=== PATIENT | female | born 1960 | race Caucasian/White ===

== ENCOUNTER 2019-01-28 15:33 | Emergency (ER) | payer OTHER ==
[~2019-01-28] VITALS: Ht 160 cm; Wt 72.6 kg
[~2019-01-28 15:33] MED LIST: AMITRIPTYLINE H25 MG PO; CELEXA40 MG PO; CLINDAMYCIN HC300 MG PO; COPAXONE40 MG/1 ML SUB-Q; FLOMAX0.4 MG PO; MYRBETRIQ25 MG PO; NORCO 5-325 TA1 EACH PO; PENICILLIN V P500 MG PO; PERCOCET 5-3251 EACH PO; PROAIR HFA8.5 GM INH; VOLTAREN-XR100 MG PO; VOLTAREN100 GM TOP; ZYRTEC10 M3 PO
--- OUTSIDE RECORDS SUMMARY | 2019-01-28 15:36 | XMS ---
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 Maximo has no Care Guidelines for this patient. Hilda VISIT COUNT (12 MO.) 1 KIM Garcia TOTAL 1 NOTE: Visits indicate total known visits. ED/UCC VISIT TRACKING (12 MO.) 01/28/2019 15:33 KIM Contreras OR TYPE: Emergency COMPLAINT: - RIGHT RIB PAIN, INJURY INPATIENT VISIT TRACKING (12 MO.) No inpatient visits to display in this time frame [email or web address]
[2019-01-28] MEDS ORDERED: AUBAGIO14 MG PO (15:45)
[2019-01-28] MEDS ORDERED: NORCO 5-325 TA1 EACH PO (16:52)
--- NOTE | 2019-01-29 12:01 | EKG ---
[facility] [address] [facility] [place] [address] Signed Normal sinus rhythm Nonspecific T wave abnormality Abnormal ECG No previous ECGs available Confirmed by BHARATH MANZO MD ([id number]) on 01/29/2019 12:01:16 PM Electronically Signed By: BHARATH MANZO MD 01/29/19 1201 PATIENT NAME: ALEXA BARRETT Electrocardiogram DATE OF : 58 PHYSICIAN: BHARATH MANZO MD REPORT #: [id number] REPORT IS CONFIDENTIAL AND NOT TO BE RELEASED WITHOUT AUTHORIZATION
== END 2019-01-28 17:39 | disposition home or self-care (01) ==
LOC: ED 15:33
DX: S22.39XA Fracture of one rib, unspecified side, initial encounter for closed fracture (principal); F17.200 Nicotine dependence, unspecified, uncomplicated; Z88.5 Allergy status to narcotic agent; Z88.6 Allergy status to analgesic agent; Z79.899 Other long term (current) drug therapy; X58.XXXA Exposure to other specified factors, initial encounter
CPT/HCPCS: 71045; 80053; 83735; 84484; 85025; 93005; 93010; 94640; 99285-25; 99406

== ENCOUNTER 2019-02-10 11:00 | Day surgery (SDC) | payer OTHER ==
[~2019-02-10] VITALS: Ht 160 cm; Wt 76.2 kg
[~2019-02-10 11:00] MED LIST changes: +AUBAGIO14 MG PO; +BUPROPION HCL150 M2 PO; +CHILDREN'S ASPI81 M1 PO; +METHOCARBAMOL750 MG PO; +ONDANSETRON ODT8 MG PO; +RIZATRIPTAN10 M1 PO; +SUDOGEST30 MG PO; +TOLTERODINE TART2 M1 PO; +TURMERIC500 M2 PO
--- NOTE | 2019-02-10 12:25 | NUR ---
02/10/19 [address] [facility],[place] [address]-PT ARRIVES TO PACU FROM ENDO ROOM AFTER MODSED BONE MARROW BX. PT LAYING ON STOMACH BUT TURNS TO BACK EASILY. VSS. SATS 100% ON 3 L VIA O2. BANDAID IN PLACE ON LOWER BACK C/D/I. PT DENIES NAUSEA AND REPORTS PAIN RELATED TO BROKEN RIBS PRIOR TO HOSPITAL ADMISSION
--- NOTE | 2019-02-12 17:25 | PATH ---
[facility] [address] [facility] [place], [place] [address] Signed SPECIMEN(S): C COMPREHENSIVE FLOW CYTOMETRY, BM EDTA SPECIMEN(S): A BONE MARROW - CORE SPECIMEN(S): B BONE MARROW - ASPIRATION CLINICAL HISTORY: 58-year-old woman with multiple rib fractures. Normal SPEP, CBC, ser. calcium. Evaluate for light chain only plasma cell dyscrasia. DIAGNOSIS SUMMARY: A. Peripheral blood - No significant abnormalities identified. B. Bone marrow, left, aspiration and core biopsy: - Normocellular bone marrow with mild relative granulocytic hyperplasia. - No morphologic or immunophenotypic evidence of a plasma cell neoplasm. - Mildly increased storage iron. - See Diagnostic Comment. DIAGNOSTIC COMMENT: Evaluation of this bone marrow specimen reveals a normocellular bone marrow with an estimated overall cellularity of 50%. An immunohistochemical stain highlights approximately 5% plasma cells that demonstrate polytypic light chain expression by in situ hybridization for kappa and lambda light chains. Concurrent flow cytometry also detected a small population of polytypic plasma cells. There is no evidence of a plasma cell neoplasm or lymphoma. and blasts are not increased. Cytogenetic analysis is pending, and the results will be issued by addendum. AIC:smn:C2NR PERIPHERAL BLOOD: HEMOGRAM ([facility]; 02/10/2019): WBC 4.9 K/uL, RBC 4.12 M/uL, HGB 12.0 g/dL, HCT 36.4%, MCV 88.5 fL, MCH 29 pg, MCHC 33 g/dL, RDW 13.9%, PLT 251 K/uL. MANUAL DIFFERENTIAL COUNT: Segmented neutrophils 56%, lymphocytes 34%, monocytes 6%, eosinophils 2%, basophils 2%. The red blood cells are present in normal number and are normochromic and normocytic with mild anisocytosis. There is no significant poikilocytosis, and red cell rouleaux formation is noted. The white blood cells are present in low normal number and are morphologically unremarkable. Circulating blasts are not identified. Platelets are present in normal number and morphology. PATIENT NAME: ALEXA BARRETT PATHOLOGY DATE OF : 58 REPORT #: [id number] PHYSICIAN: JENNIFFER CARVALHO PCP: JANIA HANKS MD REPORT IS CONFIDENTIAL AND NOT TO BE RELEASED WITHOUT AUTHORIZATION [facility] [address] [place], [place] [address] Signed BONE MARROW: BONE MARROW ASPIRATE SMEARS: The aspirate smears contain adequate cellularity for evaluation. There is a relative granulocytic hyperplasia, with a myeloid:erythroid ratio of 6.8:1. The erythroid precursors show normoblastic maturation, and the granulocytic precursors mature to segmented forms without dyspoiesis. Blasts are not increased. 3% plasma cells with predominantly mature morphology are identified. The megakaryocytes demonstrate variable morphology and are unremarkable. BONE MARROW DIFFERENTIAL COUNT: Blasts 1%, promyelocytes 2%, myelocytes 17%, metamyelocytes 19%, band neutrophils 14%, segmented neutrophils 19%, monocytes 4%, eosinophils 5%, lymphocytes 4%, plasma cells 3%, erythroid precursors 12%. Myeloid:erythroid ratio: 6.8:1. BONE MARROW CORE BIOPSY/ASPIRATE CELL BLOCK: The core biopsy reveals a normocellular bone marrow with an estimated overall cellularity of 50%. Prominent plasma cell aggregates are not identified. There is a focal lymphoid aggregate consisting predominantly of small mature lymphocytes. The megakaryocytes are present in normal number and are morphologically unremarkable. The clot section contains multiple particles with similar findings. SPECIAL STAINS: - Iron (aspirate smear): Increased storage iron, grade 3 of 4; negative for ring sideroblasts. - Iron (block B1): Scattered positivity. - Reticulin (block A1): Patchy mild reticulin fibrosis. The special stain controls react appropriately. IMMUNOHISTOCHEMICAL STAINS (blocks A1 and B1): - CD138: Highlights scattered plasma cells, estimated 5%. - CD20: Highlights several small B-cell aggregates and a few scattered interstitial B-cells. - PAX5: Highlights a fewer B-cells within lymphoid aggregates than T-cells. - CD3: Highlights several T-cell aggregates and scattered interstitial T-cells. - CD71: Highlight erythroid precursors with preserved colony architecture. IN SITU HYBRIDIZATION (blocks A1 and B1): - Olmito [place] Olmito: Highlights subset of plasma cells in a polytypic pattern. - Lambda: Highlights subset of plasma cells in a polytypic pattern. AIC:smn PATIENT NAME: ALEXA BARRETT PATHOLOGY DATE OF : 58 REPORT #: [id number] PHYSICIAN: JENNIFFER PATHOLOGY PCP: JANIA HANKS MD REPORT IS CONFIDENTIAL AND NOT TO BE RELEASED WITHOUT AUTHORIZATION [facility] [address] [place], [place] [address] Signed FLOW CYTOMETRY: Bone marrow, flow cytometry: - No monoclonal plasma cell population identified. - No increase in IC81-liicpfia blasts. - No monoclonal B-cell or aberrant T-cell population identified. - See Comment. COMMENT: Flow cytometry of this bone marrow specimen reveals no monoclonal plasma cell population, no increase in UB90-dyuolrjo blasts, or immunophenotypic evidence of a non-Hodgkin lymphoid neoplasm. Please note that the plasma cell population is typically underrepresented in flow cytometry. Final interpretation of these results requires correlation with morphologic and clinical findings. AIC:smn FLOW CYTOMETRY ANALYSIS: FLOW DIFFERENTIAL (% Total CD45 vs. SSC gating): Myeloid 80%; Lymphoid 11%; Monocyte 3%; Dim CD45/Blast 1.0%; Plasma Cells 0.4%. Cell Count: 9.9 x 10*3/uL. POPULATION ANALYSIS: BLASTS: Analysis of the dim CD45 gate demonstrates 1.0% myeloblasts by CD34/CD117. LYMPHOID CELLS: The lymphocyte gate comprises 11% of total events and includes 75% T-cells with a CD4:CD8 ratio of 1.6:1 and normal castrejon T-cell antigen expression. 11% of lymphocytes are B-cells with a kappa:lambda ratio of 1.5:1. The remainders in the lymphoid gate are NK cells. MYELOID CELLS: The myeloid population comprises 80% of the total events. No aberrant immunophenotypic expression is detected. MONOCYTES: The monocyte population comprises 3% of the total events. Monocytes are not increased. No aberrant immunophenotypic expression is detected. PLASMA CELLS: There is a noted clinical concern for plasma cell dyscrasia. For this reason, select additional antibodies are run to further characterize the plasma cells. 0.4% polytypic plasma cells are detected (n=208) expressing CD45 DIM-NEG, CD19 DIM (partial), CD38 BR, CD138 MOD and CD56 (minor subset) while negative for CD20. ANTIBODIES USED: KAPPA, LAMBDA, CD20, CD10, CD19, CD23, CD38, FMC7, CD16, CD56, CD8, CD5, CD2, CD4, CD7, CD3,CD14, CD33, CD13, HLADR, CD34, CD117, CD15, cKAPPA, cLAMBDA, CD138, CD45: TOTAL ANTIBODIES USED: 27. DKW FINAL DIAGNOSIS PERFORMED BY: Jessie White MD, Pathologist Feb 11 2019 2:28PM PATIENT NAME: ALEXA BARRETT PATHOLOGY DATE OF : 58 REPORT #: [id number] PHYSICIAN: JENNIFFER PATHOLOGY PCP: JANIA HANKS MD REPORT IS CONFIDENTIAL AND NOT TO BE RELEASED WITHOUT AUTHORIZATION [facility] [address] [place], [place] [address] Signed CYTOGENETICS: Pending, to be reported by addendum. GROSS DESCRIPTION: A. The specimen, received in formalin, labeled "Ion, bone core," consists of a 1.6 x 0.2 cm, moran bone core. Submitted in (A1) following decalcification in Immunocal for 1.5 hours. B. The specimen, received in formalin, labeled "Ion, clot," consists of a 1.5 x 1.4 x 0.2 cm aggregate of blood clot. Entirely submitted in (B1). tn:BMH:mrf ADDITIONAL NOTES: This test was developed and its performance characteristics determined by [facility]. It has not been cleared or approved by the US Food and Drug Administration. The FDA does not require this test to go through premarket FDA review. This test is used for clinical purposes. It should not be regarded as investigational or for research. This laboratory is certified under the Clinical Laboratory Improvement Amendments (CLIA) as qualified to perform high complexity clinical laboratory testing. Immunohistochemical and/or in situ hybridization studies were performed on this case with the appropriate positive controls that react as expected. This test was developed and its performance characteristics determined by [facility]. It has not been cleared or approved by the U.S. Food and Drug Administration. The FDA has determined that such clearance or approval is not necessary. This test is used for clinical purposes. It should not be regarded as investigational or for research. [facility] is certified under the Clinical Laboratory Improvement Amendments of 1988 (CLIA) as qualified to perform high complexity clinical laboratory testing. In this case, certain antibodies were performed by both immunohistochemistry and flow cytometry analysis because flow cytometry analysis did not fully explain all the light microscopic findings. Immunohistochemistry aided in the analysis. Both methods are deemed medically necessary in this case. PERFORMING LABORATORY: Professional interpretation was performed by [facility], [facility], [address] [place] [address] (Medical PATIENT NAME: ALEXA BARRETT PATHOLOGY DATE OF : 58 REPORT #: [id number] PHYSICIAN: JENNIFFER CARVALHO PCP: JANIA HANKS MD REPORT IS CONFIDENTIAL AND NOT TO BE RELEASED WITHOUT AUTHORIZATION [facility] [address] [place] [id number] Signed Director: Jv Parker M.D.; CLIA#: [id number]). Professional interpretation was performed by [facility], [facility], [address] [place] [address] ([employer]: Jv Parker M.D.; [facility]#: [id number]). IMAGES: [id number]: [id number]: [id number] Diagnostician: Jessie White MD Pathologist Electronically Signed 02/12/2019 Copies: ~ PATIENT NAME: ALEXA BARRETT PATHOLOGY DATE OF : 58 REPORT #: [id number] PHYSICIAN: JENNIFFER PATHOLOGY PCP: JANIA HANKS MD REPORT IS CONFIDENTIAL AND NOT TO BE RELEASED WITHOUT AUTHORIZATION
== END 2019-02-10 12:55 | disposition home or self-care (01) ==
LOC: OPS 11:00 → DS 11:02 → OPS 12:00 → DS 12:00 → OPS 12:55
PROVIDERS: Specialist
PROC: 079T3ZX Drainage of Bone Marrow, Percutaneous Approach, Diagnostic (ICD-10-PCS; 2019-02-10)
PROC: 07DR3ZX Extraction of Iliac Bone Marrow, Percutaneous Approach, Diagnostic (ICD-10-PCS; principal; 2019-02-10 12:00)
DX: C90.00 Multiple myeloma not having achieved remission (principal); D75.89 Other specified diseases of blood and blood-forming organs; M84.68XA Pathological fracture in other disease, other site, initial encounter for fracture; J45.909 Unspecified asthma, uncomplicated; G35 Multiple sclerosis; M19.90 Unspecified osteoarthritis, unspecified site; F17.210 Nicotine dependence, cigarettes, uncomplicated; Z88.5 Allergy status to narcotic agent
CPT/HCPCS: 80500; 82232; 83883; 85025; 85379; 85384; 85610; 85730; 99152; J2250; J3010

== ENCOUNTER 2019-03-05 15:29 | Emergency (ER) | payer OTHER ==
[~2019-03-05] VITALS: Ht 160 cm; Wt 75.8 kg
--- OUTSIDE RECORDS SUMMARY | ~2019-03-05 | XMS | Encounter Summary ---
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 [facility] | | | PROTEIN, | | | LABORATORY | | | PLASMA | | | SERVICES, | | | (LAB) | | | CORE | | + +---------+ + + + | ALBUMIN, | 3.8 | 3.5 - 4.7 g/dL | [facility] | | | PLASMA | | | LABORATORY | | | (LAB) | | | SERVICES, | | | | | | CORE | | + +---------+ + + + | ALK PHOS | 92 | 42 - 98 U/L | [facility] | | | | | | LABORATORY | | | | | | SERVICES, | | | | | | CORE | | + +---------+ + + + | AST(SGOT) | 10 | <=41 U/L | [facility] | | | | | | LABORATORY | | | | | | SERVICES, | | | | | | CORE | | + +---------+ + + + | ALT (SGPT) | 15 | <=60 U/L | [facility] | | | | | | LABORATORY | | | | | | SERVICES, | | | | | | CORE | | + +---------+ + + + | ANION GAP | 4 | 4 - 11 mmol/L | [facility] | | | | | | LABORATORY | | | | | | SERVICES, | | | | | | CORE | | + +---------+ + + + | ANION | 4 | 4 - 11 mmol/L | [facility] | | | GAP(ALB | | | LABORATORY | | | CORRECTED) | | | SERVICES, | | | | | | CORE | | + +---------+ + + + | POTASSIUM | No Hemo | | [facility] | | | CMNT | | | LABORATORY | | | | | | SERVICES, | | | | | | CORE | | + +---------+ + + + | BILI T CMNT | No Hemo | | [facility] | | | | | | LABORATORY | | | | | | SERVICES, | | | | | | CORE | | + +---------+ + + + | AST CMNT | No Hemo | | [facility] | | | | | | LABORATORY | | | | | | SERVICES, | | | | | | CORE | | + +---------+ + + + + + | Specimen | + + | Blood - Blood | | (substance) | + + + + + | Narrative | Performed At | + + + | GFR is estimated using the MDRD equation recommended by the | [facility] | | National Kidney Disease Education Program. Estimated GFR | LABORATORY | | Interpretive Information: <60 mL/min/1.73 sq m | SERVICES, CORE | | Chronic Kidney Disease <15 mL/min/1.73 sq m | | | Kidney Failure Estimated GFR greater than 60 mL/min/1.73 sq m is of | | | limited clinical value. The MDRD equation is not valid in the | | | following situations: - Patients under 18 years of age - Severe | | | malnutrition or obesity - Vegetarian diet - Rapidly changing kidney | | | function - Amputees, paraplegics, or other muscle-wasting diseses | | + + + + + + + + | Performing | Address | City/State/Zipcode | Phone Number | | Organization | | | | + + + + + | [facility] | [address] | [place] [address] | | | SERVICES, CORE | [address] | | | + + + + + documented in this encounter Visit Diagnoses + + | Diagnosis | + + | Multiple sclerosis (HCC) - Primary Multiple sclerosis | + + documented in this encounter"
--- OUTSIDE RECORDS SUMMARY | ~2019-03-05 | XMS | Encounter Summary ---
Demographics + + + | Address | [address] | | | [place] [address] | + + + | Home Phone | | + + + | Preferred Language | Unknown | + + + | Marital Status | | + + + | Taoist Affiliation | Unknown | + + + | Race | White | + + + | Ethnic Group | Not or | + + + Author + + + | Author | [facility] | + + + | Organization | [facility] | + + + | Address | Unknown | + + + | Phone | Unavailable | + + + Support + + +---------+ + | Name | Relationship | Address | Phone | + + +---------+ + | Klever Hsu | ECON | Unknown | | + + +---------+ + Care Team Providers + +------+ + | Care Hazmat Technician Name | Role | Phone | + +------+ + | Jose Alberto Jones MD | PCP | | + +------+ + Reason for Visit + + + | Reason | Comments | + + + | Refill Request | | + + + Encounter Details +--------+--------+ + + + | Date | Type | Department | Care Team | Description | +--------+--------+ + + + | 02/19/ | Refill | Neurology at | Kaitlynn Leyva, | Refill Request | | 2019 | | [facility] & | MD [address] | | | | | [address] | [place], [place] | | | | | [address] Wallace Mailcode: | [address] | | | | | [facility] | [phone] | | | | | Health and Healing, | | | | | | [facility] | | | | | | [place], [place] | | | | | | [address] | | | | | | [phone] | | | +--------+--------+ + + + Social History + +-------+ +--------+------+ | Tobacco Use | Types | Packs/Day | Years | Date | | | | | Used | | + +-------+ +--------+------+ | Current Some Day | | 1 | | | [...] + + documented as of this encounter Plan of Treatment +--------+---------+ + + + | Date | Type | Specialty | Care Team | Description | +--------+---------+ + + + | 04/05/ | Office | Thoracic Surgery | Antonio Kaur MD | | | 2018 | Visit | | [address] | | | | | | [address] | | | | | | [place], [place] | | | | | | [address] | | | | | | [phone] | | | | | | | | +--------+---------+ + + + | 04/26/ | Office | Neurology | Kaitlynn Leyva, | | | 2018 | Visit | | [address] | | | | | | [place], [place] | | | | | | [address] | | | | | | [phone] | | | | | | | | +--------+---------+ + + + documented as of this encounter Visit Diagnoses Not on filedocumented in this encounter"
--- OUTSIDE RECORDS SUMMARY | ~2019-03-05 | XMS | Encounter Summary ---
Demographics + + + | Address | [address] | | | [place] [address] | + + + | Home Phone | | + + + | Preferred Language | Unknown | + + + | Marital Status | | + + + | Jain Affiliation | Unknown | + + + | Race | White | + + + | Ethnic Group | Not or | + + + Author + + + | Author | [facility] | + + + | Organization | [facility] | + + + | Address | Unknown | + + + | Phone | Unavailable | + + + Support + + +---------+ + | Name | Relationship | Address | Phone | + + +---------+ + | Klevre Hsu | ECON | Unknown | | + + +---------+ + Care Team Providers + +------+ + | Care Applications Support Engineer Name | Role | Phone | + +------+ + | Jose Alberto Jones MD | PCP | | + +------+ + Encounter Details +--------+------+ + + + | Date | Type | Department | Care Team | Description | +--------+------+ + + + | 08/29/ | Lab | Laboratory at [facility] | | Multiple sclerosis | | 2016 | | [address] | | ([facility]); Restless legs | | | | [place], [place] | | | | | | [address] | | | | | | [phone] | | | +--------+------+ + + + Social History + +-------+ [...] | | 2018 | Visit | | [address] | | | | | | [address] | | | | | | [place], [place] | | | | | | [address] | | | | | | [phone] | | | | | | | | +--------+---------+ + + + | 04/26/ | Office | Neurology | Kaitlynn Leyva, | | | 2018 | Visit | | [address] | | | | | | [place], [place] | | | | | | [address] | | | | | | [phone] | | | | | | | | +--------+---------+ + + + documented as of this encounter Procedures + +--------+ + + + | Procedure Name | Priori | Date/Time | Associated Diagnosis | Comments | | | ty | | | | + +--------+ + + + | TSH W/REFLEX TO FREE | Routin | 08/30/2015 | Multiple sclerosis | Results for this | | T4(IF ABNORMAL) | e | 10:33 AM | (HCC) Restless | procedure are in the | | | | PDT | legs | results section. | + +--------+ + + + | VITAMIN D, | Routin | 08/30/2015 | Multiple sclerosis | Results for this | | 25-HYDROXY, SERUM | e | 10:33 AM | (HCC) Restless | procedure are in the | | | | PDT | legs | results section. | + +--------+ + + + | TRANSFERRIN | Routin | 08/30/2015 | Multiple sclerosis | Results for this | | | e | 10:33 AM | (HCC) Restless | procedure are in the | | | | PDT | legs | results section. | + +--------+ + + + | METHYLMALONIC ACID, | Routin | 08/30/2015 | Multiple sclerosis | Results for this | | SERUM | e | 10:33 AM | (HCC) Restless | procedure are in the | | | | PDT | legs | results section. | + +--------+ + + + | FERRITIN | Routin | 08/30/2015 | Multiple sclerosis | Results for this | | | e | 10:33 AM | (HCC) Restless | procedure are in the | | | | PDT | legs | results section. | + +--------+ + + + | FREE T4 | Routin | 08/30/2015 | Multiple sclerosis | Results for this | | | e | 10:33 AM | (HCC) Restless | procedure are in the | | | | PDT | legs | results section. | + +--------+ + + + | VITAMIN B-12 | Routin | 08/30/2015 | Multiple sclerosis | Results for this | | | e | 10:33 AM | (HCC) Restless | procedure are in the | | | | PDT | legs | results section. | + +--------+ + + + | IRON AND TIBC, SERUM | Routin | 08/30/2015 | Multiple sclerosis | Results for this | | | e | 10:33 AM | (HCC) Restless | procedure are in the | | | | PDT | legs | results section. | + +--------+ + + + documented in this encounter Results FREE T4 (08/30/2015 10:33 AM PDT) + +-------+ + + + | Component | Value | Ref Range | Performed | Pathologist | | | | | At | Signature | + +-------+ + + + | FREE T4 | 1.0 | 0.6 - 1.2 ng/dL | [facility] | | | | | | LABORATORY | | | | | | SERVICES, | | | | | | CORE | | + +-------+ + + + + + | Specimen | + + | Blood - Blood | | (substance) | + + + + + + + | Performing | Address | City/State/Zipcode | Phone Number | | Organization | | | | + + + + + | [facility] | [address] | [place] [address] | | | SERVICES, CORE | [address] | | | + + + + + VITAMIN B-12, SERUM (08/30/2015 10:33 AM PDT) + +-------+ + + + | Component | Value | Ref Range | Performed | Pathologist | | | | | At | Signature | + +-------+ + + + | VITAMIN B12 | 241 | 190 - 910 pg/ml | [facility] | | | | | | LABORATORY | | | | | | SERVICES, | | | | | | SPECIAL IMM | | | | | | + COAG | | + +-------+ + + + + + | Specimen | + + | Blood - Blood | | (substance) | + + + + + + + | Performing | Address | City/State/Zipcode | Phone Number | | Organization | | | | + + + + + | [facility] | [address] | [place] [address] | | | SERVICES, SPECIAL | [address] | | | | IMM + COAG | | | | + + + + + VITAMIN D, 25-HYDROXY, SERUM (08/30/2015 10:33 AM PDT) + + + + + + | Component | Value | Ref Range | Performed | Pathologist | | | | | At | Signature | + + + + + + | VITAMIN D | 94.6 (H) | 30 - 80 ng/mL | [facility] | | | 25 HYDROXY | | | LABORATORY | | | | | | SERVICES, | | | | | | CORE | | + + + + + + + + | Specimen | + + | Blood - Blood | | (substance) | + + + + + | Narrative | Performed At | + + + | Reference Interval: 0-18years: Deficiency: <20 ng/mL | [facility] | | Optimum level: >or=20 ng/mL | LABORATORY | | >18years: Deficiency: <20 | SERVICES, CORE | | ng/mL Insufficiency: 20-29 ng/mL | | | Optimum Level: 30-80 ng/mL High: | | | 81-150 ng/ml Toxic: >150 ng/mL | | | New method and performing lab effective 06/08/15. | | + + + + + + + + | Performing | Address | City/State/Zipcode | Phone Number | | Organization | | | | + + + + + | [facility] | [address] | [place] [address] | | | SERVICES, [facility] | [address] | | | + + + + + METHYLMALONIC ACID, SERUM (08/30/2015 10:33 AM PDT) + + + + + + | Component | Value | Ref Range | Performed | Pathologist | | | | | At | Signature | + + + + + + | METHYLMALON | 0.22Comment: | 0.00 - 0.40 | [facility] | | | IC ACID | INTERPRETIVE | umol/L | REG UNIV | | | | INFORMATION: MMA | | PTH - [facility] | | | | Serum/Plasma, | | | | | | | | | | | | Vitamin B12 Status | | | | | | Test developed and | | | | | | characteristics | | | | | | determined by [facility] | | | | | | Laboratories. See | | | | | | Compliance Statement B: | | | | | | [employer]/CSPerformed | | | | | | by [address] | | | | | | [address], [facility] [place] | | | | | | [address] | | | | | | [phone].[employer]Legallab. | | | | | | [employer], Alexis Dunbar, | | | | | | Hattie NEWSOME. Director | | | | + + + + + + + + | Specimen | + + | Blood - Blood | + + + + + + + | Performing | Address | City/State/Zipcode | Phone Number | | Organization | | | | + + + + + | [facility] | [address] | [place], [place] | | | UNIV PTH - [facility] | | [address] | | + + + + + TSH W/REFLEX TO FREE T4(IF ABNORMAL) (08/30/2015 10:33 AM PDT) + +-------+ + + + | Component | Value | Ref Range | Performed | Pathologist | | | | | At | Signature | + +-------+ + + + | TSH | 0.76 | 0.50 - 5.07 | [facility] | | | | | mIU/L | LABORATORY | | | | | | SERVICES, | | | | | | CORE | | + +-------+ + + + + + | Specimen | + + | Blood - Blood | | (substance) | + + + + + | Narrative | Performed At | + + + | TSH reference ranges are influenced by a variety of environmental | [facility] | | influences, age, gender and ethnicity. The supplied reference limits | LABORATORY | | are based on published values utilizing a similar TSH assay, and | SERVICES, CORE | | should be interpreted with caution. | | + + + + + + + + | Performing | Address | City/State/Zipcode | Phone Number | | Organization | | | | + + + + + | [facility] | [address] | [place] [address] | | | [address] | [address] | | | + + + + + TRANSFERRIN (08/30/2015 10:33 AM PDT) + +-------+ + + + | Component | Value | Ref Range | Performed | Pathologist | | | | | At | Signature | + +-------+ + + + | TRANSFERRIN | 228 | 200 - 400 mg/dL | [facility] | | | | | | LABORATORY | | | | | | SERVICES, | | | | | | CORE | | + +-------+ + + + + + | Specimen | + + | Blood - Blood | | (substance) | + + + + + | Narrative | Performed At | + + + | Test now performed at [facility]. New method effective 10/20/13. | [facility] | | | LABORATORY | | | [address] | + + + + + + + + | Performing | Address | City/State/Zipcode | Phone Number | | Organization | | | | + + + + + | [facility] | [address] | [place] [address] | | | [address] | [address] | | | + + + + + FERRITIN (08/30/2015 10:33 AM PDT) + + + + + + | Component | Value | Ref Range | Performed | Pathologist | | | | | At | Signature | + + + + + + | FERRITIN | 38 (L)Comment: Male and | 50 - 200 ng/mL | [facility] | | | | Female >18 years: | | LABORATORY | | | | <20 ng/mL: | | SERVICES, | | | | Consistant with iron | | CORE | | | | deficiency 21-50 | | | | | | ng/mL: Possible | | | | | | iron deficiency 51-99 | | | | | | ng/mL: Iron | | | | | | deficiency unlikely | | | | | | unless inflammation | | | | | | present or | | | | | | patient | | | | | | >65 years of age | | | | | | 100-200 ng/mL: | | | | | | Normal, not consistent | | | | | | with iron deficiency | | | | | | >200 ng/mL: If | | | | | | transferrin saturation | | | | | | >45%, consider | | | | | | hemochromatosis | | | | + + + + + + + + | Specimen | + + | Blood - Blood | | (substance) | + + + + + + + | Performing | Address | City/State/Zipcode | Phone Number | | Organization | | | | + + + + + | [facility] | [address] | [place] [address] | | | SERVICES, CORE | [address] | | | + + + + + IRON AND TIBC (08/30/2015 10:33 AM PDT) + +-------+ + + + | Component | Value | Ref Range | Performed | Pathologist | | | | | At | Signature | + +-------+ + + + | IRON | 116 | 30 - 160 ug/dL | [facility] | | | | | | LABORATORY | | | | | | SERVICES, | | | | | | CORE | | + +-------+ + + + | IRON BIND | 308 | 240 - 450 ug/dL | [facility] | | | CAP | | | LABORATORY | | | | | | SERVICES, | | | | | | CORE | | + +-------+ + + + | % | 38 | 20 - 50 % | [facility] | | | SATURATION | | | LABORATORY | | | TRANSFERRIN | | | SERVICES, | | | , | | | CORE | | + +-------+ + + + + + | Specimen | + + | Blood - Blood | | (substance) | + + + + + + + | Performing | Address | City/State/Zipcode | Phone Number | | Organization | | | | + + + + + | [facility] | [address] | [place] [address] | | | SERVICES, CORE | [address] | | | + + + + + documented in this encounter Visit Diagnoses + + | Diagnosis | + + | Multiple sclerosis (HCC) Multiple sclerosis | + + | Restless legs Restless legs syndrome (RLS) | + + documented in this encounter"
--- OUTSIDE RECORDS SUMMARY | ~2019-03-05 | XMS | Encounter Summary ---
Demographics + + + | Address | [address] | | | [place] [address] | + + + | Home Phone | | + + + | Preferred Language | Unknown | + + + | Marital Status | | + + + | Pentecostal Affiliation | Unknown | + + + | Race | White | + + + | Ethnic Group | Not or | + + + Author + + + | Author | [facility] | + + + | Organization | [facility] | + + + | Address | Unknown | + + + | Phone | Unavailable | + + + Support + + +---------+ + | Name | Relationship | Address | Phone | + + +---------+ + | Klever Hsu | ECON | Unknown | | + + +---------+ + Care Team Providers + +------+ + | Care Silicator Name | Role | Phone | + +------+ + | Jose Alberto Jones MD | PCP | | + +------+ + Encounter Details +--------+ + + + + | Date | Type | Department | Care Team | Description | +--------+ + + + + | 06/02/ | Telephone | Neurology at | Kaitlynn Leyva, | | | 2019 | | [facility] | MD [address] | | | | | Healing [address] | [place], [place] | | | | | [address] Mailcode: | [address] | | | | | [facility] | [phone] | | | | | Health and Healing, | | | | | | | | | | | | [place], [place] | | | | | | [address] | | | | | | [phone] | | | +--------+ + + + + Social History + +-------+ [...] [address] | | | | | | [place], [place] | | | | | | [address] | | | | | | [phone] | | | | | | | | +--------+---------+ + + + | 04/26/ | Office | Neurology | Kaitlynn Leyva, | | | 2018 | Visit | | [address] | | | | | | [place], [place] | | | | | | [address] | | | | | | [phone] | | | | | | | | +--------+---------+ + + + documented as of this encounter Visit Diagnoses Not on filedocumented in this encounter"
--- OUTSIDE RECORDS SUMMARY | ~2019-03-05 | XMS | Clinical Summary ---
Demographics + + + | Address | [address] | | | [place] [address] | + + + | Home Phone | | + + + | Preferred Language | Unknown | + + + | Marital Status | | + + + | Scientologist Affiliation | [id number] | + + + | Race | Unknown | + + + | Ethnic Group | Unknown | + + + Author + + + | Author | [facility] | | | and [place] | + + + | Organization | [facility] | | | and [facility] | + + + | Address | Unknown | + + + | Phone | Unavailable | + + + Support + + +---------+ + | Name | Relationship | Address | Phone | + + +---------+ + | Klever Hsu | ECON | Unknown | | + + +---------+ + Care Team Providers + +------+ + | Care Seismic Engineer Name | Role | Phone | + +------+ + | Jose Alberto Jones MD | PCP | | + +------+ + Allergies Not on File Medications Not on file Active Problems Not on file Encounters +--------+ + + + + | Date | Type | Specialty | Care Team | Description | +--------+ + + + + | 01/28/ | Imaging | Radiology | Jaron, | | | 2018 | Exam | | MD Hui | | +--------+ + + + + | 01/21/ | Imaging | Radiology | Provider, | | | 2018 | Exam | | Historical, MD | | +--------+ + + + + | 01/12/ | Imaging | Radiology | Provider, | | | 2019 | Exam | | Historical, MD | | +--------+ + + + + from Last 3 Months Family History + + +------+ + | Medical History | Relation | Name | Comments | + + +------+ + | Diabetes | Father | | | + + +------+ + | Cancer | Mother | | kidney | + + +------+ + + +------+--------+ + | Relation | Name | Status | Comments | + +------+--------+ + | Father | | | | + +------+--------+ + | Mother | | | | + +------+--------+ + Social History + +-------+ +--------+------+ | Tobacco Use | Types | Packs/Day | Years | Date | | | | | Used | | + +-------+ +--------+------+ | Current Every Day | | | | | | Smoker | | | | | + +-------+ +--------+------+ + + | Comments: 0.5 pack daily | + + + + + | Sex Assigned [...] recent travel history available. | + + Last Filed Vital Signs Not on file Plan of Treatment + + + + + | Health Maintenance | Due Date | Last Done | Comments | + + + + + | Vaccine: | | | | | Dtap/Tdap/Td (1 - | 9 | | | | Tdap) | | | | + + + + + | Cervical Cancer | | | | | Screening (Pap) | 0 | | | + + + + + | Vaccine: Zoster (1 | | | | | of 2) | 0 | | | + + + + + | Breast Cancer | | | | | Screening | 5 | | | + + + + + | Vaccine: Influenza | | | | | (#1) | 9 | | | + + + + + Procedures + +--------+ + + + | Procedure Name | Priori | Date/Time | Associated Diagnosis | Comments | | | ty | | | | + +--------+ + + + | XR CHEST 1 VIEW | Routin | 01/28/2019 | | Results for this | | | e | 0:00 PDT | | procedure are in the | | | | | | results section. | + +--------+ + + + | CT CHEST ABDOMEN | Routin | 01/21/2019 | | Results for this | | PELVIS W CONTRAST | e | 0:00 PDT | | procedure are in the | | | | | | results section. | + +--------+ + + + | NM BONE SCAN WHOLE | Routin | 01/12/2019 | | Results for this | | BODY | e | 0:00 PDT | | procedure are in the | | | | | | results section. | + +--------+ + + + from Last 3 Months Results XR Chest 1 Vw (01/28/2019 0:00 PDT) + + | Specimen | + + | | + + + + + | Narrative | Performed At | + + + | External films for comparison only | [facility] | | | | | No results will be in the chart. | | + + + + +---------+ + + | Performing | Address | City/State/Zipcode | Phone Number | | Organization | | | | + +---------+ + + | [facility] | | | | + +---------+ + + CT Chest Abdomen Pelvis w Contrast (01/21/2019 0:00 PDT) + + | Specimen | + + | | + + + + + | Narrative | Performed At | + + + | External films for comparison only | [facility] | | | | | No results will be in the chart. | | + + + + +---------+ + + | Performing | Address | City/State/Zipcode | Phone Number | | Organization | | | | + +---------+ + + | [facility] | | | | + +---------+ + + NM Bone Scan Whole Body (01/12/2019 0:00 PDT) + + | Specimen | + + | | + + + + + | Narrative | Performed At | + + + | External films for comparison only | [facility] | | | | | No results will be in the chart. | | + + + + +---------+ + + | Performing | Address | City/State/Zipcode | Phone Number | | Organization | | | | + +---------+ + + | [facility] | | | | + +---------+ + + from Last 3 Months Insurance + +--------+ +--------+ +---------+------+ | Payer | Benefi | Subscriber | Effect | Phone | Address | Type | | | t Plan | ID | neida | | | | | | / | | Dates | | | | | | Group | | | | | | + +--------+ +--------+ +---------+------+ | [employer] | PACIFI | [id number] | 05/19/19 | [phone] | | PPO | | | [employer] | | 19-Pre | 2 | | | | | E PSN | | sent | | | | | | PRIME | | | | | | | | CHOICE | | | | | | + +--------+ +--------+ +---------+------+ + +--------+ +--------+ + + | Guarantor Name | Accoun | Relation to | Date | Phone | Billing Address | | | t Type | Patient | of | | | | | | | | | | + +--------+ +--------+ + + | Danisha Lemon | Person | Self | [birth year] | [address] | | [address] | | 1961 | [phone] | [place] [address] | | | sky | | | 6 (Home) | | + +--------+ +--------+ + + Advance Directives Patient has advance care planning documents on file. For more information, please contact:[facility] [place] [address]"
--- OUTSIDE RECORDS SUMMARY | ~2019-03-05 | XMS | Clinical Summary ---
Demographics + + + | Address | [address] | | | [place] [address] | + + + | Home Phone | | + + + | Preferred Language | Unknown | + + + | Marital Status | | + + + | Islam Affiliation | 1008 | + + + | Race | Unknown | + + + | Ethnic Group | Unknown | + + + Author + + + | Author | [facility] | | | and [place] | + + + | Organization | [facility] | | | and [place] | [...] Team Providers + +------+ + | Care Route Aide Name | Role | Phone | + [...] +--------+ +---------+------+ | [employer] | PACIFI | [id number] | 05/19/19 | [phone] | | PPO [...] | 1961 | [phone] | [place] [address] | | | sky | | | 6 (Home) | | + +--------+ +--------+ + + Advance Directives Patient has advance care planning documents on file. For more information, please contact:[facility] [address]"
--- OUTSIDE RECORDS SUMMARY | ~2019-03-05 | XMS | Encounter Summary ---
Demographics + + + | Address | [address] | | | [place] [address] | + + + | Home Phone | | + + + | Preferred Language | Unknown | + + + | Marital Status | | + + + | Restorationism Affiliation | Unknown | + + + | Race | White | + + + | Ethnic Group | Not or | + + + Author + + + | Author | [facility] | + + + | Organization | [facility] | + + + | Address | Unknown | + + + | Phone | Unavailable | + + + Support + + +---------+ + | Name | Relationship | Address | Phone | + + +---------+ + | Klever Hsu | ECON | Unknown | | + + +---------+ + Care Team Providers + +------+ + | Care Bellhop Service Captain Name | Role | Phone | + +------+ + | Jose Alberto Jones MD | PCP | | + +------+ + Encounter Details +--------+ + + + + | Date | Type | Department | Care Team | Description | +--------+ + + + + | 08/03/ | Pharmacy | [facility] | | | | 2019 | Visit | [address] | | | | | | [facility] [address] | | | | | | [place] [address] | | | | | | [phone] | | | +--------+ + + + [...] [address] | | | | | | [place] | | | | | | [address] | | | | | | [phone] | | | | | | | | +--------+---------+ + + + | 04/26/ | Office | Neurology | Kaitlynn Leyva, | | | 2018 | Visit | | [address] | | | | | | [place] | | | | | | [address] | | | | | | [phone] | | | | | | | | +--------+---------+ + + + documented as of this encounter Visit Diagnoses Not on filedocumented in this encounter"
--- OUTSIDE RECORDS SUMMARY | ~2019-03-05 | XMS | Encounter Summary ---
Demographics + + + | Address | [address] | | | [place] [address] | + + + | Home Phone | | + + + | Preferred Language | Unknown | + + + | Marital Status | | + + + | Congregational Affiliation | Unknown | + + + | Race | White | + + + | Ethnic Group | Not or | + + + Author + + + | Author | [facility] | + + + | Organization | [facility] | + + + | Address | Unknown | + + + | Phone | Unavailable | + + + Support + + +---------+ + | Name | Relationship | Address | Phone | + + +---------+ + | Klever Hsu | ECON | Unknown | | + + +---------+ + Care Team Providers + +------+ + | Care Riding Instructor Name | Role | Phone | + +------+ + | Jose Alberto Jones MD | PCP | | + +------+ + Encounter Details +--------+ + + + + | Date | Type | Department | Care Team | Description | +--------+ + + + + | 12/02/ | Document-Sc | UNKNOWN DEPARTMENT | Unknown . | | | 2013 | anned | [address] | | | | | | [address] | | | | | | [place], [place] | | | | | | [address] | | | +--------+ + + + + Social History + +-------+ +--------+------+ | Tobacco Use | Types | Packs/Day | Years | Date | | | | | Used | | + +-------+ +--------+------+ | Never Assessed | | | | | + +-------+ +--------+------+ + + + | Sex Assigned at [...] | Office | Thoracic Surgery | Antonio Kuar MD | | | 2018 | Visit | | [address] | | | | | | [address] | | | | | | [place], [place] | | | | | | [address] | | | | | | [phone] | | | | | | | | +--------+---------+ + + + | 04/26/ | Office | Neurology | Kaitlynn Leyva | | | 2018 | Visit | | [address] | | | | | | [place], [place] | | | | | | [address] | | | | | | [phone] | | | | | | | | +--------+---------+ + + + documented as of this encounter Visit Diagnoses Not on filedocumented in this encounter"
--- OUTSIDE RECORDS SUMMARY | ~2019-03-05 | XMS | Encounter Summary ---
Demographics + + + | Address | [address] | | | [place] [address] | + + + | Home Phone | | + + + | Preferred Language | Unknown | + + + | Marital Status | | + + + | Sikhism Affiliation | Unknown | + + + | Race | White | + + + | Ethnic Group | Not or | + + + Author + + + | Author | [facility] | + + + | Organization | [facility] | + + + | Address | Unknown | + + + | Phone | Unavailable | + + + Support + + +---------+ + | Name | Relationship | Address | Phone | + + +---------+ + | Klever Hsu | ECON | Unknown | | + + +---------+ + Care Team Providers + +------+ + | Care Dip Filler Name | Role | Phone | + +------+ + | Jose Alberto Jones MD | PCP | | + +------+ + Encounter Details +--------+ + + + + | Date | Type | Department | Care Team | Description | +--------+ + + + + | 09/07/ | MyChart | Neurology at | Anali Shaikh, | RE: Test results | | 2014 | Encounter | [facility] & | [address] | | | | | [address] | | | | | [address] Mailcode: | [place], [place] | | | | | [address] | [address] | | | | | Health and Healing, | [phone] | | | | | | | | | | | Floor [place], [place] | | | | | | [address] | | | | | | [phone] | | | +--------+ + + + [...] | | 2018 | Visit | | [address] | | | | | | [address] | | | | | | [facility] [place] | | | | | | [address] | | | | | | [phone] | | | | | | | | +--------+---------+ + + + | 04/26/ | Office | Neurology | Kaitlynn Leyva, | | | 2018 | Visit | | [address] | | | | | | [place], [place] | | | | | | [address] | | | | | | [phone] | | | | | | | | +--------+---------+ + + + documented as of this encounter Visit Diagnoses Not on filedocumented in this encounter"
--- OUTSIDE RECORDS SUMMARY | ~2019-03-05 | XMS | Encounter Summary ---
Demographics + + + | Address | [address] | | | [place] [address] | + + + | Home Phone | | + + + | Preferred Language | Unknown | + + + | Marital Status | | + + + | Jehovah'S Witness Affiliation | Unknown | + + + | Race | White | + + + | Ethnic Group | Not or | + + + Author + + + | Author | [facility] | + + + | Organization | [facility] | + + + | Address | Unknown | + + + | Phone | Unavailable | + + + Support + + +---------+ + | Name | Relationship | Address | Phone | + + +---------+ + | Klever Hsu | ECON | Unknown | | + + +---------+ + Care Team Providers + +------+ + | Care Elevator Mechanic Name | Role | Phone | + +------+ + | Jose Alberto Jones MD | PCP | | + +------+ + Reason for Referral Diagnostic Testing (Routine) +--------+--------+ + + + + | Status | Reason | Specialty | Diagnoses / | Referred By | Referred To | | | | | Procedures | Contact | Contact | +--------+--------+ + + + + | Closed | | Radiology | Diagnoses | [facility], | [facility] | | | | | Multiple | Woodrow Ghotra DO | [address] | | | | | sclerosis | [address] | | | | | (HCC) | [address] | [address] | | | | | Procedures | [place], [place] | Mailcode: | | | | | MRI BRAIN | [address] | [address] | | | | | MULTIPLE | | [address] | | | | | SCLEROSIS | | Research | | | | | WWO CONTRAST | | Center | | | | | [place] MRI | | [facility] [place] | | | | | BRAIN COMBO | | [address] | | | | | | | Phone: | | | | | | | [phone] | | | | | | | Fax: | | | | | | | [phone] | +--------+--------+ + + + + Reason for Visit Diagnostic Testing (Routine) +--------+--------+ + + + + | Status | Reason | Specialty | Diagnoses / | Referred By | Referred To | | | | | Procedures | Contact | Contact | +--------+--------+ + + + + | Closed | | Radiology | Diagnoses | [facility]idi, | [facility] | | | | | Multiple | Woodrow R DO | [address] | | | | | sclerosis | [address] | | | | | (HCC) | [address] | Rd | | | | | Procedures | [place], [place] | Mailcode: | | | | | MRI BRAIN | [address] | [address] | | | | | MULTIPLE | | [address] | | | | | SCLEROSIS | | Research | | | | | WWO CONTRAST | | Center | | | | | [place] MRI | | [place], [place] | | | | | BRAIN COMBO | | [address] | | | | | | | Phone: | | | | | | | [phone] | | | | | | | Fax: | | | | | | | [phone] | +--------+--------+ + + + + Encounter Details +--------+ + + + + | Date | Type | Department | Care Team | Description | +--------+ + + + + | 10/03/ | Hospital | Diagnostic Imaging | | | | 2016 | Encounter | Services at [facility] | | | | | | [address] | | | | | | [place] Mailcode: | | | | | | [address] | | | | | | [facility] | | | | | | [place], [place] | | | | | | [address] | | | | | | [phone] | | | +--------+ + + + [...] + + documented as of this encounter Medications at Time of Discharge + + + +---------+ + + | Medication | Sig | Dispensed | Refills | Start | End Date | | | | | | Date | | + + + +---------+ + + | ALBUTEROL | Inhale 2 puffs as | | 0 | | | | (VENTOLIN INHL) | needed. | | | | | + + + +---------+ + + | citalopram 20 mg | Take 20 mg by mouth | | 0 | | | | oral tablet | once daily. | | | | | + + + +---------+ + + | diclofenac EC 75 | Take 75 mg by mouth | | 0 | | | | mg oral | two times daily. | | | | | | tablet,delayed | | | | | | | release (DR/EC) | | | | | | + + + +---------+ + + | dicyclomine 20 mg | Take 20-40 mg by | | 0 | | | | oral tablet | mouth once daily. | | | | | + + + +---------+ + + | mirabegron | Take 50 mg by mouth | | 0 | | | | (MYRBETRIQ) 50 mg | once daily at | | | | | | oral tablet extended | bedtime. | | | | | | release 24 hr | | | | | | + + + +---------+ + + | ondansetron ODT | Dissolve 1 tablet in | 20 | 11 | / | | | (ZOFRAN ODT) 8 mg | mouth every twelve | tablet | | 16 | | | oral | hours as needed. | | | | | | tablet,disintegratin | | | | | | | g | | | | | | + + + +---------+ + + | pseudoephedrine | Take 30 mg by mouth | | 0 | | | | (SUDAFED) 30 mg oral | every four hours as | | | | | | tablet | needed for | | | | | | | congestion. | | | | | + + + +---------+ + + documented as of this encounter Plan of Treatment +--------+---------+ + + + | Date | Type | Specialty | Care Team | Description | +--------+---------+ + + + | 04/05/ | Office | Thoracic Surgery | Antonio Kaur MD | | | 2018 | Visit | | [address] | | | | | | [address] | | | | | | [place], [place] | | | | | | [address] | | | | | | [phone] | | | | | | | | +--------+---------+ + + + | 04/26/ | Office | Neurology | Kaitlynn Leyva, | | | 2018 | Visit | | [address] | | | | | | [place], [place] | | | | | | [address] | | | | | | [phone] | | | | | | | | +--------+---------+ + + + documented as of this encounter Procedures + +--------+ + + + | Procedure Name | Priori | Date/Time | Associated Diagnosis | Comments | | | ty | | | | + +--------+ + + + | MRI BRAIN MULTIPLE | Routin | 10/04/2015 | Multiple sclerosis | Results for this | | SCLEROSIS WWO | e | 7:28 PM | (HCC) | procedure are in the | | CONTRAST | | PDT | | results section. | + +--------+ + + + documented in this encounter Results MRI BRAIN MULTIPLE SCLEROSIS WWO CONTRAST (10/04/2015 7:28 PM PDT) + + + + + + | Component | Value | Ref Range | Performed | Pathologist | | | | | At | Signature | + + + + + + | MR BRAIN | EXAM: MRI brain without | | | | | MULTIPLE | and with contrast, MS | | | | | SCLEROSIS | protocol HISTORY: MS | | | | | WWO | COMPARISON: 07/14/14 | | | | | CONTRAST | TECHNIQUE: MS protocol | | | | | | multiplanar | | | | | | multi-sequence MRI of | | | | | | the brain without | | | | | | andwith 14 mL Omniscan | | | | | | intravenous contrast. 3 | | | | | | Sultana MRI. FINDINGS: | | | | | | Brain: These images | | | | | | again demonstrate | | | | | | multiple periventricular | | | | | | and subcorticalT2 and | | | | | | flair hyperintense foci | | | | | | similar to prior | | | | | | examination. No | | | | | | acuteintracranial | | | | | | abnormality. No | | | | | | evidence of hemorrhage, | | | | | | mass, or | | | | | | acuteinfarction. The | | | | | | ventricles are normal in | | | | | | size and morphology. | | | | | | There is noabnormal | | | | | | enhancement. The major | | | | | | intracranial arterial | | | | | | flow voids are | | | | | | preserved. Soft tissues | | | | | | and marrow: | | | | | | UnremarkableFace and | | | | | | orbits: Visualized | | | | | | portions are | | | | | | unremarkableHypoplastic | | | | | | right maxillary antrum | | | | | | void mild | | | | | | circumferential mucosal | | | | | | thickening. IMPRESSION: | | | | | | Overall multiple | | | | | | supratentorial lesions | | | | | | in a patient with | | | | | | history ofdemyelinating | | | | | | disease. No abnormal | | | | | | enhancement to suggest | | | | | | acute demyelination. | | | | | | Attending Radiologists: | | | | | | KENNETH ALMARAZ MDAuthor: | | | | | | KENNETH ALMARAZ MD I | | | | | | personally reviewed the | | | | | | images and, if | | | | | | necessary, edited the | | | | | | report. I agreewith the | | | | | | report as now presented. | | | | | | | | | | | | Final/Electronically | | | | | | signed / KENNETH ALMARAZ | | | | | | 10/04/2015 21:22 PM | | | | + + + + + + + + | Specimen | + + | | + + + +---------+ + + | Performing | Address | City/State/Zipcode | Phone Number | | Organization | | | | + +---------+ + + | [facility] | | | | | RADIOLOGY | | | | + +---------+ + + documented in this encounter Visit Diagnoses + + | Diagnosis | + + | Multiple sclerosis (HCC) Multiple sclerosis | + + documented in this encounter"
--- OUTSIDE RECORDS SUMMARY | ~2019-03-05 | XMS | Encounter Summary ---
Demographics + + + | Address | [address] | | | [place] [address] | + + + | Home Phone | | + + + | Preferred Language | Unknown | + + + | Marital Status | | + + + | Rastafarian Affiliation | Unknown | + + + | Race | White | + + + | Ethnic Group | Not or | + + + Author + + + | Author | [facility] | + + + | Organization | [facility] | + + + | Address | Unknown | + + + | Phone | Unavailable | + + + Support + + +---------+ + | Name | Relationship | Address | Phone | + + +---------+ + | Klever Hsu | ECON | Unknown | | + + +---------+ + Care Team Providers + +------+ + | Care Marking Devices Assembler Name | Role | Phone | + +------+ + | Jose Alberto Jones MD | PCP | | + +------+ + Encounter Details +--------+ + + + + | Date | Type | Department | Care Team | Description | +--------+ + + + + | 11/16/ | Telephone | Neurology at | Anali Shaikh, | | | 2014 | | [facility] & | [address] | | | | | He[address] | | | | | [address] Mailcode: | [place], [place] | | | | | [address] [place] [address] | [address] | | | | | Health and Healing, | [phone] | | | | | | | | | | | Floor [place], [place] | | | | | | [address] | | | | | | [phone] | | | +--------+ + + + [...] | | 2018 | Visit | | [address] | | | | | | [address] | | | | | | [place], [place] | | | | | | [address] | | | | | | [phone] | | | | | | | | +--------+---------+ + + + | 04/26/ | Office | Neurology | Kaitlynn Leyva, | | | 2018 | Visit | | [address] | | | | | | [place], [place] | | | | | | [address] | | | | | | [phone] | | | | | | | | +--------+---------+ + + + documented as of this encounter Visit Diagnoses Not on filedocumented in this encounter"
--- OUTSIDE RECORDS SUMMARY | ~2019-03-05 | XMS | Encounter Summary ---
Demographics + + + | Address | [address] | | | [place] [address] | + + + | Home Phone | | + + + | Preferred Language | Unknown | + + + | Marital Status | | + + + | Spiritism Affiliation | Unknown | + + + | Race | White | + + + | Ethnic Group | Not or | + + + Author + + + | Author | [facility] | + + + | Organization | [facility] | + + + | Address | Unknown | + + + | Phone | Unavailable | + + + Support + + +---------+ + | Name | Relationship | Address | Phone | + + +---------+ + | Klever Hsu | ECON | Unknown | | + + +---------+ + Care Team Providers + +------+ + | Care Special Librarian Name | Role | Phone | + +------+ + | Jose Alberto Jones MD | PCP | | + +------+ + Encounter Details +--------+ + + + + | Date | Type | Department | Care Team | Description | +--------+ + + + + | 10/11/ | Telephone | Neurology at | Woodrow Murillo, | | | 2015 | | [facility] & | DO | | | | | Healing [address] | | | | | | [address] Mailcode: | | | | | | [facility] | | | | | | Health and Healing, | | | | | | Building | | | | | | Floor [place], [place] | | | | | | [address] | | | | | | [phone] | | | +--------+ + + + [...] | | 2018 | Visit | | [address] | | | | | | [address] | | | | | | [place], [place] | | | | | | [address] | | | | | | [phone] | | | | | | | | +--------+---------+ + + + | 04/26/ | Office | Neurology | Kaitlynn Leyva, | | | 2018 | Visit | | [address] | | | | | | [place], [place] | | | | | | [address] | | | | | | [phone] | | | | | | | | +--------+---------+ + + + documented as of this encounter Visit Diagnoses Not on filedocumented in this encounter"
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
--- OUTSIDE RECORDS SUMMARY | ~2019-03-05 | XMS | Encounter Summary ---
Demographics + + + | Address | [address] | | | [place] [address] | + + + | Home Phone | | + + + | Preferred Language | Unknown | + + + | Marital Status | | + + + | Church Affiliation | Unknown | + + + | Race | White | + + + | Ethnic Group | Not or | + + + Author + + + | Author | [facility] | + + + | Organization | [facility] | + + + | Address | Unknown | + + + | Phone | Unavailable | + + + Support + + +---------+ + | Name | Relationship | Address | Phone | + + +---------+ + | Klever Hsu | ECON | Unknown | | + + +---------+ + Care Team Providers + +------+ + | Care Non Acoustic Operator Name | Role | Phone | + +------+ + | Jose Alberto Jones MD | PCP | | + +------+ + Encounter Details +--------+ + + + + | Date | Type | Department | Care Team | Description | +--------+ + + + + | 02/24/ | Sprinkler Helper | Cardiothoracic | Yeyo Evans NP | Neuropathic pain | | 2019 | | Surgery at [facility] [address] | [address] | (Primary Dx) | | | | [address] | [place], [place] | | | | | Rd Mailcode: [address] | [address] | | | | | Physician's | [phone] | | | | | [place], | | | | | | [place] [address] | | | | | | [phone] | | | +--------+ + + + [...] Rd | | | | | | [place], [place] | | | | | | [address] | | | | | | [phone] | | | | | | | | +--------+---------+ + + + | 04/26/ | Office | Neurology | Kaitlynn Leyva, | | | 2018 | Visit | | [address] | | | | | | [place], [place] | | | | | | [address] | | | | | | [phone] | | | | | | | | +--------+---------+ + + + + + +--------+ + + | Name | Type | Priori | Associated Diagnoses | Order Schedule | | | | ty | | | + + +--------+ + + | SPIROMETRY BEFORE / | Pulmonary | Routin | Neuropathic pain | Expected: | | AFTER BRONCHODIL, | Function | e | | 02/25/2019, Expires: | | PULM FUNCTION LAB | | | | 03/27/2020 | + + +--------+ + + documented as of this encounter Visit Diagnoses + + | Diagnosis | + + | Neuropathic pain - Primary Neuralgia, neuritis, and radiculitis, unspecified | + + documented in this encounter"
--- OUTSIDE RECORDS SUMMARY | ~2019-03-05 | XMS | Encounter Summary ---
Demographics + + + | Address | [address] | | | [place] [address] | + + + | Home Phone | | + + + | Preferred Language | Unknown | + + + | Marital Status | | + + + | Church Affiliation | Unknown | + + + | Race | White | + + + | Ethnic Group | Not or | + + + Author + + + | Author | [facility] | + + + | Organization | [facility] | + + + | Address | Unknown | + + + | Phone | Unavailable | + + + Support + + +---------+ + | Name | Relationship | Address | Phone | + + +---------+ + | Klever Hsu | ECON | Unknown | | + + +---------+ + Care Team Providers + +------+ + | Care Machine Fancy Stitcher Name | Role | Phone | + +------+ + | Jose Alberto Jones MD | PCP | | + +------+ + Encounter Details +--------+ + + + + | Date | Type | Department | Care Team | Description | +--------+ + + + + | 12/06/ | Telephone | Neurology at | Anali Shaikh, | | | 2014 | | [facility] & | [address] | | | | | Healing [address] | | | | | [address] Mailcode: | [place], [place] | | | | | [address] [place] [address] | [address] | | | | | Health and Healing, | [phone] | | | | | | | | | | | Floor [place], [place] | | | | | | [address] | | | | | | [phone] | | | +--------+ + + + [...] | | 2018 | Visit | | [address] | | | | | | [address] | | | | | | [place], [place] | | | | | | [address] | | | | | | [phone] | | | | | | | | +--------+---------+ + + + | 04/26/ | Office | Neurology | Kaitlynn Leyva, | | | 2018 | Visit | | [address] | | | | | | [place], [place] | | | | | | [address] | | | | | | [phone] | | | | | | | | +--------+---------+ + + + documented as of this encounter Visit Diagnoses Not on filedocumented in this encounter"
--- OUTSIDE RECORDS SUMMARY | ~2019-03-05 | XMS | Encounter Summary ---
Demographics + + + | Address | [address] | | | [place] [address] | + + + | Home Phone | | + + + | Preferred Language | Unknown | + + + | Marital Status | | + + + | Sikh Affiliation | Unknown | + + + | Race | White | + + + | Ethnic Group | Not or | + + + Author + + + | Author | [facility] | + + + | Organization | [facility] | + + + | Address | Unknown | + + + | Phone | Unavailable | + + + Support + + +---------+ + | Name | Relationship | Address | Phone | + + +---------+ + | Klever Hsu | ECON | Unknown | | + + +---------+ + Care Team Providers + +------+ + | Care Director Nurses' Registry Name | Role | Phone | + +------+ + | Jose Alberto Jones MD | PCP | | + +------+ + Reason for Visit +--------+ + | Reason | Comments | +--------+ + | Other | PA Request Copaxone | +--------+ + Encounter Details +--------+ + + + + | Date | Type | Department | Care Team | Description | +--------+ + + + + | 04/18/ | Documentati | Neurology at | Anali Shaikh, | Venkata (LATRICE Request | | 2015 | on | [facility] & | MD [address] | [place]) | | | | Healing [address] | | | | | [address] Mailcode: | [place], [place] | | | | | [facility] | [address] | | | | | Health and Healing, | [phone] | | | | | Building | | | | | | Floor [facility] [place] | | | | | | [address] | | | | | | [phone] | | | +--------+ + + + [...] | Office | Thoracic Surgery | Antonio Karu MD | | | 2019 | Visit | | [address] | | | | | | [address] | | | | | | [place], [place] | | | | | | [address] | | | | | | [phone] | | | | | | | | +--------+---------+ + + + | 04/26/ | Office | Neurology | Kaitlynn Leyva, | | | 2018 | Visit | | [address] | | | | | | [place], [place] | | | | | | [address] | | | | | | [phone] | | | | | | | | +--------+---------+ + + + documented as of this encounter Visit Diagnoses Not on filedocumented in this encounter"
--- OUTSIDE RECORDS SUMMARY | ~2019-03-05 | XMS | Encounter Summary ---
Demographics + + + | Address | [address] | | | [place] [address] | + + + | Home Phone | | + + + | Preferred Language | Unknown | + + + | Marital Status | | + + + | Episcopal Affiliation | Unknown | + + + | Race | White | + + + | Ethnic Group | Not or | + + + Author + + + | Author | [facility] | + + + | Organization | [facility] | + + + | Address | Unknown | + + + | Phone | Unavailable | + + + Support + + +---------+ + | Name | Relationship | Address | Phone | + + +---------+ + | Klever Hsu | ECON | Unknown | | + + +---------+ + Care Team Providers + +------+ + | Care Red Hat Linux Engineer Name | Role | Phone | + +------+ + | Jose Alberto Jones MD | PCP | | + +------+ + Encounter Details +--------+ + + + + | Date | Type | Department | Care Team | Description | +--------+ + + + + | 08/03/ | Pharmacy | [facility] | | | | 2019 | Visit | [address] | | | | | | [facility] [address] | | | | | | [place] [address] | | | | | | [phone] | | | +--------+ + + + [...] Rd | | | | | | [place] | | | | | | [address] | | | | | | [phone] | | | | | | | | +--------+---------+ + + + | 04/26/ | Office | Neurology | Kaitlynn Leyva, | | | 2018 | Visit | | [address] | | | | | | [place] | | | | | | [address] | | | | | | [phone] | | | | | | | | +--------+---------+ + + + documented as of this encounter Visit Diagnoses Not on filedocumented in this encounter"
--- OUTSIDE RECORDS SUMMARY | ~2019-03-05 | XMS | Encounter Summary ---
Demographics + + + | Address | [address] | | | [place] [address] | + + + | Home Phone | | + + + | Preferred Language | Unknown | + + + | Marital Status | | + + + | Pentecostal Affiliation | Unknown | + + + | Race | White | + + + | Ethnic Group | Not or | + + + Author + + + | Author | [facility] | + + + | Organization | [facility] | + + + | Address | Unknown | + + + | Phone | Unavailable | + + + Support + + +---------+ + | Name | Relationship | Address | Phone | + + +---------+ + | Klever Hsu | ECON | Unknown | | + + +---------+ + Care Team Providers + +------+ + | Care Diesel Mechanic Construction Name | Role | Phone | + +------+ + | Jose Alberto Jones MD | PCP | | + +------+ + Encounter Details +--------+ + + + + | Date | Type | Department | Care Team | Description | +--------+ + + + + | 04/13/ | Procedure | Diagnostic Imaging | | | | 2018 | Pass | Services at [facility] | | | | | | [address] | | | | | | [place] Mailcode: | | | | | | [address] | | | | | | [facility] | | | | | | [place], [place] | | | | | | [address] | | | | | | [phone] | | | +--------+ + + + [...] Rd | | | | | | [place], [place] | | | | | | [address] | | | | | | [phone] | | | | | | | | +--------+---------+ + + + | 04/26/ | Office | Neurology | Kaitlynn Leyva, | | | 2018 | Visit | | [address] | | | | | | [facility] [place] | | | | | | [address] | | | | | | [phone] | | | | | | | | +--------+---------+ + + + documented as of this encounter Visit Diagnoses Not on filedocumented in this encounter"
--- OUTSIDE RECORDS SUMMARY | ~2019-03-05 | XMS | Encounter Summary ---
Demographics + + + | Address | [address] | | | [place] [address] | + + + | Home Phone | | + + + | Preferred Language | Unknown | + + + | Marital Status | | + + + | Mosque Affiliation | Unknown | + + + | Race | White | + + + | Ethnic Group | Not or | + + + Author + + + | Author | [facility] | + + + | Organization | [facility] | + + + | Address | Unknown | + + + | Phone | Unavailable | + + + Support + + +---------+ + | Name | Relationship | Address | Phone | + + +---------+ + | Klever Hsu | ECON | Unknown | | + + +---------+ + Care Team Providers + +------+ + | Care Speedboat Operator Name | Role | Phone | + +------+ + | Jose Alberto Jones MD | PCP | | + +------+ + Reason for Visit +--------+ + | Reason | Comments | +--------+ + | Other | Scan Document | +--------+ + Encounter Details +--------+ + + + + | Date | Type | Department | Care Team | Description | +--------+ + + + + | 07/16/ | Abstract | Neurology at | Kaitlynn Leyva, | Other (Scan | | 2019 | | [facility] & | MD [address] | Document) | | | | [address] | [place], [place] | | | | | [address] Mailcode: | [address] | | | | | [address] | [phone] | | | | | Health and Healing, | | | | | | [facility] | | | | | | [place], [place] | | | | | | [address] | | | | | | [phone] | | | +--------+ + + + [...] | | 2018 | Visit | | [address] | | | | | | [address] | | | | | | [place], [place] | | | | | | [address] | | | | | | [phone] | | | | | | | | +--------+---------+ + + + | 04/26/ | Office | Neurology | Kaitlynn Leyva, | | | 2018 | Visit | | [address] | | | | | | [place], [place] | | | | | | [address] | | | | | | [phone] | | | | | | | | +--------+---------+ + + + documented as of this encounter Visit Diagnoses Not on filedocumented in this encounter"
--- OUTSIDE RECORDS SUMMARY | ~2019-03-05 | XMS | Encounter Summary ---
Demographics + + + | Address | [address] | | | [place] [address] | + + + | Home Phone | | + + + | Preferred Language | Unknown | + + + | Marital Status | | + + + | Hindu Affiliation | Unknown | + + + | Race | White | + + + | Ethnic Group | Not or | + + + Author + + + | Author | [facility] | + + + | Organization | [facility] | + + + | Address | Unknown | + + + | Phone | Unavailable | + + + Support + + +---------+ + | Name | Relationship | Address | Phone | + + +---------+ + | Klever Hsu | ECON | Unknown | | + + +---------+ + Care Team Providers + +------+ + | Care Mortgage Loan Interviewer Name | Role | Phone | + +------+ + | Jose Alberto Jones MD | PCP | | + +------+ + Encounter Details +--------+------+ + + + | Date | Type | Department | Care Team | Description | +--------+------+ + + + | 07/27/ | Lab | [facility] at [facility] | | Multiple sclerosis | | 2019 | | [address] | | ([facility]) | | | | [place], [place] | | | | | | [address] | | | | | | [phone] | | | +--------+------+ + + + [...] [address] | | | | | | [facility] [place] | | | | | | [address] | | | | | | [phone] | | | | | | | | +--------+---------+ + + + | 04/26/ | Office | Neurology | Kaitlynn Leyva, | | | 2018 | Visit | | [address] | | | | | | [place], [place] | | | | | | [address] | | | | | | [phone] | | | | | | | | +--------+---------+ + + + documented as of this encounter Procedures + +--------+ + + + | Procedure Name | Priori | Date/Time | Associated Diagnosis | Comments | | | ty | | | | + +--------+ + + + | CBC AND AUTO DIFF | Routin | 07/27/2018 | Multiple sclerosis | Results for this | | | e | 1:23 PM | (HCC) | procedure are in the | | | | PDT | | results section. | + +--------+ + + + | CBC, WITH | Routin | 07/27/2018 | Multiple sclerosis | Results for this | | DIFFERENTIAL | e | 1:23 PM | (HCC) | procedure are in the | | | | PDT | | results section. | + +--------+ + + + | COMPLETE METABOLIC | Routin | 07/27/2018 | Multiple sclerosis | Results for this | | SET | e | 1:23 PM | (HCC) | procedure are in the | | (NA,K,CL,CO2,BUN,CRE | | PDT | | results section. | | AT,GLUC,CA,AST,ALT,B | | | | | | ISABEL TOTAL,ALK | | | | | | PHOS,ALB,PROT TOTAL) | | | | | + +--------+ + + + documented in this encounter Results CBC AND AUTO DIFF (07/27/2018 1:23 PM PDT) + + + + + + | Component | Value | Ref Range | Performed | Pathologist | | | | | At | Signature | + + + + + + | WHITE CELL | 11.15 (H) | 3.50 - 10.80 | [facility] | | | COUNT | | K/cu mm | LABORATORY | | | | | | SERVICES, | | | | | | [facility] | [facility] | | + + + + + + | RED CELL | 4.13 | 4.00 - 5.20 | [facility] | | | COUNT | | M/cu mm | LABORATORY | | | | | | SERVICES, | | | | | | [facility] | [facility] | | + + + + + + | HEMOGLOBIN | 12.4 | 12.0 - 16.0 | [facility] | | | | | g/dL | LABORATORY | | | | | | SERVICES, | | | | | | [facility] | | | | | | [facility] | | + + + + + + | HEMATOCRIT | 38.4 | 36.0 - 46.0 % | [facility] | | | | | | LABORATORY | | | | | | SERVICES, | | | | | | [facility] | | | | | | [facility] | | + + + + + + | MCV | 93.0 | 80.0 - 100.0 fL | [facility] | | | | | | LABORATORY | | | | | | SERVICES, | | | | | | [facility] | | | | | | [facility] | | + + + + + + | MCHC | 32.3 | 32.0 - 36.0 | [facility] | | | | | g/dL | LABORATORY | | | | | | SERVICES, | | | | | | [facility] | | | | | | [facility] | | + + + + + + | RDW SD | 42.9 | 35.1 - 46.3 fL | [facility] | | | | | | LABORATORY | | | | | | SERVICES, | | | | | | [facility] | | | [facility] | | [facility] | | + + + + + + | PLATELET | 293 | 150 - 400 K/cu | [facility] | | | COUNT | | mm | LABORATORY | | | | | | SERVICES, | | | | | | [facility] | | | [facility] | | [facility] | | + + + + + + | MPV | 9.9 | 9.7 - 12.3 fL | [facility] | | | | | | LABORATORY | | | | | | SERVICES, | | | | | | [facility] | | | | | | [facility] | | + + + + + + | NEUTROPHIL | 84.2 (H) | 50.0 - 70.0 % | [facility] | | | % | | | LABORATORY | | | | | | SERVICES, | | | | | | [facility] | | | | | | [facility] | | + + + + + + | LYMPHOCYTE | 11.8 (L) | 18.0 - 42.0 % | [facility] | | | % | | | LABORATORY | | | | | | SERVICES, | | | | | | [facility] | | | | | | [facility] | | + + + + + + | MONOCYTE % | 3.5 | 3.5 - 9.0 % | [facility] | | | | | | LABORATORY | | | | | | SERVICES, | | | | | | [facility] | | | | | | [facility] | | + + + + + + | EOS % | 0.3 (L) | 1.0 - 3.0 % | [facility] | | | | | | LABORATORY | | | | | | SERVICES, | | | | | | [facility] | | | | | | [facility] | | + + + + + + | BASO % | 0.2 | 0.0 - 2.0 % | [facility] | | | | | | LABORATORY | | | | | | SERVICES, | | | | | | [facility] | | | | | | [facility] | | + + + + + + | NEUTROPHIL | 9.39 (H) | 1.80 - 7.70 | [facility] | | | # | | K/cu mm | LABORATORY | | | | | | SERVICES, | | | | | | [facility] | | | | | | [facility] | | + + + + + + | LYMPHOCYTE | 1.32 | 1.00 - 4.80 | [facility] | | | # | | K/cu mm | LABORATORY | | | | | | SERVICES, | | | | | | [facility] | | | | | | [facility] | | + + + + + + | MONOCYTE # | 0.39 | 0.10 - 0.90 | [facility] | | | | | K/cu mm | LABORATORY | | | | | | SERVICES, | | | | | | [facility] + | | | | | | [facility] | | + + + + + + | EOS # | 0.03 | 0.00 - 0.50 | [facility] | | | | | K/cu mm | LABORATORY | | | | | | SERVICES, | | | | | | [facility] + | | | | | | [facility] | | + + + + + + | BASO # | 0.02 | 0.00 - 0.10 | [facility] | | | | | K/cu mm | LABORATORY | | | | | | SERVICES, | | | | | | [facility] + | | | | | | [facility] | | + + + + + + + + | Specimen | + + | Blood - Blood | | (substance) | + + + + + + + | Performing | Address | City/State/Zipcode | Phone Number | | Organization | | | | + + + + + | [facility] | [address] | [place] [address] | | | [facility] | | | | | HEALTH + HEALING | | | | + + + + + COMPLETE METABOLIC SET (NA,K,CL,CO2,BUN,CREAT,GLUC,CA,AST,ALT,BILI TOTAL,ALK PHOS,ALB,PROT TOTAL) [...] | | | LABORATORY | | | [facility] | | | SERVICES, | | | [...] [facility] | [address] | [place] [address] | | | SERVICES, CORE | [address] | | | + + + + + documented in this encounter Visit Diagnoses + + | Diagnosis | + + | Multiple sclerosis (HCC) Multiple sclerosis | + + documented in this encounter"
--- OUTSIDE RECORDS SUMMARY | ~2019-03-05 | XMS | Encounter Summary ---
Demographics + + + | Address | [address] | | | [place] [address] | + + + | Home Phone | | + + + | Preferred Language | Unknown | + + + | Marital Status | | + + + | Confucianist Affiliation | Unknown | + + + | Race | White | + + + | Ethnic Group | Not or | + + + Author + + + | Author | [facility] | + + + | Organization | [facility] | + + + | Address | Unknown | + + + | Phone | Unavailable | + + + Support + + +---------+ + | Name | Relationship | Address | Phone | + + +---------+ + | Klever Hsu | ECON | Unknown | | + + +---------+ + Care Team Providers + +------+ + | Care Embryology Teacher Name | Role | Phone | + +------+ + | Jose Alberto Jones MD | PCP | | + +------+ + Reason for Visit Office Visit - E/M Services (Routine) +--------+--------+ + + + + | Status | Reason | Specialty | Diagnoses / | Referred By | Referred To | | | | | Procedures | Contact | Contact | +--------+--------+ + + + + | Closed | | Neurology | Diagnoses | Chidi, | Domo, | | | | | Migraine, | Woodrow R, DO | Karen Pisano, ANP | | | | | unspecified, | [address] | [address] [facility] [address] | | | | | | [address] | [address] | | | | | intractable, | [place], [place] | [address] | | | | | without | [address] | [place], [place] | | | | | status | | [address] Phone: | | | | | migrainosus | | [phone] | | | | | Headache | | Fax: | | | | | Multiple | | [phone] | | | | | sclerosis | | | | | | | Procedures | | | | | | | IN NEW | | | | | | | PATIENT | | | | | | | LEVEL V | | | +--------+--------+ + + + + Encounter Details +--------+---------+ + + + | Date | Type | Department | Care Team | Description | +--------+---------+ + + + | 10/02/ | Office | Neurology at | Karen Oliveros, | Migraine with aura | | 2016 | Visit | [facility] & | ANP [address] [place] [address] | and without status | | | | Healing [address] | migrainosus, not | | | | [address] Mailcode: | [place] [address] | intractable (Primary | | | | [facility] | [phone] | Dx) | | | | and Healing, | | | | | | [address] | | | | | | [place], [place] | | | | | | [address] | | | | | | [phone] | | | +--------+---------+ + + + [...] + + + | Blood Pressure | 133/91 | 10/03/2015 1:12 PM | | | | | PDT | | + + + + + | Pulse | 98 | 10/03/2015 1:12 PM | | | | | PDT | | + + + + + | Temperature | - | - | | + + + + + | Respiratory Rate | 14 | 10/03/2015 1:12 PM | | | | | PDT | | + + + + + | Oxygen Saturation | - | - | | + + + + + | Inhaled Oxygen | - | - | | | Concentration | | | | + + + + + | Weight | 68 kg (150 lb) | 10/03/2015 1:12 PM | | | | | PDT | | + + + + + | Height | 160 cm (5' 3") | 10/03/2015 1:12 PM | | | | | PDT | | + + + + + | Body Mass Index | 26.57 | 10/03/2015 1:12 PM | | | | | PDT | | + + + + + documented in this encounter Patient Instructions Patient Instructions Domo AMBROSIO, Karen Pisano - 10/03/2015 1:43 PM PDTPlease reduce use of caff eine and Excedrin. Do not use your rescue medication for headache treatment more than 2-3 x week. Start with trial of magnesium or other vitamins list attached Caffeine and Migraine Panfilo Serrano MD, PhD and Panfilo Gamble MD Echeverria Points Caffeine affects pain. Acute treatment of headaches with caffeine is sometimes effective, but should be limited to not more than two days per week. For people who experience migraine, caffeine taken 3 or more days per week, for whatever re ason, may lead to dependency and increased migraine frequency. For those who have frequent headaches, avoidance of all caffeine is ideal, and at least unt il improvement in headache frequency is seen. Migraine patients often report that a strong cup of coffee can stop some attacks. This is n ot surprising to hear. Caffeine is a echeverria active ingredient in many headache medications incl uding ExcedrinTM, AnacinTM, MidolTM, Darvon CompoundTM, FioricetTM, and MigranalTM. Caffeine may aid in the body's absorption of these medicines, but can caffeine itself relieve headac hes? Few research studies have examined this question, but the answer appears to be yes. Caf feine can provide some headache relief. For example, one small controlled study found that c affeine was better than placebo, and as good as acetaminophen, in relieving tension-type hea daches. So why not just treat your headaches with coffee? Unfortunately, caffeine's effects on the brain can vary tremendously depending upon how often you use it. With occasional use, it may provide modest acute headache relief as well as its characteristic satisfying sense of aler tness and well-being. However, with daily or near daily caffeine exposure, the brain may dev elop a tolerance for the drug. This means, a given dose becomes less effective with repeated use. Dependency develops when the brain expects that an additional dose of caffeine will be coming soon. If that caffeine expectation is unmet, a withdrawal syndrome results which in cludes headache itself as a prominent symptom, along with fatigue, trouble concentrating, na usea, and other symptoms suggestive of migraine. An example of this withdrawal syndrome may be the "weekend migraine", where attacks tend to occur on Saturdays or Sundays associated w ith "sleeping in" and delaying the morning cup of coffee,. We don't fully understand the mechanisms underlying the different effects of caffeine on th e brain. However, the specific targets of action of caffeine in the brain and nerves outside the brain are known. Caffeine affects the activity of a naturally occurring and necessary b rain substance called adenosine. Adenosine levels in the blood go up during migraine attacks . Furthermore, adenosine when injected into a vein can trigger migraine attacks. Adenosine i s widely available in the brain and can produce many effects including less brain electrical activity, temporary widening of blood vessels, and control of some aspects of sleep and mov ement. Adenosine acts by sticking to specific receptor molecules on the surfaces of some bra in cells. Caffeine can block the action of these receptors and thereby stop the effects of a denosine. We do not know how these effects of caffeine result in acute anti-migraine and sheridan n control actions. In daily caffeine users, caffeine has less of an effect on brain action and blood vessel si ze. Caffeine withdrawal may lead to a significant increase in blood flow in the brain. This is due to an increase in blood vessel size as a result of stretching or dilation. These certified breastfeeding educator lissa effects of caffeine are likely a result of changes in the numbers, types and change in f unction of adenosine receptors active on brain cells. These changes may contribute to caffei ne tolerance and dependency. Caffeine is the world's most popular drug and coffee possibly second most valuable product after oil. Up to 90% of Americans of all ages consume some caffeine daily with more than 50% consuming coffee daily. More than 50% average 300mg per day with an average daily dosage fo r all consumers of about 200mg. One report estimates nearly 95% of [place] s population con sumes caffeine daily, whereas only about 63% of [place] adults do so. The average dietary c affeine consumption in some [place] countries is more than 400 mg per person per day. I t is not hard to reach 200-300mg of caffeine daily since a standard 8-ounce cup of coffee ma de by the Italian drip method contains between 125 and 250mg of caffeine. A 12-ounce can of Coca Cola contains 34mg. Also, the usual cup of coffee for many individuals is often actually 12 or even 16 ounces and sometimes more. Do not underestimate the power or potency of caffeine. Caffeine dependency can occur after as little as 7 days of exposure. 100mg per day can sustain dependency. In fact, many individ uals can avoid caffeine withdrawal symptoms by as little as 25mg - the equivalent of about 2 tablespoons of most "gourmet" coffees. Carefully controlled studies show that caffeine dose s as low as about 10mg can be reliably noticed by particularly sensitive people. These studi es also show that more than 30 percent of people can feel the effects of 18mg or less. Is "decaf" coffee OK? According to a [place] Department of Agriculture rule, 97.5 % of caffeine must be removed from coffee in order for it to be called decaffeinated. Therefore, the start ing potency of coffee is very relevant to the final potency of decaf. [facility] researchers have measured up to 6.9 mg caffeine per 8 oz of Starbucks brewed decaffeinated c offee and up to 15.8 mg caffeine per 1 oz shot of Starbucks decaffeinated espresso. So only a couple of cups of decaf a day might still have a considerable effect on some people. Studies of caffeine dependency and tolerance show that daily caffeine users are actually mo re motivated to consume it to avoid withdrawal symptoms, than to experience the lift that it s stimulant properties may provide. Caffeine's combination of a punishing syndrome of withdr awal, along with a rewarding sense of wakefulness, has made coffee, tea, and chocolate, some of humanity's best-loved foods. One might say that caffeine-producing plants have succeeded in motivating humans to cultivate them widely and with very great care. Not everyone consuming daily caffeine is equally likely to develop dependency and withdrawa l syndrome. Studies indicate that genetics make some people more likely than others. Scienti sts do not know whether the inherited tendency to experience caffeine withdrawal syndrome re lates to the genetic factors that cause migraine. However, chronic daily headache (CDH) adrien ents are much more likely to use daily dietary caffeine and/or prefer caffeine-containing he adache medications. Moreover, people who occasionally experience migraine attacks are at a h igher risk of developing CDH when they also consume caffeine daily too. In one study, consum ers of 100mg caffeine daily had nearly 3 times higher likelihood of developing CDH than thos e drinking less. This association is particularly notable for young women - a group already at greater risk for migraine and the march or progression to daily headache. In summary, caffeine may lead to the development of medication-overuse headache (so-called "rebound" headache). As such, patients should limit caffeine use as recommended for other ac ivanof bay medications for migraine. This use should not exceed two days per week. The unwelcome ne ws is that patients with a history of severe or chronic migraine should consider eliminating caffeine entirely, at least for several months. This typically needs to be done with remova l of other overused painkillers and the addition of further preventive management of headach e. Removing caffeine alone is rarely enough to solve the problem. For patients with high aleena ly caffeine intake, this reduction in use should be achieved over a gradual taper of days or even weeks to limit the impact of withdrawal syndrome. If you elect removal in a "cold turk ey" manner, you may suffer severe migraine attacks which are more difficult to bring under c ontrol. Once migraine attacks are no longer frequent, caffeine might be reintroduced, but li mited to no more than two days per week, if at all. For some people, it seems that any amoun t of caffeine can trigger or worsen migraine. A headache log or diary helps to determine if resuming caffeine leads to more headaches. It is important to emphasize that caffeine consumption is rarely the sole 'cause' of freque nt headaches including migraine. However, it is a modifiable risk factor, unlike many other unavoidable migraine triggers. Caffeine is often a significant and overlooked contributor to the problem of frequent and chronic daily headache. Migraine sufferers should use caffeine less frequently or remove it entirely as one component of a program of therapies for success - and it requires no prescription. Panfilo Serrano MD, PhD, Professor of Neurology, [facility], [place]; and Panfilo Gamble MD, Nuclear Reactor Engineer and Director of the [facility] , [place], [place]. Your Support CAN Make The Difference Join Us and Donate to the 36 Million Migraine Campaign! You may be one of 36 million Americans with migraine. If all of us donated just one dollar - for ourselves or for someone we know or love who has migraine - we can raise $36 million. So little can and will do so much! Please support the 36 Million Migraine Campaign today! Please communicate by [employer] if a referral has been made and you have not been contacted w dana 10 . _x__Acupuncture uses tiny needles to stimulate specific points located near the surface of the skin to relieve pain, reduce inflammation and restore the body s balance. A 2005 aurora dy in the [place] [employer] journal showed that people who received 12 acupuncture treatments over the course of 2 months had headache relief during treatment and for several [facility]. ___Aerobic Exercise like daily walking or swimming improves mood and reduces pain. Focus o n activities you CAN do, not what you CANNOT do. Exercise 1 hour a day for weight loss; papa d and move often, don t sit. A physical therapy referral may be made. _x__Apply ice or moist heat packs to reduce pain. Use 20 minutes 3 x day or more often as needed. ___Botox injections may be considered for chronic headache of more than 15 headache days pe r month. The results of Phase 3 Research Evaluating Migraine Prophylaxis Therapy (PREEMPT) trials showed that after 12 months, 70% of those treated with Botox had 50% less migraine h eadaches. ___Chiropractic or Osteopathic manipulation for realignment of bones and muscles to reduce pain; works best with a program of regular exercise to strengthen and stretch the muscles. _x__Dietary changes and healthy weight reduces headaches. Obesity does not cause migraines , but it promotes headache frequency ([place] Headache Society 2013). Seek a diet LOW in p rocessed foods, animal products and simple sugars and HIGH in vegetables, fruits and whole g rains. Supplements, like Green Vibrance, contain green super foods and trace nutrients can help each cell function at peak efficiency. https://www.CytoPherx.SoundTag/green-vibrance/pro duct-pages/green-vibrance/Guidance from a registered dental assistant rda may be helpful. ___Goal Setting for healthy behaviors is an important piece to solving your pain puzzle. I t may take weeks to months for you to form a new habit and repetition matters. A goal shoul d be realistic, specific and obtainable. ___Journal or start a headache diary to look for patterns and triggers. Please note your p ain location, length of headache, headache triggers, quality and intensity of pain and other symptoms like nausea, vomiting or vision disturbance. ___Managing your emotional health is important, as chronic pain moves from the brain s pa in center to the emotional center over time. Improving your emotional health improves your ability to manage your pain, in fact, 30-60% of all patients who use biofeedback, relaxation , or cognitive-behavioral therapy have many fewer headaches than before they started. A refe rral to a mental health professional may be needed (ACHEnet.org). ___Massage therapy increases blood flow to muscles and promotes relaxation and healing. Ma ssage tools, like using tennis balls or tools like the Back Oziel, can be helpful for self m assage. A blend of essential oils may used for massage or aromatherapy. ___Medical Devices may be considered; TENS unit for neck pain or Cefaly or transcranial mag netic stimulation (like Eneura) for headache. Cefaly Unit is an FDA approved medical record assistant for use in helping to reduce migraine occurrences. Cefaly has been approved for use in adul ts 18 years of age and older. Side effects include: sedation, intolerance to the feeling of the unit on the skin, or allergic skin reaction to the electrodes. http://www.cefaly.us/ __x_Medications include medications to treat headaches as they occur. Preventative medicat ions, like anti-seizure and anti-depressant medications have been shown to decrease pain by affecting the brain s interpretation of pain. Herbal medications or dietary supplements m ay be helpful. Medications are not a replacement for healthy behaviors and regular exercise , but may be useful additions to your care plan. ___Meditation or relaxation techniques help your body and mind relax. Consider a personal 30 day challenge to meditate 20 minutes daily. A 2011 study from the [facility] showed a 40% reduction in pain intensity and 57% less distress from pain while mediating. Timi Menendez at Actualized.org has excellent videos on meditation, including the "Do Nothing" and "Mindfulness" approach. _x__Pain creams reduce pain. Apply a small amount 3 x day to painful areas using gentle leo f massage. Do not apply immediately after heat. ___Pet therapy by stroking, hugging, or otherwise touching a loving animal; this rapidly ca lms and soothes us when we re stressed or anxious. ___Social Support from friends, family, support groups, denominational organizations or communNovoED centers may be helpful. Use your social network to generate enthusiasm or find others to start making healthy changes with you. ___Sleep hygiene is used to maintain a regular sleep pattern. A good night s sleep helps reduce chronic pain, from Sleepfoundation.org. A referral to a sleep medicine provider may be needed. _x__ Stretch your neck, shoulders, and back 3 x day. Correct posture and use good body mech anics to prevent further muscle strain or injury. A physical therapy referral may be made. ___Sun Touch Plus Light and Ion Therapy/Prescription Strength 10,000 LUX Light Therapy. Use the briceno of a blue guevara to help you through the day with the Sun Touch Plus Light and Ion Therapy. This light therapy lamp produces a 10,000 LUX light, designed to boost your mood an d energy by mimicking the effects of a alice guevara. Meanwhile, negative ion therapy brings you the positive properties of nature's most calming scenes. The Sun Touch Plus emits a healing 17,000-Tariq UV-free light, which is equivalent to blue guevara light in [place]. ___Trigger point injections/occipital nerve blocks are done by injecting a small amount of numbing medication to painful points. These work best when combined with home stretching an d strengthening. ___Workplace ergonomics evaluation to examine your interaction with your work space. Resources: Timi Menendez at http://actualized.org/ for meditation, self help, and inspiration Several excellent videos on meditation- including the "Do Nothing" meditation technique. [facility]ative Medicine for handouts/podcasts on migraines and other h ealth topics at https://www.fammed.[facility].edu/integrative Migraine Foundation at http://www.americanmigrainefoundation.org Italian Headache Society at http://www.americanheadachesociety.org/ [place] Academy of Neurology at https://www.aan.com/ Super Better by Laly Bae- a book about gamefulness, this means using psychological st rengths you have when you play games- like, courage, determination, optimism- to increase re silience in your real life. She also has a videos on TITA Talks. TITA Talks- at [employer]- devoted to Ideas Cherokee Spreading; a variety of health topics. WHY SELF CARE IS SO IMPORTANT! By Karime Banks http://Xcerion/neh-uimx-atdm-em-gz-tyajgffrz-4754393065 Look for the "FCI" fernando to show that a supplement has been tested by an outside lab to ensu re quality improvement engineer. Supplements shown to help with headache prevention: Magnesium (oxide, gluconate, glycinate or aspartate) 400-600 mg per day. Other types cause diarrhea. May also be taken 200-400 mg for abortive therapy of headaches. Riboflavin/B2: 400 mg per day (may take it 200 mg two times per day) Feverfew 50-300 mg two times per day Co Q 10- 150mg day Fish oil/olive oil. Fish oil: 756 mg qd EPA; 498 mg qd DHA and olive oil 1,382 mg oleic aci d daily L-arginine 1000mg day- take daily for chronic tension type headache and may be used with ib uprofen or naproxen as needed for migraine headache . Arginine is one of 20 amino acids, the building blocks of protein. Arginine can serve as a source of energy, and is involved in various pathways throughout the body. Arginine support s the effect of exercise and is one of the most important amino acids involved in immune fun ction. Adults can take one caplet daily. Avoid if low blood pressure. For complete informat ion see: http://www.webmd.com/vitamins-supplements/bryytsgjfssygr-221-p-arginine.aspx?activeingredie aiyp=559&activeingredientname=l-arginine Migraine Supplements. There are compaines that package more than one of the above vitamins/ supplements into a single pill. Some are available directly from morgue technician, but most are available from vitamin catalogues or websites: Dolovent - Info available at www.Dolovent.SoundTag (multivitamin with extra B2, Magnesium, Coenz yme Q10) HeadacheFree - www.headachefreevitamins.com (multivitamin, but with higher amounts of B2 an d magnesium) MigreLief - www.migralief.com (contains B2, magnesium and feverfew) Migramin - www.migramin.com (contains B2, magnesium, organic feverfew in separate capsules, prepackaged in daily pill packs) Ausinal Nasal Foley (Ausinal.SoundTag) Capsaicin based nasal spray, used for migraine, cluster h eadache and atypical facial pain. If the sting is worse than the headache pain, then stop t he medication. There is no risk of rebound headache with this approach. Additionally: Acupuncture, cognitive behavior therapy, biofeedback, aerobic exercise and is ometric neck exercises are non medical treatments that have been shown to be useful in heada augustine treatment and prevention. There are also some studies supporting a gluten-free diet in t he reduction of headaches. You may boost the effectiveness of abortive medications, such as a "triptan", by adding: herbal supplements a large cup coffee sodium naprosyn/other NSAID/anti inflammatory medication as directed by the morgue technician anti-histamine such as promethazine (which also helps with nausea) or OTC benadryl as direc tita by the morgue technician Detailed supplement information can be found at: Http://www.fammed.[facility].edu/integrative/resources/modules/headaches/ You can check their migraine handout and arthritis handout for detailed listing of other mtz pplements to help with inflammation, dietary changes and headache. documented in this encounter Progress Notes Domo AMBROSIO, Karen Pisano - 10/03/2015 12:59 PM PDTFormatting of this note might be different fro m the original. Department Name History & Physical Pt. Name/Age/: Danisha Lemon / 54 y.o. /1960 Date of Consultation: 10/03/2015 Primary Care Physician: Jose Alberto Jones MD Patient Identification: Danisha Lemon is a 54 year old woman, from [place] presenting fo r evaluation of migraine with aura, not intractable, referred by Dr. Murillo, neurology, [place] dept. She is accompanied by: her mother. She has past medical history significant for heada augustine since 1988, RRMS/ remains on copaxone, RLS, Chronic pain: Low back pain since last 10 yr and worse in last 6 months ( X ray, Rxd with Voltaren; has seen medical grade shoemaker for back sheridan n ), neck pain since 2006, paresthesia, IBS symptoms, anemia (takes one tablet iron in AM) a nd kidney stones. She has routine MRI of brain and spine upcoming for monitoring on copax one and has symptoms of Lhermitte sign, fatigue and memory disturbance. FH: mother with headache/aura. Her goal for today's visit: to reduce headache. She had a increase in amitriptyline for sleep/pain made last month and is taking 75mg PO Q HS, withou t much change to headache pattern but is sleeping better. History of Present Illness: Headaches: started in 1989, around period of a Lyme disease type illness, with gradual wors ening over time. They now occur at 5-6 severe headaches each week. They last up to 2 hours- all day. She takes excedrin migraine/voltarin daily (she has been using them daily x 6 mino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
--- OUTSIDE RECORDS SUMMARY | ~2019-03-05 | XMS | Encounter Summary ---
Demographics + + + | Address | [address] | | | [place] [address] | + + + | Home Phone | | + + + | Preferred Language | Unknown | + + + | Marital Status | | + + + | Yazidi Affiliation | Unknown | + + + | Race | White | + + + | Ethnic Group | Not or | + + + Author + + + | Author | [facility] | + + + | Organization | [facility] | + + + | Address | Unknown | + + + | Phone | Unavailable | + + + Support + + +---------+ + | Name | Relationship | Address | Phone | + + +---------+ + | Klever Hsu | ECON | Unknown | | + + +---------+ + Care Team Providers + +------+ + | Care Middleware Architect Name | Role | Phone | + [...] Closed | | Radiology | Diagnoses | [place], | [facility] | | | | | MS | Kaitlynn Schilling, | [address] | | | | | (multiple | MD [address] | | | | | sclerosis) | [address] | [address] | | | | | (HCC) | [facility] [place] | Mailcode: | | | | | Procedures | [id number] | [address] | | | | | MRI SPINE | Phone: | [place] | | | | | CERVICAL WWO | [phone] | Research | | | | | CONTRAST | Fax: | Center | | | | | [place] MRI, CERV | [phone] | [facility] [place] | | | | | SPINE COMBO | | [address] | | | | | | | Phone: | | | | | | | [phone] | | | | | | | Fax: | | | | | | | [phone] | +--------+--------+ + + + + Reason for Visit Diagnostic Testing (Routine) +--------+--------+ + + + + | Status | Reason | Specialty | Diagnoses / | Referred By | Referred To | | | | | Procedures | Contact | Contact | +--------+--------+ + + + + | Closed | | Radiology | Diagnoses | [place], | [facility] | | | | | MS | Kaitlynn Schilling, | [address] | | | | | (multiple | MD [address] | [address] | | | | | sclerosis) | [address] | [address] | | | | | (HCC) | [place], [place] | Mailcode: | | | | | Procedures | [id number] | [address] | | | | | MRI SPINE | Phone: | [place] | | | | | CERVICAL WWO | [phone] | Research | | | | | CONTRAST | Fax: | Center | | | | | [place] MRI, CERV | [phone] | [place], [place] | | | | | SPINE COMBO | | [address] | | | | | | | Phone: | | | | | | | [phone] | | | | | | | Fax: | | | | | | | [phone] | +--------+--------+ + + + + Encounter Details +--------+ + + + + | Date | Type | Department | Care Team | Description | +--------+ + + + + | 07/26/ | Hospital | Diagnostic Imaging | Kaitlynn Leyva, | | | 2019 | Encounter | Services at [facility] | [address] | | | | | [address] | [place], [place] | | | | | [address] Mailcode: | [id number] | | | | | [address] [place] | [phone] | | | | | [facility] | | | | | | [place], [place] | | | | | | [address] | | | | | | [phone] | | | +--------+ + + + [...] + + + +---------+ + + | buPROPion | Take 100 mg by mouth | | 0 | | | | (WELLBUTRIN) 100 mg | two times daily. | | | | | | oral tablet | | | | | | + [...] + + + +---------+ + + | rizatriptan rapid | Place tablet on | 12 | 5 | 04/13/20 | | | dissolve | tongue and allow to | tablet | | 18 | | | (MAXALT-COMMISSARY HELPER) 10 mg | dissolve. May repeat | | | | | | oral | in 2 hours as | | | | | | tablet,disintegratin | needed. (Max: 30mg | | | | | | g | per 24 hour) | | | | | + + + +---------+ + + | TENS unit and | 1 Device by | 1 | 0 | 11/29/19 | | | electrodes combo | Peripheral nerve | Device | | 16 | | | pack | route once daily as | | | | | | | needed. | | | | | + + + +---------+ + + documented as of this encounter Plan of Treatment +--------+---------+ + + + | Date | Type | Specialty | Care Team | Description | +--------+---------+ + + + | 04/05/ | Office | Thoracic Surgery | Antonio Kaur MD | | | 2018 | Visit | | [address] | | | | | | [address] | | | | | | [place], [place] | | | | | | [address] | | | | | | [phone] | | | | | | | | +--------+---------+ + + + | 04/26/ | Office | Neurology | Kaitlynn Leyva | | | 2018 | Visit | | [address] | | | | | | [place], [place] | | | | | | [address] | | | | | | [phone] | | | | | | | | +--------+---------+ + + + documented as of this encounter Procedures + +--------+ + + + | Procedure Name | Priori | Date/Time | Associated Diagnosis | Comments | | | ty | | | | + +--------+ + + + | MRI SPINE CERVICAL | Routin | 07/26/2018 | MS (multiple | Results for this | | WWO CONTR | e | 5:00 PM | sclerosis) (HCC) | procedure are in the | | | | PDT | | results section. | + +--------+ + + + documented in this encounter Results MRI SPINE CERVICAL WWO CONTRAST (07/26/2018 5:00 PM PDT) + + | Specimen | + + | | + + + + + | Narrative | Performed At | + + + | MRI CERVICAL SPINE WITHOUT AND WITH CONTRAST HISTORY: follow up | [facility] | | MS COMPARISON: 10/04/2015 TECHNIQUE: Multiplanar | RADIOLOGY VOICE | | multi-sequence MRI cervical spine without and with gadolinium based | RECOGNITION 2 | | intravenous contrast: FINDINGS: ALIGNMENT: There is | | | straightening of the normal cervical lordosis, with reversal at the | | | C4-7 levels. MARROW: Unremarkable. SPINAL CORD: No definite spinal | | | cord lesion identified. CRANIOCERVICAL JUNCTION: Normal. C2-3: | | | Unremarkable. C3-4: Unremarkable. C4-5: Unremarkable. C5-6: | | | Unchanged. Posterior disc which narrows the ventral CSF space. Mild | | | right-sided neuroforaminal narrowing secondary to uncovertebral | | | arthropathy. C6-7: Unchanged. Right worse than left uncovertebral | | | arthropathy results in moderate right and mild left neuroforaminal | | | narrowing. C7-T1: Unremarkable. POSTERIOR FOSSA: Visualized | | | portions are unremarkable. PARASPINAL SOFT TISSUES: Unremarkable. | | | IMPRESSION: No definitive lesion seen in the cervical spine to | | | suggest active demyelinating disease. Multilevel degenerative | | | changes, unchanged since the prior exam. I have personally | | | reviewed the images and, if necessary, edited the report. I agree with | | | the report as now presented. Final signature: Dedrick Ortiz MD | | | 07/27/2018 10:27 AM Preliminary: Tim De La Torre MD | | | 07/27/2018 10:26 AM Dictation initiated: Tim De La Torre MD | | | 07/27/2018 8:54 AM | | + + + + + | Procedure Note | + + | Service Da, Radiant Res In Interface - 07/27/2018 10:28 AM PDT MRI CERVICAL | | SPINE WITHOUT AND WITH CONTRAST HISTORY: follow up MS COMPARISON: 10/04/2015 | | TECHNIQUE: Multiplanar multi-sequence MRI cervical spine without and with gadolinium | | based intravenous contrast: FINDINGS: ALIGNMENT: There is straightening of the normal | | cervical lordosis, with reversal at the C4-7 levels.MARROW: Unremarkable.SPINAL CORD: No | | definite spinal cord lesion identified. CRANIOCERVICAL JUNCTION: Normal. C2-3: | | Unremarkable.C3-4: Unremarkable.C4-5: Unremarkable.C5-6: Unchanged. Posterior disc which | | narrows the ventral CSF space. Mild right-sided neuroforaminal narrowing secondary to | | uncovertebral arthropathy.C6-7: Unchanged. Right worse than left uncovertebral | | arthropathy results in moderate right and mild left neuroforaminal narrowing. C7-T1: | | Unremarkable. POSTERIOR FOSSA: Visualized portions are unremarkable.PARASPINAL SOFT | | TISSUES: Unremarkable. IMPRESSION: No definitive lesion seen in the cervical spine to | | suggest active demyelinating disease. Multilevel degenerative changes, unchanged since | | the prior exam. I have personally reviewed the images and, if necessary, edited the | | report. I agree with the report as now presented. Final signature: Dedrick Ortiz MD | | 07/27/2018 10:27 AM Preliminary: Tim De La Torre MD 07/27/2018 10:26 AM Dictation | | initiated: Tim De La Torre MD 07/27/2018 8:54 AM | |C3-4: Unremarkable. | |C4-5: Unremarkable. | |C5-6: Unchanged. Posterior disc which narrows the ventral CSF space. Mild right-sided neuro foraminal narrowing secondary to uncovertebral arthropathy. | |C6-7: Unchanged. Right worse than left uncovertebral arthropathy results in moderate right and mild left neuroforaminal narrowing. | |C7-T1: Unremarkable. | | | |POSTERIOR FOSSA: Visualized portions are unremarkable. | |PARASPINAL SOFT TISSUES: Unremarkable. | | | |IMPRESSION: | | | |No definitive lesion seen in the cervical spine to suggest active demyelinating disease. | | | |Multilevel degenerative changes, unchanged since the prior exam. | | | |I have personally reviewed the images and, if necessary, edited the report. I agree with e report as now presented. | | | |Final signature: Dedrick Ortiz MD 07/27/2018 10:27 AM | |Preliminary: Tim De La Torre MD 07/27/2018 10:26 AM | |Dictation initiated: Tim De La Torre MD 07/27/2018 8:54 AM | + + + +---------+ + + | Performing | Address | City/State/Zipcode | Phone Number | | Organization | | | | + +---------+ + + | [facility] | | | | | VOICE RECOGNITION 2 | | | | + +---------+ + + documented in this encounter Visit Diagnoses + + | Diagnosis | + + | MS (multiple sclerosis) (HCC) Multiple sclerosis | + + documented in this encounter"
--- OUTSIDE RECORDS SUMMARY | ~2019-03-05 | XMS | Encounter Summary ---
Demographics + + + | Address | [address] | | | [place] [address] | + + + | Home Phone [...] Team Providers + +------+ + | Care Analysis Director Name | Role | Phone | [...] | | | | sclerosis) | [address] | Rd | | | | | (HCC) | [facility] [place] | Mailcode: | | | | | Procedures | [address] | [address] | | | | | MRI SPINE | Phone: | [place] | | | | | CERVICAL WWO | [phone] | Research | | | | | CONTRAST | Fax: | Center | | | | | [place] MRI, CERV | [phone] | [facility] [place] | | | | | SPINE COMBO | | [address] | | | | | | | Phone: | | | | | | | [phone] | | | | | | | Fax: | | | | | | | [phone] | +--------+--------+ + + + + Diagnostic Testing (Routine) +--------+--------+ + + + [...] | | | | sclerosis) | [address] | Rd | | | | | (HCC) | [facility] [place] | Mailcode: | | | | | Procedures | [address] | [address] | | | | | MRI BRAIN | Phone: | [place] | | | | | MULTIPLE | [phone] | Research | | | | | SCLEROSIS | Fax: | Center | | | | | WWO CONTRAST | [phone] | [place], [place] | | | | | [place] MRI | | [address] | | | | | BRAIN COMBO | | Phone: | | | | | | | [phone] | | | | | | | Fax: | | | | | | | [phone] | +--------+--------+ + + + + Reason for Visit + + + | Reason | Comments | + + + | Follow-up visit | | + + + Office Visit [...] | | | | sclerosis | | [address] | | | | | Procedures | | [address] | | | | | [place] EST | | [place], [place] | | | | | PATIENT | | [address] | | | | | LEVEL V | | Phone: | | | | | | | [phone] | | | | | | | Fax: | | | | | | | [phone] | + +--------+ + + + + Encounter Details +--------+---------+ + + + | Date | Type | Department | Care Team | Description | +--------+---------+ + + + | 04/13/ | Office | Neurology at | Kaitlynn Leyva, | MS (multiple | | 2018 | Visit | [facility] & | [address] | sclerosis) (HCC) | | | | Healing [address] | [facility] [place] | (Primary Dx); | | | | [address] Mailcode: | [address] | Hypovitaminosis D; | | | | [address] for | [phone] | Neuropathic pain | | | | Health and Healing, | | | | | | | | | | | | Floor [place], [place] | | | | | | [address] | | | | | | [phone] | | | +--------+---------+ + + + [...] + + + | Blood Pressure | 146/89 | 04/13/2018 10:53 AM | | | | | PST | | + + + + + | Pulse | 80 | 04/13/2018 10:53 AM | | | | | PST | | + + + + + [...] + + + + | Weight | 78.5 kg (173 lb 1 | 04/13/2018 10:53 AM | | | | oz) | PST | | + + + + + | Height | - | - | | + + + + + | Body Mass Index | 30.66 | 11/29/2015 10:40 AM | | | | | PDT | | + + + + + documented in this encounter Patient Instructions Patient Instructions Kaitlynn Leyva MD - 04/13/2018 11:10 AM PST1. Schedule your MRI scan by calling 2. Tecfidera (dimethyl fumarate) is a medicine used to treat relapsing forms of multiple sclerosis. We discussed the risks and benefits of Tecfidera and you stated you understood these risks as follows: The most frequent side effects include: ? Flushing, redness, itching or rash ? Nausea, vomiting, diarrhea, stomach pain or indigestion Flushing and stomach problems are the most common reactions, especially at the start of meghana atment, and may decrease over time. Your doctor may advise you to take low dose aspirin or B enadryl (diphenhydramine) in an effort to minimize the flushing reaction. You may also need to alter the Tecfidera dosing in order to minimize the side effects. If you are having sign ificant side effects, please discuss with your doctor. Taking Tecfidera with food will help alleviate some flushing and stomach symptoms. Additional risks include: ? Decreased white blood count. This may cause more frequent infections. ? Serious liver problems. Call your doctor if you have any of the following symptoms of li maria fernanda problems such as nausea, vomiting, stomach pain, loss of appetite, tiredness, yellowing of the skin or white part of the eye, dark urine. Dosing schedule: 120mg by mouth twice a day for 7 days and then 240mg by mouth twice a day Before you start Tecfidera: We will do blood tests to check your white blood cell count. We will do blood tests to check your liver function. Tell your doctor if you plan to become . After you start Tecfidera: Your blood will be checked every 3 months while you continue to take Tecfidera to check you r blood for signs of liver injury or low white blood count. We recommend seeing your neurologist 1-3 months after starting Tecfidera and then every 3 m ont. Contact your physician at [phone] if you are having side effects. Additional resource for information: [email or web address] documented in this encounter Progress Notes Chilango Schwab MD - 04/13/2018 11:10 AM PSTI personally interviewed the patient, duplicated the pertinent parts of the physical examination and personally formulated the plan with Dr. Leyva. I have reviewed, entered my findings, and agree with the above documentation. I did stress the importance of obtaining labs every 3 months to assess for lymphopenia. Chilango Schwab M.D. [facility] ice, Paola Schilling MD - 04/13/2018 11:10 AM PSTFormatting of this note might be different from the orig inal. Multiple Sclerosis [facility] - Follow Up Note Author: Kaitlynn Leyva MD Date of service: 04/13/18 Last visit: 11/29/15 - Dr. Murillo ID: Danisha Lemon is a 57 yo RH woman with relapsing remitting multiple sclerosis who retur ns to clinic for follow up. History from previous encounters: Year of symptoms onset: - optic neuritis Diagnosis year: 2013 Relapse/MS Hx (adapted from Dr. Murillo's last note 2015): : fatigue, R eye pain, worse with eye movement and couldn't see well. Saw ophth, R xd with steroid drops. Symptoms lasted 1 month. 2006: vertigo x 2 months and numbness in feet and fingers ( numbness since then has fluctua manda). Saw PCP and Rxd with med for nausea and dizziness. 2007: subacute onset ( over days) of R leg weakness that lasted 1 month. Wore a brace to he lp with foot drop. Didn't have insurance and hence saw no one. 2010: vertigo x 2 weeks, worsening of numbness [...] intolerance of injections and loss of insurance MS symptoms: -Sensory: R sided numbness in foot, hand -Fatigue: Provigil denied by insurance -Pain: Neuropathic pain in R arm/leg. Previous notes indicate episodes of painful paresthes ias in L leg that would last for a few days at a time then resolve. She also has low back/ne ck pain since 2006. Taking diclofenac for this. TENS helped neck pain in the past. -Bladder: Since 2013 has had bladder urgency, hesitancy, spasms, nocturnal frequency. Saw [facility] previously, dx with UDS. Was on tamsulosin and mirabegron in the past, which wa s helpful. -Headaches: Migraines since 2013. Seen in [facility] in 2015, on amitriptyline 50mg daily (d idn't tolerate up to 75mg, made her too sleepy) and maxalt, which is helpful. -Cognitive: Trouble with names, somewhat forgetful -Mood: depression -Dizziness Interval history/subjective: -Patient returns today for follow up. She was lost to follow up since 2015 due to loss of [employer] insurance and of her mother. She returns today with worsening symptoms. -She states that she has worsening numbness on the right side - she has new numbness on her R face (V2-3). The numbness in her arm has spread to include the entire arm and is more num b than it was 2 years ago. The numbness in her RLE has also spread, now involves her entire foot. -There is also more painful paresthesias and electric-like shocks that have gotten worse in the past 2 years. When she touches things with the R hand, she will get a "zap" and she cale l drop the object. If she touches her foot, she will get an electric shock up her leg. -She tried gabapentin previously and this caused severe dizziness and increased falls -Is taking amitriptyline 50mg daily for [facility], but this is not helpful for the neuropathic pa in. She tried taking 75mg but this caused intolerable drowsiness. -She stopped copaxone last year due to intolerance to the injections and due to insurance i ssues. -Migraines are worse, but she has run out of her migraine medications, primarily maxalt. Sh shen takes maxalt when she feels a headache coming on, states this still helps. She takes amitr iptyline 50mg daily as above. -Continues to have urinary symptoms, with incontinence, hesitancy. Was previously on tamsul osin and mirabegron which helped, but she had to stop these when she lost her insurance. Wou ld like to see urology again. -Reports issues with intermittent effortful swallowing Neurologic ROS: [facility]: + Focal weakness: + Focal numbness: + Tingling/parasthesias: + Difficulty walking: + R foot drop when tired Difficulty with balance: + Vertigo: + [place]: - Change in vision: - Change in hearing: - Tinnitus: - Review of Systems: General: Fever: - Chills: - Eyes: Change in vision: - Eye pain: - Respiratory: Shortness of breath: - Cough: - Cardiovascular: Chest pain: + broke sternum 1 year ago Palpitations: - Gastrointestinal: N/V: - Diarrhea/Constipation: + [...] since 2006 Lyme disease 1990 living in [place], headaches, fatigue, flu like symptoms,had CSF that was negative. [place] manda with antibiotics x 3 months Mononucleosis 1972 MS (multiple sclerosis) ([facility]) Mumps 1963 Other general symptoms(780.99) Scoliosis Dx 1976 Treated [...] mouth every twelve hours as nee ded. 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 Uses cannabis - smoking and edibles, helps with sleep Family History: Family History Problem Relation MS Cousin Cancer Mother renal cell CA Headache Mother Heart Failure Father Genitourinary () Father kidney failure Diabetes Father Heart Disease Father A Fib Physical Examination: Filed Vitals: 04/13/2018 10:53 AM Weight: 78.5 kg (173 lb 1 oz) BP: 146/89 Pulse: 80 PainSc: 03 - Mild to Moderate BMI: 30.66 kg/(m^2) Constitutional: NAD Psychiatric: Mood/Affect: normal/appropriate Neurological: Mental [...] foot walk: 04/13/18: 6.10 - no aid HEENT: Eyes: non icteric Mouth: moist mucus membranes Cardiovascular: palpable pulses Respiratory: non-labored breathing GI: non tender Musculoskeletal: non tender Skin: no visible rash Labs: No recent labs CSF 08/24/2014 - Neg OCB, Normal IgG [...] Mild lateral facet arthropathy. No abnormal enhancement. Assessment: Danisha Lemon is a 57 y.o. Female with relapsing remitting multiple sclerosis who presents to clinic for follow up. She was lost to follow up x2 years due to insurance issues, but ret urns today for follow up due to worsening symptoms. Agree with diagnosis of multiple sclerosis given multiple episodes of discrete neurologic s ymptoms referable to the [employer] (optic neuritis in 2006, episodes of vertigo, R sided numbness) and abnormal MRIs showing T2 hyperintense lesions consistent with demyelination. She presen ts with major symptoms of neurogenic bladder, painful neuropathic limb pain, imbalance, dizz iness, and fatigue. When she was last seen in 2016, her MRIs were stable and she had been on copaxone since 2015. Patient presents today with worsening neuropathic pain/painful paresthesias, increasing num bness in her R face/arm/leg, and worsening fatigue and cognition. Will get repeat MRI brain and cervical spine wwo to look for new lesions as well as enhancing lesion indicating active demyelination. Patient should also resume disease modifying therapy to help reduce her risk of relapses and new lesions. She was on copaxone previously (stopped 1 year ago) and it was effective based on MRIs, but she reports she did not tolerate the injections. She is not in terested in an injectable DMT. Will start a trial of Tecfidera - discussed common side effec ts including flushing, GI upset, as well as risk of lymphopenia and PML risk as well. Advise d patient that flushing and GI effects should improve with time, but she could take the medi cine with food to help mitigate these symptoms. For flushing, taking aspirin 81mg can help a s well. She will need to get labs every 3 months with her PCP in [place]. She would like t o proceed, so will have her sign the start forms and get labs today. She should return in 3 months to follow up how she is tolerating this medication. Regarding symptom management, her most bothersome symptom is neuropathic pain, likely due t o spinal cord lesions. She did not tolerate gabapentin due to dizziness and falls and she is already on amitriptyline 50mg (didn't tolerate 75mg due to drowsiness). Considered duloxeti ne, but she is already on Celexa and Wellbutrin and starting this would increase her risk of serotonin syndrome. Will start trial of Lyrica 75mg BID. If insurance does not approve this , will ask her PCP to taper her off Celexa and Wellbutrin and start duloxetine 60mg daily. She also complains of increased bladder symptoms (urgency, incontinence) since stopping gagnon sulosin and mirabegron. Recommend she see urology again to make sure this is still the most appropriate therapy. Offered referral to [facility] urology with Dr. Botello, she would like a refer ral from her PCP to a urologist closer to home. Plan: -MRI brain and cervical spine wwo - ordered to be done here at [facility] per patient preference -Start Tecfidera - forms signed -CBC with diff, CMP today. Will need to be repeated every 3 months. Patient says she will make appt with PCP to arrange this. -If she has flushing with Tecfodera, can try taking aspirin 81mg daily with her dose -Recommend taking dose with food if bothersome GI symptoms occur -Checked vitamin D 25-hydroxy today -Checked JCV Ab today -Start lyrica 75mg BID - if tolerates, can increase up to 150mg BID -Patient failed gabapentin, already on amitriptyline 50mg daily -Recommend referral to local urology from PCP - patient preference -Refilled maxalt for migraine PRN -RTC in 3 months Patient has been seen and discussed with the attending, Dr. Schwab, who agrees with the asses sment and plan. Kaitlynn Leyva MD documented in this en counter Plan of [...] Rd | | | | | | [place], [place] | | | | | | [address] | | | | | | [phone] | | | | | | | | +--------+---------+ + + + | 04/26/ | Office | Neurology | Kaitlynn Leyva, | | | 2018 | Visit | | [address] | | | | | | [facility] [place] | | | | | | [address] | | | | | | [phone] | | | | | | | | +--------+---------+ + + + documented as of this encounter Results MRI BRAIN MULTIPLE SCLEROSIS WWO CONTRAST (07/26/2018 5:00 PM PDT) + + | Specimen | + + | | + + + + + | Narrative | Performed At | + + + | EXAM: MRI BRAIN WWO MULTIPLE SCLEROSIS HISTORY: follow up for | [facility] | | MS. COMPARISON: 10/04/2015 TECHNIQUE: Multiplanar | RADIOLOGY VOICE | | multi-sequence MRI of the brain without and with gadolinium based | RECOGNITION 2 | | intravenous contrast: GADOTERATE MEGLUMINE 0.5 MMOL/ML (376.9 MG/ML) | | | INTRAVENOUS SOLUTION 16 mL FINDINGS: BRAIN: Redemonstration | | | of multiple periventricular and subcortical T2/flair | | | hyperintensities, which overall appear similar in number and extent to | | | the prior exam. There is no abnormal enhancement or diffusion | | | restriction to suggest acute/active demyelinating lesions. The | | | ventricles are normal in size and morphology. No acute hemorrhage or | | | infarct. SOFT TISSUES AND MARROW: Unremarkable. FACE AND ORBITS: | | | Visualized portions are unremarkable. Unchanged appearance of the | | | hypoplastic right maxillary antrum, with mild circumferential mucosal | | | thickening. IMPRESSION: Overall stable appearance of the | | | multiple supratentorial white matter lesions, consistent with history | | | of demyelinating disease. No abnormal enhancement or diffusion | | | restriction suggest acute demyelination. I have personally | | | reviewed the images and, if necessary, edited the report. I agree with | | | the report as now presented. Final signature: Dedrick Ortiz MD | | | 07/27/2018 10:28 AM Preliminary: Tim De La Torre MD | | | 07/27/2018 10:26 AM Dictation initiated: Tim De La Torre MD | | | 07/27/2018 9:07 AM | | + + + + + | Procedure Note | + + | Service Account, Radiant Res In Interface - 07/27/2018 10:29 AM PDT EXAM: MRI BRAIN | | WWO MULTIPLE SCLEROSIS HISTORY: follow up for MS. COMPARISON: 10/04/2015 TECHNIQUE: | | Multiplanar multi-sequence MRI of the brain without and with gadolinium based | | intravenous contrast: GADOTERATE MEGLUMINE 0.5 MMOL/ML (376.9 MG/ML) INTRAVENOUS | | SOLUTION 16 mL FINDINGS: BRAIN: Redemonstration of multiple periventricular and | | subcortical T2/flair hyperintensities, which overall appear similar in number and extent | | to the prior exam. There is no abnormal enhancement or diffusion restriction to suggest | | acute/active demyelinating lesions. The ventricles are normal in size and morphology. | | No acute hemorrhage or infarct. SOFT TISSUES AND MARROW: Unremarkable.FACE AND ORBITS: | | Visualized portions are unremarkable. Unchanged appearance of the hypoplastic right | | maxillary antrum, with mild circumferential mucosal thickening. IMPRESSION: Overall | | stable appearance of the multiple supratentorial white matter lesions, consistent with | | history of demyelinating disease. No abnormal enhancement or diffusion restriction | | suggest acute demyelination. I have personally reviewed the images and, if necessary, | | edited the report. I agree with the report as now presented. Final signature: Dedrick Marsh | | MD Diana 07/27/2018 10:28 AM Preliminary: Tim De La Torre MD 07/27/2018 10:26 | | AM Dictation initiated: Tim De La Torre MD 07/27/2018 9:07 AM | |IMPRESSION: | | | |Overall stable appearance of the multiple supratentorial white matter lesions, consistent w ith history of demyelinating disease. No abnormal enhancement or diffusion restriction sugge st acute demyelination. | | | |I have personally reviewed the images and, if necessary, edited the report. I agree with th e report as now presented. | | | |Final signature: Dedrick Ortiz MD 07/27/2018 10:28 AM | |Preliminary: Tim De La Torre MD 07/27/2018 10:26 AM | |Dictation initiated: Tim De La Torre MD 07/27/2018 9:07 AM | + + + +---------+ + + | Performing | Address | City/State/Zipcode | Phone Number | | Organization | | | | + +---------+ + + | [facility] | | | | | VOICE RECOGNITION 2 | | | | + +---------+ + + MRI SPINE CERVICAL WWO CONTRAST (07/26/2018 5:00 [...] necessary, edited the report. I agree with th e report as now presented. | | [...] | | | + +---------+ + + STRATIFY TRESSA VIRUS ANTIBODY W/ REFLEX TO INHIBITION ASSAY, SERUM (04/13/2018 1:14 PM PST) + + + + + + | Component | Value | Ref Range | Performed | Pathologist | | | | | At | Signature | + + + + + + | STRATIFY | Please see scanned | | [facility] | | | JCV | report for result. | | REFERENCE | | | ANTIBODY | | | LAB | | | ASSAY | | | | | + + + + + + + + | Specimen | + + | Blood - Blood | | (substance) | + + + + + | Narrative | Performed At | + + + | | [facility] | | Test performed by: | REFERENCE LAB | | [facility] | | | [address] | | | [place] [address] | | + + + + + + + + | Performing | Address | City/State/Zipcode | Phone Number | | Organization | | | | + + + + + | [facility] | | | | + + + + + | [facility] | see below | | | + + + + + VITAMIN D, 25-HYDROXY, SERUM (04/13/2018 1:14 PM PST) + + + + + + | Component | Value | Ref Range | Performed | Pathologist | | | | | At | Signature | + + + + + + | VITAMIN D | 16.1 (L) | 30 - 80 ng/mL | [facility] [...] LABORATORY | | >18years: Deficiency: <20 | LEOBARDO, CORE | | ng/mL Insufficiency: 20-29 ng/mL | | | Optimum Level: 30-80 ng/mL High: | | | 81-150 ng/ml Toxic: >150 ng/mL | | + + + + + + + + | Performing | Address | City/State/Zipcode | Phone Number | | Organization | | | | + + + + + | [facility] | [address] | [place] [address] | | | [address] | [address] | | | + + + + + COMPLETE METABOLIC SET (NA,K,CL,CO2,BUN,CREAT,GLUC,CA,AST,ALT,BILI TOTAL,ALK PHOS,ALB,PROT TOTAL) (04/13/2018 1:14 PM PST) + +--------+ + + + | Component | Value | Ref Range | Performed | Pathologist | | | | | At | Signature | + +--------+ + + + | GLUCOSE, | 91 | 70 - 99 mg/dL | [facility] | | | PLASMA | | | LABORATORY | | | (LAB) | | | SERVICES, | | | | | | [facility] | | | | | | [facility] | | + +--------+ + + + | BUN, PLASMA | 12 | 6 - 20 mg/dL | [facility] | | | (LAB) | | | LABORATORY | | | | | | SERVICES, | | | | | | [facility] + | | | | | | [facility]ALING | | + +--------+ + + + | CREATININE | 1.00 | 0.60 - 1.10 | [facility] | | | PLASMA | | mg/dL | LABORATORY | | | (LAB) | | | SERVICES, | | | | | | [facility] + | | | | | | [facility]ALING | | + +--------+ + + + | SODIUM, | 140 | 134 - 143 | [facility] | | | PLASMA | | mmol/L | LABORATORY | | | (LAB) | | | SERVICES, | | | | | | [facility] + | | | | | | [facility]ALING | | + +--------+ + + + | POTASSIUM, | 4.4 | 3.4 - 5.0 | [facility] | | | PLASMA | | mmol/L | LABORATORY | | | (LAB) | | | SERVICES, | | | | | | [facility] + | | | | | | [facility]ALING | | + +--------+ + + + | CHLORIDE, | 99 | 97 - 108 mmol/L | [facility] | | | PLASMA | | | LABORATORY | | | (LAB) | | | SERVICES, | | | | | | [facility] | [facility] + | | | | | | [facility]ALING | | + +--------+ + + + | TOTAL CO2, | 31 (H) | 22 - 29 mmol/L | [facility] | | | PLASMA | | | LABORATORY | | | (LAB) | | | SERVICES, | | | | | | [facility] + | | | | | | [facility]ALING | | + +--------+ + + + | CALCIUM, | 8.8 | 8.6 - 10.2 | [facility] | | | PLASMA | | mg/dL | LABORATORY | | | (LAB) | | | SERVICES, | | | | | | [facility] | [facility] + | | | | | | [facility]ALING | | + +--------+ + + + | BILIRUBIN | 0.6 | 0.3 - 1.2 mg/dL | [facility] | | | TOTAL | | | LABORATORY | | | | | | SERVICES, | | | | | | [facility] | | [facility] + | | | | | | HEALING | | + +--------+ + + + | TOTAL | 6.2 | 6.1 - 7.9 g/dL | [facility] | | | PROTEIN, | | | LABORATORY | | | PLASMA | | | SERVICES, | | | (LAB) | | | [facility] | [facility] + | | | | | | HEALING | | + +--------+ + + + | ALBUMIN, | 3.5 | 3.5 - 4.7 g/dL | [facility] | | | PLASMA | | | LABORATORY | | | (LAB) | | | SERVICES, | | | | | | [facility] | [facility] + | | | | | | [facility]ALING | | + +--------+ + + + | ALK PHOS | 72 | 33 - 76 U/L | [facility] | | | | | | LABORATORY | | | | | | SERVICES, | | | | | | [facility] + | | | | | | [facility]ALING | | + +--------+ + + + | AST(SGOT) | 15 | <=41 U/L | [facility] | | | | | | LABORATORY | | | | | | SERVICES, | | | | | | [facility] + | | | | | | [facility]ALING | | + +--------+ + + + | ALT (SGPT) | 16 | <=60 U/L | [facility] | | | | | | LABORATORY | | | | | | SERVICES, | | | | | | [facility] + | | | | | | [facility]ALING | | + +--------+ + + + | ANION GAP | | 4 - 11 mmol/L | [facility] | | | | | | LABORATORY | | | | | | SERVICES, | | | | | | [facility] + | | | | | | [facility]ALING | | + +--------+ + + + | ANION | | 4 - 11 mmol/L | [facility] | | | GAP(ALB | | | LABORATORY | | | CORRECTED) | | | SERVICES, | | | | | | [facility] | [facility] + | | | | | | [facility]ALING | | + +--------+ + + + + + | Specimen | + + | Blood - Blood | | (substance) | + + + + + + + | Performing | Address | City/State/Zipcode | Phone Number | | Organization | | | | + + + + + | [facility] | [address] | [place] [address] | | | [facility] | | | | | HEALTH + HEALING | | | | + + + + + documented in this encounter Visit Diagnoses + + | Diagnosis | + + | MS (multiple sclerosis) (HCC) - Primary Multiple sclerosis | + + | Hypovitaminosis D Unspecified vitamin D deficiency | + + | Neuropathic pain Neuralgia, neuritis, and radiculitis, unspecified | + + documented in this encounter
--- OUTSIDE RECORDS SUMMARY | ~2019-03-05 | XMS | Encounter Summary ---
Demographics + + + | Address | [address] | | | [place] [address] | + + + | Home Phone | | + + + | Preferred Language | Unknown | + + + | Marital Status | | + + + | Gnosticism Affiliation | Unknown | + + + | Race | White | + + + | Ethnic Group | Not or | + + + Author + + + | Author | [facility] | + + + | Organization | [facility] | + + + | Address | Unknown | + + + | Phone | Unavailable | + + + Support + + +---------+ + | Name | Relationship | Address | Phone | + + +---------+ + | Klever Hsu | ECON | Unknown | | + + +---------+ + Care Team Providers + +------+ + | Care Brake Repairer Name | Role | Phone | + +------+ + | Jose Alberto Jones MD | PCP | | + +------+ + Reason for Visit + + + | Reason | Comments | + + + | Prior Authorization | [facility] | | Request - Medication | | + + + Encounter Details +--------+ + + + + | Date | Type | Department | Care Team | Description | +--------+ + + + + | 12/12/ | Documentati | Neurology at | Karen Oliveros, | Prior Authorization | | 2016 | on [facility] ANP [address] | Request - Medication | | | | [address] | ([place]) | | | | [place] Mailcode: | [place] [address] | | | | | [facility] | [phone] | | | | | Health and Healing, | | | | | | [facility] | | | | | | [place], [place] | | | | | | [address] | | | | | | [phone] | | | +--------+ + + + [...] Rd | | | | | | [place], [place] | | | | | | [address] | | | | | | [phone] | | | | | | | | +--------+---------+ + + + | 04/26/ | Office | Neurology | Kaitlynn Leyva, | | | 2018 | Visit | | [address] | | | | | | [place] | | | | | | [address] | | | | | | [phone] | | | | | | | | +--------+---------+ + + + documented as of this encounter Visit Diagnoses Not on filedocumented in this encounter"
--- OUTSIDE RECORDS SUMMARY | ~2019-03-05 | XMS | Encounter Summary ---
Demographics + + + | Address | [address] | | | [place] [address] | + + + | Home Phone | | + + + | Preferred Language | Unknown | + + + | Marital Status | | + + + | Latter-Day Affiliation | Unknown | + + + | Race | White | + + + | Ethnic Group | Not or | + + + Author + + + | Organization | Unknown | + + + | Address | Unknown | + + + | Phone | Unavailable | + + + Support + + +---------+ + | Name | Relationship | Address | Phone | + + +---------+ + | Klever PRATER | Unknown | | + + +---------+ + Care Team Providers + +------+ + | Care Shovel Loader Operator Name | Role | Phone | + +------+ + | Jose Alberto Jones MD | ERNST | | + +------+ + Encounter Details +--------+--------+ + + + | Date | Type | Department | Care Team | Description | +--------+--------+ + + + | 10/26/ | Travel | | | | | 2019 | | | | | +--------+--------+ + + + [...] | 2019 | Visit | | [address] | | | | | | [address] | | | | | | [place], [place] | | | | | | [address] | | | | | | [phone] | | | | | | | | +--------+---------+ + + + | 04/26/ | Office | Neurology | Kaitlynn Leyva, | | | 2018 | Visit | | [address] | | | | | | [place], [place] | | | | | | [address] | | | | | | [phone] | | | | | | | | +--------+---------+ + + + documented as of this encounter Visit Diagnoses Not on filedocumented in this encounter"
--- OUTSIDE RECORDS SUMMARY | ~2019-03-05 | XMS | Encounter Summary ---
Demographics + + + | Address | [address] | | | [place] [address] | + + + | Home Phone | | + + + | Preferred Language | Unknown | + + + | Marital Status | | + + + | Jehovah'S Witness Affiliation | 1008 | + + + | Race | Unknown | + + + | Ethnic Group | Unknown | + + + Author + + + | Author | [facility] | | | and [place] | + + + | Organization | [facility] | | | and [facility] [...] Team Providers + +------+ + | Care Complex Human Resources Manager Name | Role | Phone | + +------+ + | Jose Alberto Jones MD | PCP | | + +------+ + Encounter Details +--------+ + + + + | Date | Type | Department | Care Team | Description | +--------+ + + + + | 01/21/ | Imaging | [facility] | Provider, | | | 2019 | Exam | [facility] | [address] | | | | | IMAGING | [address] | | | | | [phone] | [place] [address] | | +--------+ + + + + [...] as of this encounter Plan of Treatment Not on filedocumented as of this encounter Procedures + +--------+ [...] + + documented in this encounter Results CT Chest Abdomen Pelvis w Contrast (01/21/2019 [...] + documented in this encounter Visit Diagnoses Not on filedocumented in this encounter"
--- OUTSIDE RECORDS SUMMARY | ~2019-03-05 | XMS | Encounter Summary ---
Demographics + + + | Address | [address] | | | [place] [address] | + + + | Home Phone | | + + + | Preferred Language | Unknown | + + + | Marital Status | | + + + | Congregational Affiliation | Unknown | + + + | Race | White | + + + | Ethnic Group | Not or | + + + Author + + + | Author | [facility] | + + + | Organization | [facility] | + + + | Address | Unknown | + + + | Phone | Unavailable | + + + Support + + +---------+ + | Name | Relationship | Address | Phone | + + +---------+ + | Klever Hsu | ECON | Unknown | | + + +---------+ + Care Team Providers + +------+ + | Care Guest Relations Agent Name | Role | Phone | + +------+ + | Jose Alberto Jones MD | PCP | | + +------+ + Encounter Details +--------+------+ + + + | Date | Type | Department | Care Team | Description | +--------+------+ + + + | 11/28/ | Lab | Laboratory at [facility] | | MS (multiple | | 2016 | | [address] | | sclerosis) ([facility]); | | | | [place], [place] | | Iron deficiency | | | | [address] | | | | | | [phone] | | | +--------+------+ + + + [...] [address] | | | | | | [place], [place] | | | | | | [address] | | | | | | [phone] | | | | | | | | +--------+---------+ + + + | 04/26/ | Office | Neurology | Kaitlynn Leyva, | | | 2018 | Visit | | [address] | | | | | | [place], [place] | | | | | | [address] | | | | | | [phone] | | | | | | | | +--------+---------+ + + + documented as of this encounter Procedures + +--------+ + + + | Procedure Name | Priori | Date/Time | Associated Diagnosis | Comments | | | ty | | | | + +--------+ + + + | CBC AND AUTO DIFF | Routin | 11/29/2015 | MS (multiple | Results for this | | | e | 11:26 AM | sclerosis) ([facility]) | procedure are in the | | | | PDT | | results section. | + +--------+ + + + | CBC, WITH | Routin | 11/29/2015 | MS (multiple | Results for this | | DIFFERENTIAL | e | 11:26 AM | sclerosis) ([facility]) | procedure are in the | | | | PDT | | results section. | + +--------+ + + + | VITAMIN D, | Routin | 11/29/2015 | MS (multiple | Results for this | | 25-HYDROXY, SERUM | e | 11:26 AM | sclerosis) ([facility]) | procedure are in the | | | | PDT | | results section. | + +--------+ + + + | FERRITIN | Routin | 11/29/2015 | MS (multiple | Results for this | | | e | 11:26 AM | sclerosis) (HCC) | procedure are in the | | | | PDT | Iron deficiency | results section. | + +--------+ + + + documented in this encounter Results CBC AND AUTO DIFF (11/29/2015 11:26 AM PDT) + +-------+ + + + | Component | Value | Ref Range | Performed | Pathologist | | | | | At | Signature | + +-------+ + + + | WHITE CELL | 6.05 | 4.40 - 11.00 | [facility] | | | COUNT | | K/cu mm | LABORATORY | | | | | | SERVICES, | | | | | | [facility] | | | | | | [facility] | | + +-------+ + + + | RED CELL | 4.17 | 4.00 - 5.20 | [facility] | | | COUNT | | M/cu mm | LABORATORY | | | | | | SERVICES, | | | | | | [facility] + | | | | | | [facility] | | + +-------+ + + + | HEMOGLOBIN | 12.7 | 12.0 - 16.0 | [facility] | | | | | g/dL | LABORATORY | | | | | | SERVICES, | | | | | | [facility] + | | | | | | [facility]ALING | | + +-------+ + + + | HEMATOCRIT | 38.8 | 36.0 - 46.0 % | [facility] | | | | | | LABORATORY | | | | | | SERVICES, | | | | | | [facility] + | | | | | | [facility] | | + +-------+ + + + | MCV | 93.0 | 80.0 - 96.0 fL | [facility] | | | | | | LABORATORY | | | | | | SERVICES, | | | | | | [facility] + | | | | | | [facility] | | + +-------+ + + + | MCHC | 32.7 | 33.0 - 35.5 | [facility] | | | | | g/dL | LABORATORY | | | | | | SERVICES, | | | | | | [facility] + | | | | | | [facility] | | + +-------+ + + + | RDW SD | 44.4 | 35.1 - 46.3 fL | [facility] | | | | | | LABORATORY | | | | | | SERVICES, | | | | | | [facility] + | | | | | | [facility] | | + +-------+ + + + | PLATELET | 229 | 150 - 400 K/cu | [facility] | | | COUNT | | mm | LABORATORY | | | | | | SERVICES, | | | | | | [facility] + | | | | | | [facility] | | + +-------+ + + + | MPV | 9.8 | 9.7 - 12.3 fL | [facility] | | | | | | LABORATORY | | | | | | SERVICES, | | | | | | [facility] + | | | | | | [facility] | | + +-------+ + + + | NEUTROPHIL | 52.9 | 50.0 - 70.0 % | [facility] | | | % | | | LABORATORY | | | | | | SERVICES, | | | | | | [facility] + | | | | | | [facility] | | + +-------+ + + + | LYMPHOCYTE | 36.2 | 18.0 - 42.0 % | [facility] | | | % | | | LABORATORY | | | | | | SERVICES, | | | | | | [facility] + | | | | | | [facility] | | + +-------+ + + + | MONOCYTE % | 7.4 | 3.5 - 9.0 % | [facility] | | | | | | LABORATORY | | | | | | SERVICES, | | | | | | [facility] + | | | | | | [facility] | | + +-------+ + + + | EOS % | 2.8 | 1.0 - 3.0 % | [facility] | | | | | | LABORATORY | | | | | | SERVICES, | | | | | | [facility] + | | | | | | [facility]AL[facility] | | + +-------+ + + + | BASO % | 0.7 | 0.0 - 2.0 % | [facility] | | | | | | LABORATORY | | | | | | SERVICES, | | | | | | [facility] + | | | | | | [facility]ALING | | + +-------+ + + + | NEUTROPHIL | 3.20 | 1.80 - 7.70 | [facility] | | | # | | K/cu mm | LABORATORY | | | | | | SERVICES, | | | | | | [facility] + | | | | | | [facility]ALING | | + +-------+ + + + | LYMPHOCYTE | 2.19 | 1.00 - 4.80 | [facility] | | | # | | K/cu mm | LABORATORY | | | | | | SERVICES, | | | | | | [facility] + | | | | | | [facility]ALING | | + +-------+ + + + | MONOCYTE # | 0.45 | 0.10 - 0.90 | [facility] | | | | | K/cu mm | LABORATORY | | | | | | SERVICES, | | | | | | [facility] + | | | | | | [facility]ALING | | + +-------+ + + + | EOS # | 0.17 | 0.00 - 0.50 | [facility] | | | | | K/cu mm | LABORATORY | | | | | | SERVICES, | | | | | | [facility] + | | | | | | [facility]ALING | | + +-------+ + + + | BASO # | 0.04 | 0.00 - 0.10 | [facility] | | | | | K/cu mm | LABORATORY | | | | | | SERVICES, | | | | | | [facility] + | | | | | | [facility]ALING | | + +-------+ + + + + + | Specimen | + + | Blood - Blood | | (substance) | + + + + + + + | Performing | Address | City/State/Zipcode | Phone Number | | Organization | | | | + + + + + | [facility] | [address] | [place] [address] | | | [facility] | | | | | HEALTH + HEALING | | | | + + + + + FERRITIN (11/29/2015 11:26 AM PDT) + + + + + + | Component | Value | Ref Range | Performed | Pathologist | | | | | At | Signature | + + + + + + | FERRITIN | 43 (L)Comment: Male and | 50 - 200 [...] | + + + + + | [facility] | [address] | [place] [address] | | | [facility] | [address] | | | + + + + + VITAMIN D, 25-HYDROXY, SERUM (11/29/2015 11:26 AM PDT) + + + + + + | Component | Value | Ref Range | Performed | Pathologist | | | | | At | Signature | + + + + + + | VITAMIN D | 87.1 (H) | 30 - 80 ng/mL | [...] [facility] | [address] | [place] [address] | | | SERVICES, CORE | [address] | | | + + + + + documented in this encounter Visit Diagnoses + + | Diagnosis | + + | MS (multiple sclerosis) (HCC) Multiple sclerosis | + + | Iron deficiency Other disorders of iron metabolism | + + documented in this encounter"
--- OUTSIDE RECORDS SUMMARY | ~2019-03-05 | XMS | Encounter Summary ---
Demographics + + + | Address | [address] | | | [place] [address] | + + + | Home Phone | | + + + | Preferred Language | Unknown | + + + | Marital Status | | + + + | Worship Affiliation | Unknown | + + + [...] Team Providers + +------+ + | Care Commercial Announcer Name | Role | Phone | + +------+ + | Jose Alberto Jones MD | PCP | | + +------+ + Encounter Details +--------+ + + + + | Date | Type | Department | Care Team | Description | +--------+ + + + + | 10/11/ | Telephone | Neurology at | Woodrow Murillo, | | | 2015 | | [facility] & | DO | | | | | Healing [address] | | | | | | [address] Mailcode: | | | | | | [facility] | | | | | | Health and Healing, | | | | | | Building | | | | | | Floor [place], [place] | | | | | | [address] | | | | | | [phone] | | | +--------+ + + + [...] | | 2018 | Visit | | [address] | | | | | | [address] | | | | | | [place], [place] | | | | | | [address] | | | | | | [phone] | | | | | | | | +--------+---------+ + + + | 04/26/ | Office | Neurology | Kaitlynn Leyva, | | | 2018 | Visit | | [address] | | | | | | [place], [place] | | | | | | [address] | | | | | | [phone] | | | | | | | | +--------+---------+ + + + documented as of this encounter Visit Diagnoses Not on filedocumented in this encounter"
--- OUTSIDE RECORDS SUMMARY | ~2019-03-05 | XMS | Encounter Summary ---
Demographics + + + | Address | [address] | | | [place] [address] | + + + | Home Phone | | + + + | Preferred Language | Unknown | + + + | Marital Status | | + + + | Mandaen Affiliation | Unknown | + + + | Race | White | + + + | Ethnic Group | Not or | + + + Author + + + | Author | [facility] | + + + | Organization | [facility] | + + + | Address | Unknown | + + + | Phone | Unavailable | + + + Support + + +---------+ + | Name | Relationship | Address | Phone | + + +---------+ + | Klever Hsu | ECON | Unknown | | + + +---------+ + Care Team Providers + +------+ + | Care Experimental Assembler Name | Role | Phone | + +------+ + | Jose Alberto Jones MD | PCP | | + +------+ + Encounter Details +--------+ + + + + | Date | Type | Department | Care Team | Description | +--------+ + + + + | 01/01/ | Abstract | Neurology at | Karen Oliveros, | | | 2015 | | [facility] & | ANP [address] [place] [address] | | | | | [address] | [address] | | | | | [address] [place] Mailcode: | [place], [place] [address] | | | | | [facility] | [phone] | | | | | Health and Healing, | | | | | | | | | | | | [place], [place] | | | | | | [address] | | | | | | [phone] | | | +--------+ + + + [...] | | 2018 | Visit | | [address] | | | | | | [address] | | | | | | [place], [place] | | | | | | [address] | | | | | | [phone] | | | | | | | | +--------+---------+ + + + | 04/26/ | Office | Neurology | Kaitlynn Leyva, | | | 2018 | Visit | | [address] | | | | | | [place], [place] | | | | | | [address] | | | | | | [phone] | | | | | | | | +--------+---------+ + + + documented as of this encounter Visit Diagnoses Not on filedocumented in this encounter"
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
--- OUTSIDE RECORDS SUMMARY | ~2019-03-05 | XMS | Encounter Summary ---
Demographics + + + | Address | [address] | | | [place] [address] | + + + | Home Phone [...] + + + | Author | [facility] | + + + | Organization | [facility] | + + + | Address | Unknown | + + + | Phone | Unavailable | + + + Support + + +---------+ + | Name | Relationship | Address | Phone | + + +---------+ + | Klever Hsu | ECON | Unknown | | + + +---------+ + Care Team Providers + +------+ + | Care Assembler Unit Name | Role | Phone | + +------+ + | Jose Alberto Jones MD | PCP | | + +------+ + Encounter Details +--------+ + + + + | Date | Type | Department | Care Team | Description | +--------+ + + + + | 02/24/ | Entry Processor | Cardiothoracic | Yeyo Evans NP | Neuropathic pain | | 2019 | | Surgery at [facility] [address] | [address] | (Primary Dx) | | | [address] | [place], [place] | | | | | Rd Mailcode: [address] | [address] | | | | | Physician's | [phone] | | | | | [place], | | | | | | [place] [address] | | | | | | [phone] | | | +--------+ + + + [...] Rd | | | | | | [place], [place] | | | | | | [address] | | | | | | [phone] | | | | | | | | +--------+---------+ + + + | 04/26/ | Office | Neurology | Kaitlynn Leyva, | | | 2018 | Visit | | [address] | | | | | | [place], [place] | | | | | | [address] | | | | | | [phone] | | | | | | | [...]
--- OUTSIDE RECORDS SUMMARY | ~2019-03-05 | XMS | Encounter Summary ---
Demographics + + + | Address | [address] | | | [place] [address] | + + + | Home Phone | | + + + | Preferred Language | Unknown | + + + | Marital Status | | + + + | Congregational Affiliation | [id number] | + + + | Race | Unknown | + + + | Ethnic Group | Unknown | + + + Author + + + | Author | [facility] | | | and [place] | + + + | Organization | [facility] | | | and [place] [...] Team Providers + +------+ + | Care Firefighter Marine Name | Role | Phone | + +------+ + | Jose Alberto Jones MD | PCP | | + +------+ + Encounter Details +--------+ + + + + | Date | Type | Department | Care Team | Description | +--------+ + + + + | 01/12/ | Imaging | TEJA HAYES | Provider, | | | 2019 | Exam | [facility] | [address] | | | | | IMAGING | [address] | | | | | [phone] | [place] [address] | | +--------+ + + + + [...] + + documented in this encounter Results NM Bone Scan Whole Body (01/12/2019 0:00 [...]
--- OUTSIDE RECORDS SUMMARY | ~2019-03-05 | XMS | Encounter Summary ---
Demographics + + + | Address | [address] | | | [place] [address] | + + + | Home Phone [...] + + + | Author | [facility] | + + + | Organization | [facility] | + + + | Address | Unknown | + + + | Phone | Unavailable | + + + Support + + +---------+ + | Name | Relationship | Address | Phone | + + +---------+ + | Klever Hsu | ECON | Unknown | | + + +---------+ + Care Team Providers + +------+ + | Care [employer] Game [employer] Manager Name | Role | Phone | + +------+ + | Jose Alberto Jones MD | PCP | | + +------+ + Reason for Visit Diagnostic Testing (Routine) [...] | | | | | Procedures | [place], [place] | Mailcode: | | | | | MRI SPINE | [address] | [address] | | | | | CERVICAL WWO | | [place] | | | | | CONTRAST | | Research | | | | | MRI SPINE | | Center | | | | | LUMBAR WWO | | [facility] [place] | | | | | CONTRAST [place] | | [address] | | | | | MRI, CERV | | Phone: | | | | | SPINE COMBO | | [phone] | | | | | [place], | | Fax: | | | | | LUMBAR SPINE | | [phone] | | | | | COMBO | | | +--------+--------+ + + + + Encounter Details +--------+ + + + + | Date | Type | Department | Care Team | Description | +--------+ + + + + | 10/03/ | Hospital | Diagnostic Imaging | | | | 2015 | Encounter | Services at [facility] | | | | | | [address] | | | | | | Luisa [place] Mailcode: | | | | | | [address] [place] | | | | | | [facility] | | | | | | [place], [place] | | | | | | [address] | | | | | | [phone] | | | +--------+ + + + [...] tablet in | 20 | 11 | 10/03/19 | | | (ZOFRAN ODT) 8 mg [...] | | 2018 | Visit | | [address] | | | | | | [address] | | | | | | [place], [place] | | | | | | [address] | | | | | | [phone] | | | | | | | | +--------+---------+ + + + | 04/26/ | Office | Neurology | Kaitlynn Leyva, | | | 2018 | Visit | | [address] | | | | | | [place], [place] | | | | | | [address] | | | | | | [phone] | | | | | | | | +--------+---------+ + + + documented as of this encounter Procedures + +--------+ + + + | Procedure Name | Priori | Date/Time | Associated Diagnosis | Comments | | | ty | | | | + +--------+ + + + | MRI SPINE CERVICAL | Routin | 10/04/2015 | Multiple sclerosis | Results for this | | WWO CONTR | e | 7:28 PM | (HCC) | procedure are in the | | | | PDT | | results section. | + +--------+ + + + | MRI SPINE LUMBAR WWO | Routin | 10/04/2015 | Multiple sclerosis | Results for this | | CONTR | e | 7:07 PM | (HCC) | procedure are in the | | | | PDT | | results section. | + +--------+ + + + documented in this encounter Results MRI SPINE CERVICAL WWO CONTRAST (10/04/2015 7:28 PM PDT) + + + + + + | Component | Value | Ref Range | Performed | Pathologist | | | | | At | Signature | + + + + + + | MR CERVICAL | EXAM: MRI cervical and | | | | | SPINE WWO | lumbar spine with and | | | | | CONTR | without contrast | | | | | | HISTORY: Multiple | | | | | | sclerosis. COMPARISON: | | | | | | Outside cervical spine | | | | | | MRI 04/08/14 TECHNIQUE: | | | | | | Multiplanar | | | | | | multi-sequence MRI | | | | | | cervical and lumbar | | | | | | spine withoutcontrast | | | | | | and followed by 14 mL | | | | | | intravenous intravenous | | | | | | Omniscan. | | | | | | FINDINGS:Artifact from | | | | | | patient motion obscures | | | | | | fine anatomic detail and | | | | | | limitssensitivity for | | | | | | detection of potential | | | | | | cord lesions. CERVICAL: | | | | | | Alignment: Normal | | | | | | Marrow: Left C6 | | | | | | superior articular | | | | | | process postcontrast | | | | | | enhancement isfavored to | | | | | | be degenerative in | | | | | | etiology, given the | | | | | | underlying facet | | | | | | arthropathyat this | | | | | | level. Spinal Cord: No | | | | | | definite cervical spine | | | | | | cord lesion identified; | | | | | | however,patient motion | | | | | | limits sensitivity of | | | | | | the assessment. | | | | | | Craniocervical | | | | | | junction: Normal C2-3: | | | | | | Unremarkable C3-4: | | | | | | Unremarkable C4-5: | | | | | | Unremarkable C5-6: | | | | | | Posterior disc which | | | | | | narrows the ventral CSF | | | | | | space the spinal | | | | | | canal.Mild right-sided | | | | | | neuroforaminal narrowing | | | | | | secondary to | | | | | | uncovertebralarthropathy | | | | | | . C6-7: Right worse | | | | | | than left uncovertebral | | | | | | arthropathy results in | | | | | | moderateright and mild | | | | | | left neuroforaminal | | | | | | narrowing. C7-T1: | | | | | | Unremarkable | | | | | | Posterior fossa: | | | | | | Visualized portions are | | | | | | unremarkable | | | | | | Paraspinal soft | | | | | | tissues: Unremarkable | | | | | | LUMBAR: Alignment: The | | | | | | liver appears on the | | | | | | right lumbar junction | | | | | | noted. Marrow: | | | | | | Degenerative redness no | | | | | | changes are noted about | | | | | | the right side of | | | | | | theL1-2 disc. No focal | | | | | | suspicious marrow signal | | | | | | abnormality. Conus: | | | | | | Unremarkable L1-2: | | | | | | Advanced degenerative | | | | | | changes are present | | | | | | about the right side of | | | | | | thedisc. Moderate right | | | | | | neuroforaminal narrowing | | | | | | from endplate | | | | | | osteophytes. L2-3: | | | | | | Mild diffuse disc bulge. | | | | | | L3-4: Left eccentric | | | | | | disc bulge. L4-5: Mild | | | | | | bilateral facet | | | | | | arthropathy. L5-S1: | | | | | | Mild lateral facet | | | | | | arthropathy. | | | | | | Paraspinal soft | | | | | | tissues: UnremarkableNo | | | | | | abnormal enhancement. | | | | | | IMPRESSION: Artifact | | | | | | from patient motion | | | | | | limits sensitivity for | | | | | | detection of | | | | | | potentialspinal cord | | | | | | lesions. No definite | | | | | | cervical spinal cord T2 | | | | | | signal abnormalitiesor | | | | | | abnormal postcontrast | | | | | | enhancement. Multilevel | | | | | | degenerative changes of | | | | | | thecervical and lumbar | | | | | | spine, detailed above. | | | | | | Attending Radiologists: | | | | | | MAYDA BAILEY | | | | | | MDAuthor: MAYDA | | | | | | MD LEO I | | | | | | [...] Final/Electronically | | | | | | ada / MAYDA | | | | | | LEO 10/05/2015 | | | | | | 13:58 PM | | | | + + + + + + + + | Specimen | + + | | + + + +---------+ + + | Performing | Address | City/State/Zipcode | Phone Number | | Organization | | | | + +---------+ + + | [facility] | | | | [facility] | | | | + +---------+ + + MRI SPINE LUMBAR WWO CONTRAST (10/04/2015 7:07 PM PDT) + + + + + + | Component | Value | Ref Range | Performed | Pathologist | | | | | At | Signature | + + + + + + | MR LUMBAR | EXAM: MRI cervical and | | | | | SPINE WWO | lumbar spine with and | | | | | CONTR | without contrast | | | | | | HISTORY: Multiple | | | | | | sclerosis. COMPARISON: | | | | | | Outside cervical spine | | | | | | MRI 04/08/14 TECHNIQUE: | | | | | | Multiplanar | | | | | | multi-sequence MRI | | | | | | cervical and lumbar | | | | | | spine withoutcontrast | | | | | | and followed by 14 mL | | | | | | intravenous intravenous | | | | | | Omniscan. | | | | | | FINDINGS:Artifact from | | | | | | patient motion obscures | | | | | | fine anatomic detail and | | | | | | limitssensitivity for | | | | | | detection of potential | | | | | | cord lesions. CERVICAL: | | | | | | Alignment: Normal | | | | | | Marrow: Left C6 | | | | | | superior articular | | | | | | process postcontrast | | | | | | enhancement isfavored to | | | | | | be degenerative in | | | | | | etiology, given the | | | | | | underlying facet | | | | | | arthropathyat this | | | | | | level. Spinal Cord: No | | | | | | definite cervical spine | | | | | | cord lesion identified; | | | | | | however,patient motion | | | | | | limits sensitivity of | | | | | | the assessment. | | | | | | Craniocervical | | | | | | junction: Normal C2-3: | | | | | | Unremarkable C3-4: | | | | | | Unremarkable C4-5: | | | | | | Unremarkable C5-6: | | | | | | Posterior disc which | | | | | | narrows the ventral CSF | | | | | | space the spinal | | | | | | canal.Mild right-sided | | | | | | neuroforaminal narrowing | | | | | | secondary to | | | | | | uncovertebralarthropathy | | | | | | . C6-7: Right worse | | | | | | than left uncovertebral | | | | | | arthropathy results in | | | | | | moderateright and mild | | | | | | left neuroforaminal | | | | | | narrowing. C7-T1: | | | | | | Unremarkable | | | | | | Posterior fossa: | | | | | | Visualized portions are | | | | | | unremarkable | | | | | | Paraspinal soft | | | | | | tissues: Unremarkable | | | | | | LUMBAR: Alignment: The | | | | | | liver appears on the | | | | | | right lumbar junction | | | | | | noted. Marrow: | | | | | | Degenerative redness no | | | | | | changes are noted about | | | | | | the right side of | | | | | | theL1-2 disc. No focal | | | | | | suspicious marrow signal | | | | | | abnormality. Conus: | | | | | | Unremarkable L1-2: | | | | | | Advanced degenerative | | | | | | changes are present | | | | | | about the right side of | | | | | | thedisc. Moderate right | | | | | | neuroforaminal narrowing | | | | | | from endplate | | | | | | osteophytes. L2-3: | | | | | | Mild diffuse disc bulge. | | | | | | L3-4: Left eccentric | | | | | | disc bulge. L4-5: Mild | | | | | | bilateral facet | | | | | | arthropathy. L5-S1: | | | | | | Mild lateral facet | | | | | | arthropathy. | | | | | | Paraspinal soft | | | | | | tissues: UnremarkableNo | | | | | | abnormal enhancement. | | | | | | IMPRESSION: Artifact | | | | | | from patient motion | | | | | | limits sensitivity for | | | | | | detection of | | | | | | potentialspinal cord | | | | | | lesions. No definite | | | | | | cervical spinal cord T2 | | | | | | signal abnormalitiesor | | | | | | abnormal postcontrast | | | | | | enhancement. Multilevel | | | | | | degenerative changes of | | | | | | thecervical and lumbar | | | | | | spine, detailed above. | | | | | | Attending Radiologists: | | | | | | MAYDA BAILEY | | | | | | MDAuthor: MAYDA | | | | | | MD LEO I | | | | | | [...] | | | | | signed / MAYDA | | | | | | LEO 10/05/2015 | | | | | | 13:58 PM | | | | + + + + + + + + | Specimen | + + | | + + + +---------+ + + | Performing | Address | City/State/Zipcode | Phone Number | | Organization | | | | + +---------+ + + | [facility] | | | | [facility] | | | | + +---------+ + + documented in this encounter Visit Diagnoses + + | Diagnosis | + + | Multiple sclerosis (HCC) Multiple sclerosis | + + documented in this encounter"
--- OUTSIDE RECORDS SUMMARY | ~2019-03-05 | XMS | Encounter Summary ---
Demographics + + + | Address | [address] | | | [place] [address] | + + + | Home Phone | | + + + | Preferred Language | Unknown | + + + | Marital Status | | + + + | Temple Affiliation | Unknown | + + + [...] Team Providers + +------+ + | Care Pocketed Spring Assembler Name | Role | Phone | [...] [address] | | | | | | [place], [place] | | | | | | [address] | | | +--------+ + + + [...] | | 2018 | Visit | | [address] | | | | | | [address] | | | | | | [place], [place] | | | | | | [address] | | | | | | [phone] | | | | | | | | +--------+---------+ + + + | 04/26/ | Office | Neurology | Kaitlynn Leyva | | | 2018 | Visit | | [address] | | | | | | [place], [place] | | | | | | [address] | | | | | | [phone] | | | | | | | | +--------+---------+ + + + documented as of this encounter Visit Diagnoses Not on filedocumented in this encounter"
--- OUTSIDE RECORDS SUMMARY | ~2019-03-05 | XMS | Encounter Summary ---
Demographics + + + | Address | [address] | | | [place] [address] | + + + | Home Phone | | + + + | Preferred Language | Unknown | + + + | Marital Status | | + + + | Baptist Affiliation | Unknown | + + + [...] Team Providers + +------+ + | Care Manager Fast Food Name | Role | Phone | + +------+ + | Jose Alberto Jones MD | PCP | | + +------+ + Reason for Visit + + + | Reason | Comments | + + + | Refill Request | Copaxone 40 mg | + + + Encounter Details +--------+--------+ + + + | Date | Type | Department | Care Team | Description | +--------+--------+ + + + | 09/25/ | Refill | Neurology at | Woodrow Murillo, | Refill Request | | 2016 | | [facility] & | DO | (Copaxone 40 mg) | | | | [address] | | | | | | [address] Mailcode: | | | | | | [facility] | | | | | | Health and Healing, | | | | | | [facility] | | | | | | [place], [place] | | | | | | [address] | | | | | | [phone] | | | +--------+--------+ + + + [...] | | 2018 | Visit | | [address] | | | | | | [address] | | | | | | [place], [place] | | | | | | [address] | | | | | | [phone] | | | | | | | | +--------+---------+ + + + | 04/26/ | Office | Neurology | Kaitlynn Leyva | | | 2018 | Visit | | [address] | | | | | | [place], [place] | | | | | | [address] | | | | | | [phone] | | | | | | | | +--------+---------+ + + + documented as of this encounter Visit Diagnoses Not on filedocumented in this encounter"
--- OUTSIDE RECORDS SUMMARY | ~2019-03-05 | XMS | Encounter Summary ---
Demographics + + + | Address | [address] | | | [place] [address] | + + + | Home Phone | | + + + | Preferred Language | Unknown | + + + | Marital Status | | + + + | Quaker Affiliation | Unknown | + + + | Race | White | + + + | Ethnic Group | Not or | + + + Author + + + | Author | [facility] | + + + | Organization | [facility] | + + + | Address | Unknown | + + + | Phone | Unavailable | + + + Support + + +---------+ + | Name | Relationship | Address | Phone | + + +---------+ + | Klever Hsu | ECON | Unknown | | + + +---------+ + Care Team Providers + +------+ + | Care Land Development Manager Name | Role | Phone | + +------+ + | Jose Alberto Jones MD | PCP | | + +------+ + Reason for Visit +--------+ + | Reason | Comments | +--------+ + | Other | LATRICE Barker | +--------+ + Encounter Details +--------+ + + + + | Date | Type | Department | Care Team | Description | +--------+ + + + + | 05/04/ | Documentati | Neurology at | Kaitlynn Leyva, | Other (LATRICE Request | | 2018 | on | [facility] & | MD [address] | [place]) | | | | [address] | [place], [place] | | | | | [address] Mailcode: | [address] | | | | | [facility] | [phone] | | | | | Health and Healing, | | | | | | [address] | | | | | | Floor [place], [place] | | | | | | [address] | | | | | | [phone] | | | +--------+ + + + [...] | 2019 | Visit | | [address] | | | | | | [address] | | | | | | [place], [place] | | | | | | [address] | | | | | | [phone] | | | | | | | | +--------+---------+ + + + | 04/26/ | Office | Neurology | Kaitlynn Leyva, | | | 2019 | Visit | | [address] | | | | | | [place], [place] | | | | | | [address] | | | | | | [phone] | | | | | | | | +--------+---------+ + + + documented as of this encounter Visit Diagnoses Not on filedocumented in this encounter"
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
--- OUTSIDE RECORDS SUMMARY | ~2019-03-05 | XMS | Encounter Summary ---
Demographics + + + | Address | [address] | | | [place] [address] | + + + | Home Phone | | + + + | Preferred Language | Unknown | + + + | Marital Status | | + + + | Shinto Affiliation | Unknown | + + + | Race | White | + + + | Ethnic Group | Not or | + + + Author + + + | Author | [facility] | + + + | Organization | [facility] | + + + | Address | Unknown | + + + | Phone | Unavailable | + + + Support + + +---------+ + | Name | Relationship | Address | Phone | + + +---------+ + | Klever Hsu | ECON | Unknown | | + + +---------+ + Care Team Providers + +------+ + | Care Business Affairs Manager Name | Role | Phone | + +------+ + | Jose Alberto Jones MD | PCP | | + +------+ + Encounter Details +--------+------+ + + + | Date | Type | Department | Care Team | Description | +--------+------+ + + + | 11/28/ | Lab | Laboratory at [facility] | | MS (multiple | | 2016 | | [address] | | sclerosis) ([facility]); | | | | [place], [place] | | Iron deficiency | | | | [address] | | | | | | [phone] | | | +--------+------+ + + + [...] [address] | | | | | | [place], [place] | | | | | | [address] | | | | | | [phone] | | | | | | | | +--------+---------+ + + + | 04/26/ | Office | Neurology | Kaitlynn Leyva, | | | 2018 | Visit | | [address] | | | | | | [place], [place] | | | | | | [address] | | | | | | [phone] | | | | | | | [...] | e | 11:26 AM | sclerosis) ([facility]) | procedure are in the | | | | PDT | | results section. | + +--------+ + + + | CBC, WITH | Routin | 11/29/2015 | MS (multiple | Results for this | | DIFFERENTIAL | e | 11:26 AM | sclerosis) ([facility]) | procedure are in the | | | | PDT | | results section. | + +--------+ + + + | VITAMIN D, | Routin | 11/29/2015 | MS (multiple | Results for this | | 25-HYDROXY, SERUM | e | 11:26 AM | sclerosis) ([facility]) | procedure are in the | | [...] LABORATORY | [address] | [place] [address] | | | [facility] | | | | | [...] | + + + + + | [employer] | [address] | [place] [address] | | | ELIEZER BO[address] | MARIBEL [...] [facility] | [address] | [place] [address] | | | SERVICES, CORE | MARIBEL GUZMAN | | | + + + + + documented in this encounter Visit Diagnoses + + | Diagnosis | + + | MS (multiple sclerosis) (HCC) Multiple sclerosis | + + | Iron deficiency Other disorders of iron metabolism | + + documented in this encounter"
--- OUTSIDE RECORDS SUMMARY | ~2019-03-05 | XMS | Encounter Summary ---
Demographics + + + | Address | [address] | | | [place] [address] | + + + | Home Phone | | + + + | Preferred Language | Unknown | + + + | Marital Status | | + + + | Uatsdin Affiliation | Unknown | + + + | Race | White | + + + | Ethnic Group | Not or | + + + Author + + + | Author | [facility] | + + + | Organization | [facility] | + + + | Address | Unknown | + + + | Phone | Unavailable | + + + Support + + +---------+ + | Name | Relationship | Address | Phone | + + +---------+ + | Klever Hsu | ECON | Unknown | | + + +---------+ + Care Team Providers + +------+ + | Care Industrial Custodian Name | Role | Phone | + +------+ + | Jose Alberto Jones MD | PCP | | + +------+ + Reason for Visit + + + | Reason | Comments | + + + | OCT - RNFL | OU | + + + Encounter Details +--------+ + + + + | Date | Type | Department | Care Team | Description | +--------+ + + + + | 09/29/ | Diagnostic | [facility] | | OCT - RNFL (OU) | | 2014 | Visit | [place] | | | | | | Photography at [facility] | | | | | | [address] | | | | | | Mailcode: CH11P | | | | | | [facility] | | | | | | and Healing, | | | | | | Building | | | | | | Floor [place], [place] | | | | | | [address] | | | | | | [phone] | | | +--------+ + + + [...] + documented as of this encounter Progress José Sams - 09/29/2014 2:21 PM PDTThe interpretation for the following study: OCT - RNFL - OU can be found on physician encounter on 09/29/2014. documented in this encounter Plan of Treatment +--------+---------+ + + + | Date | Type | Specialty | Care Team | Description | +--------+---------+ + + + | 04/05/ | Office | Thoracic Surgery | Antonio Kaur MD | | | 2018 | Visit | | [address] | | | | | | [address] | | | | | | [place], [place] | | | | | | [address] | | | | | | [phone] | | | | | | | | +--------+---------+ + + + | 04/26/ | Office | Neurology | Kaitlynn Leyva, | | | 2018 | Visit | | [address] | | | | | | [place], [place] | | | | | | [address] | | | | | | [phone] | | | | | | | | +--------+---------+ + + + documented as of this encounter Visit Diagnoses + + | Diagnosis | + + | MS (multiple sclerosis) (HCC) Multiple sclerosis | + + documented in this encounter"
--- OUTSIDE RECORDS SUMMARY | ~2019-03-05 | XMS | Encounter Summary ---
Demographics + + + | Address | [address] | | | [place] [address] | + + + | Home Phone | | + + + | Preferred Language | Unknown | + + + | Marital Status | | + + + | Mormon Affiliation | Unknown | + + + [...] Team Providers + +------+ + | Care Principal Architect Name | Role | Phone | + +------+ + | Jose Alberto Jones MD | PCP | | + +------+ + Encounter Details +--------+ + + + + | Date | Type | Department | Care Team | Description | +--------+ + + + + | 04/08/ | Document-Sc | UNKNOWN DEPARTMENT | Unknown . | | | 2013 | anned | [address] | | | | | [address] | | | | | | [place], [place] | | | | | | [address] | | | +--------+ + + + [...] | | 2018 | Visit | | [address] | | | | | | [address] | | | | | | [place], [place] | | | | | | [address] | | | | | | [phone] | | | | | | | | +--------+---------+ + + + | 04/26/ | Office | Neurology | Kaitlynn Leyva | | | 2018 | Visit | | [address] | | | | | | [place], [place] | | | | | | [address] | | | | | | [phone] | | | | | | | | +--------+---------+ + + + documented as of this encounter Procedures + +--------+ + + + | Procedure Name | Priori | Date/Time | Associated Diagnosis | Comments | | | ty | | | | + +--------+ + + + | RADIOLOGY | | 04/08/2014 | | Results for this | | | | 12:00 AM | | procedure are in the | | | | PST | | results section. | + +--------+ + + + documented in this encounter Results RADIOLOGY (04/08/2014 12:00 AM PST) + + + | Narrative | Performed At | + + + | | | | | | + + + + + | Procedure Note | + + | Renu Hastings - 07/08/2014 4:23 PM PST | + + documented in this encounter Visit Diagnoses Not on filedocumented in this encounter"
--- OUTSIDE RECORDS SUMMARY | ~2019-03-05 | XMS | Encounter Summary ---
Demographics + + + | Address | [address] | | | [place] [address] | + + + | Home Phone | | + + + | Preferred Language | Unknown | + + + | Marital Status | | + + + | Scientologist Affiliation | Unknown | + + + | Race | White | + + + | Ethnic Group | Not or | + + + Author + + + | Author | [facility] | + + + | Organization | [facility] | + + + | Address | Unknown | + + + | Phone | Unavailable | + + + Support + + +---------+ + | Name | Relationship | Address | Phone | + + +---------+ + | Klever Hsu | ECON | Unknown | | + + +---------+ + Care Team Providers + +------+ + | Care Iron Melter Name | Role | Phone | + [...] | | [address] | | ([facility]) | | | | [place], [place] | | | | | | [address] | | | | | | [phone] | | | +--------+------+ + + + [...] [address] | | | | | | [facility] [place] | | | | | | [address] | | | | | | [phone] | | | | | | | | +--------+---------+ + + + | 04/26/ | Office | Neurology | Kaitlynn Leyva, | | | 2018 | Visit | | [address] | | | | | | [place], [place] | | | | | | [address] | | | | | | [phone] | | | | | | | [...] LABORATORY | [address] | [place] [address] | | | [facility] | | | | | HEALTH + [...] | | | LABORATORY | | | MAURITIAN | | | SERVICES, | | | [...] MYRNA TORRES | [address] | [place] [address] | | | SERVICES, CORE | [address] | | | + + + + + documented in this encounter Visit Diagnoses + + | Diagnosis | + + | Multiple sclerosis (HCC) Multiple sclerosis | + + documented in this encounter"
--- OUTSIDE RECORDS SUMMARY | ~2019-03-05 | XMS | Encounter Summary ---
Demographics + + + | Address | [address] | | | [place] [address] | + + + | Home Phone [...] Team Providers + +------+ + | Care [employer] Care Center Manager Name | Role | Phone | [...] Request | | 2018 | on | [facility] & | MD [address] | [place]) | | | | Healing [address] | [place], [place] | | | | | [address] Mailcode: | [address] | | | | | [facility] | [phone] | | | | | Health and Healing, | | | | | | Building [address], [address]th | | | | | | Floor [place], [place] | | | | | | [address] | | | | | | [phone] | | | +--------+ + + + [...] | 2019 | Visit | | [address] [facility] | | | | | | [address] | | | | | | [place], [place] | | | | | | [address] | | | | | | [phone] | | | | | | | | +--------+---------+ + + + | 04/26/ | Office | Neurology | Kaitlynn Leyva, | | | 2019 | Visit | | [address] | | | | | | [place], [place] | | | | | | [address] | | | | | | [phone] | | | | | | | | +--------+---------+ + + + documented as of this encounter Visit Diagnoses Not on filedocumented in this encounter"
--- OUTSIDE RECORDS SUMMARY | ~2019-03-05 | XMS | Encounter Summary ---
Demographics + + + | Address | [address] | | | [place] [address] | + + + | Home Phone | | + + + | Preferred Language | Unknown | + + + | Marital Status | | + + + | Christianity Affiliation | Unknown | + + + | Race | White | + + + | Ethnic Group | Not or | + + + Author + + + | Author | [facility] | + + + | Organization | [facility] | + + + | Address | Unknown | + + + | Phone | Unavailable | + + + Support + + +---------+ + | Name | Relationship | Address | Phone | + + +---------+ + | Klever Hsu | ECON | Unknown | | + + +---------+ + Care Team Providers + +------+ + | Care Accountant Bookkeeper Name | Role | Phone | + +------+ + | Jose Alberto Jones MD | PCP | | + +------+ + Encounter Details +--------+ + + + + | Date | Type | Department | Care Team | Description | +--------+ + + + + | 11/28/ | Document-Sc | UNKNOWN DEPARTMENT | Unknown . | | | 2014 | anned | [address] | | | | | | [address] | | | | | | [place], [place] | | | | | | [address] | | | +--------+ + + + [...] Rd | | | | | | [place], [place] | | | | | | [address] | | | | | | [phone] | | | | | | | | +--------+---------+ + + + | 04/26/ | Office | Neurology | Kaitlynn Leyva, | | | 2018 | Visit | | [address] | | | | | | [place], [place] | | | | | | [address] | | | | | | [phone] | | | | | | | | +--------+---------+ + + + documented as of this encounter Visit Diagnoses Not on filedocumented in this encounter"
--- OUTSIDE RECORDS SUMMARY | ~2019-03-05 | XMS | Encounter Summary ---
Demographics + + + | Address | [address] | | | [place] [address] | + + + | Home Phone | | + + + | Preferred Language | Unknown | + + + | Marital Status | | + + + | Methodist Affiliation | Unknown | + + + | Race | White | + + + | Ethnic Group | Not or | + + + Author + + + | Author | [facility] | + + + | Organization | [facility] | + + + | Address | Unknown | + + + | Phone | Unavailable | + + + Support + + +---------+ + | Name | Relationship | Address | Phone | + + +---------+ + | Klever Hsu | ECON | Unknown | | + + +---------+ + Care Team Providers + +------+ + | Care County Judge Name | Role | Phone | + +------+ + | Jose Alberto Jones MD | PCP | | + +------+ + Reason for Visit + + + | Reason | Comments | + + + | Return Patient | | + + + Office Visit - E/M Services (Routine) +--------+--------+ + + + + | Status | Reason | Specialty | Diagnoses / | Referred By | Referred To | | | | | Procedures | Contact | Contact | +--------+--------+ + + + + | Closed | | Neurology | Diagnoses | Chidi, | Domo, | | | | | Migraine, | Woodrow Ghotra DO | JAMILA Morgan | | | | | unspecified, | [address] | [address] | | | | | | [address] | [address] | | | | | intractable, | [place], [place] | [address] | | | | | without | [address] | [place], [place] | | | | | status | | [address] Phone: | | | | | migrainosus | | [phone] | | | | | Headache | | Fax: | | | | | Multiple | | [phone] | | | | | sclerosis | | | | | | | Procedures | | | | | | | ND NEW | | | | | | | PATIENT | | | | | | | LEVEL V | | | +--------+--------+ + + + + Encounter Details +--------+---------+ + + + | Date | Type | Department | Care Team | Description | +--------+---------+ + + + | 11/27/ | Office | Neurology at | Karen Oliveros, | Migraine with aura | | 2016 | Visit | [facility] | ANP [address] | and without status | | | | Healing [address] | migrainosus, not | | | | [address] Mailcode: | [place] [address] | intractable (Primary | | | | [facility] | [phone] | Dx) | | | | Health and Healing, | | | | | | Building | | | | | | Floor [place], [place] | | | | | | [address] | | | | | | [phone] | | | +--------+---------+ + + + [...] + + + | Blood Pressure | 125/85 | 11/28/2015 2:04 PM | | | | | PDT | | + + + + + | Pulse | 79 | 11/28/2015 2:04 PM | | | | | PDT [...] + + + + | Weight | 70.3 kg (155 lb) | 11/28/2015 2:04 PM | | | | | PDT | | + + + + + | Height | - | - | | + + + + + | Body Mass Index | 27.46 | 10/03/2015 1:12 PM | | | | | PDT | | + + + + + documented in this encounter Patient Instructions Patient Instructions Karen Oliveros NP - 11/28/2015 2:22 PM PDT- continue: maxalt/zofran . DC neutraceuticals- not effective and continue amitriptyline. - she may try dietary changes/anti inflammatory diet - continue acupuncture - Consider occipital nerve blocks or botox in the future for short term relief of headache if headache exacerbation with pain management -RTC 4 months Namenda is a drug which affects the activity of the primary excitatory chemical in the brai n: glutamate. It is postulated that Namenda decreases migraine excitatory brain activity. It has been helpful in some chronic migraine patients. It has not been formally studied in [facility] and does not have an FDA indication so it is being used as an OPEN LABEL drug. Namenda Directions: - First week: 5 mg in the morning. - Second week: 5 mg twice a day. - Third week: 5 mg in the morning and 10 mg at night. - Fourth week: 10 mg twice a day. Adverse Reactions: Serious Reactions Max-Anil syndrome/RASH Common Reactions dizziness headache confusion constipation diarrhea cough anxiety somnolence pain back pain depression weight gain vomiting hallucinations dyspnea fatigue urinary incontinence abdominal pain Aggression documented in this encounter Progress Notes Karen Oliveros NP - 11/28/2015 2:08 PM PDTFormatting of this note might be different fro m the original. NEUROLOGY CLINIC FOLLOW UP NOTE 11/28/2015 Author: JAMILA Bella Danisha Lemon is a 54 year old woman, from [place] with migraine with aura, not intractab le, referred by Dr. Murillo, neurology, [place] dept. She is accompanied by: her mother. She has past medical history significant for headache since 1988, RRMS/ remains on copaxone, RLS, Ch ronic pain: Low back pain since last 10 yr and worse in last 6 months ( X ray, Rxd with Volt aren; has seen immigration case manager for back pain ), neck pain since 2006, paresthesia, IBS sympto ms, anemia (takes one tablet iron in AM) and kidney stones. She has routine MRI of brain and spine upcoming for monitoring on copaxone and has symptoms of Lhermitte sign, fatigue and m reji disturbance. FH: mother with headache/aura. She had a increase in amitriptyline for sleep/pain made las t month and is taking 75mg PO Q HS, without much change to headache pattern but is sleeping better. History of Present Illness: Headaches: started in 1988, around period of a Lyme disease type illness, with gradual wors ening over time. They now occur at 5-6 severe headaches each week. They last up to 2 hours- all day. She takes excedrin migraine/voltarin daily (she has been using them daily x 6 month s), she finds it modestly helpful. She has a dull, thobbing headache pressure constantly. Lo cation: ache to lauren occiput/neck and radiates to L eye. She has started acupuncture with 4 t reatments no change to pattern. Location: Typically left sided, behind the eyes, latter-day, in the back of the head, neck Associated symptoms: vision disturbance/aura: flashing light to corner of eye. Also with li ght/touch/sound sensitivity, and nausea. During the headache she wants to be: Still/not moving Headaches worse with: standing up Alleviating: Rest and a dark quiet room and moderate relief with her daily medications Perceived Triggers: None that she is aware of Interval History: She started magnesium, B2, CoQ 10, feverfew x 2 months without much change to headache isabella samantha. She reports that she has had more headaches with hotter weather. She has headache toda y located the lauren occiput NRS: 5/10, throbbing. The maxalt works but then the headaches see ms to come back the following day. She has been using PRN for severe headache only, about 2 x week. She restarted iron for iron deficiency anemia, she will get labs retested tomorrow. She has not found much improvement overall with the variety of strategies she has used for headache prevention. Substance use: Caffeine: 5-6 6 oz cups coffee/day. Marijuana: None Nicotine: 1/2 PPD x30 ye ars. ETOH: none Illicit substances: none Current Medications: [...] mg oral tablet extended release 24 hr ondansetron ODT (ZOFRAN ODT) 8 mg oral tablet,disintegrating pseudoephedrine (SUDAFED) 30 mg oral tablet rizatriptan rapid dissolve (MAXALT-ASSEMBLER TRIM) 10 mg oral tablet,disintegrating tamsulosin 0.4 mg oral capsule,extended release 24hr No current facility-administered medications for this visit. 14 system review reviewed personally is negative except for: Neck pain Physical Exam BP 125/85 | Pulse 79 | Wt 70.308 kg (155 lb) | BMI 27.46 kg/(m^2) Well dressed, well groomed, appears stated age Alert and Oriented x 3 Mood: normal Language fluent, comprehension intact PERRL, no nystagmus Face symmetric, oropharynx clear Coordination: No tremor, no dysmetria Normal Gait: No ataxia observed Therapeutic trials: Topamax, amitriptyline, gabapentin, naproxen, celebrex, Cymbalta, acupuncture, physical the rapy, zonisamide (kidney stones), beta blockers contraindicated d/t hypotension history Assessment/plan: Danisha Lemon is a 54 year old woman, with migraine with aura, not intractable. Using high dose caffeine with excedrin migraine/voltarin up to daily- she may be in rebound/MOH. She grubbs s past medical history significant for headache since 1988, RRMS, RLS, Chronic pain: Low nikki k pain, neck pain since 2006, paresthesia, IBS symptoms, anemia and kidney stones. She has r outine MRI of brain and spine upcoming for monitoring of RRMS. FH: mother with headache/aura . Her neurological exam is consistent with MS. There is tenderness on palpation to lauren occi pital nerve area which may respond to occipital nerve block. Patient is a candidate for Boto x as she reports over 15 headache days per month, lasting over 4 hours, refractory to multip le classes of medications including antidepressant, anticonvulsant and antihypertensive agen ts are contra-indicated due to history of depression and low blood pressure. - continue: maxalt/zofran. DC neutraceuticals- not effective and continue amitriptyline. - start namenda for headache prevention. Teaching/handouts given. - she may try dietary changes/anti inflammatory diet - continue acupuncture - Consider ONB or Botox with pain management if failure of Namenda - RTC in 4 months for recheck JAMILA Bella Nurse Practitioner Department of Neurology documented in this en counter Plan of Treatment +--------+---------+ + + + | Date | Type | Specialty | Care Team | Description | +--------+---------+ + + + | 04/05/ | Office | Thoracic Surgery | Antonio Kaur MD | | | 2019 | Visit | | [address] [facility] | | | | | | [address] | | | | | | [place], [place] | | | | | | [address] | | | | | | [phone] | | | | | | | | +--------+---------+ + + + | 04/26/ | Office | Neurology | Leslee Leyvaica Shen, | | | 2018 | Visit | | [address] | | | | | | [place], [place] | | | | | | [address] | | | | | | [phone] | | | | | | | | +--------+---------+ + + + documented as of this encounter Visit Diagnoses + + | Diagnosis | + + | Migraine with aura and without status migrainosus, not intractable - Primary Migraine | | with aura, without mention of intractable migraine without mention of status | | migrainosus | + + documented in this encounter"
--- OUTSIDE RECORDS SUMMARY | ~2019-03-05 | XMS | Encounter Summary ---
Demographics + + + | Address | [address] | | | [place] [address] | + + + | Home Phone [...] Team Providers + +------+ + | Care Yard Goods Salesperson Name | Role | Phone | + +------+ + | Jose Alberto Jones MD | PCP | | + +------+ + Reason for Visit + + + | Reason | Comments | + + + | Prior Authorization | | | Request - Medication | | + + + Encounter Details +--------+ + + + + | Date | Type | Department | Care Team | Description | +--------+ + + + + | 08/03/ | Documentati | Neurology at | Betty Gould, | Prior Authorization | | 2019 | on | [facility] & | PharmD [address] | Request - Medication | | | | Healing [address] | [address] | | | | | [address] Mailcode: | [place], [place] | | | | | [facility] | [address] | | | | | Health and Healing, | | | | | | Building 1, | | | | | | Floor [place], [place] | | | | | | [address] | | | | | | [phone] | | | +--------+ + + + [...] Rd | | | | | | [place], [place] | | | | | | [address] | | | | | | [phone] | | | | | | | | +--------+---------+ + + + | 04/26/ | Office | Neurology | Kaitlynn Leyva, | | | 2019 | Visit | | [address] | | | | | | [place] | | | | | | [address] | | | | | | [phone] | | | | | | | | +--------+---------+ + + + documented as of this encounter Visit Diagnoses Not on filedocumented in this encounter"
--- OUTSIDE RECORDS SUMMARY | ~2019-03-05 | XMS | Encounter Summary ---
Demographics + + + | Address | [address] | | | [place] [address] | + + + | Home Phone | | + + + | Preferred Language | Unknown | + + + | Marital Status | | + + + | Anglican Affiliation | Unknown | + + + | Race | White | + + + | Ethnic Group | Not or | + + + Author + + + | Author | [facility] | + + + | Organization | [facility] | + + + | Address | Unknown | + + + | Phone | Unavailable | + + + Support + + +---------+ + | Name | Relationship | Address | Phone | + + +---------+ + | Klever Hsu | ECON | Unknown | | + + +---------+ + Care Team Providers + +------+ + | Care Auto Damage Estimator Name | Role | Phone | + +------+ + | Jose Alberto Jones MD | PCP | | + +------+ + Encounter Details +--------+ + + + + | Date | Type | Department | Care Team | Description | +--------+ + + + + | 06/04/ | Telephone | Neurology at | Kaitlynn Leyva, | | | 2019 | | [facility] & | MD [address] | | | | | [address] | [place], [place] | | | | | [address] Mailcode: | [address] | | | | | [facility] | [phone] | | | | | Health and Healing, | | | | | | | | | | | | [place], [place] | | | | | | [address] | | | | | | [phone] | | | +--------+ + + + [...] [address] | | | | | | [place], [place] | | | | | | [address] | | | | | | [phone] | | | | | | | | +--------+---------+ + + + | 04/26/ | Office | Neurology | Kaitlynn Leyva, | | | 2018 | Visit | | [address] | | | | | | [place], [place] | | | | | | [address] | | | | | | [phone] | | | | | | | | +--------+---------+ + + + documented as of this encounter Visit Diagnoses Not on filedocumented in this encounter"
--- OUTSIDE RECORDS SUMMARY | ~2019-03-05 | XMS | Encounter Summary ---
Demographics + + + | Address | [address] | | | [place] [address] | + + + | Home Phone | | + + + | Preferred Language | Unknown | + + + | Marital Status | | + + + | Protestant Affiliation | Unknown | + + + | Race | White | + + + | Ethnic Group | Not or | + + + Author + + + | Author | [facility] | + + + | Organization | [facility] | + + + | Address | Unknown | + + + | Phone | Unavailable | + + + Support + + +---------+ + | Name | Relationship | Address | Phone | + + +---------+ + | Klever Hsu | ECON | Unknown | | + + +---------+ + Care Team Providers + +------+ + | Care Rate Engineer Name | Role | Phone | [...] | | sclerosis | [address] | [place], [place] | | | | | (HCC) | [place], [place] | [address] | | | | | Procedures | [address] | Phone: | | | | | CONSULT TO | Phone: | [phone] | | | | | OPHTHALMOLOG | [phone] | Fax: | | | | | Y | Fax: | [phone] | | | | | | [phone] | | +--------+--------+ + + + + Encounter Details +--------+---------+ + + + | Date | Type | Department | Care Team | Description | +--------+---------+ + + + | 09/29/ | Office | [facility] | Jose Stanford, | MS (multiple | | 2015 | Visit | [place] | [address] | sclerosis) ([facility]) | | | | Neuro-Ophthalmology | [place], [place] | (Primary Dx) | | | | at [facility] [address] | [address] | | | | | [place] Mailcode: [facility] | [phone] | | | | | [facility] | | | | | | and [address], | | | | | | Building | | | | | | Floor [place], [place] | | | | | | [address] | | | | | | [phone] | | | +--------+---------+ + + + [...] days. Now everything seems "3 shades darker," "fiore or smoky." Things that should be bright [...] she was the first case diagnosed in [place]. CSF was negative. 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 Has to do lot of lifting [...] quadrant; MD -2.7 Ancillary tests/Review of data: [facility] notes - neurology CSF studies 08/24/14: negative for oligoclonal bands OCT RNFL and axonal 09/29/14: OD: thin inferiorly (87), average 83, papillomacular bundle 51 OS: within normal limits in all quadrants, papillomacular bundle 46 Imaging Tests: 12/02/13 MRI brain without and with contrast - from [facility] reviewed 07/14/14 MRI brain without and with [...] Follow up in 1 year with local brick grader (Dr. Antonio in [place]) 3. Will copy Dr. Antonio and PCP Dr. Jose Alberto Jones 4. Return to neuro-ophthalmology clinic khushboo Mo MD, MPH Ophthalmology Resident PGY-2 [facility] 09/29/2014 at 1:44 PM I saw and examined the patient. I reviewed the patient s past medical, family and social history,current medications, allergies, and ROS documented by the cath laboratory technician. I reviewed an d agree with the resident s interpretation of the visual blanca, OCT I have reviewed the resident s documentation and I agree. Jose Stanford M.D. [facility] Neu[facility] Diplomate of Neurology, [facility] Neuro-ophthalmology service [facility] documented in this e ncounter Plan of Treatment +--------+---------+ + + + | Date | Type | Specialty | Care Team | Description | +--------+---------+ + + + | 04/05/ | Office | Thoracic Surgery | Antonio Kaur MD | | | 2019 | Visit | | [address] [facility] | | | | | | [address] | | | | | | [place], [place] | | | | | | [address] | | | | | | [phone] | | | | | | | | +--------+---------+ + + + | 04/26/ | Office | Neurology | Kaitlynn Leyva, | | | 2018 | Visit | | [address] | | | | | | [place], [place] | | | | | | [address] | | | | | | [phone] | | | | | | | [...] OPTIC NERVE | | e | sclerosis) ([facility]) | 09/29/2014, Expires: | | | | | | 04/01/2016 | + + +--------+ + + documented as of this encounter Visit Diagnoses + + | Diagnosis | + + | MS (multiple sclerosis) (HCC) - Primary Multiple sclerosis | + + documented in this encounter
--- OUTSIDE RECORDS SUMMARY | ~2019-03-05 | XMS | Encounter Summary ---
Demographics + + + | Address | [address] | | | [place] [address] | + + + | Home Phone [...] + + | Author | [facility] | + + + | Organization | [facility] | + + + | Address | Unknown | + + + | Phone | Unavailable | + + + Support + + +---------+ + | Name | Relationship | Address | Phone | + + +---------+ + | Klever Hsu | ECON | Unknown | | + + +---------+ + Care Team Providers + +------+ + | Care Sales Trainee Name | Role | Phone | + +------+ + | Jose Alberto Jones MD | PCP | | + +------+ + Reason for Visit +--------+ + | Reason | Comments | +--------+ + | Other | Enter External Results | +--------+ + Encounter Details +--------+ + + + + | Date | Type | Department | Care Team | Description | +--------+ + + + + | 09/22/ | Abstract | Neurology at | Kaitlynn Leyva, | Other (Mundo | | 2019 | | [facility] & | [address] | External Results) | | | | Healing [address] | [place], [place] | | | | | [address] Mailcode: | [address] | | | | | [facility] | [phone] | | | | | Health and Healing, | | | | | | Building 1, [address]th | | | | | | Floor [place], [place] | | | | | | [address] | | | | | | [phone] | | | +--------+ + + + [...] | 2019 | Visit | | [address] | | | | | | [address] | | | | | | [place], [place] | | | | | | [address] | | | | | | [phone] | | | | | | | | +--------+---------+ + + + | 04/26/ | Office | Neurology | Kaitlynn Leyva, | | | 2019 | Visit | | [address] | | | | | | [place], [place] | | | | | | [address] | | | | | | [phone] | | | | | | | | +--------+---------+ + + + documented as of this encounter Procedures + +--------+ + + + | Procedure Name | Priori | Date/Time | Associated Diagnosis | Comments | | | ty | | | | + +--------+ + + + | COMPLETE METABOLIC | Routin | 08/14/2018 | | Results for this | | SET | e | | | procedure are in the | | (NA,K,CL,CO2,BUN,CRE | | | | results section. | | AT,GLUC,CA,AST,ALT,B | | | | | | ISABEL TOTAL,ALK | | | | | | PHOS,ALB,PROT TOTAL) | | | | | + +--------+ + + + documented in this encounter Results COMPLETE METABOLIC SET (NA,K,CL,CO2,BUN,CREAT,GLUC,CA,AST,ALT,BILI TOTAL,ALK PHOS,ALB,PROT TOTAL) (08/14/2018) + +---------+ + + + | Component | Value | Ref Range | Performed | Pathologist | | | | | At | Signature | + +---------+ + + + | GLUCOSE, | 95 | 65 - 110 mg/dL | [facility] | | | PLASMA | | | LAB - | | | (LAB) | | | [place] | | + +---------+ + + + | BUN, PLASMA | 17 | 6 - 23 mg/dL | [facility] | | | (LAB) | | | LAB - | | | | | | [place] | | + +---------+ + + + | CREATININE | 0.91 | 0.70 - 1.33 | [facility] | | | PLASMA | | mg/dL | LAB - | | | (LAB) | | | [place] | | + +---------+ + + + | TOTAL | 5.8 (A) | 6.0 - 8.3 g/dL | [facility] | | | PROTEIN, | | | LAB - | | | PLASMA | | | [place] | | | (LAB) | | | | | + +---------+ + + + | ALBUMIN, | 3.9 | 3.5 - 5.0 g/dL | [facility] | | | PLASMA | | | LAB - | | | (LAB) | | | [place] | | + +---------+ + + + | CALCIUM, | 9.1 | 8.5 - 10.3 | [facility] | | | PLASMA | | mg/dL | LAB - | | | (LAB) | | | [place] | | + +---------+ + + + | BILIRUBIN | 0.4 | 0.0 - 1.2 | [facility] | | | TOTAL | | Transcutaneous | LAB - | | | | | Bilirubinometer | [place] | | + +---------+ + + + | ALK PHOS | 76 | 31 - 130 U/L | [facility] | | | | | | LAB - | | | | | | [place] | | + +---------+ + + + | AST(SGOT) | 11 (A) | 13 - 39 U/L | [facility] | | | | | | LAB - | | | | | | [place] | | + +---------+ + + + | SODIUM, | 140 | 132 - 143 | [facility] | | | PLASMA | | mmol/L | LAB - | | | (LAB) | | | [place] | | + +---------+ + + + | POTASSIUM, | 4.4 | 3.6 - 5.1 | [facility] | | | PLASMA | | mmol/L | LAB - | | | (LAB) | | | [place] | | + +---------+ + + + | CHLORIDE, | 103 | 95 - 112 mmol/L | [facility] | | | PLASMA | | | LAB - | | | (LAB) | | | [place] | | + +---------+ + + + | TOTAL CO2, | 29 | 19 - 31 mmol/L | [facility] | | | PLASMA | | | LAB - | | | (LAB) | | | [place] | | + +---------+ + + + | ALT (SGPT) | 7 | 7 - 52 U/L | [facility] | | | | | | LAB - | | | | | | [place] | | + +---------+ + + + + + | Specimen | + + | Blood - Blood | | (substance) | + + + + + | Narrative | Performed At | + + + | Received labs ordered by Outside Provider, approved by Dr. Leyva | [facility] | | | - [place] | + + + + + + + + | Performing | Address | City/State/Zipcode | Phone Number | | Organization | | | | + + + + + | [facility] - | [address] | [place], [place] | [phone] | | [place] | | | | + + + + + documented in this encounter Visit Diagnoses Not on filedocumented in this encounter"
--- OUTSIDE RECORDS SUMMARY | ~2019-03-05 | XMS | Encounter Summary ---
Demographics + + + | Address | [address] | | | [place] [address] | + + + | Home Phone [...] + + + | Author | [facility] | + + + | Organization | [facility] | + + + | Address | Unknown | + + + | Phone | Unavailable | + + + Support + + +---------+ + | Name | Relationship | Address | Phone | + + +---------+ + | Klveer Hsu | ECON | Unknown | | + + +---------+ + Care Team Providers + +------+ + | Care Campus Safety Officer Name | Role | Phone | + +------+ + | Jose Alberto Jones MD | PCP | | + +------+ + Reason for Visit + + + | Reason | Comments | + + + | Social work | | | consultation | | + + + Encounter Details +--------+ + + + + | Date | Type | Department | Care Team | Description | +--------+ + + + + | 02/09/ | Telephone | Neurology at | Iva Patel, | Social work | | 2019 | | [facility] & | ELECTRONIC EQUIPMENT REPAIRER [address] | consultation | | | | Healing [address] | [address] | | | | | [place] Mailcode: | [place], [place] | | | | | [address] | [address] | | | | | Health and Healing, | [phone] | | | | | [facility] | | | | | | Floor [place], [place] | | | | | | [address] | | | | | | [phone] | | | +--------+ + + + [...] | | 2018 | Visit | | [address] | | | | | | [address] | | | | | | [place], [place] | | | | | | [address] | | | | | | [phone] | | | | | | | | +--------+---------+ + + + | 04/26/ | Office | Neurology | Kaitlynn Leyva, | | | 2018 | Visit | | [address] | | | | | | [place], [place] | | | | | | [address] | | | | | | [phone] | | | | | | | | +--------+---------+ + + + documented as of this encounter Visit Diagnoses Not on filedocumented in this encounter"
--- OUTSIDE RECORDS SUMMARY | ~2019-03-05 | XMS | Encounter Summary ---
Demographics + + + | Address | [address] | | | [place] [address] | + + + | Home Phone [...] Team Providers + +------+ + | Care Ruby On Rails Engineer Name | Role | Phone | + +------+ + | Jose Alberto Jones MD | PCP | | + +------+ + Reason for Visit + + + | Reason | Comments | + + + | Refill Request | Valium | + + + Encounter Details +--------+--------+ + + + | Date | Type | Department | Care Team | Description | +--------+--------+ + + + | 09/14/ | Refill | Neurology at | Woodrow Murillo, | Refill Request | | 2015 | | [facility] & | DO | (Valium) | | | | [address] | | | | | | [place] Mailcode: | | | | | | [address] | | | | | | Health and Healing, | | | | | | Building [address], 8th | | | | | | Floor [place], [place] | | | | | | [address] | | | | | | [phone] | | | +--------+--------+ + + + [...] | | 2018 | Visit | | [address] | | | | | | [address] | | | | | | [place], [place] | | | | | | [address] | | | | | | [phone] | | | | | | | | +--------+---------+ + + + | 04/26/ | Office | Neurology | Kaitlynn Leyva, | | | 2018 | Visit | | [address] | | | | | | [place], [place] | | | | | | [address] | | | | | | [phone] | | | | | | | | +--------+---------+ + + + documented as of this encounter Visit Diagnoses Not on filedocumented in this encounter"
--- OUTSIDE RECORDS SUMMARY | ~2019-03-05 | XMS | Encounter Summary ---
Demographics + + + | Address | [address] | | | [place] [address] | + + + | Home Phone | | + + + | Preferred Language | Unknown | + + + | Marital Status | | + + + | Evangelical Affiliation | Unknown | + + + | Race | White | + + + | Ethnic Group | Not or | + + + Author + + + | Author | [facility] | + + + | Organization | [facility] | + + + | Address | Unknown | + + + | Phone | Unavailable | + + + Support + + +---------+ + | Name | Relationship | Address | Phone | + + +---------+ + | Klever Hsu | ECON | Unknown | | + + +---------+ + Care Team Providers + +------+ + | Care Radiology Director Name | Role | Phone | + +------+ + | Jose Alberto Jones MD | PCP | | + +------+ + Encounter Details +--------+ + + + + | Date | Type | Department | Care Team | Description | +--------+ + + + + | 08/11/ | Telephone | Neurology at | Kaitlynn Leyva, | | | 2019 | | [facility] & | [address] | | | | | [address] | [place], [place] | | | | | [place] Mailcode: | [address] | | | | | [facility] | [phone] | | | | | Health and Healing, | | | | | | | | | | | | [place], [place] | | | | | | [address] | | | | | | [phone] | | | +--------+ + + + [...] Rd | | | | | | [place], [place] | | | | | | [address] | | | | | | [phone] | | | | | | | | +--------+---------+ + + + | 04/26/ | Office | Neurology | Kaitlynn Leyva, | | | 2018 | Visit | | [address] | | | | | | [place], [place] | | | | | | [address] | | | | | | [phone] | | | | | | | | +--------+---------+ + + + + +------+--------+ + + | Name | Type | Priori | Associated Diagnoses | Order Schedule | | | | ty | | | + +------+--------+ + + | QUANTIFERON TB GOLD, | Lab | Routin | Multiple sclerosis | Expected: 08/11/2018 | | BLOOD | | e | (HCC) | (Approximate), | | | | | | Expires: 09/12/2019 | + +------+--------+ + + documented as of this encounter Visit Diagnoses + + | Diagnosis | + + | Multiple sclerosis (HCC) - Primary Multiple sclerosis | + + documented in this encounter"
--- OUTSIDE RECORDS SUMMARY | ~2019-03-05 | XMS | Encounter Summary ---
Demographics + + + | Address | [address] | | | [place] [address] | + + + | Home Phone | | + + + | Preferred Language | Unknown | + + + | Marital Status | | + + + | Gnosticist Affiliation | Unknown | + + + [...] Team Providers + +------+ + | Care Hack Saw Operator Name | Role | Phone | [...] | | headache, | [address] | [facility] | | | | | unspecified | [address] | [address] | | | | | headache | [place], [place] | [place], [place] | | | | | type | [address] | [address] Phone: | | | | | Procedures | Phone: | [phone] | | | | | CONSULT TO | [phone] | Fax: | | | | | NEUROLOGY | Fax: | [phone] | | | | | | [phone] | | +--------+--------+ + + + + [...] | | condition | MD HANKS | [address] | | | | | of brain | FAMILY | [address] | | | | | White matter | MEDICINE | [address] | | | | | disease | [address] | [place], [place] | | | | | | [place] | [address] | | | | | | [place], | Phone: | | | | | | [place] [address] | [phone] | | | | | | Phone: | Fax: | | | | | | [phone] | [phone] | | | | | | Fax: | | | | | | | [phone] | | +--------+--------+ + + + + Encounter Details +--------+---------+ + + + | Date | Type | Department | Care Team | Description | +--------+---------+ + + + | 02/22/ | Office | Neurology at | Anali Shaikh, | Chronic intractable | | 2015 | Visit | [facility] & | [address] | headache, | | | | Healing [address] | unspecified headache | | | | [address] Mailcode: | [place], [place] | type (Primary Dx); | | | | [address] | [address] | MS (multiple | | | | Health and Healing, | [phone] | sclerosis) ([facility]); | | | | | | Intractable migraine | | | | Floor [place], [place] | | without status | | | | [address] | | migrainosus, | | | | [phone] | | unspecified migraine | | | [...] ray, Rxd with V martha; has seen long distance operator for back pain ), neck pain since [...] thoracic s pine from 04/01. Done at [facility] in [place], [place]. MRI C and T spine showed [...] since 2006 Lyme disease 1989 living in [place], headaches, fatigue, flu like symptoms,had CSF that [...] Imbalance - Seen vestibular rehab therapist in [place] and that has benefited her. No fal ls since last visit. R Hand and arm remain numb. Unchanged. h/o electric shock sensation in hands.Unchanged. Bladder - occ bladder spasm. Sees urologist Dr Sanjuanita Dick in [place]. Fax # [phone] . Changed job since last visit and [...] Will refer to headache specialist beverly at [facility]. Orders Placed This Encounter CONSULT TO NEUROLOGY [...] Rd | | | | | | [place], [place] | | | | | | [address] | | | | | | [phone] | | | | | | | | +--------+---------+ + + + | 04/26/ | Office | Neurology | Kaitlynn Leyva, | | | 2018 | Visit | | [address] | | | | | | [place], [place] | | | | | | [address] | | | | | | [phone] | | | | | | | [...]
--- OUTSIDE RECORDS SUMMARY | ~2019-03-05 | XMS | Encounter Summary ---
Demographics + + + | Address | [address] | | | [place] [address] | + + + | Home Phone | | + + + | Preferred Language | Unknown | + + + | Marital Status | | + + + | Tenriism Affiliation | Unknown | + + + | Race | White | + + + | Ethnic Group | Not or | + + + Author + + + | Author | [facility] | + + + | Organization | [facility] | + + + | Address | Unknown | + + + | Phone | Unavailable | + + + Support + + +---------+ + | Name | Relationship | Address | Phone | + + +---------+ + | Klever Hsu | ECON | Unknown | | + + +---------+ + Care Team Providers + +------+ + | Care Bean Picker Name | Role | Phone | + [...] | | | | | Procedures | [place], [place] | Mailcode: | | | | | MRI SPINE | [address] | [address] | | | | | CERVICAL [address] | | [place] | | | | | CONTRAST | | Research | | | | | MRI SPINE | | Center | | | | | LUMBAR WWO | | [facility] [place] | | | | | CONTRAST [place] | | [address] | | | | | MRI, CERV | | Phone: | | | | | SPINE COMBO | | [phone] | | | | | [place] MRI, | | Fax: | | | | | LUMBAR SPINE | | [phone] | | | | | COMBO | | | +--------+--------+ + + + + Encounter Details +--------+ + + + + | Date | Type | Department | Care Team | Description | +--------+ + + + + | 10/03/ | Hospital | Diagnostic Imaging | | | | 2015 | Encounter | Services at [facility] | | | | | | [address] | | | | | | [address] Mailcode: | | | | | | [address] [place] | | | | | | [facility] | | | | | | [place], [place] | | | | | | [address] | | | | | | [phone] | | | +--------+ + + + [...] | | 2018 | Visit | | [address] | | | | | | [address] | | | | | | [place], [place] | | | | | | [address] | | | | | | [phone] | | | | | | | | +--------+---------+ + + + | 04/26/ | Office | Neurology | Kaitlynn Leyva, | | | 2018 | Visit | | [address] | | | | | | [place], [place] | | | | | | [address] | | | | | | [phone] | | | | | | | [...]
--- OUTSIDE RECORDS SUMMARY | ~2019-03-05 | XMS | Encounter Summary ---
Demographics + + + | Address | [address] | | | [place] [address] | + + + | Home Phone | | + + + | Preferred Language | Unknown | + + + | Marital Status | | + + + | Restorationist Affiliation | [id number] | + + + | Race | Unknown | + + + | Ethnic Group | Unknown | + + + Author + + + | Author | [facility] | | | and [place] | + + + | Organization | [facility] | | [...] Team Providers + +------+ + | Care Mineral Mixer Name | Role | Phone | + [...] | MED CTR EXTERNAL | [address] | | | | | IMAGING | [address] | | | | | [phone] | [place] [address] | | +--------+ + + + + [...]
--- OUTSIDE RECORDS SUMMARY | ~2019-03-05 | XMS | Encounter Summary ---
Demographics + + + | Address | [address] | | | [place] [address] | + + + | Home Phone | | + + + | Preferred Language | Unknown | + + + | Marital Status | | + + + | Lutheran Affiliation | Unknown | + + + | Race | White | + + + | Ethnic Group | Not or | + + + Author + + + | Author | [facility] | + + + | Organization | [facility] | + + + | Address | Unknown | + + + | Phone | Unavailable | + + + Support + + +---------+ + | Name | Relationship | Address | Phone | + + +---------+ + | Klever Hsu | ECON | Unknown | | + + +---------+ + Care Team Providers + +------+ + | Care Learning Design Specialist Name | Role | Phone | + [...] Closed | | Radiology | Diagnoses | [place], | [facility] | | | | | Disturbance | [place], | [address] | | | | | of skin | [address] | [address] | | | | | sensation | [address] | Rd | | | | | Fatigue | [address] | Mailcode: | | | | | Dizziness | [place], [place] | [address] | | | | | and | [address] | [place] | | | | | giddiness | Phone: | Research | | | | | Vision | [phone] | Center | | | | | disturbance | Fax: | [place], [place] | | | | | Procedures | [phone] | [address] | | | | | MRI BRAIN | | Phone: | | | | | MULTIPLE | | [phone] | | | | | SCLEROSIS | | Fax: | | | | | WWO CONTRAST | | [phone] | | | | | PA MRI | | | | | | | BRAIN COMBO | | | +--------+--------+ + + + + Encounter Details +--------+ + + + + | Date | Type | Department | Care Team | Description | +--------+ + + + + | 07/14/ | Hospital | Diagnostic Imaging | | | | 2014 | Encounter | Services at [facility] | | | | | | [address] | | | | | | [address] Mailcode: | | | | | | [address] [place] | | | | | | [facility] | | | | | | [place], [place] | | | | | | [address] | | | | | | [phone] | | | +--------+ + + + [...] at Time of Discharge + + + +---------+--------+ + | Medication | Sig | Dispensed | Refills | Start | End Date | | | | | | Date | | + + + +---------+--------+ + | citalopram 20 mg | Take 20 mg by mouth | | 0 | | | | oral tablet | once daily. | | | | | + + + +---------+--------+ + | diclofenac EC 75 | Take 75 mg by mouth | | 0 | | | | mg oral | two times daily. | | | | | | tablet,delayed | | | | | | | release (DR/EC) | | | | | | + + + +---------+--------+ + | dicyclomine 20 mg | Take 20-40 mg by | | 0 | | | | oral tablet | mouth once daily. | | | | | + + + +---------+--------+ + | mirabegron | Take 50 mg by mouth | | 0 | | | | (MYRBETRIQ) 50 mg | once daily at | | | | | | oral tablet extended | bedtime. | | | | | | release 24 hr | | | | | | + + + +---------+--------+ + documented as of this encounter Plan [...] Rd | | | | | | [place], [place] | | | | | | [address] | | | | | | [phone] | | | | | | | | +--------+---------+ + + + | 04/26/ | Office | Neurology | Kaitlynn Leyva, | | | 2018 | Visit | | [address] | | | | | | [place], [place] | | | | | | [address] | | | | | | [phone] | | | | | | | | +--------+---------+ + + + documented as of this encounter Procedures + +--------+ + + + | Procedure Name | Priori | Date/Time | Associated Diagnosis | Comments | | | ty | | | | + +--------+ + + + | MRI BRAIN MULTIPLE | Priori | 07/14/2014 | Disturbance of | Results for this | | SCLEROSIS WWO | ty | 5:01 PM | skin sensation | procedure are in the | | CONTRAST | | PST | Fatigue Dizziness | results section. | | | | | and giddiness | | | | | | Vision disturbance | | + +--------+ + + + documented in this encounter Results MRI BRAIN MULTIPLE SCLEROSIS WWO CONTRAST (07/14/2014 5:01 PM PST) + + + + + + | Component | Value | Ref Range | Performed | Pathologist | | | | | At | Signature | + + + + + + | MR BRAIN | EXAM: MRI brain without | | | | | MULTIPLE | and with contrast, MS | | | | | SCLEROSIS | protocol HISTORY: | | | | | WWO | Multiple sclerosis | | | | | CONTRAST | COMPARISON: Outside MR | | | | | | brain with and without | | | | | | contrast dated 12/02/13 | | | | | | TECHNIQUE: MS protocol | | | | | | multiplanar | | | | | | multi-sequence MRI of | | | | | | the brain without | | | | | | andwith gadolinium based | | | | | | intravenous contrast. 3 | | | | | | Sultana MRI. FINDINGS: | | | | | | Brain: There are | | | | | | multiple T2/FLAIR signal | | | | | | hyperintensities within | | | | | | theperiventricular and | | | | | | supratentorial | | | | | | subcortical white | | | | | | matter. Approximately | | | | | | 6foci were not present | | | | | | on prior exam however | | | | | | this may be partially | | | | | | due to due todifferences | | | | | | in technique as current | | | | | | images are much | | | | | | thinner. No | | | | | | callosallesions are | | | | | | seen. No brainstem or | | | | | | infratentorial lesions | | | | | | are seen. No | | | | | | diffusionrestriction or | | | | | | enhancing lesions are | | | | | | seen. No acute | | | | | | intracranial | | | | | | abnormality. No | | | | | | evidence of acute | | | | | | hemorrhage or | | | | | | acuteinfarction. The | | | | | | ventricles are normal in | | | | | | size and morphology. No | | | | | | abnormalenhancement. | | | | | | Soft tissues and marrow: | | | | | | UnremarkableFace and | | | | | | orbits: Visualized | | | | | | portions are | | | | | | unremarkable IMPRESSION: | | | | | | T2/flair | | | | | | hyperintensities within | | | | | | the periventricular and | | | | | | subcortical whitematter | | | | | | compatible with history | | | | | | of multiple sclerosis. | | | | | | Approximately 6 | | | | | | T2/flairlesions are not | | | | | | seen on prior exam. This | | | | | | may be partially due to | | | | | | differences | | | | | | intechnique, however new | | | | | | lesions may be present. | | | | | | No diffusion | | | | | | restriction orenhancing | | | | | | lesions are seen. | | | | | | Attending Radiologists: | | | | | | ENRIQUE WHITTEN | | | | | | SNEHALuthor: JAZ | | | | | | MD PETRONA I have | | | | | | personally viewed this | | | | | | procedure/exam, reviewed | | | | | | this report, and | | | | | | madechanges to it where | | | | | | appropriate. | | | | | | Final/Electronically | | | | | | signed / ENRIQUE | | | | | | FISH 07/15/2014 | | | | | | 14:49 PM Pending final | | | | | | approval / JAZ | | | | | | PETRONA 07/15/2014 10:59 | | | | | | AM Preliminary / | | | | | | JAZ RUSS | | | | | | 07/15/2014 8:50 AM | | | | + + + [...] + | Diagnosis | + + | Disturbance of skin sensation | + + | Fatigue Other malaise and fatigue | + + | Dizziness and giddiness | + + | Vision disturbance Unspecified visual disturbance | + + documented in this encounter"
--- OUTSIDE RECORDS SUMMARY | ~2019-03-05 | XMS | Encounter Summary ---
Demographics + + + | Address | [address] | | | [place] [address] | + + + | Home Phone | | + + + | Preferred Language | Unknown | + + + | Marital Status | | + + + | Faith Affiliation | Unknown | + + + | Race | White | + + + | Ethnic Group | Not or | + + + Author + + + | Author | [facility] | + + + | Organization | [facility] | + + + | Address | Unknown | + + + | Phone | Unavailable | + + + Support + + +---------+ + | Name | Relationship | Address | Phone | + + +---------+ + | Klever Hsu | ECON | Unknown | | + + +---------+ + Care Team Providers + +------+ + | Care Assistant Track And Field Coach Name | Role | Phone | + +------+ + | Jose Alberto Jones MD | PCP | | + +------+ + Reason for Visit Office Visit - E/M Services (Routine) + [...] | | | | sclerosis | | [address] | | | | | Procedures | | [address] | | | | | [place] EST | | [place], [place] | | | | | PATIENT | | [address] | | | | | LEVEL V | | Phone: | | | | | | | [phone] | | | | | | | Fax: | | | | | | | [phone] | + +--------+ + + + + Encounter Details +--------+---------+ + + + | Date | Type | Department | Care Team | Description | +--------+---------+ + + + | 10/26/ | Office | Neurology at | Kaitlynn Leyva, | Multiple sclerosis | | 2019 | Visit | [facility] & | MD Rosanne Wallace | ([facility]) (Primary Dx); | | | | Healing [address] | [place], [place] | Neuropathic pain | | | | [address] Mailcode: | [address] | | | | | [facility] | [phone] | | | | | Health and Healing, | | | | | | [facility] | | | | | | [place], [place] | | | | | | [address] | | | | | | [phone] | | | +--------+---------+ + + + [...] + + + | Blood Pressure | 122/66 | 10/26/2018 10:33 AM | | | | | PDT | | + + + + + | Pulse | 91 | 10/26/2018 10:33 AM | | | | | PDT [...] | Weight | 78.5 kg (173 lb 1.6 | 10/26/2018 10:33 AM | | | | oz) | PDT | | + + + + + | Height | 160 cm (5' 3") | 10/26/2018 10:33 AM | | | | | PDT | | + + + + + | Body Mass Index | 30.66 | 10/26/2018 10:33 AM | | | | | PDT | | + + + + + documented in this encounter Progress Notes Kaitlynn Leyva MD - 10/26/2018 10:25 AM PDTFormatting of this note might be different fro m the original. Multiple Sclerosis Clinic - Follow Up Note Author: Kaitlynn Leyva MD Date of service: 10/26/18 Last visit: 07/27/18 ID: Danisha Lemon is a 57 yo RH woman with relapsing remitting multiple sclerosis who retur ns to clinic for follow up. She was previously followed by Dr. Murillo [phone] reasons History from previous [...] Didn't have insurance so didn't seek care. 2010: vertigo x 2 weeks, worsening of [...] due to intolerable GI side effects (N/V/D) Aubagio: 07/2018 - current MS symptoms: -Sensory: R sided numbness in face, RUE, foot -Fatigue: Tries to take naps; Provigil denied by insurance. -Pain: Neuropathic pain in R arm/leg with [...] (caused severe dizziness), duloxetine (intolerable night sweats) Currently taking amitriptyline 50mg daily for MOROCHO. Insurance charged too much for lyrica. -Bladder: [...] with names, somewhat forgetful -Mood: depression -Dizziness -Muscle stiffness: didn't tolerate flexeril, made her feel "crazy" Interval history/subjective: -Last visit, patient was started on Aubagio after she didn't tolerate Tecfidera (severe sto mach pain, nausea, vomiting). See discussion from last note for full details about this quach ce. -MRI brain/c-spine from last visit was stable -Today, she presents for follow up with her . -No new neurologic symptoms and no episodes concerning for a new relapse -She is tolerating Aubagio well, much better than the Tecfidera. She is noticing some hair loss, but nothing significant. She is getting her labs done - she just had lab drawn Friday, but we don't have records yet. We have labs from 08/14, which look okay -She is getting right carpal tunnel and ulnar neuropathy release surgery next week. She is looking forward to this as she has a lot of pain/tingling in her right lower arm. She had le ft carpal tunnel release years ago with good result, so she is optimistic this surgery will help -Got cortisone shot for trigger finger, this helped a lot, but has worn off -Today her primary concern is fatigue. It is severe and limits her activities. She thinks s he recalls being on amantadine in the past and tolerating it well, but can't recall how much it helped. We discussed the risks/side effects and she would like to try this again -She is also interested in the diet study for fatigue -Her other concern today is increased neuropathic pain. This includes shooting pain down he r back and legs when she looks down (lhermitte's sign). -She is also having tightness in a band around her chest, she describes as a MS hug. IT al so feels like muscle spasm between her ribs, it catches her breath. She has reported pleuris y in the past, not sure which this is. -Overall feeling more stiff today, but thinks she did too much activity yesterday (visits h er daughters when she is in town for appointments) Neurologic ROS: MOROCHO: + Focal weakness: - [...] since 2006 Lyme disease 1989 living in [place], headaches, fatigue, flu like symptoms,had CSF that was negative. Haven manda with antibiotics x 3 months Mononucleosis 1972 MS (multiple sclerosis) (HCC) Mumps 1963 Other general symptoms(780.99) Scoliosis Dx [...] Venom-Honey Bee Dyspnea Social History: Social History Socioeconomic History Marital status: Spouse name: Not on file Number of children: 3 Years of education: 12 Highest education level: Not on file Occupational History Employer: [employer] Social Needs Financial resource strain: Not on file Food insecurity: Worry: Not on file Inability: Not on file Transportation needs: Medical: Not on file Non-medical: Not on file Tobacco Use Smoking status: Current Some Day Smoker Packs/day: 1.00 Smokeless tobacco: Never Used Substance and Sexual Activity Alcohol use: No Drug use: No Sexual activity: Not on file Lifestyle Physical activity: Days per week: Not on file Minutes per session: Not on file Stress: Not on file Relationships Social connections: Talks on phone: Not on file Gets together: Not on file Attends holiness service: Not on file Active member of club or organization: Not on file Attends meetings of clubs or organizations: Not on file Relationship status: Not on file Intimate partner violence: Fear of current or ex partner: Not on file Emotionally abused: Not on file Physically abused: Not on file Forced sexual activity: Not on file Other Topics Concern Not on file Social History Narrative 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 [employer] for adult foster care. Uses cannabis - smoking and edibles, helps with sleep Family History: Family History Problem Relation MS Cousin Cancer Mother renal cell CA Headache Mother Heart Failure Father Genitourinary () Father kidney failure Diabetes Father Heart Disease Father A Fib Physical Examination: Vitals: 10/26/18 1033 BP: 122/66 BP Location: Left upper arm Patient Position: Sitting Pulse: 91 Weight: 78.5 kg (173 lb 1.6 oz) Height: 1.6 m (5' 3") PainSc: 06 - Severe PainLoc: Chest Constitutional: NAD Psychiatric: Mood/Affect: normal/appropriate Neurological: Mental [...] conjugate, EOMI V: Sensation decreased on R V1-3 VII: Symmetric facial motor function bilaterally VIII: Intact to finger rub bilaterally IX,X: Palate elevates symmetrically XI: Normal shrug bilaterally XII: Tongue protrudes midline Motor: Normal tone in all groups. No drift. Delt Tri Bi WE WF DI HF KF KE APF ADF Left 5 5 5 5 5 5 4+ 5 5 5 5 Right 5 5 [...] antalgic gait favoring R side Heel walking: difficult to perform, falls to one side Toe walking: difficult to perform, falls to one side Tandem gait: difficult to perform, can take 1-2 steps ROMBERG: negative Timed 25 foot walk: 04/13/18: 6.10 - no aid 07/27/17: 5.84 - no aid 10/26/18: 6.47 - no aid HEENT: Eyes: non icteric Mouth: moist mucus membranes Cardiovascular: palpable pulses Respiratory: non-labored breathing GI: non tender Musculoskeletal: non tender Skin: no visible rash Labs: Lab Results Component Value Date WBC 11.15 07/27/2018 HB 12.4 07/27/2018 HCT 38.4 07/27/2018 PLT 293 07/27/2018 MCV 93.0 07/27/2018 RDW 42.9 07/27/2018 Lab Results Component Value Date NA 140 08/14/2018 K 4.4 08/14/2018 CL 103 08/14/2018 BICARB 29 08/14/2018 BUN 17 08/14/2018 CR 0.91 08/14/2018 GLU 95 08/14/2018 CA 9.1 08/14/2018 AST 11 08/14/2018 ALT 7 08/14/2018 AP 76 08/14/2018 TBILI 0.4 08/14/2018 TP 5.8 08/14/2018 ALB 3.9 08/14/2018 ANIONGAP 4 07/27/2018 ANIONALBCOR 4 07/27/2018 Lab Results Component Value Date [id number] 16.1 04/13/2018 JCV: negative (04/13/18) CSF 08/24/2014 [...] presents to clinic for follow up. 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 Her MS symp toms include neurogenic bladder, painful neuropathic limb pain, imbalance, dizziness, and fa tigue. Updated MRIs are stable, with no new lesions compared to last MRI in 2016. She was previously on Tecfidera, but was not able to tolerate this due to severe GI symptom s (nausea/vomiting/diarrhea). She had tried copaxone previously ([id number]) but did not tole rate this either due to injection site reactions. She was not willing to try another injecta ble and she was hesitant to try gilenya given the risks of macular edema, bradycardia, varic kory reactivation, and PML. It would be inconvenient for her to travel from [place] every month for Tysabri medications. Thus, we discussed Aubagio vs ocrelizumab. Please see last no te for full discussion, but as she does not have highly active disease, is not of childbeari ng age, and strongly preferred to remain on a pill, patient opted to start Aubagio. She is tolerating the Aubagio well, other than some mild hair loss, but expect this to star t improving soon. Labs are stable. She last had labs on Friday, will ensure these are sent t o us and scanned in. Regarding symptom management, she had two major concerns: -Fatigue. This is severe and limits her activities. She recalls progiil was not paid for by insurance, but doesn't recall how amantadine worked. She would like to try again. We discus sed risk of dry mouth, dizziness, and other side effects. Will start at a low dose (100mg da sky) to ensure she tolerates it. She is also interested in the diet study for MS-related fat igue -Neuropathic pain. Part of this is due to R carpal tunnel syndrome and ulnar neuropathy, bu t she is having surgery for this next week, optimistic this will help as the same surgery on the left hand was helpful a few years ago. 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 She did not tolerate gabapentin or duloxetine and Lyrica was not paid for. She is currently on amitriptyline 50mg qHS and doesn't recall f eeling too sleepy on a higher dose of this (as was reported previously). She is up for tryin g this higher dose again to see if it helps. She is also intersted in seeing pain clinic, wh ich I agree is reasonable. She prefers to go somewhere locally, I encouraged her to talk to her PCP to see if there are pain clinics somewhere closer than [facility]. If not, I am happy to s end a referral to [facility] pain clinic. She will explore closer options first. -Muscle cramp/spasm. She feels more stiff today, and wonder if she is haing some cramps in her torso leading to the "MS hug" type feeling. Will consider baclofen in the future, but wi ll hold off for now as we are making two other medication changes today. Plan: -Continue aubagio 14mg daily -She will need CMP every month for another 3 months (6 months total), then every 3 months after that. -Last lab was Friday, will need to make sure her lab sends this to us -Start trial of amantadine 100mg daily for MS-related fatigue -Interested in diet study, will have RA discuss with her -Increase amitriptyline from 50mg to 75mg qHS for neuropathic pain -Continue vitamin D 5,000 IU daily -RTC in 3 months Patient has been seen and discussed with the attending, Dr. Yanes, who agrees with the assess ment and plan. Kaitlynn Leyva MD Neuroimmunology Fellow T Associated attestation - Jackson Yanes MD - 11/09/2018 1:45 PM PDTI personally interviewed the patient, performed the pertinent parts of the physical examination and personally formul ated the plan with the fellow. I agree with the fellow's documentation and have documented any additions or exceptions. documented in this encounter Plan of Treatment +--------+---------+ + + + | Date | Type | Specialty | Care Team | Description | +--------+---------+ + + + | 04/05/ | Office | Thoracic Surgery | Antonio Kaur MD | | | 2018 | Visit | | [address] | | | | | | [address] | | | | | | [place], [place] | | | | | | [address] | | | | | | [phone] | | | | | | | | +--------+---------+ + + + | 04/26/ | Office | Neurology | Kaitlynn Leyva, | | | 2018 | Visit | | [address] | | | | | | [place], [place] | | | | | | [address] | | | | | | [phone] | | | | | | | | +--------+---------+ + + + documented as of this encounter Visit Diagnoses + + | Diagnosis | + + | Multiple sclerosis (HCC) - Primary Multiple sclerosis | + + | Neuropathic pain Neuralgia, neuritis, and radiculitis, unspecified | + + documented in this encounter
--- OUTSIDE RECORDS SUMMARY | ~2019-03-05 | XMS | Encounter Summary ---
Demographics + + + | Address | [address] | | | [place] [address] | + + + | Home Phone | | + + + | Preferred Language | Unknown | + + + | Marital Status | | + + + | Buddhist Affiliation | Unknown | + + + [...] Team Providers + +------+ + | Care Certified Registered Nurse Practitioner Name | Role | Phone | + +------+ + | Jose Alberto Jones MD | PCP | | + +------+ + Reason for Visit +--------+ + | Reason | Comments | +--------+ + | Other | MRI | +--------+ + Encounter Details +--------+ + + + + | Date | Type | Department | Care Team | Description | +--------+ + + + + | 09/14/ | Telephone | Neurology at | Woodrow Murillo, | Other (MRI) | | 2015 | | [facility] & | DO | | | | | [address] | | | | | | [address] Mailcode: | | | | | | [facility] | | | | | | Health and Healing, | | | | | | Building | | | | | | Floor [place], [place] | | | | | | [address] | | | | | | [phone] | | | +--------+ + + + [...] | | 2019 | Visit | | [address] | | | | | | [address] | | | | | | [place], [place] | | | | | | [address] | | | | | | [phone] | | | | | | | | +--------+---------+ + + + | 04/26/ | Office | Neurology | Kaitlynn Leyva, | | | 2018 | Visit | | [address] | | | | | | [place], [place] | | | | | | [address] | | | | | | [phone] | | | | | | | | +--------+---------+ + + + documented as of this encounter Visit Diagnoses Not on filedocumented in this encounter"
--- OUTSIDE RECORDS SUMMARY | ~2019-03-05 | XMS | Encounter Summary ---
Demographics + + + | Address | [address] | | | [place] [address] | + + + | Home Phone | | + + + | Preferred Language | Unknown | + + + | Marital Status | | + + + | Moravian Affiliation | Unknown | + + + [...] Team Providers + +------+ + | Care Instructor Dramatic Arts Name | Role | Phone | + +------+ + | Jose Alberto Jones MD | PCP | | + +------+ + Encounter Details +--------+ + + + + | Date | Type | Department | Care Team | Description | +--------+ + + + + | 11/16/ | Telephone | Neurology at | Anali Shaikh, | | | 2014 | | [facility] & | [address] | | | | | [address] | | | | | [address] Mailcode: | [place], [place] | | | | | [address] [place] [address] | [address] | | | | | Health and Healing, | [phone] | | | | | | | | | | | Floor [place], [place] | | | | | | [address] | | | | | | [phone] | | | +--------+ + + + [...] | | 2018 | Visit | | [address] | | | | | | [address] | | | | | | [place], [place] | | | | | | [address] | | | | | | [phone] | | | | | | | | +--------+---------+ + + + | 04/26/ | Office | Neurology | Kaitlynn Leyva, | | | 2018 | Visit | | [address] | | | | | | [place], [place] | | | | | | [address] | | | | | | [phone] | | | | | | | | +--------+---------+ + + + documented as of this encounter Visit Diagnoses Not on filedocumented in this encounter"
--- OUTSIDE RECORDS SUMMARY | ~2019-03-05 | XMS | Encounter Summary ---
Demographics + + + | Address | [address] | | | [place] [address] | + + + | Home Phone [...] Providers + +------+ + | Care Commercial Analyst Name | Role | Phone | + [...] | 2019 | Visit | | [address] [facility] | | | | | | [address] | | | | | | [place], [place] | | | | | | [address] | | | | | | [phone] | | | | | | | | +--------+---------+ + + + | 04/26/ | Office | Neurology | Kaitlynn Leyva, | | | 2018 | Visit | | [address] | | | | | | [place], [place] | | | | | | [address] | | | | | | [phone] | | | | | | | | +--------+---------+ + + + documented as of this encounter Visit Diagnoses Not on filedocumented in this encounter"
--- OUTSIDE RECORDS SUMMARY | ~2019-03-05 | XMS | Encounter Summary ---
Demographics + + + | Address | [address] | | | [place] [address] | + + + | Home Phone [...] + + + | Author | [facility] | + + + | Organization | [facility] | + + + | Address | Unknown | + + + | Phone | Unavailable | + + + Support + + +---------+ + | Name | Relationship | Address | Phone | + + +---------+ + | Klever Hsu | ECON | Unknown | | + + +---------+ + Care Team Providers + +------+ + | Care Movie Shot Cameraman Name | Role | Phone | + [...] Refill Request | | 2016 | | [facility] & | DO | (Copaxone 40 mg) | | | | [address] | | | | | | [address] Mailcode: | | | | | | [facility] | | | | | | Health and Healing, | | | | | | [facility] | | | | | | [place], [place] | | | | | | [address] | | | | | | [phone] | | | +--------+--------+ + + + [...] | | 2018 | Visit | | [address] | | | | | | [address] | | | | | | [place], [place] | | | | | | [address] | | | | | | [phone] | | | | | | | | +--------+---------+ + + + | 04/26/ | Office | Neurology | Kaitlynn Leyva | | | 2018 | Visit | | [address] | | | | | | [place], [place] | | | | | | [address] | | | | | | [phone] | | | | | | | | +--------+---------+ + + + documented as of this encounter Visit Diagnoses Not on filedocumented in this encounter"
--- OUTSIDE RECORDS SUMMARY | ~2019-03-05 | XMS | Encounter Summary ---
Demographics + + + | Address | [address] | | | [place] [address] | + + + | Home Phone [...] Team Providers + +------+ + | Care Staff Development Manager Name | Role | Phone | + +------+ + | Jose Alberto Jones MD | PCP | | + +------+ + Encounter Details +--------+ + + + + | Date | Type | Department | Care Team | Description | +--------+ + + + + | 09/09/ | MyChart | Neurology at | Woodrow Murillo, | labs | | 2016 | Encounter | [facility] & | DO | | | | | [address] | | | | | | [address] Mailcode: | | | | | | [facility] | | | | | | Health and Healing, | | | | | | | | | | | | Floor [place], [place] | | | | | | [address] | | | | | | [phone] | | | +--------+ + + + [...] | | 2018 | Visit | | [address] | | | | | | [address] | | | | | | [place] | | | | | | [address] | | | | | | [phone] | | | | | | | | +--------+---------+ + + + | 04/26/ | Office | Neurology | Kaitlynn Leyva, | | | 2018 | Visit | | [address] | | | | | | [place], [place] | | | | | | [address] | | | | | | [phone] | | | | | | | | +--------+---------+ + + + documented as of this encounter Visit Diagnoses Not on filedocumented in this encounter"
--- OUTSIDE RECORDS SUMMARY | ~2019-03-05 | XMS | Encounter Summary ---
Demographics + + + | Address | [address] | | | [place] [address] | + + + | Home Phone | | + + + | Preferred Language | Unknown | + + + | Marital Status | | + + + | Confucianism Affiliation | Unknown | + + + [...] Team Providers + +------+ + | Care Screen Tender Name | Role | Phone | + +------+ + | Jose Alberto Jones MD | PCP | | + +------+ + Encounter Details +--------+ + + + + | Date | Type | Department | Care Team | Description | +--------+ + + + + | 07/22/ | Document-Sc | UNKNOWN DEPARTMENT | Unknown . | | | 2014 | anned | [address] | | | | | [address] | | | | | | [place], [place] | | | | | | [address] | | | +--------+ + + + [...] Rd | | | | | | [place], [place] | | | | | | [address] | | | | | | [phone] | | | | | | | | +--------+---------+ + + + | 04/26/ | Office | Neurology | Kaitlynn Leyva, | | | 2018 | Visit | | [address] | | | | | | [place], [place] | | | | | | [address] | | | | | | [phone] | | | | | | | | +--------+---------+ + + + documented as of this encounter Visit Diagnoses Not on filedocumented in this encounter"
--- OUTSIDE RECORDS SUMMARY | ~2019-03-05 | XMS | Encounter Summary ---
Demographics + + + | Address | [address] | | | [place] [address] | + + + | Home Phone [...] Providers + +------+ + | Care Business Education Teacher Name | Role | Phone | [...] | | | | | Procedures | [place], [place] | for Health | | | | | PHYSICAL | [address] | and Healing, | | | | | THERAPY | Phone: | Building 1, | | | | | REFERRAL | [phone] | [address] Floor | | | | | | Fax: | [place], [place] | | | | | | [phone] | [address] | | | | | | | Phone: | | | | | | | [phone] | | | | | | | Fax: | | | | | | | [phone] | +--------+--------+ + + + + Encounter Details +--------+---------+ + + + | Date | Type | Department | Care Team | Description | +--------+---------+ + + + | 07/13/ | Office | [facility] Physical | Kendra Cochran, | MS (multiple | | 2015 | Visit | Therapy Services at | MS,PT [address] | sclerosis) (HCC) | | | | [facility] | [address] | (Primary Dx); Falls | | | | [address] | [place] [address] | frequently; Balance | | | | Mailcode: CH3P | [phone] | problem; Dizziness | | | | [facility] | | | | | | and Healing, | | | | | | Building 1, | | | | | | Floor [place], [place] | | | | | | [address] | | | | | | [phone] | | | +--------+---------+ + + + [...] Kendra Cochran, MS,PT - 07/13/2014 3:03 PM [facility] Outpatient Rehabil itation Services Questions: Call [phone] Today's Date: 07/13/2014 Patient's Name: Danisha Lemon Head Doffer services: None Frequency: 1x/week 2 PTappt.(s) with [...] opinion. KENDRA COCHRAN MS, PT Physical Therapist [facility] REHABILITATION SERVICES AND HAND THERAPY [address] [place] [address], [address] [place] [address] documented in this encounter Progress Notes Kendra Cochran MS,PT - 07/13/2014 2:23 PM PSTFormatting of this note might be different f rom the original. [id number] DANISHA LEMON Date of : 1960 Start [...] optimal level of function and keep working. [facility] PHYSICAL THERAPY INITIAL EVALUATION: Neurological Prior medical [...] patient currently has: none. 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 ADL's: 08/20 Complete [place]: no assistance or independent with device. Transfers: [...] Flex 5 5 Wrist: Ext 5 5 Instructor Physical WFL Hip: Flex 5- 4+ Hip: Ext [...] vestibular rehab and return to PT wit [facility] for further investigation and treatment of MS symptoms/problems. Frequency/Duration: Treatment will be 4 visits, approximately 1 time(s) per month over [address] [facility] to give Danisha time to make [...] status. KENDRA COCHRAN, , PT Physical Therapist [facility] REHABILITATION SERVICES AND HAND THERAPY [facility] [facility], [address] [place] [address] Payment Authorization Request and Status Report: [facility] Outpatient Therapy Center Contact Contact Billing Provider Number: [id number] Therapist Provider Number: [id number] Referring Prescribing Practitioner: Anali Shaikh MD Primary Diagnosis/ICD-9: ICD-9-CM 1. MS (multiple sclerosis) 340 2. Falls frequently V15.88 3. Balance problem 781.99 4. Dizziness 780.4 Prescribing Practitioner Provider Number: [facility] Physician [id number]. Outside [facility] Physician: _ Proposed PA Start Date: Date PA is approved. Procedure Codes: Therapeutic Exercise 87465 Therapeutic Activities 63730 Gait Training 96423 Modalities Codes: None Minutes per session: 45 [...] | 2019 | Visit | | [address] | | | | | | [address] | | | | | | [place], [place] | | | | | | [address] | | | | | | [phone] | | | | | | | | +--------+---------+ + + + | 04/26/ | Office | Neurology | GordonKaitlynn, | | | 2019 | Visit | | [address] | | | | | | [place], [place] | | | | | | [address] | | | | | | [phone] | | | | | | | | +--------+---------+ + + + + + +--------+ + + | Name | Type | Priori | Associated Diagnoses | Order Schedule | | | | ty | | | + + +--------+ + + | REHABILITATION | Procedures | Routin | MS (multiple | Ordered: 08/08/2014 | | MEDICARE | | e | sclerosis) ([facility]) | | | CERTIFICATION | | | [...] | + +--------+ + + + | IN THERAPEUTIC | Routin | 07/13/2014 | MS (multiple | | | EXERCISES | e | 3:25 PM | sclerosis) ([facility]) | | | | | PST | Falls frequently | | | | | | Balance problem | | | | | | Dizziness | | + +--------+ + + + | IN PHYS THERAPY | Routin | 07/13/2014 | MS (multiple | | | EVALUATION | e | 3:25 PM | sclerosis) ([facility]) | | | | | PST | [...]
--- OUTSIDE RECORDS SUMMARY | ~2019-03-05 | XMS | Encounter Summary ---
Demographics + + + | Address | [address] | | | [place] [address] | + + + | Home Phone | | + + + | Preferred Language | Unknown | + + + | Marital Status | | + + + | Islam Affiliation | Unknown | + + + [...] Team Providers + +------+ + | Care Adult Services Librarian Name | Role | Phone | [...] | | | | sclerosis | | [address] | | | | | Procedures | | [address] | | | | | [place] | | [place], [place] | | | | | PATIENT | | [address] | | | | | LEVEL V | | Phone: | | | | | | | [phone] | | | | | | | Fax: | | | | | | | [phone] | + +--------+ + + + + Encounter Details +--------+---------+ + + + | Date | Type | Department | Care Team | Description | +--------+---------+ + + + | 10/26/ | Office | Neurology at | Kaitlynn Leyva, | Multiple sclerosis | | 2019 | Visit | [facility] & | MD [address] | ([facility]) (Primary Dx); | | | | Healing [address] | [place], [place] | Neuropathic pain | | | | [address] Mailcode: | [address] | | | | | [facility] | [phone] | | | | | Health and Healing, | | | | | | [facility] | | | | | | [place], [place] | | | | | | [address] | | | | | | [phone] | | | +--------+---------+ + + + [...] by Dr. Murillo 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 She had tried copaxone previously (6297-8167) but did not tole rate this either due to injection site reactions. She was not willing to try another injecta ble and she was hesitant to try gilenya given the risks of macular edema, bradycardia, varic kroy reactivation, and PML. It would be inconvenient for her to travel from [place] every month for Tysabri medications. Thus, we [...] there are pain clinics somewhere closer than [facility]. If not, I am happy to s end a referral to [facility] pain clinic. She will explore closer options [...] Neuroimmunology Fellow T Associated attestation - Jackson Yaens MD - 11/09/2018 1:45 PM PDTI personally [...] | 2018 | Visit | | [address] [facility] [address] [facility] | | | | | | [address] | | | | | | [place], [place] | | | | | | [address] | | | | | | [phone] | | | | | | | | +--------+---------+ + + + | 04/26/ | Office | Neurology | Kaitlynn Leyva, | | | 2018 | Visit | | [address] | | | | | | [place], [place] | | | | | | [address] | | | | | | [phone] | | | | | | | | +--------+---------+ + + + documented as of this encounter Visit Diagnoses + + | Diagnosis | + + | Multiple sclerosis (HCC) - Primary Multiple sclerosis | + + | Neuropathic pain Neuralgia, neuritis, and radiculitis, unspecified | + + documented in this encounter
--- OUTSIDE RECORDS SUMMARY | ~2019-03-05 | XMS | Encounter Summary ---
Demographics + + + | Address | [address] | | | [place] [address] | + + + | Home Phone [...] Team Providers + +------+ + | Care Nylon Mender Name | Role | Phone | + +------+ + | Jose Alberto Jones MD | PCP | | + +------+ + Encounter Details +--------+ + + + + | Date | Type | Department | Care Team | Description | +--------+ + + + + | 04/13/ | Procedure | Diagnostic Imaging | | | | 2018 | Pass | [facility] | | | | | | [address] | | | | | | [address] Mailcode: | | | | | | [address] | | | | | | [facility] | | | | | | [place], [place] | | | | | | [address] | | | | | | [phone] | | | +--------+ + + + [...] Rd | | | | | | [place], [place] | | | | | | [address] | | | | | | [phone] | | | | | | | | +--------+---------+ + + + | 04/26/ | Office | Neurology | Kaitlynn Leyva, | | | 2018 | Visit | | [address] | | | | | | [facility] [place] | | | | | | [address] | | | | | | [phone] | | | | | | | | +--------+---------+ + + + documented as of this encounter Visit Diagnoses Not on filedocumented in this encounter"
--- OUTSIDE RECORDS SUMMARY | ~2019-03-05 | XMS | Encounter Summary ---
Demographics + + + | Address | [address] | | | [place] [address] | + + + | Home Phone [...] Team Providers + +------+ + | Care Icu Registered Nurse Name | Role | Phone | + [...] | unspecified, | [address] | [address] [facility] [address] [facility] | | | | | | [address] | [address] | | | | | intractable, | [place], [place] | [address] | | | | | without | [address] | [place], [place] | | | | | status | | [address] Phone: | | | | | migrainosus | | [phone] | | | | | Headache | | Fax: | | | | | Multiple | | [phone] | | | | | sclerosis | | | | | | | Procedures | | | | | | | [place] | | | | | | [...] aura | | 2016 | Visit | [facility] & | ANP [address] [place] [address] | and without status | | | | Healing [address] | migrainosus, not | | | | [address] Mailcode: | [place] [address] | intractable (Primary | | | | [facility] | [phone] | Dx) | | | | and Healing, | | | | | | Building [address] | | | | | | [place], [place] | | | | | | [address] | | | | | | [phone] | | | +--------+---------+ + + + [...] a result of stretching or dilation. These chronic disease manager lissa effects of caffeine are likely a [...] 200mg. One report estimates nearly 95% of [place] s population con sumes caffeine daily, whereas only about 63% of [place] adults do so. The average dietary c affeine consumption in some [place] countries is more than 400 mg per person per day. I t is not hard to reach 200-300mg of caffeine daily since a standard 8-ounce cup of coffee ma de by the Japanese drip method contains between 125 and 250mg [...] relevant to the final potency of decaf. [facility] researchers have measured up to 6.9 [...] caffeine use as recommended for other ac skull valley medications for migraine. This use should not [...] Panfilo Serrano MD, PhD, Professor of Neurology, [facility] [place] [place], [place]; and Panfilo Gamble MD, Home Demonstration Agent and Director of the [facility] , [place], [place]. Your Support CAN Make The Difference [...] Million Migraine Campaign today! Please communicate by AcEmpire if a referral has been made and you have not been contacted w dana 10 . _x__Acupuncture uses tiny needles to stimulate specific points located near the surface of the skin to relieve pain, reduce inflammation and restore the body s balance. A 2005 aurora dy in the [place] Medical journal showed that people who received 12 acupuncture treatments over the course of 2 months had headache relief during treatment and for several months afte [facility]. ___Aerobic Exercise like daily walking or [...] migraines , but it promotes headache frequency (Japanese Headache Society 2013). Seek a diet LOW in p rocessed foods, animal products and simple sugars and HIGH in vegetables, fruits and whole g rains. Supplements, like Green Vibrance, contain green super foods and trace nutrients can help each cell function at peak efficiency. https://www.ATG Access.Quaero/green-vibrance/pro duct-pages/green-vibrance/Guidance from a icu registered nurse may be helpful. ___Goal Setting for healthy [...] Cefaly Unit is an FDA approved medical technologist clinical for use in helping to reduce migraine [...] minutes daily. A 2011 study from the [facility] [employer] showed a 40% reduction [...] ___Social Support from friends, family, support groups, gnosticism organizations or communNeedl centers may be helpful. Use your social [...] is equivalent to blue guevara light in [place]. ___Trigger point injections/occipital nerve blocks are done by injecting a small amount of numbing medication to painful points. These work best when combined with home stretching an d strengthening. ___Workplace ergonomics evaluation to examine your interaction with your work space. Resources: Timi Menendez at http://actualized.org/ for meditation, self help, and inspiration Several excellent videos on meditation- including the "Do Nothing" meditation technique. [facility] Integrative Medicine for handouts/podcasts on migraines and other h ealth topics at https://www.fammed.[facility].edu/integrative Migraine Foundation at http://www.americanmigrainefoundation.org Japanese Headache Society at http://www.americanheadachesociety.org/ Japanese Academy of Neurology at https://www.aan.com/ Super Better by Laly Bae- a book about gamefulness, this means using psychological st rengths you have when you play games- like, courage, determination, optimism- to increase re silience in your real life. She also has a videos on TITA Talks. TITA Talks- at [employer]- devoted to Ideas Snyder Spreading; a variety of health topics. WHY SELF CARE IS SO IMPORTANT! By Karime Banks http://Akiban Technologies/jxa-tcju-balv-wd-tk-ptubcympv-1929566389 Look for the "CARE HOME" fernando to show that a supplement has been tested by an outside lab to ensu re quality assurance monitor chassis. Supplements shown to help with headache prevention: [...] blood pressure. For complete informat ion see: http://www.webmd.com/vitamins-supplements/jtokwhtqttayqu-924-m-arginine.aspx?activeingredie nvmw=505&activeingredientname=l-arginine Migraine Supplements. There are compaines that package more than one of the above vitamins/ supplements into a single pill. Some are available directly from opener verifier packer customs, but most are available from vitamin catalogues or websites: Dolovent - Info available at www.Dolovent.Quaero (multivitamin with extra B2, Magnesium, Coenz yme Q10) HeadacheFree - www.headachefreevitamins.com (multivitamin, but with higher amounts of B2 an d magnesium) MigreLief - www.migralief.com (contains B2, magnesium and feverfew) Migramin - www.migramin.com (contains B2, magnesium, organic feverfew in separate capsules, prepackaged in daily pill packs) Ausinal Nasal [place] (Ausinal.Quaero) Capsaicin based nasal spray, used for migraine, [...] NSAID/anti inflammatory medication as directed by the opener verifier packer customs anti-histamine such as promethazine (which also helps with nausea) or OTC benadryl as direc tita by the opener verifier packer customs Detailed supplement information can be found at: Http://www.fammed.[facility].edu/integrative/resources/modules/headaches/ You can check their migraine handout and [...] is a 54 year old woman, from [place] presenting fo r evaluation of migraine with aura, not intractable, referred by Dr. Murillo, neurology, [place] dept. She is accompanied by: her mother. 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 Has to do lot of lifting [...] it where appropriate. Final/Electronically signed / ENRIQUE WHTITEN 07/15/2014 14:49 PM Pending final approval / JAZ RUSS 07/15/2014 10:59 AM Preliminary / JAZ RUSS 07/15/2014 8:50 AM Resulting Agency [facility] DEPARTMENT OF RADIOLOGY Prior Evaluation: Referral records were reviewed. See individual reports for details. Assessment/Plan: Exam and history reviewed by Dr. Salud Foley, director of the [facility]. Danisha Lemon is a 54 [...] your referral, Karen Oliveros, ANP NEUROLOGY AT [facility] [address] [facility] [place] [address] 10/03/2015 12:59 PM CC: Jose Alberto Jones MD [phone] documented in this en counter Plan of Treatment +--------+---------+ + + + | Date | Type | Specialty | Care Team | Description | +--------+---------+ + + + | 04/05/ | Office | Thoracic Surgery | Antonio Kaur MD | | | 2018 | Visit | | [address] [facility] [address] [facility] | | | | | | [facility] | | | | | | [place], [place] | | | | | | [address] | | | | | | [phone] | | | | | | | | +--------+---------+ + + + | 04/26/ | Office | Neurology | Kaitlynn [place], | | | 2018 | Visit | | [address] | | | | | | [place], [place] | | | | | | [address] | | | | | | [phone] | | | | | | | [...]
--- OUTSIDE RECORDS SUMMARY | ~2019-03-05 | XMS | Clinical Summary ---
Demographics + + + | Address | [address] | | | [place] [address] | + + + | Home Phone | | + + + | Preferred Language | Unknown | + + + | Marital Status | Unknown | + + + | Episcopal Affiliation | Unknown | + + + | Race | Unknown | + + + | Ethnic Group | Unknown | + + + Author + + + | Author | [facility] [employer] (Historical as of | | | 01-02-19) | + + + | Organization | [facility] (Historical as of | | | 01-02-19) | + + + | Address | Unknown | + + + | Phone | Unavailable | + + + Support + + +---------+ + | Name | Relationship | Address | Phone | + + +---------+ + | Ritika Smith | ECON | Unknown | | + + +---------+ + | Vika Delacruz | ECON | Unknown | | + + +---------+ + Care Team Providers + +------+ + | Care Assistant Accounting Manager Name | Role | Phone | + +------+ + | Jose Alberto Jones MD | PP | | + +------+ + Allergies + + + + + + | Active Allergy | Reactions | Severity | Noted | Comments | | | | | Date | | + + + + + + | Codeine | Rash | Medium | 03/23/20 | | | | | | 14 | | + + + + + + | Tramadol | Itching | Medium | 03/23/20 | | | | | | 14 | | + + + + + + Current Medications + + +-------+---------+------+------+-------+ | Prescription | Sig. | Disp. | Refills | Star | End | Statu | | | | | | t | Date | s | | | | | | Date | | | + + +-------+---------+------+------+-------+ | dicyclomine | Take 20 mg by mouth | | | | | Activ | | (BENTYL) 20 MG | 2 (two) times daily. | | | | | e | | tablet | | | | | | | + + +-------+---------+------+------+-------+ | gabapentin | Take 300 mg by mouth | | | | | Activ | | (NEURONTIN) 300 MG | daily. | | | | | e | | capsule | | | | | | | + + +-------+---------+------+------+-------+ | amitriptyline | Take 25 mg by mouth | | | | | Activ | | (ELAVIL) 25 MG | nightly. | | | | | e | | tablet | | | | | | | + + +-------+---------+------+------+-------+ | citalopram | Take 20 mg by mouth | | | | | Activ | | (CELEXA) 20 MG | daily. | | | | | e | | tablet | | | | | | | + + +-------+---------+------+------+-------+ | diclofenac | Take 75 mg by mouth | | | | | Activ | | (VOLTAREN) 75 MG EC | 2 (two) times daily. | | | | | e | | tablet | | | | | | | + + +-------+---------+------+------+-------+ | tamsulosin | Take 0.4 mg by mouth | | | | | Activ | | (FLOMAX) 0.4 MG | daily. Administer | | | | | e | | capsule | 30 minutes after the | | | | | | | | same meal each day. | | | | | | | | Capsules should be | | | | | | | | swallowed whole; do | | | | | | | | not crush, chew, or | | | | | | | | open | | | | | | + + +-------+---------+------+------+-------+ | estrogens, | Take 0.625 mg by | | | | | Activ | | conjugated, | mouth 3 (three) | | | | | e | | (PREMARIN) 0.625 MG | times a week. | | | | | | | tablet | | | | | | | + + +-------+---------+------+------+-------+ | Albuterol Sulfate | Inhale into the | | | | | Activ | | (PROVENTIL HFA IN) | lungs. 2 puffs as | | | | | e | | | needed | | | | | | + + +-------+---------+------+------+-------+ | UNABLE TO FIND | Med Name: Cyclogest | | | | | Activ | | | 30 mgTaken twice | | | | | e | | | daily | | | | | | + + +-------+---------+------+------+-------+ | Mirabegron ER | Take 50 mg by mouth | | | | | Activ | | (MYRBETRIQ) 50 MG | daily. | | | | | e | | TB24 | | | | | | | + + +-------+---------+------+------+-------+ | ergocalciferol | Take 50,000 Units by | | | | | Activ | | (DRISDOL) [address]5495 | mouth once a week. | | | | | e | | UNITS capsule | | | | | | | + + +-------+---------+------+------+-------+ Active Problems Not on file Family History + + +------+ + | [...] pack daily | + + + + +---------+ + | Alcohol Use | Drinks/We | oz/Week | Comments | | | ek | | | + + +---------+ + | No | | | | + + +---------+ + + + + | Sex Assigned at | Date Recorded | | | | + + + | Not on file | | + + + Last Filed Vital Signs + + + + | Vital Sign | Reading | Time Taken | + + + + | Blood Pressure | 123/73 | 04/20/2014 9:36 AM PST | + + + + | Pulse | 72 | 04/20/2014 9:36 AM PST | + + + + | Temperature | - | - | + + + + | Respiratory Rate | - | - | + + + + | Oxygen Saturation | - | - | + + + + | Inhaled Oxygen | - | - | | Concentration | | | + + + + | Weight | 63.5 kg (140 lb) | 04/20/2014 9:36 AM PST | + + + + | Height | 161.3 cm (5' 3.5") | 04/20/2014 9:36 AM PST | + + + + | Body Mass Index | 24.41 | 04/20/2014 9:36 AM PST | + + + + Plan of Treatment + + + + [...] | | + + + + + Results Not on filefrom Last 3 Months Insurance + +--------+ +------+-------+ + | Payer | Benefi | Subscriber | Type | Phone | Address | | | t Plan | ID | | | | | | / | | | | | | | Group | | | | | + +--------+ +------+-------+ + | MEDICAID | [employer] | [id number] | | | [address] | | | N | | | | [place], [place] | | | [place] | | | | [address] | | | [place] | | | | | + +--------+ +------+-------+ + + +--------+ +--------+ + + | Guarantor Name | Accoun | Relation to | Date | Phone | Billing Address | | | t Type | Patient | of | | | | | | | | | | + +--------+ +--------+ + + | ALEXA LEMON | Person | Self [birth year] Home: | [address] | | | al/Fam | | 1961 | [phone] | [place] | | | [place] | | | [phone] | [address] | + +--------+ +--------+ + +
--- OUTSIDE RECORDS SUMMARY | ~2019-03-05 | XMS | Encounter Summary ---
Demographics + + + | Address | [address] | | | [place] [address] | + + + | Home Phone | | + + + | Preferred Language | Unknown | + + + | Marital Status | | + + + | Catholic Affiliation | Unknown | + + + [...] Providers + +------+ + | Care Commercial Attorney Name | Role | Phone | + [...] | Disturbance | Vijayshree, | [address] | | | | | of skin | [address] | [address] | | | | | sensation | [address] | [address] | | | | | Fatigue | [address] | Mailcode: | | | | | Dizziness | [place], [place] | [address] | | | | | and | [address] | [place] | | | | | giddiness | Phone: | Research | | | | | Vision | [phone] | Center | | | | | disturbance | Fax: | [place], [place] | | | | | Procedures | [phone] | [address] | | | | | MRI BRAIN | | Phone: | | | | | MULTIPLE | | [phone] | | | | | SCLEROSIS | | Fax: | | | | | WWO CONTRAST | | [phone] | | | | | ND MRI | | | | | | | BRAIN COMBO | | | +--------+--------+ + + + + Physical Therapy (Routine) +--------+--------+ + + + + | Status | Reason | Specialty | Diagnoses / | Referred By | Referred To | | | | | Procedures | Contact | Contact | +--------+--------+ + + + + | Denied | | Physical | Diagnoses | Neel, | Юлия Pt [facility] | | | | Therapy | Dizziness | Vijayshree, | [address] | | | | | and | MD [address] | | | | | giddiness | [address] | Mailcode: | | | | | Imbalance | [address] | [facility] | | | | | Procedures | [facility] [place] | for Health | | | | | PHYSICAL | [address] | and Healing, | | | | | THERAPY | Phone: | Building [address], | | | | | REFERRAL | [phone] | [address] | | | | | | Fax: | [place], [place] | | | | | | [phone] | [address] | | | | | | | Phone: | | | | | | | [phone] | | | | | | | Fax: | | | | | | | [phone] | +--------+--------+ + + + + Consultation (Routine) +--------+--------+ + + + + | Status | Reason | Specialty | Diagnoses / | Referred By | Referred To | | | | | Procedures | Contact | Contact | +--------+--------+ + + + + | Closed | | Ophthalmology | Diagnoses | Neel, | Abdoulaye, | | | | | Vision | Anali, | Jose Dowell MD | | | | | disturbance | [address] | [address] | | | | | Multiple | [address] | [address] | | | | | sclerosis | [address] | [place], [place] | | | | | ([facility]) | [facility] [place] | [address] | | | | | Procedures | [address] | Phone: | | | | | CONSULT TO | Phone: | [phone] | | | | | OPHTHALMOLOG | [phone] | Fax: | | | | | Y | Fax: | [phone] | | | | | | [phone] | | +--------+--------+ + + + + Reason for Visit + + + | Reason | Comments | + + + | New patient | | | consultation | | + + + | MS - Multiple | | | sclerosis | | + + + Intake Referral [...] | Unspecified | Jose Alberto Michelle, | Anali, | | | | | condition | MD HANKS | [address] | | | | | of brain | FAMILY | [address] | | | | | White matter | MEDICINE | [address] | | | | | disease | [address] | [place], [place] | | | | | | [place] | [address] | | | | | | [place], | Phone: | | | | | | [place] [address] | [phone] | | | | | | Phone: | Fax: | | | | | | [phone] | [phone] | | | | | | Fax: | | | | | | | [phone] | | +--------+--------+ + + + + Encounter Details +--------+---------+ + + + | Date | Type | Department | Care Team | Description | +--------+---------+ + + + | 06/22/ | Office | Neurology at | Anali Shaikh, | Disturbance of skin | | 2015 | Visit | [facility] & | [address] | sensation (Primary | | | | Healing [address] | Dx); Fatigue; | | | | [address] Mailcode: | [place], [place] | Dizziness and | | | | [address] | [address] | giddiness; Weakness; | | | | Health and Healing, | [phone] | Vision disturbance; | | | | | | Imbalance; Pain | | | | Floor [place], [place] | | | | | | [address] | | | | | | [phone] | | | +--------+---------+ + + + [...] + + + | Blood Pressure | 138/83 | 06/22/2014 8:35 AM | | | | | PST | | + + + + + | Pulse | 77 | 06/22/2014 8:35 AM | | | | | PST | | + + + + + | Temperature | - | - | | + + + + + | Respiratory Rate | 15 | 06/22/2014 8:35 AM | | | | | PST | | + + + + + | Oxygen Saturation | - | - | | + + + + + | Inhaled Oxygen | - | - | | | Concentration | | | | + + + + + | Weight | 68.5 kg (151 lb) | 06/22/2014 8:35 AM | | | | | PST | | + + + + + | Height | 160 cm (5' 3") | 06/22/2014 8:35 AM | | | | | PST | | + + + + + | Body Mass Index | 26.75 | 06/22/2014 8:35 AM | | | | | PST | | + + + + + documented in this encounter Progress Notes Anali Shaikh MD - 06/22/2014 9:24 AM PSTFormatting of this note might be different f rom the original. Clinic: Multiple Sclerosis Clinic Referring Physician: Jose Alberto Hanks MD Primary Care Physician: Jose Alberto Hanks MD Reason for Referral: Second opinion about neurologic diagnosis. History: Patient, Ms. Danisha Lemon, is a 53 y.o. right-handed female who describ es the following neurologic history: 2006: fatigue, R eye pain, worse with eye movement and couldn't see well. Saw ophthal, Rxd with steroid drops. Symptoms lasted 1 [...] 6 months ( X ray, Rxd with Nano thomas; has seen interlocker for back pain ), neck pain since 2006. R arm and hand pain has worsened since last 4 months. Headaches + all the time x last 1 year - treated with Voltaren Review of Systems: General: No constitutional symptoms of fevers, chills, weight loss or sweats. Neurologic: No seizures, tremors, loss of consciousness. Eyes: No double vision, eye pain, eye irritation, discharge. Ears: No hearing loss, ringing in the ears, ear discharge or earache. Nose and Throat: No nosebleeds, nasal congestion, difficulty swallowing, hoarseness, sore throat. Cardiovascular: No chest pain, skipping beats, lightheadedness, difficulty breathing uprigh t or lying down, near fainting or fainting, weight gain, edema. Respiratory: No shortness of breath, coughing up blood, excessive sputum, cough, chest disc omfort or wheezing. Gastrointestinal: IBS symptoms - diarrhea, abdominal cramps, bloating. No bloody stools or dark tarry stools. Skin: No itching, rash, poor wound healing, night sweats, changes in skin color, dryness, f lushing or suspicious lesions. Endocrine: No thyroid dysfunction, diabetes. Heme/Lymphatic: No skin discoloration, abnormal bleeding or enlarged lymph nodes. No anemia , abnormal blood clot. Cognitive function: can repeat herself often, forgetfulness, trouble with names. Psychological: No abnormal anxiety, depression, panic attacks, thoughts of suicide or hendrickson ucinations. Fatigue: + Lhermitte's phenomenon - absent. Allergic: No seasonal allergies, hives or rash, persistent infections or HIV exposure. Summary of Investigations: I reviewed the MRI of brain ( 11/29) and cervical and thoracic s pine from 04/01. MRI C and T spine showed no cord abnormalities. Past Medical History Diagnosis Date MS (multiple sclerosis) Other general symptoms(780.99) Depressive disorder, not elsewhere classified Symptomatic menopausal or female climacteric states IBS (irritable bowel syndrome) since 2006 Lyme disease 1989 living in [place], headaches, fatigue, flu like symptoms,had CSF that [...] 1970 Shoulder surgery 2001 Sinus surgery 1993 Current Outpatient Prescriptions Medication Sig amitriptyline 25 mg oral tablet Take 50 [...] 50,000 Units by mouth once a week. gabapentin 300 mg oral capsule Take 600 mg by mouth once daily at bedtime. mirabegron (MYRBETRIQ) 50 mg oral tablet extended release 24 hr Take 50 mg by mouth onc e daily at bedtime. tamsulosin 0.4 mg oral capsule,extended release 24hr Take 0.4 mg by mouth once daily. No current facility-administered medications for this visit. 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 Family History Problem Relation MS Cousin Cancer Mother renal cell CA Heart Failure Father Genitourinary () Father kidney failure Diabetes Father Heart Disease Father A Fib Physical Examination: Filed Vitals: 06/22/2014 8:35 AM Height: 1.6 m (5' 3") Weight: 68.493 kg (151 lb) BP: 138/83 Pulse: 77 Resp: 15 PainSc: 05 - Moderate to Severe PainLoc: Back (Lower) BMI: 26.76 kg/(m^2) General: The patient was alert, awake, and oriented x3, did not have dysarthria or language deficit, seemed to be a good historian and had normal affect. Neurologic: Her cranial nerve exam showed funduscopic exam to be normal. Visual acuity was 20/25 in the right eye and 20/25 in the left eye without correction. Color vision was 13/13 in the right eye and 13/13 in the left eye. Pupils were equal and reactive to light. Extraoc ular movements were intact. There was no nystagmus. She had normal facial sensation except m ild decrease on R V3, normal facial symmetry, normal hearing, normal tongue and palatal move ment, and normal sternocleidomastoid. On motor exam, she appeared to have normal tone and normal strength throughout in all 4 ext remities, some give way weakness in R HF. Coordination testing was normal with xfnusv-sq-sczc testing, fine finger movement and rapid alternating movement. Rkqh-xq-svls testing was normal bilaterally. Reflexes were 2+ throughout. Plantars were downgoing bilaterally. On sensory exam, she had diminished vibration sensation at all 4 extremities, lower extremi ties was slightly more than the upper. She had normal sensation to light touch and position sensation throughout. On gait evaluation, she had antalgic gait. She had difficulty with walking on toes and heel and tandem. Timed Walk (25'): 6 secs (06/22/14 0839) On rest of the general exam, no other abnormality were seen. Assessment: Non specific white matter changes on brain MRI. H/o episodic neurologic dysfunction but no clear objective abnormalities presently supporti ng those. Discussion: We need to get additional information to assess patients complaints of visual disturbance, dizziness and fatigue. I would recommend her to get following tests done before further recommendations for management can be given. LP at [facility] - look for MS related inflammation. Neuro-ophthal at [facility] Vestibular rehab at [facility] Fatigue - consider sleep clinic eval and possible trial of stimulants in future. Headaches - may try topamax or have headache specialist consult at [facility] in near future. Orders Placed This Encounter Neurology Lumbar Puncture (No Charge) [[id number]] MRI BRAIN MULTIPLE SCLEROSIS WWO CONTRAST CONSULT TO OPHTHALMOLOGY [[id number]] Physical Therapy [[id number]] Will try to coordinate the tests/eval at [facility] ( LP, neuro-ophthal eval, PT eval) before the next visit. I spent 90 minutes face to face with this patient, of which greater than 50% was spent coun seling the patient about symptoms and management. documented in this encounter Plan of Treatment +--------+---------+ + + + | Date | Type | Specialty | Care Team | Description | +--------+---------+ + + + | 04/05/ | Office | Thoracic Surgery | Antonio Kaur MD | | | 2018 | Visit | | [address] | | | | | | [address] | | | | | | [place], [place] | | | | | | [address] | | | | | | [phone] | | | | | | | | +--------+---------+ + + + | 04/26/ | Office | Neurology | Kaitlynn Leyva, | | | 2018 | Visit | | [address] | | | | | | [facility] [place] | | | | | | [address] | | | | | | [phone] | | | | | | | | +--------+---------+ + + + + + +--------+ + + | Name | Type | Priori | Associated Diagnoses | Order Schedule | | | | ty | | | + + +--------+ + + | NEUROLOGY LUMBAR | Procedures | Routin | Disturbance of | Ordered: 06/22/2014 | | PUNCTURE (NO CHG) | | e | skin sensation | | | | | | Weakness Imbalance | | + + +--------+ + + [...] | | | | | | ENRIQUE WHITTEN, | | | | | | MDAuthor: JAZ | | | | | | [...] | | | | | ada / ENRIQUE | | | | | | BELACELLConnei 07/15/2014 | | | | | | [...] + + | Disturbance of skin sensation - Primary | + + | Fatigue Other malaise and fatigue | + + | Dizziness and giddiness | + + | Weakness Other malaise and fatigue | + + | Vision disturbance Unspecified visual disturbance | + + | Imbalance Abnormality of gait | + + | Pain Generalized pain | + + documented in this encounter
--- OUTSIDE RECORDS SUMMARY | ~2019-03-05 | XMS | Encounter Summary ---
Demographics + + + | Address | [address] | | | [place] [address] | + + + | Home Phone [...] + + + | Author | [facility] | + + + | Organization | [facility] | + + + | Address | Unknown | + + + | Phone | Unavailable | + + + Support + + +---------+ + | Name | Relationship | Address | Phone | + + +---------+ + | Klever Hsu | ECON | Unknown | | + + +---------+ + Care Team Providers + +------+ + | Care Electronic Assembler Name | Role | Phone | + +------+ + | Jose Alberto Jones MD | PCP | | + +------+ + Encounter Details +--------+ + + + + | Date | Type | Department | Care Team | Description | +--------+ + + + + | 06/04/ | Telephone | Neurology at | Kaitlynn Leyva, | | | 2019 | | [facility] & | MD [address] | | | | | Healing [address] | [place], [place] | | | | | [address] Mailcode: | [address] | | | | | [facility] | [phone] | | | | | Health and Healing, | | | | | | | | | | | | [place], [place] | | | | | | [address] | | | | | | [phone] | | | +--------+ + + + [...] Rd | | | | | | [place], [place] | | | | | | [address] | | | | | | [phone] | | | | | | | | +--------+---------+ + + + | 04/26/ | Office | Neurology | Kaitlynn Leyva, | | | 2018 | Visit | | [address] | | | | | | [place], [place] | | | | | | [address] | | | | | | [phone] | | | | | | | | +--------+---------+ + + + documented as of this encounter Visit Diagnoses Not on filedocumented in this encounter"
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
--- OUTSIDE RECORDS SUMMARY | ~2019-03-05 | XMS | Clinical Summary ---
Demographics + + + | Address | [address] | | | [place] [address] | + + + | Home Phone | | + + + | Preferred Language | Unknown | + + + | Marital Status | Unknown | + + + | Church Affiliation | Unknown | + + + | Race | Unknown | + + + | Ethnic Group | Unknown | + + + Author + + + | Author | [email or web address] (Historical as of | | | 01-02-19) | + + + | Organization | [facility] (Historical as of | | | 01-02-19) [...] Team Providers + +------+ + | Care Film Color Tester Name | Role | Phone | + [...] | | | Activ | | (DRISDOL) [id number] | mouth once a week. | | [...] +------+-------+ + | MEDICAID | [place] | [id number] | | | [address] | | | N | | | | [place], [place] | | | [place] | | | | [address] | | | BOTTOM FILLER | | | | | + +--------+ [...] Self | [birth year] Home: | [address] | | | al/Fam | | [phone] | [phone] | [place] | | | [place] | | | [phone] | [address] | + +--------+ +--------+ + +
--- OUTSIDE RECORDS SUMMARY | ~2019-03-05 | XMS | Encounter Summary ---
Demographics + + + | Address | [address] | | | [place] [address] | + + + | Home Phone [...] + + + | Author | [facility] | + + + | Organization | [facility] | + + + | Address | Unknown | + + + | Phone | Unavailable | + + + Support + + +---------+ + | Name | Relationship | Address | Phone | + + +---------+ + | Klever Hsu | ECON | Unknown | | + + +---------+ + Care Team Providers + +------+ + | Care In Processing Instructor Name | Role | Phone | [...] | +--------+ + + + + | 04/27/ | Documentati | Neurology at | Betty Gould, | Prior Authorization | | 2018 | on | [facility] & | PharmD [address] | Request - Medication | | | | Healing [address] | [address] | | | | | [address] Mailcode: | [place], [place] | | | | | [facility] | [address] | | | | | Health and Healing, | | | | | | Building [address], | | | | | | Floor [place], [place] | | | | | | [address] | | | | | | [phone] | | | +--------+ + + + [...] Rd | | | | | | [place], [place] | | | | | | [address] | | | | | | [phone] | | | | | | | | +--------+---------+ + + + | 04/26/ | Office | Neurology | Kaitlynn Leyva, | | | 2019 | Visit | | [address] | | | | | | [place] | | | | | | [address] | | | | | | [phone] | | | | | | | | +--------+---------+ + + + documented as of this encounter Visit Diagnoses Not on filedocumented in this encounter"
--- OUTSIDE RECORDS SUMMARY | ~2019-03-05 | XMS | Encounter Summary ---
Demographics + + + | Address | [address] | | | [place] [address] | + + + | Home Phone | | + + + | Preferred Language | Unknown | + + + | Marital Status | | + + + | Adventist Affiliation | Unknown | + + + | Race | White | + + + | Ethnic Group | Not or | + + + Author + + + | Author | [facility] | + + + | Organization | [facility] | + + + | Address | Unknown | + + + | Phone | Unavailable | + + + Support + + +---------+ + | Name | Relationship | Address | Phone | + + +---------+ + | Klever Hsu | ECON | Unknown | | + + +---------+ + Care Team Providers + +------+ + | Care Music Agent Name | Role | Phone | [...] Refill Request | | 2015 | | [place] [facility] & | DO | ([place]) | | | | Healing [address] | | | | | | [address] Mailcode: | | | | | | [address] | | | | | | Health and Healing, | | | | | | Building [address], [address]th | | | | | | Floor [place], [place] | | | | | | [address] | | | | | | [phone] | | | +--------+--------+ + + + [...] | | 2018 | Visit | | [address] | | | | | | [address] | | | | | | [place], [place] | | | | | | [address] | | | | | | [phone] | | | | | | | | +--------+---------+ + + + | 04/26/ | Office | Neurology | Kaitlynn Levya, | | | 2018 | Visit | | [address] | | | | | | [place], [place] | | | | | | [address] | | | | | | [phone] | | | | | | | | +--------+---------+ + + + documented as of this encounter Visit Diagnoses Not on filedocumented in this encounter"
--- OUTSIDE RECORDS SUMMARY | ~2019-03-05 | XMS | Encounter Summary ---
Demographics + + + | Address | [address] | | | [place] [address] | + + + | Home Phone [...] Team Providers + +------+ + | Care Structural Steel Worker Name | Role | Phone | + +------+ + | Jose Alberto Jones MD | PCP | | + +------+ + Encounter Details +--------+ + + + + | Date | Type | Department | Care Team | Description | +--------+ + + + + | 12/06/ | Telephone | Neurology at | Anali Shaikh, | | | 2014 | | [facility] & | [address] | | | | | [address] | [address] | | | | | [address] Mailcode: | [place], [place] | | | | | [address] [place] [address] | [address] | | | | | Health and Healing, | [phone] | | | | | | | | | | | Floor [place], [place] | | | | | | [address] | | | | | | [phone] | | | +--------+ + + + [...] | | 2018 | Visit | | [address] | | | | | | [address] | | | | | | [place], [place] | | | | | | [address] | | | | | | [phone] | | | | | | | | +--------+---------+ + + + | 04/26/ | Office | Neurology | Kaitlynn Leyva, | | | 2018 | Visit | | [address] | | | | | | [place], [place] | | | | | | [address] | | | | | | [phone] | | | | | | | | +--------+---------+ + + + documented as of this encounter Visit Diagnoses Not on filedocumented in this encounter"
--- OUTSIDE RECORDS SUMMARY | ~2019-03-05 | XMS | Encounter Summary ---
Demographics + + + | Address | [address] | | | [place] [address] | + + + | Home Phone [...] Team Providers + +------+ + | Care Literary Agent Name | Role | Phone | [...] | | | | | Dizziness | [place], [place] | [address] | | | | | and | [address] | [place] | | | | | giddiness | Phone: | Research | | | | | Vision | [phone] | Center | | | | | disturbance | Fax: | [place], [place] | | | | | Procedures | [phone] | [address] | | | | | MRI BRAIN | | Phone: | | | | | MULTIPLE | | [phone] | | | | | SCLEROSIS | | Fax: | | | | | WWO CONTRAST | | [phone] | | | | | NM MRI | | | | | | [...] | | | | | Procedures | [facility] [place] | for Health | | | | | PHYSICAL | [address] | and Healing, | | | | | THERAPY | Phone: | Building [address], | | | | | REFERRAL | [phone] | [address] | | | | | | Fax: | [place], [place] | | | | | | [phone] | [address] | | | | | | | Phone: | | | | | | | [phone] | | | | | | | Fax: | | | | | | | [phone] | +--------+--------+ + + + + Consultation [...] | | | | | disturbance | [address] | | | | | Multiple | [address] | | | | | sclerosis | [address] | [place], [place] | | | | | ([facility]) | [facility] [place] | [address] | | | | | Procedures | [address] | Phone: | | | | | CONSULT TO | Phone: | [phone] | | | | | OPHTHALMOLOG | [phone] | Fax: | | | | | Y | Fax: | [phone] | | | | | | [phone] | | +--------+--------+ + + + + [...] | | condition | MD HANKS | [address] | | | | | of brain | FAMILY | [address] | | | | | White matter | MEDICINE | [address] | | | | | disease | [address] | [place], [place] | | | | | | [place] [address] | [address] | | | | | | [place], | Phone: | | | | | | [place] [address] | [phone] | | | | | | Phone: | Fax: | | | | | | [phone] | [phone] | | | | | | Fax: | | | | | | | [phone] | | +--------+--------+ + + + + Encounter Details +--------+---------+ + + + | Date | Type | Department | Care Team | Description | +--------+---------+ + + + | 06/22/ | Office | Neurology at | Anali Shaikh, | Disturbance of skin | | 2015 | Visit | [facility] & | [address] | sensation (Primary | | | | Healing [address] | Dx); Fatigue; | | | | [address] Mailcode: | [place], [place] | Dizziness and | | | | [address] | [address] | giddiness; Weakness; | | | | Health and Healing, | [phone] | Vision disturbance; | | | | | | Imbalance; Pain | | | | Floor [place], [place] | | | | | | [address] | | | | | | [phone] | | | +--------+---------+ + + + [...] ray, Rxd with Nano thomas; has seen tipple worker for back pain ), neck pain since [...] since 2006 Lyme disease 1989 living in [place], headaches, fatigue, flu like symptoms,had CSF that [...] file Social History Narrative 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 Has to do lot of lifting [...] R HF. Coordination testing was normal with urwdwy-fl-djqa testing, fine finger movement and rapid alternating movement. Bbib-rz-gsqu testing was normal bilaterally. Reflexes were 2+ [...] for management can be given. LP at [facility] - look for MS related inflammation. Neuro-ophthal at [facility] Vestibular rehab at [facility] Fatigue - consider sleep clinic eval and possible trial of stimulants in future. Headaches - may try topamax or have headache specialist consult at [facility] in near future. Orders Placed This Encounter Neurology Lumbar Puncture (No Charge) [[id number]] MRI BRAIN MULTIPLE SCLEROSIS WWO CONTRAST CONSULT TO OPHTHALMOLOGY [[id number]] Physical Therapy [[id number]] Will try to coordinate the tests/eval at [facility] ( LP, neuro-ophthal eval, PT eval) before [...] | | 2018 | Visit | | [address] | | | | | | [address] | | | | | | [place], [place] | | | | | | [address] | | | | | | [phone] | | | | | | | | +--------+---------+ + + + | 04/26/ | Office | Neurology | Kaitlynn Leyva, | | | 2018 | Visit | | [address] | | | | | | [facility] [place] | | | | | | [address] | | | | | | [phone] | | | | | | | [...] ENRIQUE | | | | | | BELACELLConnie 07/15/2014 | | | | | | [...]
--- OUTSIDE RECORDS SUMMARY | ~2019-03-05 | XMS | Encounter Summary ---
Demographics + + + | Address | [address] | | | [place] [address] | + + + | Home Phone | | + + + | Preferred Language | Unknown | + + + | Marital Status | | + + + | Sikh Affiliation | Unknown | + + + | Race | White | + + + | Ethnic Group | Not or | + + + Author + + + | Author | [facility] | + + + | Organization | [facility] | + + + | Address | Unknown | + + + | Phone | Unavailable | + + + Support + + +---------+ + | Name | Relationship | Address | Phone | + + +---------+ + | Klever Hsu | ECON | Unknown | | + + +---------+ + Care Team Providers + +------+ + | Care Arboriculture Teacher Name | Role | Phone | [...] | | | | sclerosis | | [address] | | | | | Procedures | | [address] | | | | | [place] EST | | [place], [place] | | | | | PATIENT | | [address] | | | | | LEVEL V | | Phone: | | | | | | | [phone] | | | | | | | Fax: | | | | | | | [phone] | + +--------+ + + + + Encounter Details +--------+---------+ + + + | Date | Type | Department | Care Team | Description | +--------+---------+ + + + | 07/27/ | Office | Neurology at | Kaitlynn Leyva, | Multiple sclerosis | | 2019 | Visit | [facility] & | [address] | (HCC) (Primary Dx) | | | | Healing [address] | [facility] [place] | | | | | [address] Mailcode: | [address] | | | | | [address] | [phone] | | | | | Health and Healing, | | | | | | Building | | | | | | Floor [facility] [place] | | | | | | [address] | | | | | | [phone] | | | +--------+---------+ + + + [...] ths. For more information, please call the [facility] MS Center office: . [email or web address] documented in this encounter Progress Notes Jackson [...] was lost to follo w up recently ([id number]) due to insurance reasons History from previous [...] since 2006 Lyme disease 1990 living in [place], headaches, fatigue, flu like symptoms,had CSF that [...] 3 Years of education: 12 Occupational History [employer] Social History Main Topics Smoking status: Current Every Day Smoker Packs/day: 1.00 Smokeless tobacco: Never Used Alcohol use No Drug use: No Sexual activity: Not on file Other Topics Concern Not on file Social History Narrative 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 Uses cannabis - [...] 4 07/27/2018 Lab Results Component Value Date [id number] 16.1 04/13/2018 JCV: negative (04/13/18) CSF 08/24/2014 [...] discrete neurologic s ymptoms referable to the RECOVERY ROOM NURSE (optic neuritis in 2006, episodes of vertigo, [...] symptoms (nausea/vomiting/diarrhea). She had tried copaxone previously (8713-1186) but did not tolerate this either due [...] but we are damari rned traveling from [place] to [place] every month for Tysabri infusions would not [...] medication. However, it would require trips to [place] ev keyshawn 3 months and has risks [...] | 2019 | Visit | | [address] | | | | | | [facility] | | | | | | [place], [place] | | | | | | [address] | | | | | | [phone] | | | | | | | | +--------+---------+ + + + | 04/26/ | Office | Neurology | Kaitlynn Leyva, | | | 2018 | Visit | | [address] | | | | | | [place], [place] | | | | | | [address] | | | | | | [phone] | | | | | | | | +--------+---------+ + + + + +------+--------+ + + | Name | Type | Priori | Associated Diagnoses | Order Schedule | | | | ty | | | + +------+--------+ + + | COMPLETE METABOLIC | Lab | Routin | Multiple sclerosis | Every 4 weeks for 6 | | SET | | e | ([facility]) | Occurrences | | (NA,K,CL,CO2,BUN,CRE | | [...] | | | LABORATORY | | | [facility] | | | SERVICES, | | | [...] TORRES | [address] | [place] [address] | | | SERVICES, CORE | [address] | | | + + + + + documented in this encounter Visit Diagnoses + + | Diagnosis | + + | Multiple sclerosis (HCC) - Primary Multiple sclerosis | + + documented in this encounter"
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
--- OUTSIDE RECORDS SUMMARY | ~2019-03-05 | XMS | Encounter Summary ---
Demographics + + + | Address | [address] | | | [place] [address] | + + + | Home Phone [...] Team Providers + +------+ + | Care House Piping Inspector Name | Role | Phone | + [...] | +--------+ + + + + | 01/25/ | Abstract | Neurology at | Kaitlynn Leyva, | Other ([facility] | | 2019 | | [facility] & | [address] | External Results) | | | | Healing [address] | [place], [place] | | | | | [address] Mail[address]: | [address] | | | | | [facility] | [phone] | | | | | Health and Healing, | | | | | | Building [address] | | | | | | Floor [place], [place] | | | | | | [address] | | | | | | [phone] | | | +--------+ + + + [...] | | 2019 | Visit | | [address] [facility] | | | | | | [address] | | | | | | [place], [place] | | | | | | [address] | | | | | | [phone] | | | | | | | | +--------+---------+ + + + | 04/26/ | Office | Neurology | Kaitlynn Leyva, | | | 2019 | Visit | | [address] | | | | | | [place], [place] | | | | | | [address] | | | | | | [phone] | | | | | | | | +--------+---------+ + + + documented as of this encounter Procedures + +--------+ + + + | Procedure Name | Priori | Date/Time | Associated Diagnosis | Comments | | | ty | | | | + +--------+ + + + | COMPLETE METABOLIC | Routin | 01/04/2019 | | Results for this | | [...] COMPLETE METABOLIC SET (NA,K,CL,CO2,BUN,CREAT,GLUC,CA,AST,ALT,BILI TOTAL,ALK PHOS,ALB,PROT TOTAL) (01/04/2019) + +-------+ + + + | Component | Value | Ref Range | Performed | Pathologist | | | | | At | Signature | + +-------+ + + + | GLUCOSE, | 104 | 65 - 110 mg/dL | [facility] | | | PLASMA | | | LAB - | | | (LAB) | | | [place] | | + +-------+ + + + | BUN, PLASMA | 16 | 6 - 23 mg/dL | [facility] | | | (LAB) | | | LAB - | | | | | | [place] | | + +-------+ + + + | CREATININE | 1.01 | 0.70 - 1.33 | [facility] | | | PLASMA | | mg/dL | LAB - | | | (LAB) | | | [place] | | + +-------+ + + + | TOTAL | 6.7 | 6.0 - 8.3 g/dL | [facility] | | | PROTEIN, | | | LAB - | | | PLASMA | | | [place] | | | (LAB) | | | | | + +-------+ + + + | ALBUMIN, | 4.4 | 3.5 - 5 g/dL | [facility] | | | PLASMA | | | LAB - | | | (LAB) | | | [place] | | + +-------+ + + + | CALCIUM, | 9.2 | 8.5 - 10.3 | [facility] | | | PLASMA | | mg/dL | LAB - | | | (LAB) | | | [place] | | + +-------+ + + + | BILIRUBIN | 0.6 | 0.0 - 1.2 | [facility] | | | TOTAL | | Transcutaneous | LAB - | | | | | Bilirubinometer | [place] | | + +-------+ + + + | ALK PHOS | 90 | 31 - 130 U/L | [facility] | | | | | | LAB - | | | | | | [place] | | + +-------+ + + + | AST(SGOT) | 9 (A) | 13 - 39 U/L | [facility] | | | | | | LAB - | | | | | | [place] | | + +-------+ + + + | SODIUM, | 140 | 132 - 143 | [facility] | | | PLASMA | | mmol/L | LAB - | | | (LAB) | | | [place] | | + +-------+ + + + | POTASSIUM, | 4.2 | 3.6 - 5.1 | [facility] | | | PLASMA | | mmol/L | LAB - | | | (LAB) | | | [place] | | + +-------+ + + + | CHLORIDE, | 103 | 95 - 112 mmol/L | [facility] | | | PLASMA | | | LAB - | | | (LAB) | | | [place] | | + +-------+ + + + | TOTAL CO2, | 27 | 19 - 31 mmol/L | [facility] | | | PLASMA | | | LAB - | | | (LAB) | | | [place] | | + +-------+ + + + | ALT (SGPT) | 9 | 7 - 52 U/L | [facility] | | | | | | LAB - | | | | | | [place] | | + +-------+ + + + + + | Specimen | + + | Blood - Blood | | (substance) | + + + + + | Narrative | Performed At | + + + | Received labs ordered by Outside Provider, approved by Dr. Leyva | [facility] | | | - [place] | + + + + + + + + | Performing | Address | City/State/Zipcode | Phone Number | | Organization | | | | + + + + + | [facility] - | [address] | [place] | [phone] | | [place] | | | | + + + + + documented in this encounter Visit Diagnoses Not on filedocumented in this encounter"
--- OUTSIDE RECORDS SUMMARY | ~2019-03-05 | XMS | Encounter Summary ---
Demographics + + + | Address | [address] | | | [place] [address] | + + + | Home Phone | | + + + | Preferred Language | Unknown | + + + | Marital Status | | + + + | Jainism Affiliation | Unknown | + + + [...] Team Providers + +------+ + | Care Rooms Director Name | Role | Phone | + +------+ + | Jose Alberto Jones MD | PCP | | + +------+ + Encounter Details +--------+------+ + + + | Date | Type | Department | Care Team | Description | +--------+------+ + + + | 04/13/ | Lab | Laboratory at [facility] | | MS (multiple | | 2018 | | [address] | | sclerosis) ([facility]); | | | | [place], [place] | | Hypovitaminosis D | | | | [address] | | | | | | [phone] | | | +--------+------+ + + + [...] Rd | | | | | | | | | | | | [address] | | | | | | [phone] | | | | | | | | +--------+---------+ + + + | 04/26/ | Office | Neurology | Kaitlynn Leyva, | | | 2018 | Visit | | [address] | | | | | | [place], [place] | | | | | | [address] | | | | | | [phone] | | | | | | | | +--------+---------+ + + + documented as of this encounter Procedures + +--------+ + + + | Procedure Name | Priori | Date/Time | Associated Diagnosis | Comments | | | ty | | | | + +--------+ + + + | STRATIFY TRESSA VIRUS | Routin | 04/13/2018 | MS (multiple | Results for this | | ANTIBODY W/ REFLEX | e | 1:14 PM | sclerosis) ([facility]) | procedure are in the | | TO INHIBITION ASSAY, | | PST | | results section. | | SERUM | | | | | + +--------+ + + + | CBC AND AUTO DIFF | Routin | 04/13/2018 | MS (multiple | Results for this | | | e | 1:14 PM | sclerosis) ([facility]) | procedure are in the | | | | PST | | results section. | + +--------+ + + + | CBC, WITH | Routin | 04/13/2018 | MS (multiple | Results for this | | DIFFERENTIAL | e | 1:14 PM | sclerosis) ([facility]) | procedure are in the | | | | PST | | results section. | + +--------+ + + + | VITAMIN D, | Routin | 04/13/2018 | Hypovitaminosis D | Results for this | | 25-HYDROXY, SERUM | e | 1:14 PM | | procedure are in the | | | | PST | | results section. | + +--------+ + + + | COMPLETE METABOLIC | Routin | 04/13/2018 | MS (multiple | Results for this | | SET | e | 1:14 PM | sclerosis) (HCC) | procedure are in the | | (NA,K,CL,CO2,BUN,CRE | | PST | | results section. | | AT,GLUC,CA,AST,ALT,B | | | | | | ISABEL TOTAL,ALK | | | | | | PHOS,ALB,PROT TOTAL) | | | | | + +--------+ + + + documented in this encounter Results CBC AND AUTO DIFF (04/13/2018 1:14 PM PST) + + + + + + | Component | Value | Ref Range | Performed | Pathologist | | | | | At | Signature | + + + + + + | WHITE CELL | 5.59 | 3.50 - 10.80 | [facility] | | | COUNT | | K/cu mm | LABORATORY | | | | | | SERVICES, | | | | | | [facility] | | | | | | [facility] | | + + + + + + | RED CELL | 4.10 | 4.00 - 5.20 | [facility] | | | COUNT | | M/cu mm | LABORATORY | | | | | | SERVICES, | | | | | | [facility] + | | | | | | [facility] | | + + + + + + | HEMOGLOBIN | 12.4 | g/dL | [facility] | | | | | | LABORATORY | | | | | | SERVICES, | | | | | | [facility] + | | | | | | [facility]ALING | | + + + + + + | HEMATOCRIT | 37.9 | 36.0 - 46.0 % | [facility] | | | | | | LABORATORY | | | | | | SERVICES, | | | | | | [facility] + | | | | | | [facility]AL[facility] | | + + + + + + | MCV | 92.4 | 80.0 - 100.0 fL | [facility] | | | | | | LABORATORY | | | | | | SERVICES, | | | | | | [facility] + | | | | | | [facility]ALING | | + + + + + + | MCHC | 32.7 | 32.0 - 36.0 | [facility] | | | | | g/dL | LABORATORY | | | | | | SERVICES, | | | | | | [facility] + | | | | | | [facility]AL[facility] | | + + + + + + | RDW SD | 41.8 | 35.1 - 46.3 fL | [facility] | | | | | | LABORATORY | | | | | | SERVICES, | | | | | | [facility] + | | | | | | [facility] | | + + + + + + | PLATELET | 249 | 150 - 400 K/cu | [facility] | | | COUNT | | mm | LABORATORY | | | | | | SERVICES, | | | | | | [facility] + | | | | | | [facility] | | + + + + + + | MPV | 9.8 | 9.7 - 12.3 fL | [facility] | | | | | | LABORATORY | | | | | | SERVICES, | | | | | | [facility] + | | | | | | [facility] | | + + + + + + | NEUTROPHIL | 47.9 (L) | 50.0 - 70.0 % | [facility] | | | % | | | LABORATORY | | | | | | SERVICES, | | | | | | [facility] + | | | | | | [facility]ALING | | + + + + + + | LYMPHOCYTE | 41.3 | 18.0 - 42.0 % | [facility] | | | % | | | LABORATORY | | | | | | SERVICES, | | | | | | [facility] + | | | | | | [facility]ALING | | + + + + + + | MONOCYTE % | 7.5 | 3.5 - 9.0 % | [facility] | | | | | | LABORATORY | | | | | | SERVICES, | | | | | | [facility] + | | | | | | [facility]ALING | | + + + + + + | EOS % | 2.0 | 1.0 - 3.0 % | [facility] | | | | | | LABORATORY | | | | | | SERVICES, | | | | | | [facility] + | | | | | | [facility]ALING | | + + + + + + | BASO % | 1.3 | 0.0 - 2.0 % | [facility] | | | | | | LABORATORY | | | | | | SERVICES, | | | | | | [facility] | [facility] + | | | | | | [facility]ALING | | + + + + + + | NEUTROPHIL | 2.68 | 1.80 - 7.70 | [facility] | | | # | | K/cu mm | LABORATORY | | | | | | SERVICES, | | | | | | [facility] | [facility] | [facility] + | | | | | | HEALING | | + + + + + + | LYMPHOCYTE | 2.31 | 1.00 - 4.80 | [facility] | | | # | | K/cu mm | LABORATORY | | | | | | SERVICES, | | | | | | [facility] + | | | | | | [facility]ALING | | + + + + + + | MONOCYTE # | 0.42 | 0.10 - 0.90 | [facility] | | | | | K/cu mm | LABORATORY | | | | | | SERVICES, | | | | | | [facility] + | | | | | | [facility]ALING | | + + + + + + | EOS # | 0.11 | 0.00 - 0.50 | [facility] | | | | | K/cu mm | LABORATORY | | | | | | SERVICES, | | | | | | [facility] + | | | | | | [facility]ALING | | + + + + + + | BASO # | 0.07 | 0.00 - 0.10 | [facility] | [...] | + + + + + | [facility] | [address] | [place] [address] | | | SERVICES, [facility] | | | | | HE[facility] + HEALING | | | | + + + + + STRATIFY TRESSA VIRUS ANTIBODY W/ [...] performed by: | REFERENCE LAB | | [facility] | | | [address] | | | [place] [address] | | + + + + + + + + | Performing | Address | City/State/Zipcode | Phone Number | | Organization | | | | + + + + + | [facility] | | | | + + + + + | [facility] | see below | | [...] | + + + + + | [facility] | [address] | [place] [address] | | | [address], [address] | [address] | | | [...] + + + | [facility] | [address] | [place] [address] | | | [facility] | | | | | HEALTH + HEALING | | | | + + + + + documented in this encounter Visit Diagnoses + + | Diagnosis | + + | MS (multiple sclerosis) (HCC) Multiple sclerosis | + + | Hypovitaminosis D Unspecified vitamin D deficiency | + + documented in this encounter"
--- OUTSIDE RECORDS SUMMARY | ~2019-03-05 | XMS | Encounter Summary ---
Demographics + + + | Address | [address] | | | [place] [address] | + + + | Home Phone | | + + + | Preferred Language | Unknown | + + + | Marital Status | | + + + | Congregational Affiliation | Unknown | + + + | Race | White | + + + | Ethnic Group | Not or | + + + Author + + + | Author | [facility] | + + + | Organization | [facility] | + + + | Address | Unknown | + + + | Phone | Unavailable | + + + Support + + +---------+ + | Name | Relationship | Address | Phone | + + +---------+ + | Klever Hsu | ECON | Unknown | | + + +---------+ + Care Team Providers + +------+ + | Care Breaker Mechanic Name | Role | Phone | + +------+ + | Jose Alberto Jones MD | PCP | | + +------+ + Reason for Visit +--------+ + | Reason | Comments | +--------+ + | Other | MRI Reports | +--------+ + Encounter Details +--------+ + + + + | Date | Type | Department | Care Team | Description | +--------+ + + + + | 06/29/ | Abstract | Neurology at | Anali Shaikh, | Other (MRI Reports) | | 2015 | | [facility] & | [address] | | | | | [address] | [address] | | | | | [address] Mailcode: | [place], [place] | | | | | [facility] | [address] | | | | | Health and Healing, | [phone] | | | | | [facility] | | | | | | Floor [place], [place] | | | | | | [address] | | | | | | [phone] | | | +--------+ + + + [...] | | 2018 | Visit | | [address] | | | | | | [address] | | | | | | [place], [place] | | | | | | [address] | | | | | | [phone] | | | | | | | | +--------+---------+ + + + | 04/26/ | Office | Neurology | Kaitlynn Leyva | | | 2018 | Visit | | [address] | | | | | | [place], [place] | | | | | | [address] | | | | | | [phone] | | | | | | | | +--------+---------+ + + + documented as of this encounter Visit Diagnoses Not on filedocumented in this encounter"
--- OUTSIDE RECORDS SUMMARY | ~2019-03-05 | XMS | Encounter Summary ---
Demographics + + + | Address | [address] | | | [place] [address] | + + + | Home Phone | | + + + | Preferred Language | Unknown | + + + | Marital Status | | + + + | Buddhist Affiliation | Unknown | + + + | Race | White | + + + | Ethnic Group | Not or | + + + Author + + + | Author | [facility] | + + + | Organization | [facility] | + + + | Address | Unknown | + + + | Phone | Unavailable | + + + Support + + +---------+ + | Name | Relationship | Address | Phone | + + +---------+ + | Klever Hsu | ECON | Unknown | | + + +---------+ + Care Team Providers + +------+ + | Care Human Resources Department Supervisor Name | Role | Phone | + +------+ + | Jose Alberto Jones MD | PCP | | + +------+ + Encounter Details +--------+ + + + + | Date | Type | Department | Care Team | Description | +--------+ + + + + | 09/09/ | MyChart | Neurology at | Woodrow Murillo, | labs | | 2016 | Encounter | [facility] & | DO | | | | | Healing [address] | | | | | | [address] Mailcode: | | | | | | [facility] | | | | | | Health and Healing, | | | | | | | | | | | | Floor [place], [place] | | | | | | [address] | | | | | | [phone] | | | +--------+ + + + [...] | | 2018 | Visit | | [address] | | | | | | [address] | | | | | | [place] | | | | | | [address] | | | | | | [phone] | | | | | | | | +--------+---------+ + + + | 04/26/ | Office | Neurology | Kaitlynn Leyva, | | | 2018 | Visit | | [address] | | | | | | [place], [place] | | | | | | [address] | | | | | | [phone] | | | | | | | | +--------+---------+ + + + documented as of this encounter Visit Diagnoses Not on filedocumented in this encounter"
--- OUTSIDE RECORDS SUMMARY | ~2019-03-05 | XMS | Encounter Summary ---
Demographics + + + | Address | [address] | | | [place] [address] | + + + | Home Phone [...] + + + | Author | [facility] | + + + | Organization | [facility] | + + + | Address | Unknown | + + + | Phone | Unavailable | + + + Support + + +---------+ + | Name | Relationship | Address | Phone | + + +---------+ + | Klever Hsu | ECON | Unknown | | + + +---------+ + Care Team Providers + +------+ + | Care Literary Writer Name | Role | Phone | + +------+ + | Jose Alberto Jones MD | PCP | | + +------+ + Encounter Details +--------+ + + + + | Date | Type | Department | Care Team | Description | +--------+ + + + + | 08/18/ | Telephone | Neurology at | Anali Shaikh, | | | 2014 | | [facility] & | [address] | | | | | Healing [address] | [address] | | | | | [address] [place] Mailcode: | [place], [place] | | | | | [address] [place] [address] | [address] | | | | | Health and Healing, | [phone] | | | | | | | | | | | Floor [place], [place] | | | | | | [address] | | | | | | [phone] | | | +--------+ + + + [...] | | 2018 | Visit | | [address] | | | | | | [address] | | | | | | [place], [place] | | | | | | [address] | | | | | | [phone] | | | | | | | | +--------+---------+ + + + | 04/26/ | Office | Neurology | Kaitlynn Leyva, | | | 2018 | Visit | | [address] | | | | | | [place], [place] | | | | | | [address] | | | | | | [phone] | | | | | | | | +--------+---------+ + + + documented as of this encounter Visit Diagnoses Not on filedocumented in this encounter"
--- OUTSIDE RECORDS SUMMARY | ~2019-03-05 | XMS | Encounter Summary ---
Demographics + + + | Address | [address] | | | [place] [address] | + + + | Home Phone | | + + + | Preferred Language | Unknown | + + + | Marital Status | | + + + | Taoism Affiliation | Unknown | + + + [...] Team Providers + +------+ + | Care Chute Worker Name | Role | Phone | + +------+ + | Jose Alberto Jones MD | PCP | | + +------+ + Encounter Details +--------+ + + + + | Date | Type | Department | Care Team | Description | +--------+ + + + + | 10/07/ | Document-Sc | Health Information | Unknown . | | | 2015 | anned | Services [address] | | | | | [address] | | | | | | Mailcode: [id number] | | | | | | [facility] | | | | | | [place], [place] | | | | | | [address] | | | | | | [phone] | | | +--------+ + + + [...] Rd | | | | | | [place], [place] | | | | | | [address] | | | | | | [phone] | | | | | | | | +--------+---------+ + + + | 04/26/ | Office | Neurology | Kaitlynn Leyva, | | | 2018 | Visit | | [address] | | | | | | [facility] [place] | | | | | | [address] | | | | | | [phone] | | | | | | | | +--------+---------+ + + + documented as of this encounter Visit Diagnoses Not on filedocumented in this encounter"
--- OUTSIDE RECORDS SUMMARY | ~2019-03-05 | XMS | Encounter Summary ---
Demographics + + + | Address | [address] | | | [place] [address] | + + + | Home Phone | | + + + | Preferred Language | Unknown | + + + | Marital Status | | + + + | Oriental Orthodox Affiliation | Unknown | + + + | Race | White | + + + | Ethnic Group | Not or | + + + Author + + + | Author | [facility] | + + + | Organization | [facility] | + + + | Address | Unknown | + + + | Phone | Unavailable | + + + Support + + +---------+ + | Name | Relationship | Address | Phone | + + +---------+ + | Klever Hsu | ECON | Unknown | | + + +---------+ + Care Team Providers + +------+ + | [facility] Name | Role | Phone | + [...] | unspecified, | [address] | [address] [facility] | | | | | | [address] | [address] | | | | | intractable, | [place], [place] | [address] | | | | | without | [address] | [place], [place] | | | | | status | | [address] Phone: | | | | | migrainosus | | [phone] | | | | | Headache | | Fax: | | | | | Multiple | | [phone] | | | | | sclerosis | | | | | | | Procedures | | | | | | | SD NEW | | | | | | | PATIENT | | | | | | | LEVEL V | | | +--------+--------+ + + + + Encounter Details +--------+---------+ + + + | Date | Type | Department | Care Team | Description | +--------+---------+ + + + | 11/28/ | Office | Neurology at | Woodrow Murillo, | MS (multiple | | 2016 | Visit | [place] [facility] & | DO | sclerosis) ([facility]) | | | | Healing [address] | | (Primary Dx); Iron | | | | [address] Mailcode: | | deficiency | | | | [facility] | | | | | | Health and Healing, | | | | | | [address] | | | | | | Floor [place], [place] | | | | | | [address] | | | | | | [phone] | | | +--------+---------+ + + + [...] + + + | Blood Pressure | 104/64 | 11/29/2015 10:40 AM | | | | | PDT | | + + + + + | Pulse | 85 | 11/29/2015 10:40 AM | | | [...] Weight | 70.3 kg (155 lb) | 11/29/2015 10:40 AM | | | | | PDT | | + + + + + | Height | 160 cm (5' 3") | 11/29/2015 10:40 AM | | | | | PDT | | + + + + + | Body Mass Index | 27.46 | 11/29/2015 10:40 AM | | | | | PDT | | + + + + + documented in this encounter Progress Notes Chidi Woodrow WHITE R - 11/29/2015 10:48 AM PDTFormatting of this note might be different fro m the original. Multiple Sclerosis Clinic 11/29/15 Problem list: MS: 2005/2006: fatigue, R eye pain, worse with eye movement and couldn't see well. Saw Brandin curtis xd with steroid drops. Symptoms lasted 1 [...] joint upon movement at that time. Since 2013: dizziness has worsened, C/o weakness in legs, [...] the last yr and has UDS. With meds her nocturnal frequency h as improved. 07/14/14 MRI brain W/WO. Compared to 12/02/13. Multiple signal hyperintensities. Approximatel y 6 foci were not present on prior exam however may be partially due to differences in techn ique as current images are much thinner. No enhancing lesions. CSF 08/24/2014 - Neg OCB, Normal IgG index and IgG synth rate. Normal WBC and protein. Mid-November 2014 significant neck pain x 3 days, saw PT and used TENS units that helped. Also c/o episodes of burning paresthesia on the L buttock and left leg and radiated to left ankle . Has occurred x 2 since November 2014. Lasted 2-6 days. Bothered by intermittent unsteadiness, fatigue (increasing Celexa didn't help. Tried to do Provigil, but insurance denied). Also with RLS. Reports right hand is numb and leon all the time with a deep itch that she cannot scratch away. Chronic pain: Low back pain since last 10 yr and worse in last 6 months (X ray, Rxd with Vo ltaren; has seen operation shift supervisor for back pain), neck pain since 2006. R arm and hand pain grubbs s worsened since last 4 months. Headaches + all the time since 2013 - treated with Voltaren Cognitive function: can repeat herself often, forgetfulness, trouble with names. Subjective: Danisha returns for MS follow up since last being seen in the office August. Since then she had repeat MRIs of brain cervical and LS spine. Has been on Copaxone since November 2014. Is getting acupuncture in [place], thinks it is helping painful paresthes ias in her right hand. Will be starting electro-acupuncture soon. Is on Vitamin D 50,000 ynes ry other week, lowered from weekly after her level was found to be elevated at 94 in August 18. Is tolerating Copaxone fine. Still smoking. Physical Examination: Filed Vitals: 11/29/2015 10:40 AM Height: 1.6 m (5' 3") Weight: 70.308 kg (155 lb) BP: 104/64 Pulse: 85 PainSc: 05 - Moderate to Severe PainLoc: Head (Posterior) BMI: 27.46 kg/(m^2) General: The patient was alert, awake, and oriented x3, did not have dysarthria or language deficit, seemed to be a good historian and had normal affect. Neurologic: CN: Extraocular movements are intact. There was no nystagmus. She had normal facial sensati on except mild decrease on R V3, normal facial symmetry, normal hearing, normal tongue and p alatal movement. Motor: she appeared to have normal strength throughout in all 4 extremities, except 4+ weak ness in R HF. Sensory: reduced to light tough in right hand. Gait: antalgic gait from left hip and lower back pain. MRI brain W/WO 10/04/15: compared to 07/14/14. [...] lateral facet arthropathy. No abnormal enhancement. Assessment: 55 y.o. Female with multiple sclerosis based on evidence of prior optic neuriti s in 2005 with major symptoms of neurogenic bladder, painful neuropathic limb pain, imbalanc e, dizziness, and fatigue. She has noticed mild improvement in her painful right hand parest hesia since starting acupuncture. I encouraged her to discontinue smoking as it is a modifia ble risk factor. Overall her scans done in September appear stable, so we will continue Copaxone a nd attempt to optimize lifestyle factors. Plan: -continue Copaxone -following in headache clinic -wrote for TENS unit as she has used before with PT. Told to only use on one limb at a time , not cross body, and no use on abdomen, head, or neck. -hold vitamin D and recheck at next appointment -will send labs results requested by Dr Jose Alberto Jones back at fax [phone] -[facility] in 4 months Return in about 4 months (around 03/31/2016). Orders Placed This Encounter VITAMIN D, 25-HYDROXY, SERUM [[id number]] CBC, WITH DIFFERENTIAL [[id number]] FERRITIN TENS unit and electrodes combo pack I spent 25 minutes with the patient. Greater than 50% of the time was spent counseling the patient regarding her MS and the plan to continue Copaxone and optimize lifestyle habits. Woodrow Murillo DO Multiple Sclerosis and Neuroimmunology Fellow [facility] documented in this encounter Plan of Treatment +--------+---------+ + + + | Date | Type | Specialty | Care Team | Description | +--------+---------+ + + + | 04/05/ | Office | Thoracic Surgery | Antonio Kaur MD | | | 2018 | Visit | | [address] | | | | | | [address] | | | | | | [place], [place] | | | | | | [address] | | | | | | [phone] | | | | | | | | +--------+---------+ + + + | 04/26/ | Office | Neurology | Kaitlynn Leyva, | | | 2018 | Visit | | [address] | | | | | | [facility] [place] | | | | | | [address] | | | | | | [phone] | | | | | | | | +--------+---------+ + + + documented as of this encounter Results FERRITIN (11/29/2015 11:26 AM PDT) + + [...] | + + + + + | [facility] | [address] | [place] [address] | | | SERVICES, CORE | [address] [...] | + + + + + | [facility] | [address] | [place] [address] | | | [address] CORE | [address] | | | + + + + + documented in this encounter Visit Diagnoses + + | Diagnosis | + + | MS (multiple sclerosis) (HCC) - Primary Multiple sclerosis | + + | Iron deficiency Other disorders of iron metabolism | + + documented in this encounter
--- OUTSIDE RECORDS SUMMARY | ~2019-03-05 | XMS | Encounter Summary ---
Demographics + + + | Address | [address] | | | [place] [address] | + + + | Home Phone | | + + + | Preferred Language | Unknown | + + + | Marital Status | | + + + | Druze Affiliation | Unknown | + + + | Race | White | + + + | Ethnic Group | Not or | + + + Author + + + | Author | [facility] | + + + | Organization | [facility] | + + + | Address | Unknown | + + + | Phone | Unavailable | + + + Support + + +---------+ + | Name | Relationship | Address | Phone | + + +---------+ + | Klever Hsu | ECON | Unknown | | + + +---------+ + Care Team Providers + +------+ + | Care Senior Clinical Research Associate Name | Role | Phone | + [...] Authorization | | 2019 | on | [facility] & | PharmD [address] | Request - Medication | | | | Healing [address] | [address] | | | | | [address] Mailcode: | [place], [place] | | | | | [facility] | [address] | | | | | Health and Healing, | | | | | | Building [address], | | | | | | Floor [place], [place] | | | | | | [address] | | | | | | [phone] | | | +--------+ + + + [...] Rd | | | | | | [place], [place] | | | | | | [address] | | | | | | [phone] | | | | | | | | +--------+---------+ + + + | 04/26/ | Office | Neurology | Kaitlynn Leyva, | | | 2019 | Visit | | [address] | | | | | | [place] | | | | | | [address] | | | | | | [phone] | | | | | | | | +--------+---------+ + + + documented as of this encounter Visit Diagnoses Not on filedocumented in this encounter"
--- OUTSIDE RECORDS SUMMARY | ~2019-03-05 | XMS | Encounter Summary ---
Demographics + + + | Address | [address] | | | [place] [address] | + + + | Home Phone | | + + + | Preferred Language | Unknown | + + + | Marital Status | | + + + | Mormon Affiliation | Unknown | + + + | Race | White | + + + | Ethnic Group | Not or | + + + Author + + + | Author | [facility] | + + + | Organization | [facility] | + + + | Address | Unknown | + + + | Phone | Unavailable | + + + Support + + +---------+ + | Name | Relationship | Address | Phone | + + +---------+ + | Klever Hsu | ECON | Unknown | | + + +---------+ + Care Team Providers + +------+ + | Care High School Social Studies Teacher Name | Role | Phone | + +------+ + | Jose Alberto Jones MD | PCP | | + +------+ + Reason for Visit +--------+ + | Reason | Comments | +--------+ + | Other | DMV Form | +--------+ + Encounter Details +--------+ + + + + | Date | Type | Department | Care Team | Description | +--------+ + + + + | 12/12/ | Documentati | Neurology at | Woodrow Murillo, | Other (DMV Form) | | 2016 | on | [facility] & | DO | | | | | Healing [address] | | | | | | [address] Mailcode: | | | | | | [address] | | | | | | Health and Healing, | | | | | | Building | | | | | | Floor [place], [place] | | | | | | [address] | | | | | | [phone] | | | +--------+ + + + [...] | | 2018 | Visit | | [address] | | | | | | [address] | | | | | | [place], [place] | | | | | | [address] | | | | | | [phone] | | | | | | | | +--------+---------+ + + + | 04/26/ | Office | Neurology | Kaitlynn Leyva, | | | 2018 | Visit | | [address] | | | | | | [facility] [place] | | | | | | [address] | | | | | | [phone] | | | | | | | | +--------+---------+ + + + documented as of this encounter Visit Diagnoses Not on filedocumented in this encounter"
--- OUTSIDE RECORDS SUMMARY | ~2019-03-05 | XMS | Encounter Summary ---
Demographics + + + | Address | [address] | | | [place] [address] | + + + | Home Phone [...] + + + | Author | [facility] | + + + | Organization | [facility] | + + + | Address | Unknown | + + + | Phone | Unavailable | + + + Support + + +---------+ + | Name | Relationship | Address | Phone | + + +---------+ + | Klever Hsu | ECON | Unknown | | + + +---------+ + Care Team Providers + +------+ + | Care Refrigeration Engineer Name | Role | Phone | [...] | | | | | (HCC) | [facility] [place] | Mailcode: | | | | | Procedures | [address] | [address] | | | | | MRI BRAIN | Phone: | [place] | | | | | MULTIPLE | [phone] | Research | | | | | SCLEROSIS | Fax: | Center | | | | | WWO CONTRAST | [phone] | [facility] [place] | | | | | [place] MRI | | [address] | | | | | BRAIN COMBO | | Phone: | | | | | | | [phone] | | | | | | | Fax: | | | | | | | [phone] | +--------+--------+ + + + + Reason [...] | | | | | (HCC) | [facility] [place] | Mailcode: | | | | | Procedures | [address] | [address] | | | | | MRI BRAIN | Phone: | [place] | | | | | MULTIPLE | [phone] | Research | | | | | SCLEROSIS | Fax: | Center | | | | | WWO CONTRAST | [phone] | [facility] [place] | | | | | [place] MRI | | [address] | | | | | BRAIN COMBO | | Phone: | | | | | | | [phone] | | | | | | | Fax: | | | | | | | [phone] | +--------+--------+ + + + + Encounter [...] | | | [address] | [place], [place] | | | | | [address] Mailcode: | [address] | | | | | [address] [place] | [phone] | | | | | [facility] | | | | | | [place], [place] | | | | | | [address] | | | | | | [phone] | | | +--------+ + + + [...] tablet in | 20 | 11 | // | | | (ZOFRAN ODT) 8 mg [...] tablet | | 18 | | | (MAXALT-PROFESSOR OF LAW) 10 mg | dissolve. May repeat | [...] | | 2018 | Visit | | [address] | | | | | | [address] | | | | | | [place], [place] | | | | | | [address] | | | | | | [phone] | | | | | | | | +--------+---------+ + + + | 04/26/ | Office | Neurology | Kaitlynn Leyva, | | | 2018 | Visit | | [address] | | | | | | [place], [place] | | | | | | [address] | | | | | | [phone] | | | | | | | | +--------+---------+ + + + documented as of this encounter Procedures + +--------+ + + + | Procedure Name | Priori | Date/Time | Associated Diagnosis | Comments | | | ty | | | | + +--------+ + + + | MRI BRAIN MULTIPLE | Routin | 07/26/2018 | MS (multiple | Results for this | | SCLEROSIS WWO | e | 5:00 PM | sclerosis) [...] + + + | EXAM: MRI BRAIN O MULTIPLE SCLEROSIS HISTORY: follow up for | [...] | + + documented in this encounter Administered Medications + +---------+ +-------+------+------+ | Medication Order | MAR | Action | Dose | Rate | Site | | | Action | Date | | | | + +---------+ +-------+------+------+ | gadoterate meglumine (DOTAREM) | IV Push | 07/27/19 | 16 mL | | | | 0.5 mmol/mL (376.9 mg/mL) | | 19 4:30 | | | | | injection 16 mL 16 mL (rounded | | PM PDT | | | | | from 15.8 mL = 0.2 mL/kg | | | | | | | 79 kg Order-specific weight), | | | | | | | intravenous, ONCE, 1 dose, Sun | | | | | | | 3/10/19 at 1630 | | | | | | + +---------+ +-------+------+------+ +---+---+ | | | +---+---+ documented in this encounter"
--- OUTSIDE RECORDS SUMMARY | ~2019-03-05 | XMS | Encounter Summary ---
Demographics + + + | Address | [address] | | | [place] [address] | + + + | Home Phone | | + + + | Preferred Language | Unknown | + + + | Marital Status | | + + + | Mormonism Affiliation | Unknown | + + + | Race | White | + + + | Ethnic Group | Not or | + + + Author + + + | Author | [facility] | + + + | Organization | [facility] | + + + | Address | Unknown | + + + | Phone | Unavailable | + + + Support + + +---------+ + | Name | Relationship | Address | Phone | + + +---------+ + | Klever Hsu | ECON | Unknown | | + + +---------+ + Care Team Providers + +------+ + | Care Area Development Manager Name | Role | Phone [...] Request | | 2015 | on | [facility] & | MD [address] | [place]) | | | | Healing [address] | [address] | | | | | [address] Mailcode: | [place], [place] | | | | | [facility] | [address] | | | | | Health and Healing, | [phone] | | | | | Building | | | | | | Floor [facility] [place] | | | | | | [address] | | | | | | [phone] | | | +--------+ + + + [...] Rd | | | | | | [place], [place] | | | | | | [address] | | | | | | [phone] | | | | | | | | +--------+---------+ + + + | 04/26/ | Office | Neurology | Kaitlynn Leyva, | | | 2018 | Visit | | MD [address] | | | | | | [place], [place] | | | | | | [address] | | | | | | [phone] | | | | | | | | +--------+---------+ + + + documented as of this encounter Visit Diagnoses Not on filedocumented in this encounter"
--- OUTSIDE RECORDS SUMMARY | ~2019-03-05 | XMS | Encounter Summary ---
Demographics + + + | Address | [address] | | | [place] [address] | + + + | Home Phone | | + + + | Preferred Language | Unknown | + + + | Marital Status | | + + + | Restorationism Affiliation | Unknown | + + + | Race | White | + + + | Ethnic Group | Not or | + + + Author + + + | Author | [facility] | + + + | Organization | [facility] | + + + | Address | Unknown | + + + | Phone | Unavailable | + + + Support + + +---------+ + | Name | Relationship | Address | Phone | + + +---------+ + | Klever Hsu | ECON | Unknown | | + + +---------+ + Care Team Providers + +------+ + | Care Yarn Finisher Name | Role | Phone | + [...] | | | | | Procedures | [place], [place] | Mailcode: | | | | | MRI BRAIN | [address] | [address] | | | | | MULTIPLE | | [place] | | | | | SCLEROSIS | | Research | | | | | WWO CONTRAST | | Center | | | | | [place] MRI | | [facility] [place] | | | | | BRAIN COMBO | | [address] | | | | | | | Phone: | | | | | | | [phone] | | | | | | | Fax: | | | | | | | [phone] | +--------+--------+ + + + + Reason [...] | | | | | Procedures | [place], [place] | Mailcode: | | | | | MRI BRAIN | [address] | [address] | | | | | MULTIPLE | | [place] | | | | | SCLEROSIS | | Research | | | | | WWO CONTRAST | | Center | | | | | [place] MRI | | [place], [place] | | | | | BRAIN COMBO | | [address] | | | | | | | Phone: | | | | | | | [phone] | | | | | | | Fax: | | | | | | | [phone] | +--------+--------+ + + + + Encounter Details +--------+ + + + + | Date | Type | Department | Care Team | Description | +--------+ + + + + | 10/03/ | Hospital | Diagnostic Imaging | | | | 2016 | Encounter | Services at [facility] | | | | | | [address] | | | | | | [address] Mailcode: | | | | | | [address] | | | | | | [facility] | | | | | | [place], [place] | | | | | | [address] | | | | | | [phone] | | | +--------+ + + + [...] | | 2018 | Visit | | [address] | | | | | | [address] | | | | | | [place], [place] | | | | | | [address] | | | | | | [phone] | | | | | | | | +--------+---------+ + + + | 04/26/ | Office | Neurology | Kaitlynn Leyva, | | | 2018 | Visit | | [address] | | | | | | [place], [place] | | | | | | [address] | | | | | | [phone] | | | | | | | [...] | | + +---------+ + + | [facility] DEPARTMENT OF | | | | | RADIOLOGY | | | | + +---------+ + + documented in this encounter Visit Diagnoses + + | Diagnosis | + + | Multiple sclerosis (HCC) Multiple sclerosis | + + documented in this encounter"
--- OUTSIDE RECORDS SUMMARY | ~2019-03-05 | XMS | Encounter Summary ---
Demographics + + + | Address | [address] | | | [place] [address] | + + + | Home Phone | | + + + | Preferred Language | Unknown | + + + | Marital Status | | + + + | Orthodoxy Affiliation | Unknown | + + + [...] Team Providers + +------+ + | Care Geotechnical Field Technician Name | Role | Phone | + +------+ + | Jose Alberto Jones MD | PCP | | + +------+ + Encounter Details +--------+ + + + + | Date | Type | Department | Care Team | Description | +--------+ + + + + | 01/01/ | Abstract | Neurology at | Karen Oliveros, | | | 2015 | | [facility] & | ANP [address] [place] [address] | | | | | [address] | [address] | | | | | [place] Mailcode: | [place], [place] [address] | | | | | [facility] | [phone] | | | | | Health and Healing, | | | | | | | | | | | | [place], [place] | | | | | | [address] | | | | | | [phone] | | | +--------+ + + + [...] | | 2018 | Visit | | [address] | | | | | | [address] | | | | | | [place], [place] | | | | | | [address] | | | | | | [phone] | | | | | | | | +--------+---------+ + + + | 04/26/ | Office | Neurology | Kaitlynn Leyva, | | | 2018 | Visit | | [address] | | | | | | [place], [place] | | | | | | [address] | | | | | | [phone] | | | | | | | | +--------+---------+ + + + documented as of this encounter Visit Diagnoses Not on filedocumented in this encounter"
--- OUTSIDE RECORDS SUMMARY | ~2019-03-05 | XMS | Encounter Summary ---
Demographics + + + | Address | [address] | | | [place] [address] | + + + | Home Phone | | + + + | Preferred Language | Unknown | + + + | Marital Status | | + + + | Zoroastrian Affiliation | Unknown | + + + | Race | White | + + + | Ethnic Group | Not or | + + + Author + + + | Author | [facility] | + + + | Organization | [facility] | + + + | Address | Unknown | + + + | Phone | Unavailable | + + + Support + + +---------+ + | Name | Relationship | Address | Phone | + + +---------+ + | Klever Hsu | ECON | Unknown | | + + +---------+ + Care Team Providers + +------+ + | Care Air Crew Supervisor Name | Role | Phone | [...] Other (MRI) | | 2015 | | [facility] & | DO | | | | | [address] | | | | | | [address] Mailcode: | | | | | | [facility] | | | | | | Health and Healing, | | | | | | Building | | | | | | Floor [place], [place] | | | | | | [address] | | | | | | [phone] | | | +--------+ + + + [...] | | 2019 | Visit | | [address] | | | | | | [address] | | | | | | [place], [place] | | | | | | [address] | | | | | | [phone] | | | | | | | | +--------+---------+ + + + | 04/26/ | Office | Neurology | Kaitlynn Leyva, | | | 2018 | Visit | | [address] | | | | | | [place], [place] | | | | | | [address] | | | | | | [phone] | | | | | | | | +--------+---------+ + + + documented as of this encounter Visit Diagnoses Not on filedocumented in this encounter"
--- OUTSIDE RECORDS SUMMARY | ~2019-03-05 | XMS | Clinical Summary ---
Demographics + + + | Address | [address] | | | [place] [address] | + + + | Home Phone | | + + + | Preferred Language | Unknown | + + + | Marital Status | | + + + | Congregation Affiliation | Unknown | + + + | Race | White | + + + | Ethnic Group | Not or | + + + Author + + + | Author | [facility] | + + + | Organization | [facility] | + + + | Address | Unknown | + + + | Phone | Unavailable | + + + Support + + +---------+ + | Name | Relationship | Address | Phone | + + +---------+ + | Klever Hsu | ECON | Unknown | | + + +---------+ + Care Team Providers + +------+ + | Care Yard Spotter Name | Role | Phone | + +------+ + | Jose Alberto Jones MD | PCP | | + +------+ + Source Comments MYRNA is fully live on both [facility] and [facility] Allergies + + + + + + | Active Allergy | Reactions | Severity | Noted | Comments | | | | | Date | | + + + + + + | Codeine | Rash | | 06/22/19 | | | | | | 15 | | + + + + + + | Morphine | Agitation | | 09/30/19 | | | | | | 15 | | + + + + + + | Tetracycline | Unknown | | 06/22/19 | | | | | | 15 | | + + + + + + | Tramadol | Pruritus | | 06/22/19 | | | | | | 15 | | + + + + + + | Venom-Honey Bee | Dyspnea | | 09/30/19 | | | | | | 15 | | + + + + + + Medications + + + +---------+------+------+-------+ | Medication | Sig | Dispensed | Refills | Star | End | Statu | | | | | | t | Date | s | | | | | | Date | | | + + + +---------+------+------+-------+ | dicyclomine 20 mg | Take 20-40 mg by | | 0 | | | Activ | | oral tablet | mouth once daily. | | | | | e | + + + +---------+------+------+-------+ | citalopram 20 mg | Take 20 mg by mouth | | 0 | | | Activ | | oral tablet | once daily. | | | | | e | + + + +---------+------+------+-------+ | diclofenac EC 75 | Take 75 mg by mouth | | 0 | | | Activ | | mg oral | two times daily. | | | | | e | | tablet,delayed | | | | | | | | release (DR/EC) | | | | | | | + + + +---------+------+------+-------+ | mirabegron | Take 50 mg by mouth | | 0 | | | Activ | | (MYRBETRIQ) 50 mg | once daily at | | | | | e | | oral tablet extended | bedtime. | | | | | | | release 24 hr | | | | | | | + + + +---------+------+------+-------+ | ALBUTEROL | Inhale 2 puffs as | | 0 | | | Activ | | (VENTOLIN INHL) | needed. | | | | | e | + + + +---------+------+------+-------+ | pseudoephedrine | Take 30 mg by mouth | | 0 | | | Activ | | (SUDAFED) 30 mg oral | every four hours as | | | | | e | | tablet | needed for | | | | | | | | congestion. | | | | | | + + + +---------+------+------+-------+ | ondansetron ODT | Dissolve 1 tablet in | 20 | 11 | 05/1 | | Activ | | (ZOFRAN ODT) 8 mg | mouth every twelve | tablet | | 7/20 | | e | | oral | hours as needed. | | | 16 | | | | tablet,disintegratin | | | | | | | | g | | | | | | | + + + +---------+------+------+-------+ | TENS unit and | 1 Device by | 1 | 0 | 07/1 | | Activ | | electrodes combo | Peripheral nerve | Device | | 3/20 | | e | | pack | route once daily as | | | 16 | | | | | needed. | | | | | | + + + +---------+------+------+-------+ | buPROPion | Take 100 mg by mouth | | 0 | | | Activ | | (WELLBUTRIN) 100 mg | two times daily. | | | | | e | | oral tablet | | | | | | | + + + +---------+------+------+-------+ | rizatriptan rapid | Place tablet on | 12 | 5 | 11/2 | | Activ | | dissolve | tongue and allow to | tablet | | 6/20 | | e | | (MAXALT-WOOL BATTING WORKER) 10 mg | dissolve. May repeat | | | 18 | | | | oral | in 2 hours as | | | | | | | tablet,disintegratin | needed. (Max: 30mg | | | | | | | g | per 24 hour) | | | | | | + + + +---------+------+------+-------+ | amitriptyline 25 | Take 3 tablets by | 90 | 5 | 06/ | | Activ | | mg oral tablet | mouth once daily at | tablet | | 0/20 | | e | | | bedtime. | | | 19 | | | + + + +---------+------+------+-------+ | teriflunomide | Take 14 mg by mouth | 90 | 0 | 08/3 | | Activ | | (AUBAGIO) 14 mg oral | once daily. | tablet | | 0/20 | | e | | tablet | | | | 19 | | | + + + +---------+------+------+-------+ | amantadine HCl 100 | Take 1 tablet by | 30 | 11 | 10/0 | | Activ | | mg oral | mouth once daily. | tablet | | 4/20 | | e | | tabletIndications: | Indications: fatigue | | | 19 | | | | fatigue due to | associated with | | | | | | | multiple sclerosis | multiple sclerosis | | | | | | + + + +---------+------+------+-------+ Active Problems + + + | Problem | Noted Date | + + + | Neuropathic pain | 04/14/2018 | + + + | Migraine with aura and without status migrainosus, not | 10/03/2015 | | intractable | | + + + | MS (multiple sclerosis) | 02/22/2015 | + + + | Cephalalgia | 02/22/2015 | + + + | Migraine | 02/22/2015 | + + + Encounters +--------+ + + + + | Date | Type | Specialty | Care Team | Description | +--------+ + + + + | 02/24/ | Head Golf Coach | Thoracic Surgery | Yeyo Evans NP | Neuropathic pain | | 2018 | | | | (Primary Dx) | +--------+ + + + + | 02/19/ | Refill | Neurology | Kaitlynn Leyva, | Refill Request | | 2018 | | | MD | | +--------+ + + + + | 02/09/ | Telephone | Neurology | Iva Patel, | Social work | | 2018 | | | PEDIATRIC AUDIOLOGIST | consultation | +--------+ + + + + | 02/08/ | Office | Neurology | Kaitlynn Leyva, | MS (multiple | | 2018 | Visit | | MD | sclerosis) ([facility]) | | | | | | (Primary Dx) | +--------+ + + + + | 02/08/ | Travel | | | | | 2018 | | | | | +--------+ + + + + | 01/25/ | Abstract | Neurology | Kaitlynn Leyva, | Other (Enter | | 2018 | | | MD | External Results) | +--------+ + + + + | 01/15/ | Refill | Neurology | Kaitlynn Leyva, | Refill Request | | 2018 | | | MD | | +--------+ + + + + from Last 3 Months Family History + + +------+ + | Medical History | Relation | Name | Comments | + + +------+ + | MS | Cousin | | | + + +------+ + | Diabetes | Father | | | + + +------+ + | Genitourinary () | Father | | kidney failure | + + +------+ + | Heart Disease | Father | | A Fib | + + +------+ + | Heart Failure | Father | | | + + +------+ + | Cancer | Mother | | renal cell CA | + + +------+ + | Headache | Mother | | | + + +------+ + + +------+--------+ + | Relation | Name | Status | Comments | + +------+--------+ + | Cousin | | | | + +------+--------+ + | Father | [...] | + + Last Filed Vital Signs + [...] + + + + | Temperature | 36.7 C (98.1 F) | 08/30/2015 9:37 AM | | | | | PDT [...] | | + + + + + Plan of Treatment +--------+---------+ + + + | Date | Type | Specialty | Care Team | Description | +--------+---------+ + + + | 04/05/ | Office | Thoracic Surgery | Antonio Kaur MD | | | 2018 | Visit | | [address] | | | | | | [address] | | | | | | [place], [place] | | | | | | [address] | | | | | | [phone] | | | | | | | | +--------+---------+ + + + | 04/26/ | Office | Neurology | Kaitlynn Leyva, | | | 2018 | Visit | | [address] | | | | | | [place], [place] | | | | | | [address] | | | | | | [phone] | | | | | | | | +--------+---------+ + + + + + + + + | Health Maintenance | Due Date | Last Done | Comments | + + + + + | Pneumococcal | | | | | vaccination (1 of | 6 | | | | - PPSV23) | | | | + + + + + | Influenza (Flu) | | 01/25/2015, 01/20/2013, | | | vaccination (#1) | 9 | 02/04/2012, Additional history | | | | | exists | | + + + + + [...] | | + +--------+ + + + from Last 3 Months Results COMPLETE METABOLIC SET (NA,K,CL,CO2,BUN,CREAT,GLUC,CA,AST,ALT,BILI TOTAL,ALK PHOS,ALB,PROT [...] | | | [place] | | + +-------+ + + + | BUN, PLASMA | 16 | 6 - 23 mg/dL | [facility] | | | (LAB) | | | LAB - | | | | | | [place] | | + +-------+ + + + | CREATININE | 1.01 | 0.70 - 1.33 | [facility] | | | PLASMA | | mg/dL | LAB - | | | (LAB) | | | [place] | | + +-------+ + + + [...] | | | [facility] | | + +-------+ + + + | CALCIUM, | 9.2 | 8.5 - 10.3 | [facility] | | | PLASMA | | mg/dL | LAB - | | | (LAB) | | | [place] | | + +-------+ + + + | BILIRUBIN | 0.6 | 0.0 - 1.2 | [facility] | | | TOTAL | | Transcutaneous | LAB - | | | | | Bilirubinometer | [facility] | | + +-------+ + + + | ALK PHOS | 90 | 31 - 130 U/L | [facility] | | | | | | LAB - | | | | | | [place] | | + +-------+ + + + | AST(SGOT) | 9 (A) | 13 - 39 U/L | [facility] | | | | | | LAB - | | | | | | [place] | | + +-------+ + + + | SODIUM, | 140 | 132 - 143 | [facility] | | | PLASMA | | mmol/L | LAB - | | | (LAB) | | | [place] | | + +-------+ + + + | POTASSIUM, | 4.2 | 3.6 - 5.1 | [facility] | | | PLASMA | | mmol/L | LAB - | | | (LAB) | | | [place] | | + +-------+ + + + | CHLORIDE, | 103 | 95 - 112 mmol/L | [facility] | | | PLASMA | | | LAB - | | | (LAB) | | | [place] | | + +-------+ + + + | TOTAL CO2, | 27 | 19 - 31 mmol/L | [facility] | | | PLASMA | | | LAB - | | | (LAB) | | | [place] | | + +-------+ + + + | ALT (SGPT) | 9 | 7 - 52 U/L | [facility] | | | | | | LAB - | | | | | | [place] | | + +-------+ + + + [...] + + | [facility] - | [address] | [place] | [phone] | | [place] | | | | + + + + + from Last 3 Months Insurance + +--------+ +--------+ + +------+ | Payer | Benefi | Subscriber | Effect | Phone | Address | Type | | | t Plan | ID | neida | | | | | | / | | Dates | | | | | | Group | | | | | | + +--------+ +--------+ + +------+ | [employer] | PACIFI | xxxxxxxxxxx | 05/19/19 | [id number] | [address] | PPO | | | [facility] | | 18-Pre | [address] | | | [address] | | sent | | [place] | | | | | | | | , [place] | | | | | | | | [address] | | + +--------+ +--------+ + +------+ + +--------+ +--------+ + + | Guarantor Name | Accoun | Relation to | Date | Phone | Billing Address | | | t Type | Patient | of | | | | | | | | | | + +--------+ +--------+ + + | Danisha Lemon | Person | Self [birth year] | [address] | | | al/Fam | | 1961 | [phone] | [place] [address] | | | sky | | | 6 (Home) | | + +--------+ +--------+ + +
--- OUTSIDE RECORDS SUMMARY | ~2019-03-05 | XMS | Encounter Summary ---
Demographics + + + | Address | [address] | | | [place] [address] | + + + | Home Phone [...] Team Providers + +------+ + | Care Cradle Slide Maker Name | Role | Phone | + +------+ + | Jose Alberto Jones MD | PCP | | + +------+ + Encounter Details +--------+ + + + + | Date | Type | Department | Care Team | Description | +--------+ + + + + | 04/27/ | MyChart | Neurology at | Kaitlynn Leyva, | RE: Medication | | 2018 | Encounter | [facility] & | [address] | | | | | [address]aling [address] | [place], [place] | | | | | [address] Mailcode: | [id number] | | | | | [address] | [phone] | | | | | [facility], | | | | | | | | | | | | [place], [place] | | | | | | [address] | | | | | | [phone] | | | +--------+ + + + [...] | | 2018 | Visit | | [address] | | | | | | [address] | | | | | | [place], [place] | | | | | | [address] | | | | | | [phone] | | | | | | | | +--------+---------+ + + + | 04/26/ | Office | Neurology | Kaitlynn Leyva, | | | 2018 | Visit | | [address] | | | | | | [place], [place] | | | | | | [address] | | | | | | [phone] | | | | | | | | +--------+---------+ + + + documented as of this encounter Visit Diagnoses Not on filedocumented in this encounter"
--- OUTSIDE RECORDS SUMMARY | ~2019-03-05 | XMS | Encounter Summary ---
Demographics + + + | Address | [address] | | | [place] [address] | + + + | Home Phone | | + + + | Preferred Language | Unknown | + + + | Marital Status | | + + + | Mu-Ism Affiliation | Unknown | + + + [...] Team Providers + +------+ + | Care Geographic Information System Analyst Name | Role | Phone | + +------+ + | Jose Alberto Jones MD | PCP | | + +------+ + Encounter Details +--------+------+ + + + | Date | Type | Department | Care Team | Description | +--------+------+ + + + | 10/24/ | Lab | Laboratory at [facility] | | Dysuria | | 2014 | | [address] | | | | | | [place], [place] | | | | | | [address] | | | | | | [phone] | | | +--------+------+ + + + [...] [place] | | | | | | [address] | | | | | | [phone] | | | | | | | | +--------+---------+ + + + | 04/26/ | Office | Neurology | Kaitlynn Leyva, | | | 2018 | Visit | | [address] | | | | | | [place], [place] | | | | | | [address] | | | | | | [phone] | | | | | | | | +--------+---------+ + + + documented as of this encounter Procedures + +--------+ + + + | Procedure Name | Priori | Date/Time | Associated Diagnosis | Comments | | | ty | | | | + +--------+ + + + | CULTURE, URINE [facility] | Routin | 10/24/2014 | Dysuria | Results for this | | | e | 1:06 PM | | procedure are in the | | | | PDT | | results section. | + +--------+ + + + | URINE, MICROSCOPIC | Routin | 10/24/2014 | Dysuria | Results for this | | EXAM | e | 1:06 PM | | procedure are in the | | | | PDT | | results section. | + +--------+ + + + | CULTURE, URINE [facility] | Routin | 10/24/2014 | Dysuria | Results for this | | | e | 1:06 PM | | procedure are in the | | | | PDT | | results section. | + +--------+ + + + documented in this encounter Results CULTURE, URINE [facility] (10/24/2014 1:06 PM PDT) + + + + + + | Component | Value | Ref Range | Performed | Pathologist | | | | | At | Signature | + + + + + + | URINE | No growth (<1000 cfu/mL) | | [facility] | | | CULTURE | after 24 hours | | LABORATORY | | | [facility] | | | SERVICES, | | | [...] + + | [facility] | [address] | [place] [address] | | | SERVICES, CORE | [address] | | | + + + + + URINE, MICROSCOPIC EXAM (10/24/2014 1:06 PM PDT) [...] [facility] | [address] | [place] [address] | | | SERVICES, CORE | [address] | | | + + + + + documented in this encounter Visit Diagnoses + + | Diagnosis | + + | Dysuria | + + documented in this encounter"
--- OUTSIDE RECORDS SUMMARY | ~2019-03-05 | XMS | Encounter Summary ---
Demographics + + + | Address | [address] | | | [place] [address] | + + + | Home Phone | | + + + | Preferred Language | Unknown | + + + | Marital Status | | + + + | Hinduism Affiliation | Unknown | + + + [...] Team Providers + +------+ + | Care Plate Mill Hand Name | Role | Phone | + +------+ + | Jose Alberto Jones MD | PCP | | + +------+ + Reason for Visit +--------+ + | Reason | Comments | +--------+ + | Other | PA Request Copaxone 40 mg | +--------+ + Encounter Details +--------+ + + + + | Date | Type | Department | Care Team | Description | +--------+ + + + + | 11/10/ | Documentati | Neurology at | Anali Shaikh, | Other (PA Request | | 2015 | on | [facility] & | MD [address] | Copaxone 40 mg) | | | | Healing [address] | [address] | | | | | [address] Mailcode: | [place], [place] | | | | | [address] [facility] | [address] | | | | | Health and Healing, | [phone] | | | | | | | | | | | Floor [place], [place] | | | | | | [address] | | | | | | [phone] | | | +--------+ + + + [...] Rd | | | | | | [place], [place] | | | | | | [address] | | | | | | [phone] | | | | | | | | +--------+---------+ + + + | 04/26/ | Office | Neurology | Kaitlynn Leyva, | | | 2018 | Visit | | [address] | | | | | | [place] | | | | | | [address] | | | | | | [phone] | | | | | | | | +--------+---------+ + + + documented as of this encounter Visit Diagnoses Not on filedocumented in this encounter"
--- OUTSIDE RECORDS SUMMARY | ~2019-03-05 | XMS | Encounter Summary ---
Demographics + + + | Address | [address] | | | [place] [address] | + + + | Home Phone [...] Team Providers + +------+ + | Care City Editor Name | Role | Phone | + [...] | | | | | (HCC) | [facility] [place] | Mailcode: | | | | | Procedures | [address] | [address] | | | | | MRI SPINE | Phone: | [place] | | | | | CERVICAL WWO | [phone] | Research | | | | | CONTRAST | Fax: | Center | | | | | [place] MRI, CERV | [phone] | [facility] [place] | | | | | SPINE COMBO | | [address] | | | | | | | Phone: | | | | | | | [phone] | | | | | | | Fax: | | | | | | | [phone] | +--------+--------+ + + + + Diagnostic [...] | | | | | (HCC) | [facility] [place] | Mailcode: | | | | | Procedures | [address] | [address] | | | | | MRI BRAIN | Phone: | [place] | | | | | MULTIPLE | [phone] | Research | | | | | SCLEROSIS | Fax: | Center | | | | | WWO CONTRAST | [phone] | [place], [place] | | | | | [place] MRI | | [address] | | | | | BRAIN COMBO | | Phone: | | | | | | | [phone] | | | | | | | Fax: | | | | | | | [phone] | +--------+--------+ + + + + Reason [...] | | | | sclerosis | | [address] | | | | | Procedures | | [address] | | | | | [place] EST | | [place], [place] | | | | | PATIENT | | [address] | | | | | LEVEL V | | Phone: | | | | | | | [phone] | | | | | | | Fax: | | | | | | | [phone] | + +--------+ + + + + Encounter Details +--------+---------+ + + + | Date | Type | Department | Care Team | Description | +--------+---------+ + + + | 04/13/ | Office | Neurology at | Kailtynn Leyva, | MS (multiple | | 2018 | Visit | [facility] | [address] | sclerosis) (HCC) | | | | Healing [address] | [facility] [place] | (Primary Dx); | | | | [address] Mailcode: | [address] | Hypovitaminosis D; | | | | [address] for | [phone] | Neuropathic pain | | | | Health and Healing, | | | | | | | | | | | | Floor [place], [place] | | | | | | [address] | | | | | | [phone] | | | +--------+---------+ + + + [...] 3 m [address]. Contact your physician at [phone] if you are having side effects. Additional resource for information: [email or web address] documented in this encounter Progress Notes [place] [...] up since 2015 due to loss of [employer] insurance and of her mother. She returns [...] since 2006 Lyme disease 1990 living in [place], headaches, fatigue, flu like symptoms,had CSF that was negative. 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 She would like t o proceed, so [...] the most appropriate therapy. Offered referral to [facility] urology with Dr. Botello, she would like a refer ral from her PCP to a urologist closer to home. Plan: -MRI brain and cervical spine wwo - ordered to be done here at [facility] per patient preference -Start [employer] - forms [...] Rd | | | | | | [place], [place] | | | | | | [address] | | | | | | [phone] | | | | | | | | +--------+---------+ + + + | 04/26/ | Office | Neurology | Kaitlynn Leyva, | | | 2018 | Visit | | [address] | | | | | | [facility] [place] | | | | | | [address] | | | | | | [phone] | | | | | | | [...] performed by: | REFERENCE LAB | | [facility] | | | [address] | | | [place] [address] | | + + + + + + + + | Performing | Address | City/State/Zipcode | Phone Number | | Organization | | | | + + + + + | [facility] | | | | + + + + + | [facility] | see below | | [...] [facility] | [address] | [place] [address] | | | ELIE[address] | [address] [...] [facility] | [address] | [place] [address] | | | [facility] | | | | | HEALTH + [...]
--- OUTSIDE RECORDS SUMMARY | ~2019-03-05 | XMS | Encounter Summary ---
Demographics + + + | Address | [address] | | | [place] [address] | + + + | Home Phone | | + + + | Preferred Language | Unknown | + + + | Marital Status | | + + + | Voodoo Affiliation | Unknown | + + + | Race | White | + + + | Ethnic Group | Not or | + + + Author + + + | Author | [facility] | + + + | Organization | [facility] | + + + | Address | Unknown | + + + | Phone | Unavailable | + + + Support + + +---------+ + | Name | Relationship | Address | Phone | + + +---------+ + | Klever Hsu | ECON | Unknown | | + + +---------+ + Care Team Providers + +------+ + | Care Development Coach Name | Role | Phone | [...] | | | | sclerosis | | [address] | | | | | Procedures | | [address] | | | | | MD EST | | [place], [place] | | | | | PATIENT | | [address] | | | | | LEVEL V | | Phone: | | | | | | | [phone] | | | | | | | Fax: | | | | | | | [phone] | + +--------+ + + + + Encounter Details +--------+---------+ + + + | Date | Type | Department | Care Team | Description | +--------+---------+ + + + | 02/08/ | Office | Neurology at | Katilynn Leyva, | MS (multiple | | 2019 | Visit | [facility] & | [address] | sclerosis) (HCC) | | | | Healing [address] | [place], [place] | (Primary Dx) | | | | [address] Mailcode: | [address] | | | | | [address] | [phone] | | | | | Health and Healing, | | | | | | [facility] | | | | | | [place], [place] | | | | | | [address] | | | | | | [phone] | | | +--------+---------+ + + + [...] was lost to follo w up from 4106-5632 due to insurance reasons History from previous [...] with leukemia. 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 She had tried copaxone previously (2830-1843) but did not tolerate this e ither due to injection site reactions. She was not willing to try another injectable and she was hesitant to try gilenya given the risks of macular edema, bradycardia, varicella reacti vation, and PML. It would be inconvenient for her to travel from [place] every month for T ysabri medications. Thus, [...] discuss with her oncologist if needed -Neuro foster care social worker consult re: loss of job/insurance, assistance with [...] Rd | | | | | | [place], [place] | | | | | | [address] | | | | | | [phone] | | | | | | | | +--------+---------+ + + + | 04/26/ | Office | Neurology | Kaitlynn Leyva, | | | 2018 | Visit | | [address] | | | | | | [facility] [place] | | | | | | [address] | | | | | | [phone] | | | | | | | [...]
--- OUTSIDE RECORDS SUMMARY | ~2019-03-05 | XMS | Encounter Summary ---
Demographics + + + | Address | [address] | | | [place] [address] | + + + | Home Phone | | + + + | Preferred Language | Unknown | + + + | Marital Status | | + + + | Mosque Affiliation | 1008 | + + + | Race | Unknown | + + + | Ethnic Group | Unknown | + + + Author + + + | Author | [facility] | | | and [place] | + + + | Organization | [facility] | | | and [place] [...] Team Providers + +------+ + | Care Protective Officer Name | Role | Phone | [...] | MED CTR EXTERNAL | MD [address] 1972 | | | | | IMAGING | [address] | | | | | [phone] | [place] [address] | | +--------+ + + + + [...]
--- OUTSIDE RECORDS SUMMARY | ~2019-03-05 | XMS | Encounter Summary ---
Demographics + + + | Address | [address] | | | [place] [address] | + + + | Home Phone | | + + + | Preferred Language | Unknown | + + + | Marital Status | | + + + | Mormon Affiliation | 1008 | + + + | Race | Unknown | + + + | Ethnic Group | Unknown | + + + Author + + + | Author | [facility] | | | and [place] | + + + | Organization | [facility] | | | and [place] [...] Team Providers + +------+ + | Care Software Development Test Engineer Name | Role | Phone | + +------+ + | Jose Alberto Jones MD | PCP | | + +------+ + Encounter Details +--------+ + + + + | Date | Type | Department | Care Team | Description | +--------+ + + + + | 01/28/ | Imaging | [facility] | Provider, | | | 2019 | Exam | MED CTR EXTERNAL | [address] | | | | | IMAGING | [address] | | | | | [phone] | [place] [address] | | +--------+ + + + + [...] + + documented in this encounter Results XR Chest 1 Vw (01/28/2019 0:00 [...]
--- OUTSIDE RECORDS SUMMARY | ~2019-03-05 | XMS | Encounter Summary ---
Demographics + + + | Address | [address] | | | [place] [address] | + + + | Home Phone | | + + + | Preferred Language | Unknown | + + + | Marital Status | | + + + | Hoahaoism Affiliation | Unknown | + + + [...] Providers + +------+ + | Care Fish Packer Name | Role | Phone | + [...] | [address] Mailcode: | [place] [address] | | | | | [address] for | [phone] | | | | | Health and Healing, | | | | | | [facility] | | | | | | [place], [place] | | | | | | [address] | | | | | | [phone] | | | +--------+ + + + [...] Rd | | | | | | [place], [place] | | | | | | [address] | | | | | | [phone] | | | | | | | | +--------+---------+ + + + | 04/26/ | Office | Neurology | Kaitlynn Leyva, | | | 2018 | Visit | | [address] | | | | | | [place] | | | | | | [address] | | | | | | [phone] | | | | | | | | +--------+---------+ + + + documented as of this encounter Visit Diagnoses Not on filedocumented in this encounter"
--- OUTSIDE RECORDS SUMMARY | ~2019-03-05 | XMS | Encounter Summary ---
Demographics + + + | Address | [address] | | | [place] [address] | + + + | Home Phone [...] Team Providers + +------+ + | Care Ear Specialist Name | Role | Phone | [...] (MRI Reports) | | 2015 | | [facility] & | [address] | | | | | [address] | [address] | | | | | [address] Mailcode: | [place], [place] | | | | | [facility] | [address] | | | | | Health and Healing, | [phone] | | | | | [facility] | | | | | | Floor [place], [place] | | | | | | [address] | | | | | | [phone] | | | +--------+ + + + [...] | | 2018 | Visit | | [address] | | | | | | [address] | | | | | | [place], [place] | | | | | | [address] | | | | | | [phone] | | | | | | | | +--------+---------+ + + + | 04/26/ | Office | Neurology | Kaitlynn Leyva | | | 2018 | Visit | | [address] | | | | | | [place], [place] | | | | | | [address] | | | | | | [phone] | | | | | | | | +--------+---------+ + + + documented as of this encounter Visit Diagnoses Not on filedocumented in this encounter"
--- OUTSIDE RECORDS SUMMARY | ~2019-03-05 | XMS | Encounter Summary ---
Demographics + + + | Address | [address] | | | [place] [address] | + + + | Home Phone | | + + + | Preferred Language | Unknown | + + + | Marital Status | | + + + | Sabianist Affiliation | Unknown | + + + [...] Team Providers + +------+ + | Care Flow Specialist Name | Role | Phone | + +------+ + | Jose Alberto Hanks MD | PCP | | + +------+ + Reason for Visit + + + | Reason | Comments | + + + | LP - Lumbar puncture | | + + + | Procedure | | + + + Intake Referral (Routine) +--------+--------+ + + + + | Status | Reason | Specialty | Diagnoses / | Referred By | Referred To | | | | | Procedures | Contact | Contact | +--------+--------+ + + + + | Closed | | Neurology | Diagnoses | Mariana Hanks Neel, | | | | | Unspecified | Jose Alberto Michelle, | Anali, | | | | | condition | MD HANKS | [address] | | | | | of brain | FAMILY | [address] | | | | | White matter | MEDICINE | [address] | | | | | disease | [address] | [place], [place] | | | | | | [address] | [address] | | | | | | [place], | Phone: | | | | | | [place] [address] | [phone] | | | | | | Phone: | Fax: | | | | | | [phone] | [phone] | | | | | | Fax: | | | | | | | [phone] | | +--------+--------+ + + + + Encounter Details +--------+ + + + + | Date | Type | Department | Care Team | Description | +--------+ + + + + | 08/24/ | Procedure | Neurology at | Mitul Mark MD | LP - Lumbar | | 2014 | | [facility] & | | puncture; Procedure | | | | Healing [address] | | | | | | [place] Mailcode: | | | | | | [facility] | | | | | | Health and Healing, | | | | | | Building | | | | | | [place], [place] | | | | | | [address] | | | | | | [phone] | | | +--------+ + + + [...] + + + | Blood Pressure | 122/88 | 08/24/2014 1:00 PM | | | | | PDT | | + + + + + | Pulse | 75 | 08/24/2014 1:00 PM | | | | | PDT [...] + + + + | Weight | 67.6 kg (149 lb) | 08/24/2014 1:00 PM | | | | | PDT | | + + + + + | Height | - | - | | + + + + + | Body Mass Index | 26.39 | 06/22/2014 8:35 AM | | | | | PST | | + + + + + documented in this encounter Progress Notes Morgan Hopkins MD - 08/24/2014 3:31 PM PDTNeurology Attending Attestation: I was present for the pertinent portions of the procedure. I reviewed the resident s not e and agree with the documented findings and plan of care. MORGAN HOPKINS MD NEUROLOGY AT [place] [address] [address] [facility] Mail Code: [address] [address] Humberto Dumont MA - 08/24/2014 2:10 PM PDTBlood draw and sent to lab. Pt tolerated lab draw well- no syn cope. Rested for a few minutes lying flat, then sat up without dizziness, N/V, or any other complaints. Mitul Lara MD - 08/24/2014 1:53 PM PDTProcedure Note: Lumbar Puncture Indication: White matter changes on MRI Consent: Discussion of the risks, benefits, and alternatives was had with the patient prio r to the procedure. A signed consent form for this procedure was obtained and placed on [facility] rt. Procedure Details: A Team Pause was performed. The patient was not pre-medicated with Ati van. Patient prepared with sterile prep and drape, and local anesthesia was obtained with 4m l 1% Lidocaine without epinephrine. A 20 gauge spinal needle was inserted between the 3rd an d 4th lumbar spaces. CSF was obtained on the 1st attempt. Opening pressure was not measured . The CSF was noted to be Clear, 15 ml CSF was obtained. No complications were immediately a pparent. Estimated blood loss is minimal. Findings: There were no changes to vital signs. Patient did tolerate procedure well. Specimens: CSF sent to lab for analysis My attending, Dr. Farzana Hopkins, was present for the entire procedure. Mitul Mark MD PGY-3 Neurology Resident Pager [phone] documented in this enco unter Plan of Treatment +--------+---------+ + + + | Date | Type | Specialty | Care Team | Description | +--------+---------+ + + + | 04/05/ | Office | Thoracic Surgery | Antonio Kaur MD | | | 2018 | Visit | | [address] | | | | | | [address] | | | | | | [place], [place] | | | | | | [address] | | | | | | [phone] | | | | | | | | +--------+---------+ + + + | 04/26/ | Office | Neurology | Kaitlynn Leyva, | | | 2018 | Visit | | [address] | | | | | | [place], [place] | | | | | | [address] | | | | | | [phone] | | | | | | | | +--------+---------+ + + + + + +--------+ + + | Name | Type | Priori | Associated Diagnoses | Order Schedule | | | | ty | | | + + +--------+ + + | NEUROLOGY LUMBAR | Procedures | Routin | Abnormal MRI | Ordered: 08/24/2014 | | PUNCTURE (NO CHG) | | e | | | + + +--------+ + + documented as of this encounter Procedures + +--------+ + + + | Procedure Name | Priori | Date/Time | Associated Diagnosis | Comments | | | ty | | | | + +--------+ + + + | SPECIMEN ROUTING | Routin | 08/24/2014 | Abnormal MRI | | | | e | 2:20 PM | Abnormal MRI of head | | | | | PDT | | | + +--------+ + + + | GLUCOSE, PLASMA | Routin | 08/24/2014 | Abnormal MRI | Results for this | | | e | 2:20 PM | Abnormal MRI of head | procedure are in the | | | | PDT | | results section. | + +--------+ + + + | CELL COUNT, CSF | Routin | 08/24/2014 | Abnormal MRI | Results for this | | | e | 2:19 PM | Abnormal MRI of head | procedure are in the | | | | PDT | | results section. | + +--------+ + + + | DIFFERENTIAL, CSF | Routin | 08/24/2014 | Abnormal MRI | Results for this | | | e | 2:19 PM | Abnormal MRI of head | procedure are in the | | | | PDT | | results section. | + +--------+ + + + | GLUCOSE, CSF | Routin | 08/24/2014 | Abnormal MRI | Results for this | | | e | 2:19 PM | Abnormal MRI of head | procedure are in the | | | | PDT | | results section. | + +--------+ + + + | OLIGOCLONAL BANDS / | Routin | 08/24/2014 | Abnormal MRI | Results for this | | IGG SYN RATE, | e | 2:19 PM | Abnormal MRI of head | procedure are in the | | SER/CSF | | PDT | | results section. | + +--------+ + + + | CELL COUNT DIFF, CSF | Routin | 08/24/2014 | Abnormal MRI | Results for this | | | e | 2:19 PM | Abnormal MRI of head | procedure are in the | | | | PDT | | results section. | + +--------+ + + + | PROTEIN, CSF | Routin | 08/24/2014 | Abnormal MRI | Results for this | | | e | 2:19 PM | Abnormal MRI of head | procedure are in the | | | | PDT | | results section. | + +--------+ + + + | IL SPINAL | Routin | 08/24/2014 | Abnormal MRI | | | PUNCTURE,LUMBAR,DIAG | e | 2:07 PM | | | | NOSTIC | | PDT | | | + +--------+ + + + | ORDERS OTHER | | 08/24/2014 | | Results for this | | | | 12:00 AM | | procedure are in the | | | | PDT | | results section. | + +--------+ + + + documented in this encounter Results SPECIMEN ROUTING (08/24/2014 2:20 PM PDT) + + | Specimen | + + | Cerebrospinal fluid | | - Cerebrospinal | | fluid | + + + + + + + | Performing | Address | City/State/Zipcode | Phone Number | | Organization | | | | + + + + + | [facility] | [address] | [place] [address] | | | SERVICES, CORE | [address] | | | + + + + + GLUCOSE, PLASMA (08/24/2014 2:20 PM PDT) + +-------+ + + + | Component | Value | Ref Range | Performed | Pathologist | | | | | At | Signature | + +-------+ + + + | GLUCOSE, | 83 | 60 - 99 mg/dL | [facility] | | [...] [facility] | [address] | [place] [address] | | | SERVICES, CORE | [address] | | | + + + + + DIFFERENTIAL, CSF (08/24/2014 2:19 PM PDT) + +-------+ + + + | Component | Value | Ref Range | Performed | Pathologist | | | | | At | Signature | + +-------+ + + + | NEUTROPHIL | 0 | 0 - 6 % | [facility] | | | (CSF) | | | LABORATORY | | | | | | SERVICES, | | | | | | CORE | | + +-------+ + + + | LYMPHOCYTES | 74 | 40 - 80 % | [facility] | | | (CSF) | | | LABORATORY | | | | | | SERVICES, | | | | | | CORE | | + +-------+ + + + | MONOCYTES(C | 26 | 15 - 45 % | [facility] | | | SF) | | | LABORATORY | | | | | | SERVICES, | | | | | | CORE | | + +-------+ + + + | MACROPHAGES | 0 | % | [facility] | | | (CSF) | | | LABORATORY | | | | | | SERVICES, | | | | | | CORE | | + +-------+ + + + | EOSINOPHILS | 0 | % | [facility] | | | (CSF) | | | LABORATORY | | | | | | SERVICES, | | | | | | CORE | | + +-------+ + + + | BASOPHILS(C | 0 | % | [facility] | | | SF) | | | LABORATORY | | | | | | SERVICES, | | | | | | CORE | | + +-------+ + + + | LINING | 0 | % | [facility] | | | CELLS | | | LABORATORY | | | | | | SERVICES, | | | | | | CORE | | + +-------+ + + + | REACTIVE | 0 | % | [facility] | | | LYMPHS(CSF) | | | LABORATORY | | | | | | SERVICES, | | | | | | CORE | | + +-------+ + + + | ATYPICAL | 0 | 0.0 % | [facility] | | | CELLS(CSF) | | | LABORATORY | | | | | | SERVICES, | | | | | | CORE | | + +-------+ + + + | TOTAL CELL | 69 | | [facility] | | | COUNTED,CSF | | | LABORATORY | | | | | | SERVICES, | | | | | | CORE | | + +-------+ + + + + + | Specimen | + + | Cerebrospinal fluid | | - Cerebrospinal | | fluid | + + + + + + + | Performing | Address | City/State/Zipcode | Phone Number | | Organization | | | | + + + + + | [facility] | [address] | [place] [id number] | | | SERVICES, CORE | [address] | | | + + + + + CELL COUNT, CSF (08/24/2014 2:19 PM PDT) + + + + + + | Component | Value | Ref Range | Performed | Pathologist | | | | | At | Signature | + + + + + + | CSF | Clear | Clear | [facility] | | | APPEARANCE | | | LABORATORY | | | | | | SERVICES, | | | | | | CORE | | + + + + + + | CSF COLOR | Colorless | Colorless | [facility] | | | | | | LABORATORY | | | | | | SERVICES, | | | | | | CORE | | + + + + + + | CSF TUBE | #3 | | [facility] | | | NUMBER | | | LABORATORY | | | | | | SERVICES, | | | | | | CORE | | + + + + + + | CSF WBC | <1 | 0 - 5 /cu mm | [facility] | | | | | | LABORATORY | | | | | | SERVICES, | | | | | | CORE | | + + + + + + | CSF RBC | <1 | <1 /cu mm | [facility] | | | | | | LABORATORY | | | | | | SERVICES, | | | | | | CORE | | + + + + + + + + | Specimen | + + | Cerebrospinal fluid | | - Cerebrospinal | | fluid | + + + + + + + | Performing | Address | City/State/Zipcode | Phone Number | | Organization | | | | + + + + + | [facility] | [address] | [place] [address] | | | SERVICES, CORE | [address] | | | + + + + + PROTEIN, CSF (08/24/2014 2:19 PM PDT) + +-------+ + + + | Component | Value | Ref Range | Performed | Pathologist | | | | | At | Signature | + +-------+ + + + | TOTAL | 38 | 15 - 45 mg/dL | [facility] | | | PROTEIN CSF | | | LABORATORY | | | | | | SERVICES, | | | | | | CORE | | + +-------+ + + + + + | Specimen | + + | Cerebrospinal fluid | | - Cerebrospinal | | fluid | + + + + + + + | Performing | Address | City/State/Zipcode | Phone Number | | Organization | | | | + + + + + | [facility] | [address] | [place] [address] | | | SERVICES, CORE | [address] | | | + + + + + OLIGOCLONAL BANDS / IGG SYN RATE, SER/CSF (08/24/2014 2:19 PM PDT) + + + + + + | Component | Value | Ref Range | Performed | Pathologist | | | | | At | Signature | + + + + + + | OLIGOCLONAL | Negative | Negative | [facility] | | | BANDS SF | | | REG UNIV | | | | | | PTH - INTFC | | + + + + + + | IGG SERUM | 647 (L)Comment: | 768 - 1632 | [facility] | | | | REFERENCE INTERVAL: | mg/dL | REG UNIV | | | | Immunoglobulin G Access | | PTH - INTFC | | | | complete set of age- | | | | | | and/or gender-specific | | | | | | reference intervals for | | | | | | this test in the [facility] | | | | | | Laboratory Test | | | | | | Directory ([employer]). | | | | + + + + + + | ALBUMIN, | 3870 | 3500 - 5200 | [facility] | | | SERUM-ADY | | mg/dL | REG UNIV | | | | | | PTH - INTFC | | + + + + + + | ALBUMIN, | 19 | 0 - 35 mg/dL | [facility] | | | CSF | | | REG UNIV | | | | | | PTH - INTFC | | + + + + + + | ALBUMIN | 4.9 | 0.0 - 9.0 ratio | [facility] | | | INDEX-ADY | | | REG UNIV | | | | | | PTH - INTFC | | + + + + + + | IGG INDEX | 0.47 | 0.28 - 0.66 | [facility] | | | | | ratio | REG UNIV | | | | | | PTH - INTFC | | + + + + + + | CSF/IGG | 0.08 (L) | 0.09 - 0.25 | [facility] | | | ALBUMIN | | ratio | REG UNIV | | | RATIO | | | PTH - INTFC | | + + + + + + | IGG SYN | <0.0 | <=8.0 mg/d | [facility] | | | RATE | | | REG UNIV | | | | | | PTH - INTFC | | + + + + + + | CSF | 0 | 0 - 1 Bands | [facility] | | | OLIGOCLONAL | | | REG UNIV | | | BANDS | | | PTH - INTFC | | | NUMBER | | | | | + + + + + + | OLIGOCLONAL | See NoteComment: | | [facility] | | | COMMENTS | Isoelectric | | REG UNIV | | | | focusing/immunofixation | | PTH - INTFC | | | | reveals identical bands | | | | | | in the CSF and the | | | | | | serum. This is | | | | | | consistent with a | | | | | | systemic, not | | | | | | intrathecal, immune | | | | | | reaction and is | | | | | | considered to be a | | | | | | negative result for | | | | | | oligoclonal bands. | | | | | | Approximately 5 | | | | | | percent of patients with | | | | | | clinically definitive | | | | | | multiple sclerosis will | | | | | | have a negative | | | | | | result.Performed by [facility] | | | | | | [facility]ly [facility],[address] | | | | | | [address], [facility] | | | | | | [address] | | | | | | [phone] | | | | | | aly, Alexis Dunbar, | | | | | | Hattie NEWSOME. Director | | | | + + + + + + | IGG CSF | 1.5 | 0.0 - 6.0 mg/dL | [facility] | | | | | | REG UNIV | | | | | | PTH - INTFC | | + + + + + + + + | Specimen | + + | Cerebrospinal fluid | | - Cerebrospinal | | fluid | + + + + + + + | Performing | Address | City/State/Zipcode | Phone Number | | Organization | | | | + + + + + | [facility] | [address] | [place], [place] | | | UNIV PTH - INTFC | | [address] | | + + + + + GLUCOSE, CSF (08/24/2014 2:19 PM PDT) + +-------+ + + + | Component | Value | Ref Range | Performed | Pathologist | | | | | At | Signature | + +-------+ + + + | GLUCOSE CSF | 58 | 40 - 70 mg/dL | [facility] | | | | | | LABORATORY | | | | | | SERVICES, | | | | | | CORE | | + +-------+ + + + + + | Specimen | + + | Cerebrospinal fluid | | - Cerebrospinal | | fluid | + + + + + + + | Performing | Address | City/State/Zipcode | Phone Number | | Organization | | | | + + + + + | [facility] | [address] | [place] [address] | | | SERVICES, CORE | [address] | | | + + + + + ORDERS OTHER (08/24/2014 12:00 AM PDT) + + + | Narrative | Performed At | + + + | | | | | | + + + + + | Procedure Note | + + | Renu Hastings - 08/30/2014 1:42 PM PDT | + + documented in this encounter Visit Diagnoses + + | Diagnosis | + + | Abnormal MRI - Primary Other nonspecific (abnormal) findings on radiological and | | other examinations of body structure | + + | Abnormal MRI of head Nonspecific (abnormal) findings on radiological and other | | examination of skull and head | + + documented in this encounter"
--- OUTSIDE RECORDS SUMMARY | ~2019-03-05 | XMS | Encounter Summary ---
Demographics + + + | Address | [address] | | | [place] [address] | + + + | Home Phone [...] Team Providers + +------+ + | Care Customer Records Division Supervisor Name | Role | Phone | + +------+ + | Jose Alberto Jones MD | PCP | | + +------+ + Encounter Details +--------+------+ + + + | Date | Type | Department | Care Team | Description | +--------+------+ + + + | 04/13/ | Lab | Laboratory at [facility] | | MS (multiple | | 2018 | | [address] | | sclerosis) ([facility]); | | | | [place], [place] | | Hypovitaminosis D | | | | [address] | | | | | | [phone] | | | +--------+------+ + + + [...] Rd | | | | | | [place], [place] | | | | | | [address] | | | | | | [phone] | | | | | | | | +--------+---------+ + + + | 04/26/ | Office | Neurology | Kaitlynn Leyva, | | | 2018 | Visit | | [address] | | | | | | [place], [place] | | | | | | [address] | | | | | | [phone] | | | | | | | [...] | e | 1:14 PM | sclerosis) ([facility]) | procedure are in the | | TO INHIBITION ASSAY, | | PST | | results section. | | SERUM | | | | | + +--------+ + + + | CBC AND AUTO DIFF | Routin | 04/13/2018 | MS (multiple | Results for this | | | e | 1:14 PM | sclerosis) ([facility]) | procedure are in the | | | | PST | | results section. | + +--------+ + + + | CBC, WITH | Routin | 04/13/2018 | MS (multiple | Results for this | | DIFFERENTIAL | e | 1:14 PM | sclerosis) ([facility]) | procedure are in [...] | + + + + + | [facility] | [address] | [place] [address] | | | SERVICES, [place] [facility] | | | | | HEALTH [...] performed by: | REFERENCE LAB | | [facility] | | | [address] [facility] [facility] | | | [place] [address] | | + + + + + + + + | Performing | Address | City/State/Zipcode | Phone Number | | Organization | | | | + + + + + | [facility] | | | | + + + + + | [facility] | see below | | [...] + + + + + | [facility] | [address] | [place] [address] | | | [place], CORE | [address] [...] [facility] | [address] | [place] [address] | | | [facility] | | | | | HEALTH + HEALING | | | | + + + + + documented in this encounter Visit Diagnoses + + | Diagnosis | + + | MS (multiple sclerosis) (HCC) Multiple sclerosis | + + | Hypovitaminosis D Unspecified vitamin D deficiency | + + documented in this encounter"
--- OUTSIDE RECORDS SUMMARY | ~2019-03-05 | XMS | Encounter Summary ---
Demographics + + + | Address | [address] | | | [place] [address] | + + + | Home Phone [...] Team Providers + +------+ + | Care Log Marker Name | Role | Phone | + +------+ + | Jose Alberto Jones MD | ERNST | | + +------+ + Encounter Details +--------+--------+ + + + | Date | Type | Department | Care Team | Description | +--------+--------+ + + + | 02/08/ | Travel [...] | 2019 | Visit | | [address] | | | | | | [address] | | | | | | [place], [place] | | | | | | [address] | | | | | | [phone] | | | | | | | | +--------+---------+ + + + | 04/26/ | Office | Neurology | Kaitlynn Leyva, | | | 2018 | Visit | | [address] | | | | | | [place], [place] | | | | | | [address] | | | | | | [phone] | | | | | | | | +--------+---------+ + + + documented as of this encounter Visit Diagnoses Not on filedocumented in this encounter"
--- OUTSIDE RECORDS SUMMARY | ~2019-03-05 | XMS | Encounter Summary ---
Demographics + + + | Address | [address] | | | [place] [address] | + + + | Home Phone | | + + + | Preferred Language | Unknown | + + + | Marital Status | | + + + | Sabianism Affiliation | Unknown | + + + [...] Team Providers + +------+ + | Care End Finder Twisting Department Name | Role | Phone | + +------+ + | Jose Alberto Jones MD | PCP | | + +------+ + Encounter Details +--------+ + + + + | Date | Type | Department | Care Team | Description | +--------+ + + + + | 04/13/ | Procedure | Diagnostic Imaging | | | | 2018 | Pass | Services at [facility] | | | | | | [address] | | | | | | [address] Mailcode: | | | | | | [address] | | | | | | [facility] | | | | | | [place], [place] | | | | | | [address] | | | | | | [phone] | | | +--------+ + + + [...] Rd | | | | | | [place], [place] | | | | | | [address] | | | | | | [phone] | | | | | | | | +--------+---------+ + + + | 04/26/ | Office | Neurology | Kaitlynn Leyva, | | | 2018 | Visit | | [address] | | | | | | [facility] [place] | | | | | | [address] | | | | | | [phone] | | | | | | | | +--------+---------+ + + + documented as of this encounter Visit Diagnoses Not on filedocumented in this encounter"
--- OUTSIDE RECORDS SUMMARY | ~2019-03-05 | XMS | Encounter Summary ---
Demographics + + + | Address | [address] | | | [place] [address] | + + + | Home Phone | | + + + | Preferred Language | Unknown | + + + | Marital Status | | + + + | Roman Catholic Affiliation | Unknown | + + [...] Comments | +--------+ + | Other | Lab Results | +--------+ + Encounter Details +--------+ + + + + | Date | Type | Department | Care Team | Description | +--------+ + + + + | 10/26/ | Telephone | Neurology at | Anali Shaikh, | Other (Lab Results) | | 2015 | | [facility] & | [address] | | | | | [address] | [address] | | | | | [address] Mailcode: | [place], [place] | | | | | [address] | [address] | | | | | Health and Healing, | [phone] | | | | | [facility] | | | | | | Floor [place], [place] | | | | | | [address] | | | | | | [phone] | | | +--------+ + + + [...] | | 2018 | Visit | | [address] | | | | | | [address] | | | | | | [place], [place] | | | | | | [address] | | | | | | [phone] | | | | | | | | +--------+---------+ + + + | 04/26/ | Office | Neurology | Kaitlynn Leyva | | | 2018 | Visit | Mariana NEWSOME [address] | | | | | | [place], [place] | | | | | | [address] | | | | | | [phone] | | | | | | | | +--------+---------+ + + + documented as of this encounter Visit Diagnoses Not on filedocumented in this encounter"
--- OUTSIDE RECORDS SUMMARY | ~2019-03-05 | XMS | Encounter Summary ---
Demographics + + + | Address | [address] | | | [place] [address] | + + + | Home Phone | | + + + | Preferred Language | Unknown | + + + | Marital Status | | + + + | Restorationist Affiliation | Unknown | + + + [...] Team Providers + +------+ + | Care Wire Frame Lamp Shade Maker Name | Role | Phone | [...] | | | | | (HCC) | [facility] [place] | Mailcode: | | | | | Procedures | [address] | [address] | | | | | MRI SPINE | Phone: | Gil[place] | | | | | CERVICAL WWO | [phone] | Research | | | | | CONTRAST | Fax: | Center | | | | | NM MRI, CERV | [phone] | [facility] [place] | | | | | SPINE COMBO | | [address] | | | | | | | Phone: | | | | | | | [phone] | | | | | | | Fax: | | | | | | | [phone] | +--------+--------+ + + + + Reason [...] | | | | | (HCC) | [place], [place] | Mailcode: | | | | | Procedures | [address] | [address] | | | | | MRI SPINE | Phone: | Onset | | | | | CERVICAL WWO | [phone] | Research | | | | | CONTRAST | Fax: | Center | | | | | NM MRI, CERV | [phone] | [place], [place] | | | | | SPINE COMBO | | [address] | | | | | | | Phone: | | | | | | | [phone] | | | | | | | Fax: | | | | | | | [phone] | +--------+--------+ + + + + Encounter Details +--------+ + + + + | Date | Type | Department | Care Team | Description | +--------+ + + + + | 07/26/ | Hospital | Diagnostic Imaging | Kaitlynn Leyva, | | | 2019 | Encounter | Services at [facility] | [address] | | | | | [address] | [place], [place] | | | | | [address] Mailcode: | [address] | | | | | [address] | [phone] | | | | | [facility] | | | | | | [place], [place] | | | | | | [address] | | | | | | [phone] | | | +--------+ + + + [...] tablet | | 18 | | | (MAXALT-VALUE STREAM COACH) 10 mg | dissolve. May repeat | [...] | | 2018 | Visit | | [address] | | | | | | [address] | | | | | | [place], [place] | | | | | | [address] | | | | | | [phone] | | | | | | | | +--------+---------+ + + + | 04/26/ | Office | Neurology | Kaitlynn Leyva | | | 2018 | Visit | | [address] | | | | | | [place], [place] | | | | | | [address] | | | | | | [phone] | | | | | | | [...]
--- OUTSIDE RECORDS SUMMARY | ~2019-03-05 | XMS | Encounter Summary ---
Demographics + + + | Address | [address] | | | [place] [address] | + + + | Home Phone [...] + + | Author | [facility] | + + + | Organization | [facility] | + + + | Address | Unknown | + + + | Phone | Unavailable | + + + Support + + +---------+ + | Name | Relationship | Address | Phone | + + +---------+ + | Klever Hsu | ECON | Unknown | | + + +---------+ + Care Team Providers + +------+ + | Care Line Staker Name | Role | Phone | + +------+ + | Jose Alberto Jones MD | PCP | | + +------+ + Encounter Details +--------+ + + + + | Date | Type | Department | Care Team | Description | +--------+ + + + + | 04/13/ | Procedure | Diagnostic Imaging | | | | 2018 | Pass | Services at [facility] | | | | | | [address] | | | | | | [address] Mailcode: | | | | | | [address] | | | | | | [facility] | | | | | | [place], [place] | | | | | | [address] | | | | | | [phone] | | | +--------+ + + + [...] [place] | | | | | | [address] | | | | | | [phone] | | | | | | | | +--------+---------+ + + + | 04/26/ | Office | Neurology | Kaitlynn Leyva, | | | 2018 | Visit | | [address] | | | | | | [facility] [place] | | | | | | [address] | | | | | | [phone] | | | | | | | | +--------+---------+ + + + documented as of this encounter Visit Diagnoses Not on filedocumented in this encounter"
--- OUTSIDE RECORDS SUMMARY | ~2019-03-05 | XMS | Encounter Summary ---
Demographics + + + | Address | [address] | | | [place] [address] | + + + | Home Phone | | + + + | Preferred Language | Unknown | + + + | Marital Status | | + + + | Denominational Affiliation | Unknown | + + + [...] Team Providers + +------+ + | Care Evaluation Analyst Name | Role | Phone | [...] | | | | (HCC) | [facility] [place] | Mailcode: | | | | | Procedures | [address] | [address] | | | | | MRI BRAIN | Phone: | [place] | | | | | MULTIPLE | [phone] | Research | | | | | SCLEROSIS | Fax: | Center | | | | | WWO CONTRAST | [phone] | [facility] [place] | | | | | ID MRI | | [address] | | | | | BRAIN COMBO | | Phone: | | | | | | | [phone] | | | | | | | Fax: | | | | | | | [phone] | +--------+--------+ + + + + Reason [...] | | | | (HCC) | [facility] [place] | Mailcode: | | | | | Procedures | [address] | [address] | | | | | MRI BRAIN | Phone: | [place] | | | | | MULTIPLE | [phone] | Research | | | | | SCLEROSIS | Fax: | Center | | | | | WWO CONTRAST | [phone] | [facility] [place] | | | | | ID MRI | | [address] | | | | | BRAIN COMBO | | Phone: | | | | | | | [phone] | | | | | | | Fax: | | | | | | | [phone] | +--------+--------+ + + + + Encounter Details +--------+ + + + + | Date | Type | Department | Care Team | Description | +--------+ + + + + | 07/26/ | Hospital | Diagnostic Imaging | Kaitlynn Leyva, | | | 2019 | Encounter | Services at [facility] | [address] | | | | | [address] | [place], [place] | | | | | [address] Mailcode: | [address] | | | | | [address] | [phone] | | | | | [facility] | | | | | | [place], [place] | | | | | | [address] | | | | | | [phone] | | | +--------+ + + + [...] tablet | | 18 | | | (MAXALT-HEAD OF SCIENCE) 10 mg | dissolve. May repeat | [...] | | 2018 | Visit | | [address] | | | | | | [address] | | | | | | [place], [place] | | | | | | [address] | | | | | | [phone] | | | | | | | | +--------+---------+ + + + | 04/26/ | Office | Neurology | Kaitlynn Leyva, | | | 2018 | Visit | | [address] | | | | | | [place], [place] | | | | | | [address] | | | | | | [phone] | | | | | | | [...]
--- OUTSIDE RECORDS SUMMARY | ~2019-03-05 | XMS | Encounter Summary ---
Demographics + + + | Address | [address] | | | [place] [address] | + + + | Home Phone | | + + + | Preferred Language | Unknown | + + + | Marital Status | | + + + | Adventism Affiliation | Unknown | + + + | Race | White | + + + | Ethnic Group | Not or | + + + Author + + + | Author | [facility] | + + + | Organization | [facility] | + + + | Address | Unknown | + + + | Phone | Unavailable | + + + Support + + +---------+ + | Name | Relationship | Address | Phone | + + +---------+ + | Klever Hsu | ECON | Unknown | | + + +---------+ + Care Team Providers + +------+ + | Care Business Development Analyst Name | Role | Phone | [...] | unspecified, | [address] | [address] | | | | | | [address] | [address] | | | | | intractable, | [place], [place] | [address] | | | | | without | [address] | [place], [place] | | | | | status | | [address] Phone: | | | | | migrainosus | | [phone] | | | | | Headache | | Fax: | | | | | Multiple | | [phone] | | | | | sclerosis | | | | | | | Procedures | | | | | | | ME NEW | | | | | | [...] aura | | 2016 | Visit | [facility] & | ANP [address] | and without status | | | | Healing [address] | migrainosus, not | | | | [address] Mailcode: | [place] [address] | intractable (Primary | | | | [facility] | [phone] | Dx) | | | | Health and Healing, | | | | | | Building | | | | | | Floor [place], [place] | | | | | | [address] | | | | | | [phone] | | | +--------+---------+ + + + [...] It has not been formally studied in [facility] and does not have an FDA indication [...] is a 54 year old woman, from [place] with migraine with aura, not intractab le, referred by Dr. Murillo, neurology, [place] dept. She is accompanied by: her mother. She has past medical history significant for headache since 1988, RRMS/ remains on copaxone, RLS, Ch ronic pain: Low back pain since last 10 yr and worse in last 6 months ( X ray, Rxd with Volt aren; has seen law tutor for back pain ), neck pain since [...] Location: Typically left sided, behind the eyes, [facility], in the back of the head, neck [...] 30 mg oral tablet rizatriptan rapid dissolve (MAXALT-INTAKE ASSESSOR) 10 mg oral tablet,disintegrating tamsulosin 0.4 mg [...] | 2019 | Visit | | [address] [facility] | | | | | | [address] | | | | | | [place], [place] | | | | | | [address] | | | | | | [phone] | | | | | | | | +--------+---------+ + + + | 04/26/ | Office | Neurology | Leslee Leyvaica Shen, | | | 2018 | Visit | | [address] | | | | | | [place], [place] | | | | | | [address] | | | | | | [phone] | | | | | | | [...]
--- OUTSIDE RECORDS SUMMARY | ~2019-03-05 | XMS | Encounter Summary ---
Demographics + + + | Address | [address] | | | [place] [address] | + + + | Home Phone [...] Team Providers + +------+ + | Care Convex Grinder Name | Role | Phone | + +------+ + | Jose Alberto Jones MD | PCP | | + +------+ + Reason for Referral Medication Prior Authorization (Routine) + +--------+ + + + + | Status | Reason | Specialty | Diagnoses / | Referred By | Referred To | | | | | Procedures | Contact | Contact | + +--------+ + + + + | Authorized | | | | Gordon, | | | | | | | Kaitlynn Schilling, | | | | | | | [address] | | | | | | | [address] | | | | | | | [place], [place] | | | | | | | [address] | | | | | | | Phone: | | | | | | | [phone] | | | | | | | Fax: | | | | | | | [phone] | | + +--------+ + + + + Reason for Visit + + + | Reason | Comments | + + + | Refill Request | | + + + Encounter Details +--------+--------+ + + + | Date | Type | Department | Care Team | Description | +--------+--------+ + + + | 01/15/ | Refill | Neurology at | Kaitlynn Leyva, | Refill Request | | 2019 | | [facility] & | [address] | | | | | [address] | [place], [place] | | | | | [address] Mailcode: | [address] | | | | | [facility] | [phone] | | | | | Health and Healing, | | | | | | | | | | | | [place], [place] | | | | | | [address] | | | | | | [phone] | | | +--------+--------+ + + + [...] | | 2018 | Visit | | [address] | | | | | | [address] | | | | | | [place], [place] | | | | | | [address] | | | | | | [phone] | | | | | | | | +--------+---------+ + + + | 04/26/ | Office | Neurology | Kaitlynn Leyva, | | | 2018 | Visit | | [address] | | | | | | [place], [place] | | | | | | [address] | | | | | | [phone] | | | | | | | | +--------+---------+ + + + documented as of this encounter Visit Diagnoses Not on filedocumented in this encounter"
--- OUTSIDE RECORDS SUMMARY | ~2019-03-05 | XMS | Encounter Summary ---
Demographics + + + | Address | [address] | | | [place] [address] | + + + | Home Phone [...] + + + | Author | [facility] | + + + | Organization | [facility] | + + + | Address | Unknown | + + + | Phone | Unavailable | + + + Support + + +---------+ + | Name | Relationship | Address | Phone | + + +---------+ + | Klever Hsu | ECON | Unknown | | + + +---------+ + Care Team Providers + +------+ + | Care Physical Biochemist Name | Role | Phone | + [...] Other (Mundo | | 2019 | | [facility] & | [address] | External Results) | | | | Healing [address] | [place], [place] | | | | | [address] Mailcode: | [address] | | | | | [facility] | [phone] | | | | | Health and Healing, | | | | | | Building [address], [address]th | | | | | | Floor [place], [place] | | | | | | [address] | | | | | | [phone] | | | +--------+ + + + [...] | 2019 | Visit | | [address] [facility] | | | | | | [address] | | | | | | [place], [place] | | | | | | [address] | | | | | | [phone] | | | | | | | | +--------+---------+ + + + | 04/26/ | Office | Neurology | Kaitlynn Leyva, | | | 2019 | Visit | | [address] | | | | | | [place], [place] | | | | | | [address] | | | | | | [phone] | | | | | | | [...] + + | [facility] - | [address] | [place], [place] | [phone] | | JOSELO | | | | + + + + + documented in this encounter Visit Diagnoses Not on filedocumented in this encounter"
--- OUTSIDE RECORDS SUMMARY | ~2019-03-05 | XMS | Encounter Summary ---
Demographics + + + | Address | [address] | | | [place] [address] | + + + | Home Phone [...] Providers + +------+ + | Care Electronic Gluer Name | Role | Phone | + +------+ + | Jose Alberto Jones MD | PCP | | + +------+ + Encounter Details +--------+ + + + + | Date | Type | Department | Care Team | Description | +--------+ + + + + | 08/11/ | Telephone | Neurology at | Kaitlynn Leyva, | | | 2019 | | [facility] & | [address] | | | | | [address] | [place], [place] | | | | | [address] Mailcode: | [address] | | | | | [facility] | [phone] | | | | | Health and Healing, | | | | | | | | | | | | [place], [place] | | | | | | [address] | | | | | | [phone] | | | +--------+ + + + [...] Rd | | | | | | [place], [place] | | | | | | [address] | | | | | | [phone] | | | | | | | | +--------+---------+ + + + | 04/26/ | Office | Neurology | Kaitlynn Leyva, | | | 2018 | Visit | | [address] | | | | | | [place], [place] | | | | | | [address] | | | | | | [phone] | | | | | | | [...]
--- OUTSIDE RECORDS SUMMARY | ~2019-03-05 | XMS | Encounter Summary ---
Demographics + + + | Address | [address] | | | [place] [address] | + + + | Home Phone | | + + + | Preferred Language | Unknown | + + + | Marital Status | | + + + | Anabaptism Affiliation | Unknown | + + + [...] Team Providers + +------+ + | Care Employment Program Representative Name | Role | Phone | + [...] | Radiology | Diagnoses | Chidi, | [facility] | | | | | Multiple | Woodrow R DO | [address] | | | | | sclerosis | [address] | [address] | | | | | (HCC) | [address] | Rd | | | | | Procedures | [facility] [place] | Mailcode: | | | | | MRI SPINE | [address] | [address] | | | | | LUMBAR WWO | | [address]el | | | | | CONTRAST | | Research | | | | | | | Center | | | | | | | [place], [place] | | | | | | | [address] | | | | | | | Phone: | | | | | | | [phone] | | | | | | | Fax: | | | | | | | [phone] | +--------+--------+ + + + + Diagnostic [...] | | | | | Procedures | [place], [place] | Mailcode: | | | | | MRI SPINE | [address] | [address] | | | | | CERVICAL WWO | | Noel | | | | | CONTRAST | | Research | | | | | MRI SPINE | | Center | | | | | LUMBAR WWO | | [place], [place] | | | | | CONTRAST [place] | | [address] | | | | | MRI, CERV | | Phone: | | | | | SPINE COMBO | | [phone] | | | | | [place] MRI, | | Fax: | | | | | LUMBAR SPINE | | [phone] | | | | | COMBO | | | +--------+--------+ + + + + Diagnostic [...] | | | | | Procedures | [place], [place] | Mailcode: | | | | | MRI BRAIN | [address] | [address] | | | | | MULTIPLE | | [address] | | | | | SCLEROSIS | | Research | | | | | WWO CONTRAST | | Center | | | | | [place] MRI | | [place], [place] | | | | | BRAIN COMBO | | [address] | | | | | | | Phone: | | | | | | | [phone] | | | | | | | Fax: | | | | | | | [phone] | +--------+--------+ + + + + Consultation (Routine) +--------+--------+ + + + + | Status | Reason | Specialty | Diagnoses / | Referred By | Referred To | | | | | Procedures | Contact | Contact | +--------+--------+ + + + + | Closed | | | Diagnoses | Chidi, | | | | | | Multiple | Woodrow Ghotra DO | | | | | | sclerosis | [address] | | | | | | ([facility]) | [address] | | | | | | Procedures | [place], [place] | | | | | | ACUPUNCTURE | [address] | | | | | | - EXTERNAL | | | | | | | ONLY | | | +--------+--------+ + + + + Encounter Details +--------+---------+ + + + | Date | Type | Department | Care Team | Description | +--------+---------+ + + + | 08/29/ | Office | Neurology at | Woodrow Murillo, | Multiple sclerosis | | 2016 | Visit | [facility] & | DO | ([facility]) (Primary Dx); | | | | [address] | | Restless legs; MS | | | | [address] Mailcode: | | (multiple sclerosis) | | | | [facility] | | ([facility]) | | | | Health and Healing, | | | | | | Building | | | | | | Floor [place], [place] | | | | | | [address] | | | | | | [phone] | | | +--------+---------+ + + + [...] + + + | Blood Pressure | 138/86 | 08/30/2015 9:38 AM | | | | | PDT | | + + + + + | Pulse | 80 | 08/30/2015 9:37 AM | | | | | PDT | | + + + + + | Temperature | 36.7 C (98.1 F) | 08/30/2015 9:37 AM | | | | | PDT | | + + + + + | Respiratory Rate | 18 | 08/30/2015 9:37 AM | | | | | PDT | | + + + + + | Oxygen Saturation | - | - | | + + + + + | Inhaled Oxygen | - | - | | | Concentration | | | | + + + + + | Weight | 70.6 kg (155 lb 10.3 | 08/30/2015 9:37 AM | | | | oz) | PDT | | + + + + + | Height | - | - | | + + + + + | Body Mass Index | 27.57 | 06/22/2014 8:35 AM | | | | | PST | | + + + + + documented in this encounter Progress Notes Woodrow Murillo DO - 08/30/2015 9:36 AM PDTFormatting of this note might be different fro m the original. Clinic: Multiple Sclerosis Clinic Problem [...] have insurance and hence saw no one. 2009: vertigo x 2 weeks, worsening of [...] meds her nocturnal frequency h as improved. Mid-November 2014 significant neck pain x 3 days, saw PT and used TENS units that helped. Also c/o episodes of burning paresthesia on the L buttock and left leg and radiated to left ankle . Has occurred x 2 since November 2014. Lasted 2-6 days. Will consider doing LS spine MRI in [facility] if these symptoms worsen. Chronic pain: Low back pain since last 10 yr and worse in last 6 months ( X ray, Rxd with Nano thomas; has seen monogram maker for back pain ), neck pain since 2006. R arm and hand pain has worsened since last 4 months. Headaches + all the time since 2013 - treated with Voltaren IBS symptoms - diarrhea, abdominal cramps, bloating. Cognitive function: can repeat herself often, forgetfulness, trouble with names. Fatigue: + 07/14/14 MRI brain wwo. COMPARISON: Outside MR [...] 2000;- treated successfull y with topical steroid HPI: Danisha returns for MS follow up. Has been on Copaxone since November 2014. Since last ap pointment in February 2015 she reports she has good and bad days. Today not feeling well, hav ing unsteadiness which she has occasionally. Fatigue still an issue, increasing Celexa didn' t help. Tried to go on Provigil, and hasn't heard from insurance. Having restless legs for p ast 4 months; legs get twitchy and can't hold still. Is worse when she is tired. Admits to n ot getting as much sleep because she has to get up to urinate. Is off Myrbetriq because wait ing on insurance, is on that in addition to Flomax because they work well together. Reports right hand is numb and leon all the time with a deep itch that she cannot scratch away. Sti ll smoking. Looking to start Exercise. Physical Examination: Filed Vitals: 08/30/2015 9:37 AM 08/30/2015 9:38 AM Weight: 70.6 kg (155 lb 10.3 oz) BP: 141/85 138/86 Pulse: 80 Temp: 36.7 C (98.1 F) TempSrc: Oral Resp: 18 PainSc: 04 - Moderate PainLoc: Head (Frontal) BMI: 27.58 kg/(m^2) General: The patient was alert, awake, [...] gait. L hip and lower back pain. On rest of the general exam, no other abnormality were seen. Timed Walk (25'): 6.15 (08/30/15937) Timed Walk Aid: none (08/30/15937) Assessment: 54 y.o. Female with multiple sclerosis based upon evidence of prior optic neuri tis in 2005 with major symptoms of neurogenic bladder, painful neuropathic limb pain, imbal ance, dizziness, and fatigue. Plan: -Continue copaxone. -Headaches - failed Topamax at 50 mg twice a day. Lyrica was denied by insurance. Referral to headache specialist pending. -counseled on smoking cessation and encouraged to call [place] tobacco quit line -encouraged exercise -gave external referral for acupuncture for painful neuropathic limb pain -based on complaint of RLS, checked iron and thyroid studies and note low ferritin; will se nd Artklikkhart to talk to PCP -recheck MRI brain and cervical spine based on worsening hand and foot involvement to scree n for lesion progression in addition to LS spine based on gait symptoms and low back pain -Vitamin D level of 94; will send Welcu message to lower dose -encouraged follow-up with Urology to see if anything else can help reduce nighttime awaken ings -RTC in 3 months Return in about 3 months (around 11/29/2015). Orders Placed This Encounter ACUPUNCTURE - EXTERNAL ONLY MRI BRAIN MULTIPLE SCLEROSIS WWO CONTRAST MRI CERVICAL WWO CONTRAST - To evaluate for tumor, infection, or inflammatory process [[id number]] MRI LUMBAR WWO CONTRAST - To evaluate for tumor, infection, or inflammatory process [R [id number]] IRON AND TIBC FERRITIN TRANSFERRIN TSH W/REFLEX TO FREE T4(IF ABNORMAL) METHYLMALONIC ACID, SERUM VITAMIN D, 25-HYDROXY, SERUM [[id number]] VITAMIN B-12, SERUM [[id number]] amitriptyline 25 mg oral tablet I spent 40 minutes with the patient. Greater than 50% of the time was spent counseling the patient regarding her MS symptoms of limb pain and urinary dysfunction. Woodrow Murillo DO Multiple Sclerosis and Neuroimmunology Fellow [facility] documented in this en counter Plan of [...] | | | | | | [place], [place] | | | | | | [address] | | | | | | [phone] | | | | | | | | +--------+---------+ + + + | 04/26/ | Office | Neurology | aKitlynn Leyva, | | | 2018 | Visit | | [address] | | | | | | [place], [place] | | | | | | [address] | | | | | | [phone] | | | | | | | | +--------+---------+ + + + + + +--------+ + + | Name | Type | Priori | Associated Diagnoses | Order Schedule | | | | ty | | | + + +--------+ + + | ACUPUNCTURE - | Procedures | Routin | Multiple sclerosis | Ordered: 08/30/2015 | | EXTERNAL ONLY | | e | (HCC) | | + + +--------+ + + documented as of this encounter Results MRI SPINE CERVICAL WWO [...] | | + +---------+ + + MRI BRAIN MULTIPLE SCLEROSIS WWO CONTRAST (10/04/2015 [...] | | + +---------+ + + | [facility] DEPARTMENT OF | | | | [...] | | | | | | MRI 11/21/14 TECHNIQUE: | | | | | | [...] | | | | | | MAYDA BAILEY, | | | | | | MDAuthor: [...] | | | + +---------+ + + VITAMIN B-12, SERUM (08/30/2015 10:33 [...] [facility] | [address] | [place] [address] | | | SERVICES, SPECIAL | [address] | | | | IMM + [...] | + + + + + | [facility] | [address] | [place] [address] | | | SERVICES, CORE | [address] [...] B: | | | | | | [employer]/CSPerformed | | | | | | by [address] | | | | | | [facility],[place] | | | | | | [address] | | | | | | [phone].[employer]Likelab. | | | | | | [facility], Alexis Dunbar, | | | | | [...] + + | [facility] | [address] | [place], [place] | | | [facility] | | [address] | | + + + + + [...] + + + + + | [facility] | [address] | [place] [address] | | | [address] | [address] | | | + + + [...] + + | Test now performed at [facility]. New method effective 10/20/13. | [facility] | | | LABORATORY | | | [address] | + + + + + + + + | Performing | Address | City/State/Zipcode | Phone Number | | Organization | | | | + + + + + | [facility] | [address] | [place] [address] | | | ELIE[address]OTH | [address] [...] | + + + + + | [facility] | [address] | [place] [address] | | | SERVICES, CORE | [address] [...] | + + + + + | [facility] | [address] | [place] [address] | | | SERVICES, CORE | [address] | | | + + + + + documented in this encounter Visit Diagnoses + + | Diagnosis | + + | Multiple sclerosis (HCC) - Primary Multiple sclerosis | + + | Restless legs Restless legs syndrome (RLS) | + + | MS (multiple sclerosis) (HCC) Multiple sclerosis | + + documented in this encounter"
--- OUTSIDE RECORDS SUMMARY | ~2019-03-05 | XMS | Encounter Summary ---
Demographics + + + | Address | [address] | | | [place] [address] | + + + | Home Phone | | + + + | Preferred Language | Unknown | + + + | Marital Status | | + + + | Pentecostalism Affiliation | Unknown | + + + [...] Team Providers + +------+ + | Care Distribution Supervisor Name | Role | Phone | + +------+ + | Jose Alberto Joens MD | PCP | | + +------+ [...] Authorization | | 2018 | on | [facility] & | PharmD [address] | Request - Medication | | | | [address]aling [address] | [address] | | | | | [address] Mailcode: | [place], [place] | | | | | [facility] | [address] | | | | | Health and Healing, | | | | | | Building [address], | | | | | | Floor [place], [place] | | | | | | [address] | | | | | | [phone] | | | +--------+ + + + [...] Rd | | | | | | [place], [place] | | | | | | [address] | | | | | | [phone] | | | | | | | | +--------+---------+ + + + | 04/26/ | Office | Neurology | Kaitlynn Leyva, | | | 2019 | Visit | | [address] | | | | | | [place] | | | | | | [address] | | | | | | [phone] | | | | | | | | +--------+---------+ + + + documented as of this encounter Visit Diagnoses Not on filedocumented in this encounter"
--- OUTSIDE RECORDS SUMMARY | ~2019-03-05 | XMS | Encounter Summary ---
Demographics + + + | Address | [address] | | | [place] [address] | + + + | Home Phone | | + + + | Preferred Language | Unknown | + + + | Marital Status | | + + + | Restoration Affiliation | Unknown | + + + | Race | White | + + + | Ethnic Group | Not or | + + + Author + + + | Author | [facility] | + + + | Organization | [facility] | + + + | Address | Unknown | + + + | Phone | Unavailable | + + + Support + + +---------+ + | Name | Relationship | Address | Phone | + + +---------+ + | Klever Hsu | ECON | Unknown | | + + +---------+ + Care Team Providers + +------+ + | Care Underground Repairer Name | Role | Phone | [...] Refill Request | | 2019 | | [facility] & | MD Rosanne Wallace | | | | | [address] | [place], [place] | | | | | Riley Wallace Mailcode: | [address] | | | | | [facility] | [phone] | | | | | Health and Healing, | | | | | | [facility] | | | | | | [place], [place] | | | | | | [address] | | | | | | [phone] | | | +--------+--------+ + + + [...] | | 2018 | Visit | | [address] | | | | | | [address] | | | | | | [place], [place] | | | | | | [address] | | | | | | [phone] | | | | | | | | +--------+---------+ + + + | 04/26/ | Office | Neurology | Kaitlynn Leyva, | | | 2018 | Visit | | [address] | | | | | | [place], [place] | | | | | | [address] | | | | | | [phone] | | | | | | | | +--------+---------+ + + + documented as of this encounter Visit Diagnoses Not on filedocumented in this encounter"
--- OUTSIDE RECORDS SUMMARY | ~2019-03-05 | XMS | Encounter Summary ---
Demographics + + + | Address | [address] | | | [place] [address] | + + + | Home Phone [...] Team Providers + +------+ + | Care Orchard Sprayer Name | Role | Phone | + [...] results | | 2014 | Encounter | [facility] & | [address] | | | | | [address] | | | | | Riley Wallace Mailcode: | [place], [place] | | | | | [address] | [address] | | | | | Health and Healing, | [phone] | | | | | | | | | | | Floor [place], [place] | | | | | | [address] | | | | | | [phone] | | | +--------+ + + + [...] | | 2018 | Visit | | [address] | | | | | | [address] | | | | | | [facility] [place] | | | | | | [address] | | | | | | [phone] | | | | | | | | +--------+---------+ + + + | 04/26/ | Office | Neurology | Kaitlynn Leyva, | | | 2018 | Visit | | [address] | | | | | | [place], [place] | | | | | | [address] | | | | | | [phone] | | | | | | | | +--------+---------+ + + + documented as of this encounter Visit Diagnoses Not on filedocumented in this encounter"
--- OUTSIDE RECORDS SUMMARY | ~2019-03-05 | XMS | Encounter Summary ---
Demographics + + + | Address | [address] | | | [place] [address] | + + + | Home Phone [...] Team Providers + +------+ + | Care Hearing Screen Coordinator Name | Role | Phone | + +------+ + | Jose Alberto Jones MD | PCP | | + +------+ + Encounter Details +--------+ + + + + | Date | Type | Department | Care Team | Description | +--------+ + + + + | 10/07/ | Telephone | Neurology at | Kaitlynn Leyva, | | | 2019 | | [facility] & | MD Rosanne Wallace | | | | | [address] | [place], [place] | | | | | [address] Wallace Mailcode: | [address] | | | | | [facility] | [phone] | | | | | Health and Healing, | | | | | | | | | | | | [place], [place] | | | | | | [address] | | | | | | [phone] | | | +--------+ + + + [...] Rd | | | | | | [place], [place] | | | | | | [address] | | | | | | [phone] | | | | | | | | +--------+---------+ + + + | 04/26/ | Office | Neurology | Kaitlynn Leyva, | | | 2018 | Visit | | [address] | | | | | | [place], [place] | | | | | | [address] | | | | | | [phone] | | | | | | | | +--------+---------+ + + + documented as of this encounter Visit Diagnoses Not on filedocumented in this encounter"
--- OUTSIDE RECORDS SUMMARY | ~2019-03-05 | XMS | Encounter Summary ---
Demographics + + + | Address | [address] | | | [place] [address] | + + + | Home Phone [...] Team Providers + +------+ + | Care Laborer Chicken Farm Name | Role | Phone | + [...] | unspecified, | [address] | [address] [facility] [facility] | | | | | | [address] | [address] | | | | | intractable, | [place], [place] | [address] | | | | | without | [address] | [place], [place] | | | | | status | | [address] Phone: | | | | | migrainosus | | [phone] | | | | | Headache | | Fax: | | | | | Multiple | | [phone] | | | | | sclerosis | | | | | | | Procedures | | | | | | | MA NEW | | | | | | [...] (multiple | | 2016 | Visit | [place] for [facility] & | DO | sclerosis) ([facility]) | | | | Healing [address] | | (Primary Dx); Iron | | | | [address] Wallace Mailcode: | | deficiency | | | | [facility] | | | | | | Health and Healing, | | | | | | Building 1, 8th | | | | | | Floor [place], [place] | | | | | | [address] | | | | | | [phone] | | | +--------+---------+ + + + [...] ray, Rxd with Vo ltaren; has seen supervisor cutting and sewing room for back pain), neck pain since 2006. [...] since November 2014. Is getting acupuncture in [place], thinks it is helping painful paresthes ias [...] Dr Jose Alberto Jones back at fax [phone] -[facility] in 4 months Return in about 4 months (around 03/31/2016). Orders Placed This Encounter VITAMIN D, 25-HYDROXY, SERUM [[id number]] CBC, WITH DIFFERENTIAL [[id number]] FERRITIN TENS unit and electrodes combo pack I spent 25 minutes with the patient. Greater than 50% of the time was spent counseling the patient regarding her MS and the plan to continue Copaxone and optimize lifestyle habits. Woodrow Murillo DO Multiple Sclerosis and Neuroimmunology Fellow [facility] [place] documented in this encounter Plan of Treatment +--------+---------+ + + + | Date | Type | Specialty | Care Team | Description | +--------+---------+ + + + | 04/05/ | Office | Thoracic Surgery | Antonio Kaur MD | | | 2018 | Visit | | [address] | | | | | | [address] | | | | | | [place], [place] | | | | | | [address] | | | | | | [phone] | | | | | | | | +--------+---------+ + + + | 04/26/ | Office | Neurology | Kaitlynn Leyva, | | | 2018 | Visit | | [address] | | | | | | [facility] [place] | | | | | | [address] | | | | | | [phone] | | | | | | | [...] | + + + + + | [facility] | [address] | [place] [address] | | | SERVICES, CORE | [address] [...] | + + + + + | [facility] | [address] | [place] [address] | | | LEOBARDO CORE | [address] | | | + + + + + documented in this encounter Visit Diagnoses + + | Diagnosis | + + | MS (multiple sclerosis) (HCC) - Primary Multiple sclerosis | + + | Iron deficiency Other disorders of iron metabolism | + + documented in this encounter
--- OUTSIDE RECORDS SUMMARY | ~2019-03-05 | XMS | Encounter Summary ---
Demographics + + + | Address | [address] | | | [place] [address] | + + + | Home Phone [...] + + + | Author | [facility] | + + + | Organization | [facility] | + + + | Address | Unknown | + + + | Phone | Unavailable | + + + Support + + +---------+ + | Name | Relationship | Address | Phone | + + +---------+ + | Klever Hsu | ECON | Unknown | | + + +---------+ + Care Team Providers + +------+ + | Care Clean In Places Operator Name | Role | Phone | [...] | | | Healing [address] | [place], [place] | | | | | [address] Wallace Mailcode: | [address] | | | | | [facility] | [phone] | | | | | Health and Healing, | | | | | | | | | | | | [place], [place] | | | | | | [address] | | | | | | [phone] | | | +--------+ + + + [...] Rd | | | | | | [place], [place] | | | | | | [address] | | | | | | [phone] | | | | | | | | +--------+---------+ + + + | 04/26/ | Office | Neurology | Kaitlynn Leyva, | | | 2018 | Visit | | [address] | | | | | | [place], [place] | | | | | | [address] | | | | | | [phone] | | | | | | | | +--------+---------+ + + + documented as of this encounter Visit Diagnoses Not on filedocumented in this encounter"
--- OUTSIDE RECORDS SUMMARY | ~2019-03-05 | XMS | Encounter Summary ---
Demographics + + + | Address | [address] | | | [place] [address] | + + + | Home Phone [...] Team Providers + +------+ + | Care Station Engineer Chief Name | Role | Phone | + [...] | | condition | MD [facility]ANKS | [address] | | | | | of brain | FAMILY | [address] | | | | | White matter | MEDICINE | [address] | | | | | disease | [address] | [place], [place] | | | | | | [address] | [address] | | | | | | [place], | Phone: | | | | | | [place] [address] | [phone] | | | | | | Phone: | Fax: | | | | | | [phone] | [phone] | | | | | | Fax: | | | | | | | [phone] | | +--------+--------+ + + + + Encounter Details +--------+ + + + + | Date | Type | Department | Care Team | Description | +--------+ + + + + | 08/24/ | Procedure | Neurology at | Mitul Mark MD | LP - Lumbar | | 2014 | | [facility] & | | puncture; Procedure | | | | Healing [address] | | | | | | [place] Mailcode: | | | | | | [facility] | | | | | | Health and Healing, | | | | | | Building | | | | | | [place], [place] | | | | | | [address] | | | | | | [phone] | | | +--------+ + + + [...] of care. MORGAN HOPKINS MD NEUROLOGY AT [place] [address] [address] [facility] Mail Code: [address] [address] Humberto Dumont MA - 08/24/2014 2:10 PM [...] this procedure was obtained and placed on [facility] rt. Procedure Details: A Team Pause was [...] Mitul Mark MD PGY-3 Neurology Resident Pager [phone] documented in this enco unter Plan of Treatment +--------+---------+ + + + | Date | Type | Specialty | Care Team | Description | +--------+---------+ + + + | 04/05/ | Office | Thoracic Surgery | Antonio Kaur MD | | | 2018 | Visit | | [address] | | | | | | [address] | | | | | | [place], [place] | | | | | | [address] | | | | | | [phone] | | | | | | | | +--------+---------+ + + + | 04/26/ | Office | Neurology | Kaitlynn Leyva, | | | 2018 | Visit | | [address] | | | | | | [place], [place] | | | | | | [address] | | | | | | [phone] | | | | | | | [...] + +--------+ + + + | NM SPINAL | Routin | 08/24/2014 | Abnormal [...] | + + + + + | [facility] | [address] | [place] [address] | | | SERVICES, CORE | [address] [...] [facility] | [address] | [place] [address] | | | SERVICES, CORE | PARK [...] | + + + + + | [facility] | [address] | [place] [id number] | | | SERVICES, CORE | [address] [...] [facility] | [address] | [place] [address] | | | SERVICES, CORE | PARK [...] | + + + + + | appiris | [address] | [place] [address] | | | SERVICES, CORE | [address] [...] | | | | | | Directory ([employer]). | | | | + + + [...] | | | | | result.Performed by [facility] | | | | | | [facility] Ed,[address] | | | | | | [address], [facility],[place] | | | | | | [address] | | | | | | [phone] | | | | | | aly, Alexis Dunbar, | | | | | | Hattie NEWSOME. Director | | | | + + + + + + | IGG CSF | 1.5 | 0.0 - 6.0 mg/dL | [facility] | | | | | | [...] [facility] | [address] | [place], [place] | | | UNIV P[facility] | | [address] | | + + + + + [...] | + + + + + | [facility] | [address] | [place] [address] | | | SERVICES, CORE | [address] [...]
--- OUTSIDE RECORDS SUMMARY | ~2019-03-05 | XMS | Encounter Summary ---
Demographics + + + | Address | [address] | | | [place] [address] | + + + | Home Phone | | + + + | Preferred Language | Unknown | + + + | Marital Status | | + + + | Latter Day Affiliation | Unknown | + + + [...] Team Providers + +------+ + | Care Associate Product Manager Name | Role | Phone | + +------+ + | Jose Alberto Jones MD | PCP | | + +------+ + Encounter Details +--------+------+ + + + | Date | Type | Department | Care Team | Description | +--------+------+ + + + | 10/24/ | Lab | Laboratory at [place] | | Dysuria | | 2014 | | [address] | | | | | | [place], [place] | | | | | | [address] | | | | | | [phone] | | | +--------+------+ + + + [...] Rd | | | | | | [place], [place] | | | | | | [address] | | | | | | [phone] | | | | | | | | +--------+---------+ + + + | 04/26/ | Office | Neurology | Kaitlynn Leyva, | | | 2018 | Visit | | [address] | | | | | | [place], [place] | | | | | | [address] | | | | | | [phone] | | | | | | | [...] [facility] | [address] | [place] [address] | | | SERVICES, CORE | PARK [...] [facility] | [address] | [place] [address] | | | SERVICES, CORE | [address] | | | + + + + + documented in this encounter Visit Diagnoses + + | Diagnosis | + + | Dysuria | + + documented in this encounter"
--- OUTSIDE RECORDS SUMMARY | ~2019-03-05 | XMS | Encounter Summary ---
Demographics + + + | Address | [address] | | | [place] [address] | + + + | Home Phone | | + + + | Preferred Language | Unknown | + + + | Marital Status | | + + + | Episcopal Affiliation | Unknown | + + + | Race | White | + + + | Ethnic Group | Not or | + + + Author + + + | Author | [facility] | + + + | Organization | [facility] | + + + | Address | Unknown | + + + | Phone | Unavailable | + + + Support + + +---------+ + | Name | Relationship | Address | Phone | + + +---------+ + | Klever Hsu | ECON | Unknown | | + + +---------+ + Care Team Providers + +------+ + | Care Molding Room Supervisor Name | Role | Phone | + +------+ + | Jose Alberto Jones MD | PCP | | + +------+ + Encounter Details +--------+ + + + + | Date | Type | Department | Care Team | Description | +--------+ + + + + | 10/07/ | Telephone | Neurology at | Kaitlynn Leyva, | | | 2019 | | [facility] & | MD [address] | | | | | [address] | [place], [place] | | | | | [address] Mailcode: | [address] | | | | | [facility] | [phone] | | | | | Health and Healing, | | | | | | | | | | | | [place], [place] | | | | | | [address] | | | | | | [phone] | | | +--------+ + + + [...] Rd | | | | | | [place], [place] | | | | | | [address] | | | | | | [phone] | | | | | | | | +--------+---------+ + + + | 04/26/ | Office | Neurology | Kaitlynn Leyva, | | | 2018 | Visit | | [address] | | | | | | [place], [place] | | | | | | [address] | | | | | | [phone] | | | | | | | | +--------+---------+ + + + documented as of this encounter Visit Diagnoses Not on filedocumented in this encounter"
--- OUTSIDE RECORDS SUMMARY | ~2019-03-05 | XMS | Encounter Summary ---
Demographics + + + | Address | [address] | | | [place] [address] | + + + | Home Phone [...] + + + | Author | [facility] | + + + | Organization | [facility] | + + + | Address | Unknown | + + + | Phone | Unavailable | + + + Support + + +---------+ + | Name | Relationship | Address | Phone | + + +---------+ + | Klever Hsu | ECON | Unknown | | + + +---------+ + Care Team Providers + +------+ + | Care Professor Of Industrial Technology Name | Role | Phone | + [...] Form) | | 2016 | on | [facility] & | DO | | | | | Healing [address] | | | | | | [address] Wallace Mailcode: | | | | | | [address] | | | | | | Health and Healing, | | | | | | Building | | | | | | Floor [place], [place] | | | | | | [address] | | | | | | [phone] | | | +--------+ + + + [...] | | 2018 | Visit | | [address] | | | | | | [address] | | | | | | [place], [place] | | | | | | [address] | | | | | | [phone] | | | | | | | | +--------+---------+ + + + | 04/26/ | Office | Neurology | Kaitlynn Leyva, | | | 2018 | Visit | | [address] | | | | | | [facility] [place] | | | | | | [address] | | | | | | [phone] | | | | | | | | +--------+---------+ + + + documented as of this encounter Visit Diagnoses Not on filedocumented in this encounter"
--- OUTSIDE RECORDS SUMMARY | ~2019-03-05 | XMS | Encounter Summary ---
Demographics + + + | Address | [address] | | | [place] [address] | + + + | Home Phone [...] Team Providers + +------+ + | Care Feeder Loader Name | Role | Phone | + [...] | | disease | [address] | [place], [place] | | | | | | [address] | [address] | | | | | | [place], | Phone: | | | | | | [place] [address] | [phone] | | | | | | Phone: | Fax: | | | | | | [phone] | [phone] | | | | | | Fax: | | | | | | | [phone] | | +--------+--------+ + + + + Encounter Details +--------+---------+ + + + | Date | Type | Department | Care Team | Description | +--------+---------+ + + + | 10/24/ | Office | Neurology at | Anali Shaikh, | Dysuria (Primary Dx) | | 2014 | Visit | [place] [facility] & | [address] | | | | | [address]aling [address] | [address] | | | | | [place] Barnes Mailcode: | [place], [place] | | | | | [facility] | [address] | | | | | Health and Healing, | [phone] | | | | | [facility] | | | | | | Floor [place], [place] | | | | | | [address] | | | | | | [phone] | | | +--------+---------+ + + + [...] months ( X ray, Rxd with Nano thmoas; has seen meal cook for back pain ), neck pain since [...] s pine from 04/01. Done at [facility] in [place], [place]. MRI C and T spine showed no cord abnormalities. Past Medical History Diagnosis Date MS (multiple sclerosis) Other general symptoms(780.99) Depressive disorder, not elsewhere classified Symptomatic menopausal or female climacteric states IBS (irritable bowel syndrome) since 2006 Lyme disease 1989 living in [place], headaches, fatigue, flu like symptoms,had CSF that [...] as above. Seen vestibular rehab therapist in [place] and that has benefited her with balance. [...] to her urologist Dr Sanjuanita Dick in [place]. Fax # [phone] Physical Examination: Filed Vitals: 10/24/2014 11:54 AM [...] R HF. Coordination testing was normal with lzkygk-kr-gfsg testing, fine finger movement and rapid alternating movement. Pnse-un-twai testing was normal bilaterally. On gait evaluation, [...] or have he adache specialist consult at [facility] in near future. Dizziness - continue [...] Rd | | | | | | [place], [place] | | | | | | [address] | | | | | | [phone] | | | | | | | | +--------+---------+ + + + | 04/26/ | Office | Neurology | Kaitlynn Leyva, | | | 2018 | Visit | | [address] | | | | | | [place], [place] | | | | | | [address] | | | | | | [phone] | | | | | | | [...] [facility] | [address] | [place] [address] | | | SERVICES, [place] | [address] | | | + + + + + documented in this encounter Visit Diagnoses + + | Diagnosis | + + | Dysuria - Primary | + + documented in this encounter"
--- OUTSIDE RECORDS SUMMARY | ~2019-03-05 | XMS | Encounter Summary ---
Demographics + + + | Address | [address] | | | [place] [address] | + + + | Home Phone [...] Team Providers + +------+ + | Care Residential Property Tax Appraiser Name | Role | Phone | + [...] | | | | | Procedures | [facility] [place] | Mailcode: | | | | | MRI SPINE | [address] | [address] | | | | | LUMBAR WWO | | [place] | | | | | CONTRAST | | Research | | | | | | | Center | | | | | | | [place], [place] | | | | | | | [address] | | | | | | | Phone: | | | | | | | [phone] | | | | | | | Fax: | | | | | | | [phone] | +--------+--------+ + + + + Diagnostic [...] | | | | | Procedures | [place], [place] | Mailcode: | | | | | MRI SPINE | [address] | [address] | | | | | CERVICAL WWO | | [place] | | | | | CONTRAST | | Research | | | | | MRI SPINE | | Center | | | | | LUMBAR WWO | | [place], [place] | | | | | CONTRAST [place] | | [address] | | | | | MRI, CERV | | Phone: | | | | | SPINE COMBO | | [phone] | | | | | [place] MRI, | | Fax: | | | | | LUMBAR SPINE | | [phone] | | | | | COMBO | [...] | | | | | Procedures | [place], [place] | Mailcode: | | | | | MRI BRAIN | [address] | [address] | | | | | MULTIPLE | | [place] | | | | | SCLEROSIS | | Research | | | | | WWO CONTRAST | | Center | | | | | [place] MRI | | [place], [place] | | | | | BRAIN COMBO | | [address] | | | | | | | Phone: | | | | | | | [phone] | | | | | | | Fax: | | | | | | | [phone] | +--------+--------+ + + + + Consultation [...] | | | | | sclerosis | [address] | | | | | | ([facility]) | [address] | | | | | | Procedures | [place], [place] | | | | | | ACUPUNCTURE | [address] | | | | | | - [...] sclerosis | | 2016 | Visit | [facility] & | DO | ([facility]) (Primary Dx); | | | | Healing [address] | | Restless legs; MS | | | | [place] Mailcode: | | (multiple sclerosis) | | | | [facility] | | ([facility]) | | | | Health and Healing, | | | | | | Building | | | | | | Floor [place], [place] | | | | | | [address] | | | | | | [phone] | | | +--------+---------+ + + + [...] doing LS spine MRI in [facility] if these symptoms worsen. Chronic pain: Low back pain since last 10 yr and worse in last 6 months ( X ray, Rxd with Nano thomas; has seen early childhood education worker for back pain ), neck pain [...] on smoking cessation and encouraged to call [place] tobacco quit line -encouraged exercise -gave external referral for acupuncture for painful neuropathic limb pain -based on complaint of RLS, checked iron and thyroid studies and note low ferritin; will se nd Rollerwallhart to talk to PCP -recheck MRI brain and cervical spine based on worsening hand and foot involvement to scree n for lesion progression in addition to LS spine based on gait symptoms and low back pain -Vitamin D level of 94; will send GotoTel message to lower dose -encouraged follow-up with Urology to see if anything else can help reduce nighttime awaken ings -RTC in 3 months Return in about 3 months (around 11/29/2015). Orders Placed This Encounter ACUPUNCTURE - EXTERNAL ONLY MRI BRAIN MULTIPLE SCLEROSIS WWO CONTRAST MRI CERVICAL WWO CONTRAST - To evaluate for tumor, infection, or inflammatory process [[id number]] MRI LUMBAR WWO CONTRAST - To evaluate for tumor, infection, or inflammatory process [[id number]] IRON AND TIBC FERRITIN TRANSFERRIN TSH W/REFLEX TO FREE T4(IF ABNORMAL) METHYLMALONIC ACID, SERUM VITAMIN D, 25-HYDROXY, SERUM [[id number]] VITAMIN B-12, SERUM [[id number]] amitriptyline 25 mg oral tablet I spent 40 minutes with the patient. Greater than 50% of the time was spent counseling the patient regarding her MS symptoms of limb pain and urinary dysfunction. Woodrow Murillo DO Multiple Sclerosis and Neuroimmunology Fellow [facility] documented in this en counter Plan of [...] Rd | | | | | | [place], [place] | | | | | | [address] | | | | | | [phone] | | | | | | | | +--------+---------+ + + + | 04/26/ | Office | Neurology | Kaitlynn Leyva, | | | 2018 | Visit | | [address] | | | | | | [place], [place] | | | | | | [address] | | | | | | [phone] | | | | | | | [...] | | + +---------+ + + | [facility] DEPARTMENT OF | | | | [...] [facility] | [address] | [place] [address] | | | SERVICES, SPECIAL | PARK [...] | + + + + + | [facility] | [address] | [place] [address] | | | SERVICES, CORE | MARIBEL [...] B: | | | | | | [employer]CSPerformed | | | | | | by [address]|[employer] [address] | | | | | | [place] [place] [facility] [place] | | | | | | [address] | | | | | | [phone].DestinationRXlab. | | | | | | [facility], Alexis Dunbar, | | | | | [...] [facility] | [address] | [place], [place] | | | UNIV PTH - INTFC | | [address] | | + + + + + [...] | + + + + + | [facility] | [address] | [place] [address] | | | ELIEZER BOOTH | MARIBEL [...] + + | Test now performed at [facility]. New method effective 10/20/13. | [facility] | | | LABORATORY | | | [address] | + + + + + + + + | Performing | Address | City/State/Zipcode | Phone Number | | Organization | | | | + + + + + | [facility] | [address] | [place] [address] | | | ELIEZER BOOTH | MARIBEL [...] | + + + + + | [facility] | [address] | [place] [address] | | | SERVICES, CORE | MARIBEL [...] | + + + + + | [facility] | [address] | [place] [address] | | | SERVICES, CORE | MARIBEL [...]
--- OUTSIDE RECORDS SUMMARY | ~2019-03-05 | XMS | Encounter Summary ---
Demographics + + + | Address | [address] | | | [place] [address] | + + + | Home Phone [...] Team Providers + +------+ + | Care Interactive Media Marketing Strategist Name | Role | Phone | + [...] | | | | | | [place], [place] | | | | | | [address] | | | +--------+ + + + [...] Rd | | | | | | [place], [place] | | | | | | [address] | | | | | | [phone] | | | | | | | | +--------+---------+ + + + | 04/26/ | Office | Neurology | Kaitlynn Leyva, | | | 2018 | Visit | | [address] | | | | | | [place], [place] | | | | | | [address] | | | | | | [phone] | | | | | | | | +--------+---------+ + + + documented as of this encounter Visit Diagnoses Not on filedocumented in this encounter"
--- OUTSIDE RECORDS SUMMARY | ~2019-03-05 | XMS | Encounter Summary ---
Demographics + + + | Address | [address] | | | [place] [address] | + + + | Home Phone [...] Team Providers + +------+ + | Care Physiologist Name | Role | Phone | + [...] Rd | | | | | | [place], [place] | | | | | | [address] | | | +--------+ + + + [...] Rd | | | | | | [place], [place] | | | | | | [address] | | | | | | [phone] | | | | | | | | +--------+---------+ + + + | 04/26/ | Office | Neurology | Kaitlynn Leyva, | | | 2018 | Visit | | [address] | | | | | | [place], [place] | | | | | | [address] | | | | | | [phone] | | | | | | | | +--------+---------+ + + + documented as of this encounter Visit Diagnoses Not on filedocumented in this encounter"
--- OUTSIDE RECORDS SUMMARY | ~2019-03-05 | XMS | Encounter Summary ---
Demographics + + + | Address | [address] | | | [place] [address] | + + + | Home Phone | | + + + | Preferred Language | Unknown | + + + | Marital Status | | + + + | Hinduism Affiliation | Unknown | + + + | Race | White | + + + | Ethnic Group | Not or | + + + Author + + + | Author | [facility] | + + + | Organization | [facility] | + + + | Address | Unknown | + + + | Phone | Unavailable | + + + Support + + +---------+ + | Name | Relationship | Address | Phone | + + +---------+ + | Klever Hsu | ECON | Unknown | | + + +---------+ + Care Team Providers + +------+ + | Care Merchandise Examiner Name | Role | Phone | + [...] work | | 2019 | | [facility] & | ISOTOPE TECHNOLOGIST [address] | consultation | | | | Healing [address] | [address] | | | | | [address] Mailcode: | [place], [place] | | | | | [address] | [address] | | | | | Health and Healing, | [phone] | | | | | [facility] | | | | | | Floor [place], [place] | | | | | | [address] | | | | | | [phone] | | | +--------+ + + + [...] | | 2018 | Visit | | [address] | | | | | | [address] | | | | | | [place], [place] | | | | | | [address] | | | | | | [phone] | | | | | | | | +--------+---------+ + + + | 04/26/ | Office | Neurology | Kaitlynn Leyva, | | | 2018 | Visit | | [address] | | | | | | [place], [place] | | | | | | [address] | | | | | | [phone] | | | | | | | | +--------+---------+ + + + documented as of this encounter Visit Diagnoses Not on filedocumented in this encounter"
--- OUTSIDE RECORDS SUMMARY | ~2019-03-05 | XMS | Encounter Summary ---
Demographics + + + | Address | [address] | | | [place] [address] | + + + | Home Phone | | + + + | Preferred Language | Unknown | + + + | Marital Status | | + + + | Jew Affiliation | Unknown | + + + [...] Providers + +------+ + | Care Senior Linux Unix Engineer Name | Role | Phone | + +------+ + | Jose Alberto Jones MD | PCP | | + +------+ + Encounter Details +--------+------+ + + + | Date | Type | Department | Care Team | Description | +--------+------+ + + + | 08/29/ | Lab | Laboratory at [facility] | | Multiple sclerosis | | 2016 | | [address] | | ([facility]); Restless legs | | | | [place], [place] | | | | | | [address] | | | | | | [phone] | | | +--------+------+ + + + [...] Rd | | | | | | [place], [place] | | | | | | [address] | | | | | | [phone] | | | | | | | | +--------+---------+ + + + | 04/26/ | Office | Neurology | Kaitlynn Leyva, | | | 2018 | Visit | | [address] | | | | | | [place], [place] | | | | | | [address] | | | | | | [phone] | | | | | | | [...] | + + + + + | [facility] | [address] | [place] [address] | | | SERVICES, CORE | MARIBEL [...] [facility] | [address] | [place] [address] | | | SERVICES, SPECIAL | MARIBEL [...] | + + + + + | [facility] | [address] | [place] [address] | | | SERVICES, [facility] [place] [place] | [address] | | | + [...] B: | | | | | | [employer]/CSPerformed | | | | | | by [employer],[address] | | | | | | [address], [facility] | | | | | | [address] | | | | | | [phone].[email or web address]. | | | | | | [employer], Alexis Dunbar, | | | | | [...] [facility] | [address] | [place], [place] | | | UNIV PTH - INTFC | | [address] | | + + + + + [...] | + + + + + | [facility] | [address] | [place] [address] | | | ELIEZER BOOTH | MARIBEL [...] + + | Test now performed at [facility]. New method effective 10/20/13. | [facility] | | | LABORATORY | | | [address] | + + + + + + + + | Performing | Address | City/State/Zipcode | Phone Number | | Organization | | | | + + + + + | [facility] | [address] | [place] [address] | | | ELIEZ[address] BOOTH | MARIBEL [...] | + + + + + | [employer] | [address] | [place] [address] | | | SERVICES, CORE | MARIBEL [...] [facility] | [address] | [place] [address] | | | SERVICES, CORE | [address] | | | + + + + + documented in this encounter Visit Diagnoses + + | Diagnosis | + + | Multiple sclerosis (HCC) Multiple sclerosis | + + | Restless legs Restless legs syndrome (RLS) | + + documented in this encounter"
--- OUTSIDE RECORDS SUMMARY | ~2019-03-05 | XMS | Encounter Summary ---
[...] Team Providers + +------+ + | Care Technical Fellow Name | Role | Phone | + [...] | | | | | Dizziness | [place], [place] | [address] | | | | | and | [address] | [place] | | | | | giddiness | Phone: | Research | | | | | Vision | [phone] | Center | | | | | disturbance | Fax: | [place], [place] | | | | | Procedures | [phone] | [address] | | | | | MRI BRAIN | | Phone: | | | | | MULTIPLE | | [phone] | | | | | SCLEROSIS | | Fax: | | | | | WWO CONTRAST | | [phone] | | | | | [place] MRI [...] | 2014 | Encounter | Services at [facility] | | | | | | [address] | | | | | | [place]isa [place] Mailcode: | | | | | | [address] [place] | | | | | | [facility] | | | | | | [place], [place] | | | | | | [address] | | | | | | [phone] | | | +--------+ + + + [...] Rd | | | | | | [place], [place] | | | | | | [address] | | | | | | [phone] | | | | | | | | +--------+---------+ + + + | 04/26/ | Office | Neurology | Kaitlynn Leyva, | | | 2018 | Visit | | [address] | | | | | | [place], [place] | | | | | | [address] | | | | | | [phone] | | | | | | | [...]
--- OUTSIDE RECORDS SUMMARY | ~2019-03-05 | XMS | Encounter Summary ---
Demographics + + + | Address | [address] | | | [place] [address] | + + + | Home Phone [...] Team Providers + +------+ + | Care Poultry Vaccinator Name | Role | Phone | + +------+ + | Jose Alberto Jones MD | PCP | | + +------+ + Encounter Details +--------+ + + + + | Date | Type | Department | Care Team | Description | +--------+ + + + + | 02/12/ | MyChart | Neurology at | | appointment | | 2017 | Encounter | [facility] & | | | | | | Healing [address] | | | | | | [address] Mailcode: | | | | | | [facility] [place] [facility] | | | | | | Health and Healing, | | | | | | [facility] | | | | | | [place], [place] | | | | | | [address] | | | | | | [phone] | | | +--------+ + + + [...] | | | | | | [facility] [place] | | | | | | [address] | | | | | | [phone] | | | | | | | | +--------+---------+ + + + | 04/26/ | Office | Neurology | Kaitlynn Leyva, | | | 2018 | Visit | | [address] | | | | | | [place], [place] | | | | | | [address] | | | | | | [phone] | | | | | | | | +--------+---------+ + + + documented as of this encounter Visit Diagnoses Not on filedocumented in this encounter"
--- OUTSIDE RECORDS SUMMARY | ~2019-03-05 | XMS | Encounter Summary ---
Demographics + + + | Address | [address] | | | [place] [address] | + + + | Home Phone [...] Team Providers + +------+ + | Care Plant Engineering Manager Name | Role | Phone | [...] Request | | 2015 | on | [facility] & | MD [address] | Copaxone 40 mg) | | | | Healing [address] | [address] | | | | | [address] Mailcode: | [place], [place] | | | | | [facility] | [address] | | | | | Health and Healing, | [phone] | | | | | | | | | | | Floor [place], [place] | | | | | | [address] | | | | | | [phone] | | | +--------+ + + + [...] Rd | | | | | | [place], [place] | | | | | | [address] | | | | | | [phone] | | | | | | | | +--------+---------+ + + + | 04/26/ | Office | Neurology | Kaitlynn Leyva, | | | 2018 | Visit | | [address] | | | | | | [place] | | | | | | [address] | | | | | | [phone] | | | | | | | | +--------+---------+ + + + documented as of this encounter Visit Diagnoses Not on filedocumented in this encounter"
--- OUTSIDE RECORDS SUMMARY | ~2019-03-05 | XMS | Encounter Summary ---
Demographics + + + | Address | [address] | | | [place] [address] | + + + | Home Phone [...] Team Providers + +------+ + | Care Conveyor Belt Installer Name | Role | Phone | + [...] Other (Mundo | | 2019 | | [facility] & | [address] | External Results) | | | | Healing [address] | [place], [place] | | | | | [address] [place] Mailcode: | [address] | | | | | [facility] | [phone] | | | | | Health and Healing, | | | | | | Building [address]th | | | | | | Floor [place], [place] | | | | | | [address] | | | | | | [phone] | | | +--------+ + + + [...] | | 2019 | Visit | | [address] | | | | | | [address] | | | | | | [place], [place] | | | | | | [address] | | | | | | [phone] | | | | | | | | +--------+---------+ + + + | 04/26/ | Office | Neurology | Kaitlynn Leyva, | | | 2019 | Visit | | [address] | | | | | | [place], [place] | | | | | | [address] | | | | | | [phone] | | | | | | | [...] [address] | [place] | [phone] | | [place] | | | | + + + + + documented in this encounter Visit Diagnoses Not on filedocumented in this encounter"
--- OUTSIDE RECORDS SUMMARY | ~2019-03-05 | XMS | Encounter Summary ---
Demographics + + + | Address | [address] | | | [place] [address] | + + + | Home Phone [...] Team Providers + +------+ + | Care Bi Manager Name | Role | Phone | + +------+ + | Jose Alberto Jones MD | PCP | | + +------+ + Encounter Details +--------+ + + + + | Date | Type | Department | Care Team | Description | +--------+ + + + + | 02/12/ | MyChart | Neurology at | | appointment | | 2017 | Encounter | [facility] & | | | | | | [address] | | | | | | [address] Mailcode: | | | | | | [facility] | | | | | | Health and Healing, | | | | | | [facility] | | | | | | [place], [place] | | | | | | [address] | | | | | | [phone] | | | +--------+ + + + [...] Rd | | | | | | [facility] [place] | | | | | | [address] | | | | | | [phone] | | | | | | | | +--------+---------+ + + + | 04/26/ | Office | Neurology | Kaitlynn Leyva, | | | 2018 | Visit | | [address] | | | | | | [place], [place] | | | | | | [address] | | | | | | [phone] | | | | | | | | +--------+---------+ + + + documented as of this encounter Visit Diagnoses Not on filedocumented in this encounter"
--- OUTSIDE RECORDS SUMMARY | ~2019-03-05 | XMS | Encounter Summary ---
Demographics + + + | Address | [address] | | | [place] [address] | + + + | Home Phone | | + + + | Preferred Language | Unknown | + + + | Marital Status | | + + + | Scientologist Affiliation | Unknown | + + + | Race | White | + + + | Ethnic Group | Not or | + + + Author + + + | Author | [facility] | + + + | Organization | [facility] | + + + | Address | Unknown | + + + | Phone | Unavailable | + + + Support + + +---------+ + | Name | Relationship | Address | Phone | + + +---------+ + | Klever Hsu | ECON | Unknown | | + + +---------+ + Care Team Providers + +------+ + | Care Detective Bureau Chief Name | Role | Phone | + +------+ + | Jose Alberto Jones MD | PCP | | + +------+ + Encounter Details +--------+ + + + + | Date | Type | Department | Care Team | Description | +--------+ + + + + | 08/18/ | Telephone | Neurology at | Anali Shaikh, | | | 2014 | | [facility] & | [address] | | | | | Healing [address] | [address] | | | | | [address] [place] Mailcode: | [place], [place] | | | | | [address] [place] [address] | [address] | | | | | Health and Healing, | [phone] | | | | | | | | | | | Floor [place], [place] | | | | | | [address] | | | | | | [phone] | | | +--------+ + + + [...] | | 2018 | Visit | | [address] | | | | | | [address] | | | | | | [place], [place] | | | | | | [address] | | | | | | [phone] | | | | | | | | +--------+---------+ + + + | 04/26/ | Office | Neurology | Kaitlynn Leyva, | | | 2018 | Visit | | [address] | | | | | | [place], [place] | | | | | | [address] | | | | | | [phone] | | | | | | | | +--------+---------+ + + + documented as of this encounter Visit Diagnoses Not on filedocumented in this encounter"
--- OUTSIDE RECORDS SUMMARY | ~2019-03-05 | XMS | Encounter Summary ---
Demographics + + + | Address | [address] | | | [place] [address] | + + + | Home Phone | | + + + | Preferred Language | Unknown | + + + | Marital Status | | + + + | Holiness Affiliation | Unknown | + + + [...] Team Providers + +------+ + | Care Transformer Shop Supervisor Name | Role | Phone | [...] (OU) | | 2014 | Visit | [place] | | | | | | Photography at [facility] | | | | | | [address] | | | | | | Mailcode: CH11P | | | | | | [facility] | | | | | | and Healing, | | | | | | Building | | | | | | Floor [place], [place] | | | | | | [address] | | | | | | [phone] | | | +--------+ + + + [...] | | 2018 | Visit | | [address] | | | | | | [address] | | | | | | [place], [place] | | | | | | [address] | | | | | | [phone] | | | | | | | | +--------+---------+ + + + | 04/26/ | Office | Neurology | Kaitlynn Leyva, | | | 2018 | Visit | | [address] | | | | | | [place], [place] | | | | | | [address] | | | | | | [phone] | | | | | | | | +--------+---------+ + + + documented as of this encounter Visit Diagnoses + + | Diagnosis | + + | MS (multiple sclerosis) (HCC) Multiple sclerosis | + + documented in this encounter"
--- OUTSIDE RECORDS SUMMARY | ~2019-03-05 | XMS | Encounter Summary ---
Demographics + + + | Address | [address] | | | [place] [address] | + + + | Home Phone [...] Team Providers + +------+ + | Care Ribbon Inker Name | Role | Phone | + [...] Other (Scan | | 2019 | | [facility] & | MD [address] | Document) | | | | Kael [address] | [place], [place] | | | | | [address] Mailcode: | [address] | | | | | [address] | [phone] | | | | | Health and Healing, | | | | | | [facility] | | | | | | [place], [place] | | | | | | [address] | | | | | | [phone] | | | +--------+ + + + [...] | | 2018 | Visit | | [address] | | | | | | [address] | | | | | | [place], [place] | | | | | | [address] | | | | | | [phone] | | | | | | | | +--------+---------+ + + + | 04/26/ | Office | Neurology | Kaitlynn Leyva, | | | 2018 | Visit | | [address] | | | | | | [place], [place] | | | | | | [address] | | | | | | [phone] | | | | | | | | +--------+---------+ + + + documented as of this encounter Visit Diagnoses Not on filedocumented in this encounter"
--- OUTSIDE RECORDS SUMMARY | ~2019-03-05 | XMS | Encounter Summary ---
Demographics + + + | Address | [address] | | | [place] [address] | + + + | Home Phone | | + + + | Preferred Language | Unknown | + + + | Marital Status | | + + + | Bahai Affiliation | Unknown | + + + [...] Team Providers + +------+ + | Care Patent Law Specialist Name | Role | Phone | [...] (Lab Results) | | 2015 | | [facility] & | [address] | | | | | [address] | [address] | | | | | [address] [place] Mailcode: | [place], [place] | | | | | [address] | [address] | | | | | Health and Healing, | [phone] | | | | | [facility] | | | | | | Floor [place], [place] | | | | | | [address] | | | | | | [phone] | | | +--------+ + + + [...] | | 2018 | Visit | | [address] | | | | | | [address] | | | | | | [place], [place] | | | | | | [address] | | | | | | [phone] | | | | | | | | +--------+---------+ + + + | 04/26/ | Office | Neurology | Kaitlynn Leyva | | | 2018 | Visit | [place] [facility] [address] | | | | | | [place], [place] | | | | | | [address] | | | | | | [phone] | | | | | | | | +--------+---------+ + + + documented as of this encounter Visit Diagnoses Not on filedocumented in this encounter"
--- OUTSIDE RECORDS SUMMARY | ~2019-03-05 | XMS | Clinical Summary ---
Demographics + + + | Address | [address] | | | [place] [address] | + + + | Home Phone | | + + + | Preferred Language | Unknown | + + + | Marital Status | | + + + | Yazidism Affiliation | Unknown | + + + | Race | White | + + + | Ethnic Group | Not or | + + + Author + + + | Author | [facility] | + + + | Organization | [facility] | + + + | Address | Unknown | + + + | Phone | Unavailable | + + + Support + + +---------+ + | Name | Relationship | Address | Phone | + + +---------+ + | Klever Hsu | ECON | Unknown | | + + +---------+ + Care Team Providers + +------+ + | Care Firer Marine Name | Role | Phone | + +------+ + | Jose Alberto Jones MD | PCP | | + +------+ + Source Comments MY[facility] is fully live on both [facility] Allergies + + + + + + [...] | 6/20 | | e | | (MAXALT-OUTREACH REPRESENTATIVE) 10 mg | dissolve. May repeat | [...] + + + + | 02/24/ | Butane Compressor Operator | Thoracic Surgery | Yeyo Evans NP [...] work | | 2018 | | | RN FIRST ASSISTANT | consultation | +--------+ + + + + | 02/08/ | Office | Neurology | Kaitlynn Leyva, | MS (multiple | | 2018 | Visit | | MD | sclerosis) ([facility]) | | | | | | (Primary [...] [address] | | | | | | [place], [place] | | | | | | [address] | | | | | | [phone] | | | | | | | | +--------+---------+ + + + | 04/26/ | Office | Neurology | Kaitlynn Leyva, | | | 2018 | Visit | | [address] | | | | | | [place], [place] | | | | | | [address] | | | | | | [phone] | | | | | | | [...] + + | [facility] - | [address] | [place] | [phone] | | [place] | | | | [...] [facility] | | 18-Pre | [address] | [address] | | | | E | | sent | | [place] | | | | | | | | , [place] | | | | | | | | [address] | | + +--------+ +--------+ + +------+ [...] | 1961 | [phone] | [place] [address] | | | sky | | | 6 (Home) | | + +--------+ +--------+ + +
--- OUTSIDE RECORDS SUMMARY | ~2019-03-05 | XMS | Encounter Summary ---
Demographics + + + | Address | [address] | | | [place] [address] | + + + | Home Phone [...] Team Providers + +------+ + | Care Rehabilitation Services Aide Name | Role | Phone | [...] | | 2015 | anned | [address] | | | | | | [address] | | | | | | Mailcode: [id number] | | | | | | [facility] | | | | | | [place], [place] | | | | | | [address] | | | | | | [phone] | | | +--------+ + + + [...] | | | | | | [place], [place] | | | | | | [address] | | | | | | [phone] | | | | | | | | +--------+---------+ + + + | 04/26/ | Office | Neurology | Kaitlynn Leyva, | | | 2018 | Visit | | [address] | | | | | | [facility] [place] | | | | | | [address] | | | | | | [phone] | | | | | | | | +--------+---------+ + + + documented as of this encounter Visit Diagnoses Not on filedocumented in this encounter"
--- OUTSIDE RECORDS SUMMARY | ~2019-03-05 | XMS | Encounter Summary ---
Demographics + + + | Address | [address] | | | [place] [address] | + + + | Home Phone | | + + + | Preferred Language | Unknown | + + + | Marital Status | | + + + | Rastafari Affiliation | [id number] | + + + | Race | Unknown | + + + | Ethnic Group | Unknown | + + + Author + + + | Author | [facility] | | | and [place] | + + + | Organization | [facility] | | | and [place] [...] Team Providers + +------+ + | Care Taxi Proprietor Name | Role | Phone | + [...] | MED CTR [facility]TER[facility] | [address] | | | | | IMAGING | [address] | | | | | [phone] | [place] [address] | | +--------+ + + + + [...]
--- OUTSIDE RECORDS SUMMARY | ~2019-03-05 | XMS | Encounter Summary ---
Demographics + + + | Address | [address] | | | [place] [address] | + + + | Home Phone [...] Team Providers + +------+ + | Care Systems Test Analyst Name | Role | Phone | [...] [address] | | | | | | [place], [place] | | | | | | [address] | | | +--------+ + + + [...] | | 2018 | Visit | | [address] | | | | | | [address] | | | | | | [place], [place] | | | | | | [address] | | | | | | [phone] | | | | | | | | +--------+---------+ + + + | 04/26/ | Office | Neurology | Kaitlynn Leyva | | | 2018 | Visit | | [address] | | | | | | [place], [place] | | | | | | [address] | | | | | | [phone] | | | | | | | [...]
--- OUTSIDE RECORDS SUMMARY | ~2019-03-05 | XMS | Encounter Summary ---
Demographics + + + | Address | [address] | | | [place] [address] | + + + | Home Phone [...] | + + +---------+ + | Klever sHu | ECON | Unknown | | + + +---------+ + Care Team Providers + +------+ + | Care Assayer Helper Name | Role | Phone | + [...] Medication | | 2018 | Encounter | [facility] & | [address] | | | | | [address] | [place], [place] | | | | | [address] Mailcode: | [id number] | | | | | [address] | [phone] | | | | | Health and Healing, | | | | | | | | | | | | [place], [place] | | | | | | [address] | | | | | | [phone] | | | +--------+ + + + [...] | | 2018 | Visit | | [address] | | | | | | [address] | | | | | | [place], [place] | | | | | | [address] | | | | | | [phone] | | | | | | | | +--------+---------+ + + + | 04/26/ | Office | Neurology | Kaitlynn Leyva, | | | 2018 | Visit | | [address] | | | | | | [place], [place] | | | | | | [address] | | | | | | [phone] | | | | | | | | +--------+---------+ + + + documented as of this encounter Visit Diagnoses Not on filedocumented in this encounter"
--- OUTSIDE RECORDS SUMMARY | ~2019-03-05 | XMS | Encounter Summary ---
Demographics + + + | Address | [address] | | | [place] [address] | + + + | Home Phone [...] Team Providers + +------+ + | Care Mechanical Car Checker Name | Role | Phone | + [...] | | | | | | | [address] | | | | | | | [address] | | | | | | | [place], [place] | | | | | | | [address] | | | | | | | Phone: | | | | | | | [phone] | | | | | | | Fax: | | | | | | | [phone] | | + +--------+ + + + [...] Refill Request | | 2019 | | [facility] & | [address] | | | | | [address] | [place], [place] | | | | | [address] Mailcode: | [id number] | | | | | [facility] | [phone] | | | | | Health and Healing, | | | | | | | | | | | | [place], [place] | | | | | | [address] | | | | | | [phone] | | | +--------+--------+ + + + [...] | | 2018 | Visit | | [address] | | | | | | [address] | | | | | | [place], [place] | | | | | | [address] | | | | | | [phone] | | | | | | | | +--------+---------+ + + + | 04/26/ | Office | Neurology | Kaitlynn Leyva, | | | 2018 | Visit | | [address] | | | | | | [place], [place] | | | | | | [address] | | | | | | [phone] | | | | | | | | +--------+---------+ + + + documented as of this encounter Visit Diagnoses Not on filedocumented in this encounter"
--- OUTSIDE RECORDS SUMMARY | ~2019-03-05 | XMS | Encounter Summary ---
Demographics + + + | Address | [address] | | | [place] [address] | + + + | Home Phone [...] Team Providers + +------+ + | Care Parts Counter Salesperson Name | Role | Phone | [...] | 2019 | Visit | | [address] | | | | | | [address] | | | | | | [place], [place] | | | | | | [address] | | | | | | [phone] | | | | | | | | +--------+---------+ + + + | 04/26/ | Office | Neurology | Kaitlynn Leyva, | | | 2018 | Visit | | [address] | | | | | | [place], [place] | | | | | | [address] | | | | | | [phone] | | | | | | | | +--------+---------+ + + + documented as of this encounter Visit Diagnoses Not on filedocumented in this encounter"
[~2019-03-05 15:29] MED LIST changes: +OXYCODONE HCL5 MG PO
--- OUTSIDE RECORDS SUMMARY | 2019-03-05 15:32 | XMS ---
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 EKaron VISIT COUNT (12 MO.) 2 KIM Garcia TOTAL 2 NOTE: Visits indicate total known visits. 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
== END 2019-03-06 00:38 | disposition short-term general hospital (02) ==
LOC: ED 15:29
DX: M84.48XA Pathological fracture, other site, initial encounter for fracture (principal); C79.51 Secondary malignant neoplasm of bone; F17.200 Nicotine dependence, unspecified, uncomplicated; Z88.5 Allergy status to narcotic agent; Z88.6 Allergy status to analgesic agent; Z88.1 Allergy status to other antibiotic agents; Z79.82 Long term (current) use of aspirin; Z79.899 Other long term (current) drug therapy
CPT/HCPCS: 71046; 80053; 85025; 85379; 96374; 96375; 96376; 99285-25; J1885; J3010